=== PATIENT | female | born 1970 | race Two or more races ===

== ENCOUNTER → 2021-02-01 15:25 | Outpatient (BNV) | payer MEDICARE, MEDICAID, SELFPAY | PROVIDERS: Visit Provider Internal Medicine Medical Oncology | DX: D57.3 Sickle-cell trait (principal); Z86.718 Personal history of other venous thrombosis and embolism | CPT/HCPCS: 99213; 99214 ==

== ENCOUNTER 2022-07-11 12:41 | Outpatient (REF) | payer MEDICARE, MEDICAID, SELFPAY ==
[2022-07-11 13:00] LABS: MANUAL DIFF FLAG NO
[2022-07-11 13:04] LABS: Basophils Percent Auto 0.6 % (0-2); Eosinophils Absolute Auto 0.1 X10*3/uL (0.0-0.4); Eosinophils Percent Auto 2.8 % (0-4); Hematocrit 37.9 % (37.0-47.0); Hemoglobin 12.3 g/dl (12.0-16.0); Imm Gran Abs Auto 0.01 X10*3/uL (0.00-0.03); Imm Gran Pct Auto 0.2 % (0.0-0.4); Lymphocytes Percent Auto 38.9 % (20-40); Mean Corpuscular HGB Conc 32.5 g/dl (31.0-35.0); Mean Corpuscular Hemoglobin 27.4 pg (27.0-33.0); Mean Corpuscular Volume 84.4 fL (80.0-98.0); Mean Platelet Volume 10.4 fL (9.4-12.3); Monocytes Absolute Auto 0.4 X10*3/uL (0.1-1.2); Monocytes Percent Auto 7.9 % (2-11); Neutrophils Absolute Auto 2.5 x10*3/uL (2.0-8.3); Neutrophils Percent Auto 49.6 % (45-73); Platelet Count 155 X10*3/uL (160-400); Red Blood Count 4.49 X10*6/uL (4.20-5.50); Red Cell Distribution Width 15.5 % (11.0-16.0); White Blood Count 5.1 X10*3/uL (4.8-10.8)
[2022-07-11 13:26] LABS: Alanine Aminotransferase 26 U/L (0-31); Albumin Level 4.1 g/dL (3.5-5.0); Alkaline Phosphatase 81 U/L (39-117); Anion Gap 14 (12-20); Aspartate Amino Transferase 28 U/L (5-31); Bilirubin Total 0.2 mg/dL (0.0-1.0); Blood Urea Nitrogen 14 mg/dL (9-16); Calcium 9.2 mg/dL (8.4-10.2); Carbon Dioxide 25 mmol/L (22-29); Chloride 106 mmol/L (96-108); Estimated Glomerular Filt Rate > 60; Glucose Random 114 mg/dL (60-115); Potassium 4.3 mmol/L (3.3-5.1); Sodium 141 mmol/L (135-145); Total Protein 6.7 g/dL (6.5-8.0)
[2022-07-11 13:46] LABS: Ferritin 72 ng/mL (10-250)
== END 2022-07-11 12:42 | disposition home or self-care (01) ==
LOC: HO.LAB 12:41
PROVIDERS: Referring Provider Nurse Practitioner Women's Health; Visit Provider Internal Medicine Medical Oncology
DX: Z86.2 Personal history of diseases of the blood and blood-forming organs and certain disorders involving the immune mechanism (principal)
CPT/HCPCS: 36415; 80053; 82728; 85025

== ENCOUNTER → 2022-10-07 08:08 | Outpatient (BNVA) | payer MEDICARE, MEDICAID, SELFPAY | PROVIDERS: Visit Provider Nurse Practitioner | DX: Z01.818 Encounter for other preprocedural examination (principal); K22.10 Ulcer of esophagus without bleeding; K21.9 Gastro-esophageal reflux disease without esophagitis; Z86.718 Personal history of other venous thrombosis and embolism; Z95.828 Presence of other vascular implants and grafts; Z79.01 Long term (current) use of anticoagulants | CPT/HCPCS: 99212 ==

== ENCOUNTER → 2022-12-02 09:03 | Outpatient (BNVA) | payer MEDICARE, MEDICAID, SELFPAY | PROVIDERS: PCP Nurse Practitioner Women's Health; Visit Provider Nurse Practitioner | DX: K22.10 Ulcer of esophagus without bleeding (principal); K21.9 Gastro-esophageal reflux disease without esophagitis; A04.8 Other specified bacterial intestinal infections; Z95.828 Presence of other vascular implants and grafts; Z86.718 Personal history of other venous thrombosis and embolism | CPT/HCPCS: 99212 ==

== ENCOUNTER 2023-05-15 11:30 | Outpatient (REF) | payer MEDICARE, MEDICAID, SELFPAY ==
--- NOTE | ~2023-05-15 | US_ITS ---
EXAMINATION: US VENOUS ULTRASOUND WITH DOPPLER LOWER EXTREMITY, RIGHT CLINICAL INFORMATION: Right leg pain COMPARISON: None available. TECHNIQUE: Ultrasound of the deep veins is performed from the hip to the calf with compression sonography and color and pulse Doppler assessment. Spectral analysis with color-flow imaging is performed. FINDINGS: There is normal venous compression and respiratory variation and augmented flow. The visualized common femoral vein, superficial femoral vein, profunda femoral vein, popliteal vein, and the posterior tibial veins shows no evidence of deep venous thrombosis. Peroneal veins are not seen. Significant calf edema. There is no significant popliteal fossa cyst. US/US venous duplex LE RT IMPRESSION: No DVT demonstrated in the right lower extremity. Peroneal veins not seen.
== END 2023-05-15 11:31 | disposition home or self-care (01) ==
LOC: HO.US 11:30
PROVIDERS: Visit Provider Nurse Practitioner Women's Health
DX: M79.604 Pain in right leg (principal)
CPT/HCPCS: 93971

== ENCOUNTER 2023-06-12 12:28 | Outpatient (AMB) | payer MEDICARE, MEDICAID, SELFPAY ==
[2023-06-12 12:29] VITALS: BP 128/74; PULSE 99; O2SAT 96; BMI 31.6
--- NOTE | 2023-06-12 12:29 | MHC.PC.OV ---
Vital Signs 06/12/23 12:29 Height 5 ft 4 in Weight 184 lb 2 oz BMI 31.6 BP 128/74 Blood Pressure Location Lt brachial Position Sitting Pulse 99 Pulse Source Pulse Oximeter Pulse Oximetry (%) 96 Oxygen Delivery Method Room Air Intake Visit Reasons: check up Allergies aspirin [ASPIRIN] Allergy (Unknown, Verified 06/12/23 12:34) HIVES Morphine Allergy (Unknown, Uncoded 06/12/23 12:34) itching pollen Allergy (Unknown, Uncoded 06/12/23 12:34) Itching Medication List - Last Reconciled 06/12/23 by DAYSI Her cholecalciferol (vitamin D3) (Vitamin D3) 2 tabs PO DAILY levorphanol tartrate 2 mg PO DAILY lisinopril 1 tab PO DAILY lorazepam 1 tab PO TID Nexium (esomeprazole magnesium) 40 mg PO BID NS oxycodone 1 tab PO QID PRN penicillin V potassium 500 mg PO QID rivaroxaban (Xarelto) 20 mg PO DAILY Tobacco use date assessed: 06/12/23 Dental Screening Dental Screen Date: 06/12/23 Did you have a dental visit in the last 12 months?: Yes Did you have a dental problem in the last 6 months where you did not have access to dental care?: No Was dental information given to patient?: Patient has dentist HPI HPI Comments History of Present Illness Details 52-year-old female past medical history significant for sickle cell trait, bipolar anxiety,CKD, GERD and DVT. Patient currently following with Hematology for DVT on Xarelto 20 mg daily. Patient reports following with Dr. De Luna for neprology and follows with gastroenterology for her GERD. When initially brought into the room to obtain vital signs by MERE, MERE reported that patient appeared to be falling asleep during her intake. Upon medication review, patient is on multiple medications for unknown chronic pain. During this exam patient is alert and oriented x 3, ambulating around room with cane. VSS. Patient currently on pregabalin on 100 mg b.i.d., oxycodone 20 mg q.i.d. as needed, levorphanol tartrate 2mg TID in addition to hydroxyzine 25mg prn and lorazepam 1mg TID. Patient reports currently following with [facility] [employer] [facility] which she has a pain contract with and undergoes routine drug screenings. Patient will not be prescribed any controlled substances by this pcp. Patient also reports she follows with psychiatrist who prescribes her lorazepam, and she does not want to disclose the name of her psychiatrist. Previous PCP: Paula Ortega in [place]. [facility] Medical History History of depression Hx of deep venous thrombosis Hx of iron deficiency anemia Hx of sickle cell trait Shearing of artificial skin graft Surgical History H/O colonoscopy H/O esophagogastroduodenoscopy H/O gastric sleeve History of section History of cholecystectomy S/P panniculectomy Family History Brother Brother Other No family history of cancer Social History (Updated 06/12/23 @ 13:00 by DAYSI Her) Household Members: None Housing: House Are you a primary companion caregiver to a significant other at home: No Do you presently have visiting nurse or other home services: No Alcohol intake: current Patient Tobacco Use Status: Current everyday Tobacco user Tobacco use type: Cigarette Cigarette Packs Per Day: 1 Cigarettes Per Day: 6 service: No Current occupational status: disabled Questionnaire PHQ-9 Over the last 2 weeks, how often have you been bothered by any of the following problems? 1. Little interest or pleasure in doing things: several days 2. Feeling down, depressed, or hopeless: more than half the days 3. Trouble falling or staying asleep, or sleeping too much: nearly every day 4. Feeling tired or having little energy: nearly every day 5. Poor appetite or overeating: nearly every day 6. Feeling bad about yourself - or that you are a failure or have let yourself or your family down: not at all 7. Trouble concentrating on things, such as reading the newspaper or watching television: not at all 8. Moving or speaking so slowly that other people could have noticed. Or the opposite - being so fidgety or restless that you have been moving around a lot more than usual: several days 9. Thoughts that you would be better off or of hurting yourself in some way: several days Total score: 14 Depression Screening Interpretation: Positive [id number] - PHQ-9 Billing: Yes Source: Developed by Drs. Bret Kovacs, Krystina Osorio, Arian Gallardo and colleagues, with an educational yeny from [employer]. Thrive Questionnaire Date Thrive assessed: 06/12/23 I am a: Patient What is your living situation today?: I have a steady place to live Within the past 12 months, did the food you bought not last and you didn't have the money to get more?: Sometimes True Within the past 12 months, did you worry whether your food would run out before you got money to buy more?: Sometimes True Do you have trouble paying for medicines?: Yes Do you have trouble getting transportation to medical appointments?: No Do you have trouble paying your heating and electricity bill?: Yes Do you have trouble taking care of your child, family member or friend?: No Do you have trouble with day-to-day activities such as bathing, preparing meals, shopping, managing finances, etc.?: Yes Are you currently unemployed and looking for a job?: No Are you interested in more education?: No Currently or been in a relationship where the following occur: no concerns reported AUDIT C Alcohol Use Questionnaire (AUDIT-C) 1. How often do you have a drink containing alcohol?: Never 3. How often do you have six or more drinks on one occasion?: Never Total Score: 0 TOM-7 AMB Questionnaire TOM-7 Date TOM - 7 assessed: 06/12/23 Feeling nervous, anxious, or on edge: 3 = Nearly every day Not being able to stop or control worryin = Several days Worrying too much about different things: 1 = Several days Trouble relaxin = Several days Being so restless that it is hard to sit still: 3 = Nearly every day Becoming easily annoyed or irritable: 3 = Nearly every day Feeling afraid as if something awful might happen: 3 = Nearly every day Total TOM-7 score (0-4 normal; 5-9 mild; 10-14 moderate; 15-21 severe): 15 Source: Developed by Krystina Douglsas Kurt Kroenke and colleagues, with an educational yeny from [employer]. Review of Systems Const Denies chills, Denies fatigue, Denies fever(s) and Denies poor appetite Eyes Denies no additional complaints ENT Reports Normal hearing present Card Denies chest pain, Denies syncope, Denies rapid heart rate and Denies dyspnea Resp Denies cough and Denies dyspnea GI Denies change in stool character, Denies constipation, Denies diarrhea, Denies nausea and Denies vomiting Denies urinary frequency, Denies dysuria and Denies urinary urgency Neuro Reports Normal hearing present, Denies confusion and Denies syncope Psych Denies confusion Endo Denies fatigue Physical exam (Primary Care) Vital Signs: Last Vital Signs Pulse 99 06/12/23 12:29 BP 128/74 06/12/23 12:29 Pulse Ox 96 06/12/23 12:29 Oxygen Delivery Method Room Air 06/12/23 12:29 BMI result Body Mass Index 31.6 Tobacco/Smoking Status: Tobacco use Status Tobacco use date assessed 06/12/23 06/12/23 12:41 Patient Tobacco Use Status Current everyday Tobacco 06/12/23 13:00 Tobacco use type Cigarette 06/12/23 13:00 PHQ-9: PHQ-9 Score PHQ-9: Total score 14 06/12/23 13:08 Depression Screening Interpretation: Positive Thrive Assessment: Date of Thrive Assessment Date Thrive assessed 06/12/23 06/12/23 12:41 Currently or been in a relationship where the following occur: no concerns reported Const General: No confusion Orientation/consciousness: No confusion HENMT Head: Yes normocephalic and Yes atraumatic Eyes Conjunctivae: conjunctivae normal Chest Chest palpation & inspection: normal inspection of the chest Resp Effort & Inspection: normal respiratory effort Auscultation: clear to auscultation bilaterally, no crackles, no rhonchi and no wheezes Cardio Rate: regular rate Rhythm: regular rhythm Heart sounds: S1 normal heart sound present and S2 normal heart sound present GI Inspection: Yes normal to inspection General: Yes no CVA tenderness Back/Spine/Pelvis Back: no CVA tenderness Neuro General: No confusion Cranial nerves: Yes Normal hearing present Extrem General: No edema Assessment and Plan Assessment & Plan (1) GERD (gastroesophageal reflux disease): Code(s): K21.9 - Gastro-esophageal reflux disease without esophagitis Plan: Continue on Nexium 40 mg b.i.d.. Continue to follow with gastroenterology ?Avoid the foods that cause that, usually spicy foods, tomato products, juices, coffee, soda and foods that you're sensitive to.? After eating do not lie down, allow 3-4 hours before lying down. And keep the head of the bed above 30 degrees to avoid the acid from going up. (2) Chronic anticoagulation: Code(s): Z79.01 - intermediate card tender (current) use of anticoagulants (3) Anxiety: Code(s): F41.9 - Anxiety disorder, unspecified Plan: Continue on lorazepam. Continue to follow with psychiatry who prescribes above medications. (4) History of DVT (deep vein thrombosis): Code(s): Z86.718 - Personal history of other venous thrombosis and embolism Plan: Continue to follow with in continue on Xarelto 20 mg daily. Plan Follow-up in 3 months for complete physical exam. Orders: Orders Complete Blood Count Auto Diff 06/12/23 Z13.0 - Encounter for screening for diseases of the blood and blood-forming organs and certain disorders involving the immune mechanism Comprehensive [place]. Panel Fast 06/12/23 Z13.1 - Encounter for screening for diabetes mellitus Lipid Panel 06/12/23 Z13.220 - Encounter for screening for lipoid disorders TSH reflex Free T4 06/12/23 Z13.29 - Encounter for screening for other suspected endocrine disorder Medications: New acetaminophen ER (Pain Relief (acetaminophen)) 650 mg PO TID PRN hydroxyzine HCl 25 mg PO ONCE PRN pregabalin 100 mg PO BID Changed From levorphanol tartrate 2 mg PO DAILY To levorphanol tartrate 2 mg PO TID From oxycodone 1 tab PO QID PRN severe pain To oxycodone 20 mg PO QID PRN severe pain Coding Level of Care Code New Pt Level 4 (64157) Diagnoses GERD (gastroesophageal reflux disease) K21.9 Chronic anticoagulation Z79.01 Anxiety F41.9 History of DVT (deep vein thrombosis) Z86.718
== END 2023-06-12 13:13 | disposition home or self-care (01) ==
PROVIDERS: PCP Nurse Practitioner Family; Visit Provider Nurse Practitioner Family
DX: K21.9 Gastro-esophageal reflux disease without esophagitis (principal); Z79.01 Long term (current) use of anticoagulants; F41.9 Anxiety disorder, unspecified; Z86.718 Personal history of other venous thrombosis and embolism
CPT/HCPCS: 99204

== ENCOUNTER 2023-12-29 12:25 | Outpatient (AMB) | payer MEDICARE, MEDICAID, SELFPAY ==
[2023-12-29 12:33] VITALS: BP 128/80; PULSE 79; O2SAT 98; BMI 31.2
--- NOTE | 2023-12-29 12:33 | A.OFFPC_ITS ---
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: No Accompanied by: Self / Same As Patient Allergies aspirin [ASPIRIN] Allergy (Unknown, Verified 12/29/23 12:51) HIVES Morphine Allergy (Unknown, Uncoded 12/29/23 12:51) itching pollen Allergy (Unknown, Uncoded 12/29/23 12:51) Itching Medication List - Last Reconciled 12/29/23 by Paolo Armenta MD acetaminophen ER (Pain Relief (acetaminophen)) 650 mg PO TID PRN cephalexin 500 mg PO Q6H 7 days cholecalciferol (vitamin D3) (Vitamin D3) 2 tabs PO DAILY hydroxyzine HCl 25 mg PO .QD PRN lisinopril 2.5 mg PO DAILY lorazepam 1 mg PO TID Nexium (esomeprazole magnesium) 40 mg PO BID NS oxycodone 20 mg PO QID PRN oxycodone ER (OxyContin) 15 mg PO Q12H pregabalin 100 mg PO BID rivaroxaban (Xarelto) 20 mg PO DAILY Tobacco use date assessed: 12/29/23 Dental Screening Dental Screen Date: 12/29/23 Did you have a dental visit in the last 12 months?: No Did you have a dental problem in the last 6 months where you did not have access to dental care?: No Was dental information given to patient?: Patient has dentist HPI pe HPI Details Patient comes in today for her annual physical examination States that she feels okay but currently appears to have an infected tooth on one of her left lower molars (reports experiencing pain and swelling in her gum around the culprit tooth) States that she could not get in to see her dentist immediately and the earliest appt they could give her was on 01/08/2024 She denies any headaches or dizziness Denies any chest pains, no SOB No nausea/vomiting, no abdominal pain No change in bowel habits noted Denies any acute urinary symptoms She is following up with [facility] for chronic pain - is currently on Oxycontin 15 mg Q 12 hours, Oxycodone 20 mg QID PRN and Pregabalin 100 mg BID and her Rx are being prescribed and managed by [facility] She is also on Lorazepam (prescribed by psychiatry/mental health nurse in [place]) for anxiety - states that she does NOT have bipolar disorder She see Dr. Davis for regular follow up of her Protein S deficiency and hypercoagulable state - is on chronic anticoagulation Tx with Xarelto She has been seen by Dr. De Luna in the past for lower extremity edema and mild albuminuria although it does not look like she has seen him recently as her last visit with him was back in late 2020 She was seeing Adela Pires for her GI issues and at her last visit last year, she was going to be scheduled for her colonoscopy (last done in 2012) but it looks like she has not been scheduled yet; she also missed a couple of follow up appointments with GI since States that it has been years since she last had her pap smear and gynecology exam - per W, was last done in 2013 States that she goes to [facility] for her yearly mammogram and recalls getting her mammogram done last year [facility] Medical History (Updated 12/29/23 @ 14:13 by Paolo Armenta MD) Obesity (BMI 30-39.9) Smoker Chronic pain Essential hypertension Protein S deficiency Shearing of artificial skin graft History of depression Hx of sickle cell trait Hx of iron deficiency anemia Hx of deep venous thrombosis Surgical History H/O esophagogastroduodenoscopy H/O colonoscopy S/P panniculectomy H/O gastric sleeve History of section History of cholecystectomy Family History Brother Brother Other No family history of cancer Social History Household Members: None Housing: House Are you a primary critical care rn to a significant other at home: No Do you presently have visiting nurse or other home services: No Alcohol intake: current Patient Tobacco Use Status: Current everyday Tobacco user Tobacco use type: Cigarette Cigarette Packs Per Day: 1 Cigarettes Per Day: 6 e-Cigarette/Vaping Use: Never Used service: No Current occupational status: disabled Cognitive needs: No Hearing needs: No Vision needs: No Questionnaire PHQ-9 Over the last 2 weeks, how often have you been bothered by any of the following problems? 1. Little interest or pleasure in doing things: several days 2. Feeling down, depressed, or hopeless: more than half the days 3. Trouble falling or staying asleep, or sleeping too much: nearly every day 4. Feeling tired or having little energy: nearly every day 5. Poor appetite or overeating: nearly every day 6. Feeling bad about yourself - or that you are a failure or have let yourself or your family down: not at all 7. Trouble concentrating on things, such as reading the newspaper or watching television: not at all 8. Moving or speaking so slowly that other people could have noticed. Or the opposite - being so fidgety or restless that you have been moving around a lot more than usual: several days 9. 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 Bret Kovacs, Krystina Osorio, Arian Gallardo and colleagues, with an educational yeny from [employer]. Thrive Questionnaire Date Thrive assessed: 12/29/23 I am a: Patient What is your living situation today?: I have a steady place to live Within the past 12 months, did the food you bought not last and you didn't have the money to get more?: Sometimes True Within the past 12 months, did you worry whether your food would run out before you got money to buy more?: Sometimes True Do you have trouble paying for medicines?: Yes Do you have trouble getting transportation to medical appointments?: No Do you have trouble paying your heating and electricity bill?: Yes Do you have trouble taking care of your child, family member or friend?: No Do you have trouble with day-to-day activities such as bathing, preparing meals, shopping, managing finances, etc.?: Yes Are you currently unemployed and looking for a job?: No Are you interested in more education?: No Currently or been in a relationship where the following occur: no concerns reported THRIVE Score: 3 AUDIT C Alcohol Use Questionnaire (AUDIT-C) 1. How often do you have a drink containing alcohol?: Never 3. How often do you have six or more drinks on one occasion?: Never Total Score: 0 Score Reviewed/Action Taken: Yes TOM-7 AMB Questionnaire TOM-7 Date TOM - 7 assessed: 12/29/23 Feeling nervous, anxious, or on edge: 3 = Nearly every day Not being able to stop or control worryin = Several days Worrying too much about different things: 1 = Several days Trouble relaxin = Several days Being so restless that it is hard to sit still: 3 = Nearly every day Becoming easily annoyed or irritable: 3 = Nearly every day Feeling afraid as if something awful might happen: 3 = Nearly every day Total TOM-7 score (0-4 normal; 5-9 mild; 10-14 moderate; 15-21 severe): 15 Source: Developed by Drs. Bret Kovacs, Krystina Osorio, Arian Gallardo and colleagues, with an educational yeny from [employer]. Review of Systems Const Denies chills, Denies fatigue, Denies fever(s), Denies headache(s) and Denies malaise Eyes Denies blurry vision, Denies change in vision, Denies irritation and Denies itchy eyes ENT Details: (+) pain and swelling on the gum around her infected left lower molar Denies dysphagia, Denies dizziness, Denies otalgia, Denies headache(s), Denies nasal congestion, Denies neck pain, Denies odynophagia, Denies sinus pain and Denies sore throat Card Denies chest pain, Denies rapid heart rate, Denies irregular heart rhythm, Denies palpitations and Denies dyspnea Resp Denies chest congestion, Denies cough, Denies dyspnea and Denies wheezing GI Denies abdominal pain, Denies bloating, Denies constipation, Denies dysphagia, Denies heartburn, Denies diarrhea, Denies nausea, Denies odynophagia and Denies vomiting Denies hematuria, Denies urinary frequency, Denies dysuria, Denies urinary inc ontinence and Denies urinary urgency Musc Details: (+) chronic diffuse pain Reports back pain, Denies arthralgias, Denies joint swelling, Denies muscle weakness and Denies neck pain Skin/Breast Denies breast pain, Denies breast mass, Denies change in pigmentation, Denies lesions, Denies rash and Denies unusual bruising Neuro Denies dizziness, Denies headache(s) and Denies paresthesias Psych Denies anxiety and Denies depression Endo Denies fatigue and Denies palpitations Kleber/Lymph Denies easy bruising Aller/Immun Denies itchy eyes and Denies wheezing Physical exam (Primary Care) Vital Signs: Last Vital Signs Pulse 79 12/29/23 12:33 BP 128/80 12/29/23 12:33 Pulse Ox 98 12/29/23 12:33 Oxygen Delivery Method Room Air 12/29/23 12:33 BMI result Body Mass Index 31.2 Tobacco/Smoking Status: Tobacco use Status Tobacco use date assessed 12/29/23 12/29/23 12:40 Patient Tobacco Use Status Current everyday Tobacco 12/29/23 12:40 Tobacco use type Cigarette 12/29/23 12:40 e-Cigarette/Vaping Use Never Used 12/29/23 12:40 PHQ-9: PHQ-9 Score PHQ-9: Total score 14 12/29/23 12:54 Depression Screening Interpretation: Positive Depression Screening Follow-up: Existing condition, In treatment and Community Mental Health Worker F/U Thrive Assessment: Date of Thrive Assessment Date Thrive assessed 12/29/23 12/29/23 12:40 Currently or been in a relationship where the following occur: no concerns reported Const General: no acute distress, alert and awake Orientation/consciousness: patient oriented x3 HENMT Head: Yes normocephalic and Yes atraumatic Ears: external ears normal, TM's normal bilaterally and EAC's normal General nose exam: No nasal discharge present Face and sinus: Yes normal facial exam and Yes sinuses nontender Teeth and gingiva: caries (over one of the left lower molars) Throat: Yes posterior oropharynx normal and Yes tonsils normal (no TP conges tion) Eyes Eyelids: Yes eyelids normal Conjunctivae: conjunctivae normal Pupils: Equal, round and reactive pupils present EOM: EOMs intact bilaterally Neck Neck: Yes no lymphadenopathy and Yes supple Thyroid: Thyroid normal Resp Auscultation: clear to auscultation bilaterally, no rales and no wheezes Cardio Rate: regular rate Rhythm: regular rhythm Heart sounds: no murmurs GI Palpation (GI): Soft to palpation, nontender and No hepatosplenomegaly present Auscultation: normal bowel sounds General: Yes no CVA tenderness Back/Spine/Pelvis Back: no CVA tenderness Thoracic/Lumbar Spine: thoracic and lumbar spine normal to inspection Skin Lesions: no lesions Rashes: no rashes Neuro General: patient oriented x3, moves all extremities, no focal motor deficits and CN's II-XI intact bilaterally Cranial nerves: Yes Equal, round and reactive pupils present Cognition (Neuro): normal cognition Gait exam (Neuro): Normal gait present Extrem General: Yes no clubbing, cyanosis or edema Assessment and Plan Assessment & Plan (1) Annual physical exam: Code(s): Z00.00 - Encounter for general adult medical examination without abnormal findings Plan: Check labs She is up-to-date with her annual mammogram (done at [facility]) but is due for her yearly gynecology exam and pap smear as well as her repeat colonoscopy (2) Essential hypertension: Code(s): I10 - Essential (primary) hypertension Plan: Reinforced low sodium diet - goal is systolic BP of 120 mm or less Continue Lisinopril 2.5 mg QD (3) Protein S deficiency: Code(s): D68.59 - Other primary thrombophilia Plan: Is currently on chronic anticoagulation with Xarelto 20 mg QD Follow up with hematology as scheduled (4) Erosive esophagitis: Code(s): K22.10 - Ulcer of esophagus without bleeding Plan: Reinforced dietary restrictions Continue Pantoprazole 40 mg QD Follow up with GI as scheduled Patient is advised to reach out to GI to schedule a follow up appointment and have them help her get her repeat colonoscopy scheduled as well (5) History of DVT (deep vein thrombosis): Code(s): Z86.718 - Personal history of other venous thrombosis and embolism Plan: Continue Xarelto 20 mg QD Also S/P Tyler filter placement Follow up with hematology as scheduled (6) Sickle cell trait: Code(s): D57.3 - Sickle-cell trait Plan: Will recheck her CBC for follow up She is reminded to stay hydrated and avoid strenous activities as much as possible to avoid triggering acute chest syndromes (7) Chronic pain: Code(s): G89.29 - Other chronic pain Qualifiers: Chronic pain type: chronic pain syndrome Qualified Code(s): G89.4 - Chronic pain syndrome Plan: Continue Oxycodone ER 15 mg Q 12 hours, Oxycodone 20 mg QID PRN for breakthrough pain and Pregabalin 100 mg BID Follow up with [facility] as scheduled for continuing pain management (8) Infected dental caries: Code(s): K02.9 - Dental caries, unspecified; K04.7 - Periapical abscess without sinus Plan: Over one of her left lower molar She is not able to get in to see her dentist until 01/08/2024 Will start her on Cephalexin 500 mg Q 6 hours x 7 days She is advised/reminded to see her dentist as scheduled to have this addressed more completely (9) Anxiety: Code(s): F41.9 - Anxiety disorder, unspecified Plan: Continue Lorazepam 1 mg TID PRN and Hydroxyzine 25 mg QD PRN Follow up with psychiatry as scheduled (10) Smoker: Code(s): F17.200 - Nicotine dependence, unspecified, uncomplicated Plan: Counseled on smoking cessation (11) Obesity (BMI 30-39.9): Code(s): E66.9 - Obesity, unspecified Plan: Reinforced diet/exercise as tolerated/lose weight Plan Follow up in 4 months Orders: Orders Lipid Panel Today E78.00 - Pure hypercholesterolemia, unspecified, Z00.00 - Encounter for general adult medical examination without abnormal findings TSH reflex Free T4 Today E78.00 - Pure hypercholesterolemia, unspecified, Z00.00 - Encounter for general adult medical examination without abnormal findings Vitamin D 25-OH Total Today E55.9 - Vitamin D deficiency, unspecified, Z00.00 - Encounter for general adult medical examination without abnormal findings Complete Blood Count Auto Diff Today D57.3 - Sickle-cell trait, Z00.00 - Encounter for general adult medical examination without abnormal findings Comprehensive [place]. Panel Fast Today E78.00 - Pure hypercholesterolemia, unspecified, Z00.00 - Encounter for general adult medical examination without abnormal findings UA CC w/rflx Micro + Cult Today R30.0 - Dysuria, Z00.00 - Encounter for general adult medical examination without abnormal findings Hemoglobin A1c Today R73.01 - Impaired fasting glucose, Z00.00 - Encounter for general adult medical examination without abnormal findings Referrals [facility] Referral Z12.4 - Encounter for screening for malignant neoplasm of cervix Medications: New cephalexin 500 mg PO Q6H 7 days 28 caps 0RF Coding Level of Care Code Est Pt Prev Care 40-64y(29389) Diagnoses Annual physical exam Z00.00 Essential hypertension I10 Protein S deficiency D68.59 Erosive esophagitis K22.10 History of DVT (deep vein thrombosis) Z86.718 Sickle cell trait D57.3 Chronic pain syndrome G89.4 Chronic pain type: chronic pain syndrome Infected dental caries K02.9; K04.7 Anxiety F41.9 Smoker F17.200 Obesity (BMI 30-39.9) E66.9
== END 2023-12-29 13:15 | disposition home or self-care (01) ==
PROVIDERS: PCP Nurse Practitioner Family; Visit Provider Internal Medicine
DX: Z00.00 Encounter for general adult medical examination without abnormal findings (principal); D68.59 Other primary thrombophilia; D57.3 Sickle-cell trait; I10 Essential (primary) hypertension; K22.10 Ulcer of esophagus without bleeding; Z86.718 Personal history of other venous thrombosis and embolism; G89.4 Chronic pain syndrome; K02.9 Dental caries, unspecified; K04.7 Periapical abscess without sinus; F41.9 Anxiety disorder, unspecified; F17.200 Nicotine dependence, unspecified, uncomplicated; E66.9 Obesity, unspecified
CPT/HCPCS: 99396

== ENCOUNTER 2024-01-25 13:41 | Outpatient (REF) | payer MEDICARE, MEDICAID, SELFPAY ==
[2024-01-25 14:02] LABS: MANUAL DIFF FLAG NO
[2024-01-25 15:07] LABS: Basophils Absolute Auto 0.1 X10*3/uL (0.0-0.2); Basophils Percent Auto 1.4 % (0-2); Eosinophils Absolute Auto 0.2 X10*3/uL (0.0-0.4); Eosinophils Percent Auto 3.3 % (0-4); Hemoglobin 11.7 g/dl (12.0-16.0); Lymphocytes Percent Auto 41.9 % (20-40); Mean Corpuscular HGB Conc 31.6 g/dl (31.0-35.0); Mean Corpuscular Hemoglobin 27.1 pg (27.0-33.0); Mean Corpuscular Volume 85.6 fL (80.0-98.0); Mean Platelet Volume 10.9 fL (9.4-12.3); Monocytes Absolute Auto 0.6 X10*3/uL (0.1-1.2); Monocytes Percent Auto 11.3 % (2-11); Neutrophils Percent Auto 42.1 % (45-73); Platelet Count 143 X10*3/uL (160-400); Red Blood Count 4.32 X10*6/uL (4.20-5.50); Red Cell Distribution Width 15.4 % (11.0-16.0); White Blood Count 4.9 X10*3/uL (4.8-10.8)
[2024-01-25 15:32] LABS: Estimated Average Glucose 108 mg/dL; Hemoglobin A1c % 5.4 % (<6.0)
[2024-01-25 15:37] LABS: Alanine Aminotransferase 10 U/L (0-31); Albumin Level 3.8 g/dL (3.5-5.0); Alkaline Phosphatase 77 U/L (39-117); Anion Gap 12 (12-20); Aspartate Amino Transferase 15 U/L (5-31); Bilirubin Total 0.4 mg/dL (0.0-1.0); Blood Urea Nitrogen 13 mg/dL (9-16); Calcium 9.2 mg/dL (8.4-10.2); Carbon Dioxide 24 mmol/L (22-29); Chloride 107 mmol/L (96-108); Cholesterol 184 mg/dL (<200); Estimated Glomerular Filt Rate > 60; Glucose Fasting 84 mg/dL (60-99); HDL Cholesterol 57 mg/dL (>40); LDL Cholesterol Calculated 109 mg/dL (<100); Sodium 139 mmol/L (135-145); Triglycerides 91 mg/dL (<150)
[2024-01-25 15:52] LABS: TSH reflex Free T4 1.21 uIU/mL (0.32-4.0); Vitamin D 25-OH Total 24.8 ng/mL (>30)
== END 2024-01-25 13:42 | disposition home or self-care (01) ==
LOC: HO.LAB 13:41
PROVIDERS: PCP Internal Medicine; Visit Provider Internal Medicine
DX: Z00.00 Encounter for general adult medical examination without abnormal findings (principal); E78.00 Pure hypercholesterolemia, unspecified; D57.3 Sickle-cell trait; E55.9 Vitamin D deficiency, unspecified; R73.01 Impaired fasting glucose; R30.0 Dysuria
CPT/HCPCS: 36415; 80053; 80061; 82306; 83036; 84443; 85025

== ENCOUNTER 2024-03-28 08:58 | Outpatient (AMB) | payer MEDICARE, MEDICAID, SELFPAY ==
[2024-03-28 09:03] VITALS: BMI 31.2
--- NOTE | 2024-03-28 09:03 | A.OFFVIS_ITS ---
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 No complaints. Last Pap/HPV was negative in 09/[address] [facility] Last Mammogram was BI-RADS 1 in 06/17 The patient is scheduled for a consult with GI for screening Colonoscopy in few weeks [facility] Medical History Obesity (BMI 30-39.9) Smoker Chronic pain Essential hypertension Protein S deficiency Shearing of artificial skin graft History of depression Hx of sickle cell trait Hx of iron deficiency anemia Hx of deep venous thrombosis Surgical History H/O esophagogastroduodenoscopy H/O colonoscopy S/P panniculectomy H/O gastric sleeve History of section History of cholecystectomy Family History Brother Brother Other No family history of cancer Social History Household Members: None Housing: House Are you a primary account executive healthcare to a significant other at home: No Do you presently have visiting nurse or other home services: No Alcohol intake: current Patient Tobacco Use Status: Current everyday Tobacco user Tobacco use type: Cigarette Cigarette Packs Per Day: 1 Cigarettes Per Day: 6 e-Cigarette/Vaping Use: Never Used service: No Current occupational status: disabled Cognitive needs: No Hearing needs: No Vision needs: No Female Reproductive History Menstrual Total pregnancies: 4 Full term: 2 Number of Living Children: 2 Ab spontaneous: 2 Date of last pap smear: 09/19/19 Date of Mammogram: 06/02/23 Review of Systems Const All systems reviewed & are unremarkable except as noted in HPI and below Card Reports as per HPI Resp Reports as per HPI GI Reports as per HPI and Reports no additional complaints Reports as per HPI Physical Exam Vital Signs: BMI result Body Mass Index 31.2 Const General: cooperative, healthy appearing and comfortable Chest Chest palpation & inspection: normal inspection of the chest and normal palpation of entire chest wall Breast/axilla inspection: normal inspection of the breasts and normal inspection of the axillae Breast/axilla palpation: normal palpation of the breasts, normal palpation of the axillae and no axillary lymphadenopathy Resp Effort & Inspection: normal respiratory effort Auscultation: clear to auscultation bilaterally Percussion: percussion normal Cardio Palpation: normal PMI Rate: regular rate Rhythm: regular rhythm Heart sounds: no murmurs and no rubs Peripheral pulses: Peripheral pulses 2+ throughout GI Inspection: Yes normal to inspection Palpation (GI): Soft to palpation, nontender, no guarding, not rigid and No hepatosplenomegaly present Percussion: Yes normal to percussion Auscultation: normal bowel sounds Rectal Exam - Female: deferred General: Yes bladder normal to palpation External Female Exam: No lesion Speculum Exam - Vagina: normal appearance of the vagina, normal palpation, normal vaginal discharge and not erythematous Speculum Exam - Cervix: normal appearance of the cervix and normal palpation Bimanual exam- vagina & uterus: normal bimanual exam, normal palpation, uterine size normal, bladder normal to palpation, consistency normal and normal palpation Bimanual Exam- Adnexa, other: normal adnexae, no masses and no tenderness Assessment & Plan Assessment & Plan (1) Well woman exam: Code(s): Z01.419 - Encounter for gynecological examination (general) (routine) without abnormal findings Category: Medical Plan: Co testing done. Counseled the patient about the recommended dietary allowance of 1200 mg of Calcium & 600 IU of vitamin D. Instructions given to patient to schedule her next screening mammogram in 06/18 . The patient is scheduled for a consult with GI in few weeks for screening colonoscopy . The patient was instructed to perform monthly self-breast exams and schedule annual exam in a year. All questions answered and the patient verbalized understanding. Coding Level of Care Code New Pt Prev Care 40-64y(71915) Diagnoses Well woman exam Z01.419
== END 2024-03-28 09:35 | disposition home or self-care (01) ==
LOC: HO.HWS 08:58
PROVIDERS: PCP Internal Medicine; Visit Provider Obstetrics & Gynecology
DX: Z01.419 Encounter for gynecological examination (general) (routine) without abnormal findings (principal)
CPT/HCPCS: G0101; Q0091

== ENCOUNTER 2024-03-28 08:58 | Outpatient (REF) | payer MEDICARE, MEDICAID, SELFPAY ==
[2024-04-08 03:49] LABS: HPV mRNA E6/E7 rflx Not Detected (Not Detected)
== END 2024-03-28 08:59 | disposition home or self-care (01) ==
LOC: HO.LNP 08:58
PROVIDERS: PCP Internal Medicine; Visit Provider Obstetrics & Gynecology
DX: Z01.419 Encounter for gynecological examination (general) (routine) without abnormal findings (principal); Z68.31 Body mass index [BMI] 31.0-31.9, adult
CPT/HCPCS: 87624; 88142; G0101; Q0091

== ENCOUNTER 2024-04-08 09:59 | Outpatient (AMB) | payer MEDICARE, MEDICAID, SELFPAY ==
[2024-04-08 10:04] VITALS: BP 137/80; PULSE 87; BMI 29.5
--- NOTE | 2024-04-08 10:04 | A.OFFVIS_ITS ---
Vital Signs 04/08/24 10:04 Height 5 ft 4 in Weight 172 lb BMI 29.5 BP 137/80 Blood Pressure Location Lt brachial Position Sitting Pulse 87 Comment weight stated per PT Intake Visit Reasons: Gerd Intake Note: Patient presents to in office visit today in follow up of GERD. CC: Patient states that the acid reflux sometimes comes out of her nostrils. Manager Switch Required: No Allergies morphine Allergy (Severe, Verified 04/08/24 10:10) Itching aspirin [ASPIRIN] Allergy (Unknown, Verified 04/08/24 10:10) HIVES pollen Allergy (Unknown, Uncoded 03/28/24 11:57) Itching HPI HPI Gerd: Details: Assessment & Plan (1) Erosive esophagitis: ?Code(s): K22.10 - Ulcer of esophagus without bleeding ?Plan: She still has not received the nexium, as her insurance is denying to cover brand name only. She has a history of erosive esophagitis on all past EGD's, no SSBE yet, but if not controlled this assuredly would be the outcome in this patient who is also s/p gastric bypass making her more susceptible to reflux r/t small gastric pouch. I note that Dexilant seems to be on her formulary, so we will try to get her this until while we work on getting her brand name Nexium approved. She has not yet heard on having her repeat EGD/colonoscopy scheduled, and there is no order in the computer. Her last colonoscopy was in 2012 and was negative. Her last EGD was 2017 and showed active erosive esophagitis. ROV 6 mos per pt request. (2) H. pylori infection: ?Comment: H pylori breath test in 2018 was negative (?? Was patient off of her PPI) ?Code(s): A04.8 - Other specified bacterial intestinal infections (3) GERD (gastroesophageal reflux disease): ?Code(s): K21.9 - Gastro-esophageal reflux disease without esophagitis (4) History of DVT (deep vein thrombosis): ?Code(s): Z86.718 - Personal history of other venous thrombosis and embolism (5) [place] filter in place: ?Code(s): Z95.828 - Presence of other vascular implants and grafts COLONOSCOPY NOT SCHEDULED HER OBTAINED, BIOPSY. Laboratory Tests 03/28/24 12:02 WBC 5.4 Hgb 12.2 Hct 37.4 Plt Count 155 L Estimated GFR 55 Total Bilirubin 0.2 AST 13 ALT 7 Alkaline Phosphatase 70 TODAY'S VISIT Pt has been lost to follow up since 11/2022 She was never called for her scope. Will re input, She has been out of her Nexium bid since August r/t missed appts. She is agreeable to EGD/colonoscopy - last EGD 2016 RoV 6 mos. PFSH Medical History Morbid obesity Annual physical exam Infected dental caries Well woman exam Obesity (BMI 30-39.9) Smoker Chronic pain Essential hypertension Protein S deficiency Shearing of artificial skin graft History of depression Hx of sickle cell trait Hx of iron deficiency anemia Hx of deep venous thrombosis Surgical History H/O esophagogastroduodenoscopy H/O colonoscopy S/P panniculectomy H/O gastric sleeve History of section History of cholecystectomy Family History Brother Brother Other No family history of cancer Social History Household Members: None Housing: House Are you a primary hospice care sales consultant to a significant other at home: No Do you presently have visiting nurse or other home services: No Alcohol intake: current Patient Tobacco Use Status: Current everyday Tobacco user Tobacco use type: Cigarette Cigarette Packs Per Day: 1 Cigarettes Per Day: 6 e-Cigarette/Vaping Use: Never Used service: No Current occupational status: disabled Cognitive needs: No Hearing needs: No Vision needs: No Review of Systems Const Denies fatigue, Denies fever(s), Denies night sweats, Denies poor appetite and Denies weight loss Eyes Details: glasses Reports requires corrective lenses ENT Reports Normal hearing present, Denies dental pain, Reports dysphagia, Denies hearing loss, Denies mouth pain, Reports neck pain, Denies odynophagia, Denies throat swelling, Denies tongue swelling and Reports other (Dentition adequate) Card Reports no additional complaints Resp Reports no additional complaints GI Details: Denies abdominal pain, Denies melena, Denies bloating, Denies hematochezia, Denies constipation, Denies GI cramping, Reports dysphagia, Denies excessive flatus, Denies early satiety, Reports heartburn, Denies diarrhea, Denies nausea, Denies odynophagia, Denies vomiting and Denies hematemesis Musc Reports back pain, Reports myalgias, Reports arthralgias, Reports neck pain and Reports stiffness Skin/Breast Denies pruritus, Denies lesions, Denies rash and Denies jaundice Neuro Reports Normal hearing present and Denies Abnormal speech present Psych Reports anxiety Endo Denies fatigue Aller/Immun Denies throat swelling and Denies tongue swelling Physical Exam Vital Signs: Last Vital Signs Pulse 87 04/08/24 10:04 BP 137/80 04/08/24 10:04 BMI result Body Mass Index 29.5 Const General: cooperative, no acute distress, well developed and well groomed Nutritional Appearance: well nourished and overweight Orientation/consciousness: oriented to person, oriented to place and oriented to time Limitations: No language barrier HEENT Head: Yes normocephalic and Yes atraumatic Eyes General: appearance normal, both eyes and all related structures Pupils: Equal, round and reactive pupils present Neck Neck: Yes normal visual inspection and Yes no lymphadenopathy Thyroid: Thyroid normal Resp Effort & Inspection: normal respiratory effort and able to speak in complete sentences Auscultation: clear to auscultation bilaterally Cardio Rate: regular rate Rhythm: regular rhythm Heart sounds: Normal, physiologic split S2 sound present Peripheral pulses: radial pulses present and posterior tibial pulses present GI Inspection: No distended, No Abdominal panniculus present and Yes obesity Palpation (GI): Soft to palpation, nontender, no guarding, not rigid and No hepatosplenomegaly present Percussion: Yes normal to percussion Auscultation: normal bowel sounds Rectal Exam - Female: deferred Skin General skin exam: no rashes or lesions noted, turgor normal, skin not dry, no jaundice, No spider nevi and no striae Rashes: no rashes Nails: normal Neuro General: oriented to person, oriented to place and oriented to time Cranial nerves: Yes Equal, round and reactive pupils present and Yes Normal hearing present Speech: No Abnormal speech present Extrem General: Yes normal to inspection, No clubbing, No cyanosis and No edema Psych Appearance: grossly normal and well kempt Mental Status: mental status grossly normal Speech and movement: Normal speech and movement present Affect: Irritable affect present Attitude: cooperative Thought process: not confabulating and Impoverished thought process present Thought content: Normal thought content present Insight: Limited insight present (Psych) Judgement: Limited judgement present (Psych) Assessment & Plan Assessment & Plan (1) Erosive esophagitis: Code(s): K22.10 - Ulcer of esophagus without bleeding Category: Medical (2) GERD (gastroesophageal reflux disease): Code(s): K21.9 - Gastro-esophageal reflux disease without esophagitis Category: Medical (3) Pre-op examination: Code(s): Z01.818 - Encounter for other preprocedural examination Category: Medical (4) Chronic anticoagulation: Comment: On Catierelto Code(s): Z79.01 - longterm (current) use of anticoagulants Category: Medical Plan Pt has been lost to follow up since 11/2022 She was never called for her scope. Will re input, She has been out of her Nexium bid since August r/t missed appts. She is agreeable to EGD/colonoscopy - last EGD 2017 RoV 6 mos. Orders: Orders EGD/[place] Combo - GI Use Only 04/08/24 K22.10 - Ulcer of esophagus without bleeding Medications: New sodium,potassium,mag sulfates 17.5-3.13-1.6 gram (Suprep Bowel Prep Kit) 480 mL orally; FOR COLONOSCOPY PREP 354 mL 0RF Refilled Nexium 40 mg PO BID 60 caps 6RF NS K22.10 - Ulcer of esophagus without bleeding Nexium 40 mg PO BID 60 caps 6RF NS K22.10 - Ulcer of esophagus without bleeding Nexium (esomeprazole magnesium) 40 mg PO BID 60 caps 6RF NS K22.10 - Ulcer of esophagus without bleeding Coding Level of Care Code Est Pt Level 3 (67778) Diagnoses Erosive esophagitis K22.10 GERD (gastroesophageal reflux disease) K21.9 Pre-op examination Z01.818 Chronic anticoagulation Z79.01
== END 2024-04-08 10:36 | disposition home or self-care (01) ==
PROVIDERS: PCP Internal Medicine; Visit Provider Nurse Practitioner
DX: K22.10 Ulcer of esophagus without bleeding (principal); K21.9 Gastro-esophageal reflux disease without esophagitis; Z01.818 Encounter for other preprocedural examination; Z79.01 Long term (current) use of anticoagulants
CPT/HCPCS: 99213

== ENCOUNTER → 2024-04-08 09:59 | Outpatient (BNVA) | payer MEDICARE, MEDICAID, SELFPAY ==
--- NOTE | 2024-05-18 10:54 | P.CONNP_ITS ---
History of Present Illness Reason for Consult Consult date: 05/18/24 Chief Complaint Chief complaint: Gerd History of Present Illness Narrative: [facility] PT seen today re:leg swelling Renal func stable CKD 2/3 Leg edema d/t DVT /venosis stasis and lymph edema Needs yurine studies to r/o proteinuria; avoid NSAIDs, lymph edema management and repeat leg u/s F/U in office in 6 months [facility] Past Medical History Medical History (Updated 05/02/24 @ 12:22 by Paolo Armenta MD) Vitamin D deficiency Infected dental caries Obesity (BMI 30-39.9) Smoker Chronic pain Essential hypertension Protein S deficiency Shearing of artificial skin graft History of depression Hx of sickle cell trait Hx of iron deficiency anemia Hx of deep venous thrombosis Family History Family History Brother Brother Other No family history of cancer Surgical History Surgical History History of knee surgery H/O esophagogastroduodenoscopy H/O colonoscopy S/P panniculectomy H/O gastric sleeve History of section History of cholecystectomy Social History Social History Household Members: None Housing: House Are you a primary care nurse rn to a significant other at home: No Do you presently have visiting nurse or other home services: No Alcohol intake: current Patient Tobacco Use Status: Current everyday Tobacco user Tobacco use type: Cigarette Cigarette Packs Per Day: 0.5 Cigarettes Per Day: 6 e-Cigarette/Vaping Use: Never Used Second Hand Smoke Exposure: Yes service: No Current occupational status: disabled Cognitive needs: No Hearing needs: No Vision needs: No Meds Allergies Allergy/AdvReac Type Severity Reaction Status Date / Time morphine Allergy Severe Itching Verified 05/02/24 10:57 aspirin [ASPIRIN] Allergy Unknown HIVES Verified 05/02/24 10:57 pollen Allergy Unknown Itching Uncoded 05/02/24 10:57 Home Medications ?Medication ?Instructions ?Recorded ?Confirmed ?Last Taken ?Type cholecalciferol (vitamin D3) 25 2 tab PO DAILY 01/24/21 05/02/24 Unknown History mcg (1,000 unit) chewable tablet (Vitamin D3) acetaminophen 650 mg 650 mg PO TID PRN Pain 06/12/23 05/02/24 Unknown History tablet,extended release (Pain Relief (acetaminophen)) pregabalin 100 mg capsule 100 mg PO BID 06/12/23 05/02/24 Unknown History hydroxyzine HCl 25 mg tablet 25 mg PO .QD PRN Anxiety 12/29/23 05/02/24 Unknown History lisinopril 2.5 mg tablet 2.5 mg PO DAILY 12/29/23 05/02/24 Unknown History lorazepam 1 mg tablet 1 mg PO TID 12/29/23 05/02/24 Unknown History oxycodone 20 mg tablet 20 mg PO QID PRN Pain 03/28/24 05/02/24 Unknown History oxycodone 10 mg tablet,crush 10 mg PO BID 04/08/24 05/02/24 Unknown History resistant,extended release 12 hr (OxyContin) Procedures Date of Service Date of Service: 05/18/24
== END ==
PROVIDERS: PCP Internal Medicine; Visit Provider Nurse Practitioner
DX: Z01.818 Encounter for other preprocedural examination (principal); K21.9 Gastro-esophageal reflux disease without esophagitis; K22.10 Ulcer of esophagus without bleeding; Z86.718 Personal history of other venous thrombosis and embolism; Z79.01 Long term (current) use of anticoagulants
CPT/HCPCS: 99212

== ENCOUNTER 2024-05-02 09:53 | Outpatient (AMB) | payer MEDICARE, MEDICAID, SELFPAY ==
--- NOTE | 2024-05-02 10:13 | MHC.PC.OV ---
Vital Signs 05/02/24 10:14 Height 5 ft 4 in Weight 183 lb 2 oz BMI 31.4 BP 122/76 Blood Pressure Location Lt brachial Position Sitting Pulse 70 Pulse Source Pulse Oximeter Pulse Oximetry (%) 100 Oxygen Delivery Method Room Air Intake Visit Reasons: HTN, gastritis Intake Note: Patient is here to follow up on HTN, Gastritis. Disease Education Specialist Required: No Lacer And Tier: Not Required per policy Accompanied by: Self / Same As Patient Allergies morphine Allergy (Severe, Verified 05/02/24 10:57) Itching aspirin [ASPIRIN] Allergy (Unknown, Verified 05/02/24 10:57) HIVES pollen Allergy (Unknown, Uncoded 05/02/24 10:57) Itching Medication List - Last Reconciled 05/02/24 by Paolo Armenta MD acetaminophen ER (Pain Relief (acetaminophen)) 650 mg PO TID PRN cholecalciferol (vitamin D3) (Vitamin D3) 2 tabs PO DAILY hydroxyzine HCl 25 mg PO .QD PRN lisinopril 2.5 mg PO DAILY lorazepam 1 mg PO TID Nexium (esomeprazole magnesium) 40 mg PO BID NS oxycodone 20 mg PO QID PRN oxycodone ER (OxyContin) 10 mg PO BID pregabalin 100 mg PO BID rivaroxaban (Xarelto) 20 mg PO DAILY sodium,potassium,mag sulfates 17.5-3.13-1.6 gram (Suprep Bowel Prep Kit) 480 mL orally; FOR COLONOSCOPY PREP Tobacco use date assessed: 05/02/24 Dental Screening Dental Screen Date: 12/29/23 HPI HTN, gastritis HPI Details Patient comes in today for her follow up visit States that she currently feels okay except for her anxiety, which she feels is undertreated and she feels that her current menopausal symptoms are aggravating her anxiety Has been seeing a therapist (with [facility]) for the past few months and has not yet been seen by a psychiatrist Relates (+) frequent mood swings and irritability over the past several months, which she again believes are tied in to her menopausal symptoms Relates that she has mentioned this to her previous psychiatrist and to her therapists but thinks that they do not seem to be taking this seriously and that they do not believe that her menopausal symptoms have much to do with her anxiety Recalls that she was doing so much better when she was seeing Dr. Sumner here a few years ago and would like to see if she can get back in to see Dr. Sumner States that she does not wish to continue seeing her current therapist, who she believes has more problems than she does She denies any headaches or dizziness Denies any chest pains, no increased SOB No nausea/vomiting, no abdominal pain No change in bowel habits noted Would like to know how she did on her labs done a few months ago She continues to follow up with [facility] for her chronic pain - is currently on Oxycontin 15 mg Q 12 hours, Oxycodone 20 mg QID PRN and Pregabalin 100 mg BID and her Rx are being prescribed and managed by [facility] Medical History (Updated 05/02/24 @ 12:22 by Paolo Armenta MD) Vitamin D deficiency Infected dental caries Obesity (BMI 30-39.9) Smoker Chronic pain Essential hypertension Protein S deficiency Shearing of artificial skin graft History of depression Hx of sickle cell trait Hx of iron deficiency anemia Hx of deep venous thrombosis Surgical History History of knee surgery H/O esophagogastroduodenoscopy H/O colonoscopy S/P panniculectomy H/O gastric sleeve History of section History of cholecystectomy Family History Brother Brother Other No family history of cancer Social History Household Members: None Housing: House Are you a primary progressive care nurse to a significant other at home: No Do you presently have visiting nurse or other home services: No Alcohol intake: current Patient Tobacco Use Status: Current everyday Tobacco user Tobacco use type: Cigarette Cigarette Packs Per Day: 0.5 Cigarettes Per Day: 6 e-Cigarette/Vaping Use: Never Used Second Hand Smoke Exposure: Yes service: No Current occupational status: disabled Cognitive needs: No Hearing needs: No Vision needs: No Questionnaire Thrive Questionnaire Date Thrive assessed: 12/29/23 TOM-7 AMB Questionnaire TOM-7 Date TOM - 7 assessed: 12/29/23 Source: Developed by Drs. Bret Kovacs, Krystina Osorio, Arian Gallardo and colleagues, with an educational yeny from [employer]. Review of Systems Const Denies chills, Denies fatigue, Denies fever(s) and Denies headache(s) ENT Denies dysphagia, Denies dizziness, Denies otalgia, Denies headache(s), Denies neck pain, Denies odynophagia and Denies sore throat Card Denies chest pain, Denies irregular heart rhythm, Denies palpitations and Denies dyspnea Resp Denies chest congestion, Denies cough, Denies dyspnea and Denies wheezing GI Denies abdominal pain, Denies constipation, Denies dysphagia, Denies heartburn, Denies diarrhea, Denies nausea, Denies odynophagia and Denies vomiting Denies urinary frequency, Denies dysuria and Denies urinary incontinence Musc Details: (+) chronic diffuse pain Reports back pain, Denies arthralgias and Denies neck pain Skin/Breast Denies rash Neuro Denies dizziness, Denies headache(s) and Denies paresthesias Psych Reports as per HPI, Reports anxiety, Denies depression, Reports irritability and Reports mood swings Endo Denies fatigue and Denies palpitations Kleber/Lymph Denies easy bruising Aller/Immun Denies wheezing Physical exam (Primary Care) Vital Signs: Last Vital Signs Pulse 70 05/02/24 10:14 BP 122/76 05/02/24 10:14 Pulse Ox 100 05/02/24 10:14 Oxygen Delivery Method Room Air 05/02/24 10:14 BMI result Body Mass Index 31.4 Tobacco/Smoking Status: Tobacco use Status Tobacco use date assessed 05/02/24 05/02/24 10:20 Patient Tobacco Use Status Current everyday Tobacco 05/02/24 10:20 Tobacco use type Cigarette 05/02/24 10:20 e-Cigarette/Vaping Use Never Used 05/02/24 10:20 Thrive Assessment: Date of Thrive Assessment Date Thrive assessed 12/29/23 05/02/24 10:20 Const General: no acute distress and alert HENMT Ears: TM's normal bilaterally and EAC's normal Throat: Yes posterior oropharynx normal and Yes tonsils normal (no TP congestion) Neck Neck: Yes no lymphadenopathy and Yes supple Thyroid: Thyroid normal Resp Auscultation: clear to auscultation bilaterally, no rales and no wheezes Cardio Rate: regular rate Rhythm: regular rhythm Heart sounds: no murmurs GI Palpation (GI): Soft to palpation and nontender Auscultation: normal bowel sounds General: Yes no CVA tenderness Back/Spine/Pelvis Back: no CVA tenderness Thoracic/Lumbar Spine: lumbar spinal tenderness Skin Rashes: no rashes Extrem General: Yes no clubbing, cyanosis or edema Results Reviewed Results Reviewed: Laboratory Tests 01/25/24 03/28/24 14:00 12:02 WBC 5.4 Hgb 12.2 Hct 37.4 Plt Count 155 L Sodium 138 Potassium 4.4 Creatinine 1.04 Estimated GFR 55 Random Glucose 90 Fasting Glucose 84 Hemoglobin A1c % 5.4 Calcium 9.0 AST 13 ALT 7 Triglycerides 91 Cholesterol 184 LDL Cholesterol, Calc 109 H HDL Cholesterol 57 25-OH Vitamin D Total 24.8 L TSH 1.21 Assessment and Plan Assessment & Plan (1) Essential hypertension: Code(s): I10 - Essential (primary) hypertension Plan: Reinforced low sodium diet - goal is systolic BP of 120 mm or less Continue Lisinopril 2.5 mg QD (2) Protein S deficiency: Code(s): D68.59 - Other primary thrombophilia Plan: She is currently on chronic anticoagulation with Xarelto 20 mg QD Follow up with hematology (Dr. Davis) as scheduled (3) History of DVT (deep vein thrombosis): Code(s): Z86.718 - Personal history of other venous thrombosis and embolism Plan: Continue Xarelto 20 mg QD Also S/P [place] filter placement Follow up with hematology as scheduled (4) Erosive esophagitis: Code(s): K22.10 - Ulcer of esophagus without bleeding Plan: Reinforced dietary restrictions Continue Nexium 40 mg QD She is now scheduled for EGD and colonoscopy in July 2024 Follow up with GI as scheduled (5) Sickle cell trait: Code(s): D57.3 - Sickle-cell trait Plan: She is reminded to stay hydrated and avoid strenous activities as much as possible to avoid triggering acute chest syndromes Results of her labs done a few months ago reviewed and discussed with patient - she is advised that her labs are all mostly within acceptable or expected range (6) Chronic pain: Code(s): G89.29 - Other chronic pain Qualifiers: Chronic pain type: chronic pain syndrome Qualified Code(s): G89.4 - Chronic pain syndrome Plan: Continue Oxycodone ER 15 mg Q 12 hours, Oxycodone 20 mg QID PRN for breakthrough pain and Pregabalin 100 mg BID Follow up with [facility] as scheduled for continuing pain management (7) Vitamin D deficiency: Code(s): E55.9 - Vitamin D deficiency, unspecified Plan: She is reminded that her Vitamin D level was low on her recent labs and she should continue taking her Vitamin D3 2000 units QD (8) Anxiety: Code(s): F41.9 - Anxiety disorder, unspecified Plan: Continue Lorazepam 1 mg TID PRN and Hydroxyzine 25 mg QD PRN She is currently seeing a mental health therapist but she does not want to continue seeing them (see HPI); she also has a psychiatry Rx prescriber but feels that they do not listen to any of her complaints and just keeps telling her to continue taking her meds as prescribed Per request, will try to refer her back to Dr. Sumner as she recalls that she was doing so much better while she was seeing Dr. Sumner years ago - referral done but advised patient that we will have to wait and see what their response is to this referral (9) Smoker: Code(s): F17.200 - Nicotine dependence, unspecified, uncomplicated Plan: Counseled again on smoking cessation (10) Obesity (BMI 30-39.9): Code(s): E66.9 - Obesity, unspecified Plan: Reinforced diet/exercise as tolerated/lose weight Plan To return as scheduled in December 2024 for her next annual physical examination Orders: Referrals Psychiatry Outpatient Consultation Service F31.9 - Bipolar disorder, unspecified, F41.9 - Anxiety disorder, unspecified Coding Level of Care Code Est Pt Level 4 (02417) Diagnoses Essential hypertension I10 Protein S deficiency D68.59 History of DVT (deep vein thrombosis) Z86.718 Erosive esophagitis K22.10 Sickle cell trait D57.3 Chronic pain syndrome G89.4 Chronic pain type: chronic pain syndrome Vitamin D deficiency E55.9 Anxiety F41.9 Smoker F17.200 Obesity (BMI 30-39.9) E66.9
[2024-05-02 10:14] VITALS: BP 122/76; PULSE 70; O2SAT 100; BMI 31.4
== END 2024-05-02 11:03 | disposition home or self-care (01) ==
PROVIDERS: PCP Nurse Practitioner Family; Visit Provider Internal Medicine
DX: I10 Essential (primary) hypertension (principal); D68.59 Other primary thrombophilia; Z86.718 Personal history of other venous thrombosis and embolism; D57.3 Sickle-cell trait; G89.4 Chronic pain syndrome; E55.9 Vitamin D deficiency, unspecified; F41.9 Anxiety disorder, unspecified; F17.200 Nicotine dependence, unspecified, uncomplicated
CPT/HCPCS: 99214

== ENCOUNTER 2024-05-21 15:36 | Emergency (ER) | payer MEDICARE, MEDICAID, SELFPAY ==
--- NOTE | ~2024-05-21 | CT_ITS ---
EXAMINATION: CT head/brain wo IV con CLINICAL INFORMATION: Reason for Exam on AC, hit head +LOC COMPARISON: None. TECHNIQUE: Contiguous axial imaging was performed from the skull base to vertex without intravenous contrast. Sagittal and coronal reformatted images were obtained. This CT examination was performed using dose optimization techniques as appropriate, variously including the following: * Automated exposure control * Adjustment of mA and/or kV according to patient size (this includes techniques or standardized protocols for targeted exams where dose is matched to indication/reason for exam; i.e. extremities or head) Use of iterative reconstruction technique DLP: 645.91 mGy-cm FINDINGS: No acute osseous or soft tissue abnormality. The mastoid air cells and visualized portions of the paranasal sinuses are well aerated. There is no evidence of acute intracranial hemorrhage or territorial infarction. No abnormal mass effect or midline shift is seen. Quinones to white matter differentiation is well preserved. No extra-axial fluid collections are identified. No hydrocephalus. CT/CT head/brain wo IV con IMPRESSION: 1. No acute intracranial abnormality.
--- NOTE | 2024-05-21 16:09 | ED.FALL ---
HPI - Fall General Chief Complaint: Fall Stated Complaint: fall rt pain Time Seen by Provider: 05/21/24 16:24 Source: patient Mode of arrival: ambulatory Limitations: no limitations History of Present Illness ED Provider: Karin Cancino APRN HPI Narrative: 53-year-old female with a history DVT on Xarelto, chronic pain, depression, hypertension presents the ER after a fall which occurred 2 days ago. Patient reports she had trip and fall with a head strike. She also caught herself with her right upper extremity and had an inversion injury of her right ankle. She went to [facility] yesterday and had x-rays of the shoulder and ankle but before she could have a CT scan she left from the department. She went to urgent care today and was recommended to go back to the emergency rooms that she may have a CT scan of her head. Patient reports pain in her right foot and ankle, pain in her right shoulder. She denies any headache. She reports she initially had a headache but this is gone. She has no nausea, vomiting, neck pain, vision changes. Related Data Home Medications ?Medication ?Instructions ?Recorded ?Confirmed cholecalciferol (vitamin D3) 25 2 tab PO DAILY 01/24/21 05/02/24 mcg (1,000 unit) chewable tablet (Vitamin D3) acetaminophen 650 mg 650 mg PO TID PRN Pain 06/12/23 05/02/24 tablet,extended release (Pain Relief (acetaminophen)) pregabalin 100 mg capsule 100 mg PO BID 06/12/23 05/02/24 hydroxyzine HCl 25 mg tablet 25 mg PO .QD PRN Anxiety 12/29/23 05/02/24 lisinopril 2.5 mg tablet 2.5 mg PO DAILY 12/29/23 05/02/24 lorazepam 1 mg tablet 1 mg PO TID 12/29/23 05/02/24 oxycodone 20 mg tablet 20 mg PO QID PRN Pain 03/28/24 05/02/24 oxycodone 10 mg tablet,crush 10 mg PO BID 04/08/24 05/02/24 resistant,extended release 12 hr (OxyContin) Previous Rx's ?Medication ?Instructions ?Recorded rivaroxaban 20 mg tablet (Xarelto) 20 mg PO DAILY #90 tabs 06/24/23 Nexium 40 mg capsule,delayed 40 mg PO BID #60 caps 04/08/24 release (esomeprazole magnesium) sodium,potassium,mag sulfates 17.5 480 ml PO .COMPLEX #354 mL 04/08/24 gram-3.13 gram-1.6 gram oral soln (Suprep Bowel Prep Kit) Allergies Allergy/AdvReac Type Severity Reaction Status Date / Time morphine Allergy Severe Itching Verified 05/21/24 16:13 aspirin [ASPIRIN] Allergy Unknown HIVES Verified 05/21/24 16:13 pollen Allergy Unknown Itching Uncoded 05/02/24 10:57 Review of Systems Review of Systems: Yes all other systems are reviewed and are negative Constitutional: Constitutional: Reports no additional constitutional complaints, Denies body ache(s), Denies chills, Denies fever(s), Denies headache(s) and Denies weakness Eyes: Eyes: Reports no additional eye complaints and Denies change in vision ENT: Reports system reviewed and no additional complaints, except as documented, Denies dizziness, Denies headache(s), Denies nasal congestion, Denies nasal discharge and Denies neck pain Cardiovascular: Cardiovascular: Reports no additional cardiovascular complaints, Denies chest pain, Denies leg edema and Denies dyspnea Respiratory: Respiratory: Reports no additional respiratory complaints, Denies cough and Denies dyspnea Gastrointestinal: Gastrointestinal: Reports no additional gastrointestinal complaints, Denies abdominal pain, Denies diarrhea, Denies nausea and Denies vomiting Genitourinary: Genitourinary: Reports no additional female genitourinary complaints and Denies urinary incontinence Musculoskeletal: Musculoskeletal: Reports no additional musculoskeletal complaints, Denies back pain, Reports arthralgias, Denies joint swelling, Denies limited range of motion, Denies neck pain, Denies numbness and Denies tingling Integumentary/Breasts: Skin/Breast: Reports system reviewed and no additional complaints, except as docu and Denies rash Neurologic: Reports system reviewed and no additional complaints, except as documented, Denies Abnormal speech present, Denies dizziness, Denies headache(s), Denies numbness, Denies tingling and Denies weakness PMFSH Past Medical History Attestation statement: The following information was validated with the patient. Source: old records reviewed and nursing notes reviewed Medical History Vitamin D deficiency Infected dental caries Obesity (BMI 30-39.9) Smoker Chronic pain Essential hypertension Protein S deficiency Shearing of artificial skin graft History of depression Hx of sickle cell trait Hx of iron deficiency anemia Hx of deep venous thrombosis Surgical History History of knee surgery H/O esophagogastroduodenoscopy H/O colonoscopy S/P panniculectomy H/O gastric sleeve History of section History of cholecystectomy Family History Family History Brother Brother Other No family history of cancer Social History Social History Household Members: None Housing: House Are you a primary property caretaker to a significant other at home: No Do you presently have visiting nurse or other home services: No Alcohol intake: current Patient Tobacco Use Status: Current everyday Tobacco user Tobacco use type: Cigarette Cigarette Packs Per Day: 0.5 Cigarettes Per Day: 6 e-Cigarette/Vaping Use: Never Used Second Hand Smoke Exposure: Yes Advance Directives: No Advance Directives Information Provided: No Do you have a plan to hurt others: No Plan service: No Current occupational status: disabled Cognitive needs: No Hearing needs: No Vision needs: No Physical Exam Vital Signs: Vital Signs: Last Vital Signs Temp 98.3 F 05/21/24 16:10 Pulse 85 05/21/24 16:10 Resp 18 05/21/24 16:10 BP 115/78 05/21/24 16:10 Pulse Ox 98 05/21/24 16:10 O2 Del Method Room Air 05/21/24 16:10 BMI result Body Mass Index 31.6 Const: General: cooperative, healthy appearing, comfortable and no acute distress Orientation/consciousness: patient oriented x3 Limitations: no limitations HEENT: Other: No hemotympanum Head: Yes normal to inspection, No Worley's sign and No raccoon eyes Ears: hearing grossly normal bilaterally and TM's normal bilaterally General nose exam: Normal external nose present Face and sinus: Yes normal facial exam Mouth: Normal oral and palatal mucosa present Throat: Yes posterior oropharynx normal Eyes: General: appearance normal, both eyes and all related structures Pupils: Equal, round and reactive pupils present Neck: Other: No cervical midline tenderness, step-offs or deformity Neck: Yes normal visual inspection and Yes full ROM Chest: Chest palpation & inspection: normal inspection of the chest Resp: Effort & Inspection: normal respiratory effort Auscultation: clear to auscultation bilaterally Cardio: Rate: regular rate Rhythm: regular rhythm Peripheral pulses: Peripheral pulses 2+ throughout GI: Inspection: Yes normal to inspection Palpation (GI): Soft to palpation and nontender Auscultation: normal bowel sounds Back/Spine/Pelvis: Thoracic/Lumbar Spine: thoracic and lumbar spine normal to inspection Skin: General skin exam: no rashes or lesions noted Neuro: General: patient oriented x3, moves all extremities, no focal motor deficits and normal sensation to monofilament Cranial nerves: Yes CN's II-XII intact bilaterally, Yes Equal, round and reactive pupils present, Yes Bilaterally intact EOM present, Yes Nystagmus not present, Yes Normal facial strength present and Yes Midline tongue present Cognition (Neuro): normal cognition Speech: No Abnormal speech present Gait exam (Neuro): Normal gait present Motor exam (neuro): 5/5 motor strength present throughout Sensory Exam: Normal double simultaneous stimulation for sensation Extrem: Other: Pain to the right AC joint with pain with abduction of the right upper extremity. Normal distal pulses. Normal sensation. Pain on palpation to the entire right ankle. No pain on palpation to the foot. 2+ DP and PT pulses.. Passive and active range of motion of the ankle and foot are intact. Normal sensation. No posterior ankle pain, ligamental laxity. Negative Rivera sign General: Yes normal to inspection Course Course Course Narrative: This is a Rapid Medical Exam performed in triage by Isabella Burch PA-C. Full HPI, ROS and PE to be performed by primary ED provider. 53 year-old w/ PMHx GERD, anxiety, bipolar, HTN, narcotic use, DVT on AC presenting to the ED c/o head injury w/+LOC and R shoulder, foot/ankle pain s/p trip & fall on clothes while folding 2 days ago. Went to and [facility] prior to arrival and had XRs but left prior to obtaining CT. does not know results of XR's PE: ambulating w/ slow steady gait Plan: Head CT Reevaluation(s) Reevaluation #1: CT head is negative Obtain records from [facility] which show no fractures of the right shoulder or right ankle Patient informed of results Will discharge home. Reviewed worrisome signs and symptoms of when to return to the emergency room. Comfortable plan for discharge Medical Decision Making Medical Decision Making [facility] Narrative: 53-year-old female with a history DVT on Xarelto, chronic pain, depression, hypertension presents the ER after a fall which occurred 2 days ago. Patient reports she had trip and fall with a head strike. She also caught herself with her right upper extremity and had an inversion injury of her right ankle. She went to [facility] yesterday and had x-rays of the shoulder and ankle but before she could have a CT scan she left from the department. She went to urgent care today and was recommended to go back to the emergency rooms that she may have a CT scan of her head. Patient reports pain in her right foot and ankle, pain in her right shoulder. She denies any headache. She reports she initially had a headache but this is gone. She has no nausea, vomiting, neck pain, vision changes. Patient unaware of the results of her x-rays from [facility]. We will attempt to get records. We will obtain a CT head here Differential Diagnosis Differential Diagnoses: The differential diagnosis associated with the presentation includes Fracture, contusion, sprain ICH, skull fracture, concussion Admission/Observation Consideration of admission/observation: Escalation of care including admission/observation considered CT imaging is negative, no need for advanced imaging, transfer to tertiary care center Lab Data [facility] Lab Attestation statement: I reviewed the patient's lab results. Independent Interpretation I performed an independent interpretation of an: CT Scan Interpretation: I independently viewed the CT scan agree with the radiologist's Radiology Impression Discussion of test interpretation with radiology: I have reviewed the radiologist's reading. Radiologist Impression: [address] [address] [address] Scan Report Signed Patient: Judith Jacobson MR#: [id number] : 1970 Acct:[id number] Age/Sex: 53 / F ADM Date: 05/21/24 Loc: HO.ED Attending Dr: Ordering Physician: Isabella Burch Date of Service: 05/21/24 Procedure(s): CT head/brain wo IV con Accession Number(s): [id number] cc: Paolo Armenta MD; Isabella Burch~ EXAMINATION: CT head/brain wo IV con CLINICAL INFORMATION: Reason for Exam on AC, hit head +LOC COMPARISON: None. TECHNIQUE: Contiguous axial imaging was performed from the skull base to vertex without intravenous contrast. Sagittal and coronal reformatted images were obtained. This CT examination was performed using dose optimization techniques as appropriate, variously including the following: * Automated exposure control * Adjustment of mA and/or kV according to patient size (this includes techniques or standardized protocols for targeted exams where dose is matched to indication/reason for exam; i.e. extremities or head) Use of iterative reconstruction technique DLP: 645.91 mGy-cm FINDINGS: No acute osseous or soft tissue abnormality. The mastoid air cells and visualized portions of the paranasal sinuses are well aerated. There is no evidence of acute intracranial hemorrhage or territorial infarction. No abnormal mass effect or midline shift is seen. Quinones to white matter differentiation is well preserved. No extra-axial fluid collections are identified. No hydrocephalus. CT/CT head/brain wo IV con IMPRESSION: 1. No acute intracranial abnormality. External Record Review External record reviewed: Outside ED record Discharge Plan Discharge Clinical Impression: Concussion without loss of consciousness, Contusion of right shoulder, Right ankle sprain Patient Disposition: Home, Self-Care Instructions: Ankle Sprain (ED), Concussion (ED), Contusion in Adults (ED) Additional Instructions: Use the shoe for discomfort We were able to get the records of your x-rays from [facility] which showed no bony injuries Apply ice to the affected areas See your primary care doctor for any continued symptoms Prescriptions: No Action Xarelto 20 mg tablet 20 mg PO DAILY Qty: 90 4RF cholecalciferol (vitamin D3) [Vitamin D3] 25 mcg (1,000 unit) tablet,chewable 2 tab PO DAILY lisinopril 2.5 mg tablet 2.5 mg PO DAILY lorazepam 1 mg tablet 1 mg PO TID acetaminophen [Pain Relief (acetaminophen)] 650 mg tablet extended release 650 mg PO TID PRN (Reason: Pain) pregabalin 100 mg capsule 100 mg PO BID hydroxyzine HCl 25 mg tablet 25 mg PO .QD PRN (Reason: Anxiety) oxycodone 20 mg tablet 20 mg PO QID PRN (Reason: Pain) oxycodone [OxyContin] 10 mg tablet,oral only,ext.rel.12 hr 10 mg PO BID sodium,potassium,mag sulfates [Suprep Bowel Prep Kit] 17.5-3.13-1.6 gram recon soln 480 ml PO .COMPLEX Qty: 354 0RF Rx Instructions: 480 mL orally; FOR COLONOSCOPY PREP esomeprazole magnesium [Nexium] 40 mg capsule,delayed release(DR/EC) 40 mg PO BID Qty: 60 6RF Referrals: Paolo Armenta MD [Primary Care Provider] - 1 week Print Language: Nigerian
[2024-05-21 16:10] VITALS: BP 115/78; PULSE 85; RESP 18; TEMP 36.8; O2SAT 98; BMI 31.6
[2024-05-21 17:36] VITALS: BP 115/78; PULSE 85; RESP 18; TEMP 36.8; O2SAT 98
== END 2024-05-21 17:36 | disposition home or self-care (01) ==
PROVIDERS: Emergency Provider Emergency Medicine; PCP Internal Medicine
DX: S06.0X0A Concussion without loss of consciousness, initial encounter (principal); S40.011A Contusion of right shoulder, initial encounter; S93.401A Sprain of unspecified ligament of right ankle, initial encounter; W01.0XXA Fall on same level from slipping, tripping and stumbling without subsequent striking against object, initial encounter; Y93.9 Activity, unspecified; Y92.9 Unspecified place or not applicable; Y99.9 Unspecified external cause status
CPT/HCPCS: 70450; 99283; 99284

== ENCOUNTER 2024-05-25 18:07 | Emergency (ER) | payer MEDICARE, MEDICAID, SELFPAY ==
--- NOTE | ~2024-05-25 | CT_ITS ---
EXAMINATION: CT CERVICAL SPINE WITHOUT CONTRAST CLINICAL INFORMATION: Fall. Head strike. On blood thinner. COMPARISON: None available. TECHNIQUE: Noncontrast computed tomography of the cervical spine was performed. This CT examination was performed using dose optimization techniques as appropriate, variously including the following: *Automated exposure control *Adjustment of mA and/or kV according to patient size (this includes techniques or standardized protocols for targeted exams where dose is matched to indication/reason for exam; i.e. extremities or head) *Use of iterative reconstruction technique DLP: 1077 mGy-cm FINDINGS: There is straightening of the cervical lordosis. Alignment is otherwise anatomic in the sagittal projection. Vertebral bodies demonstrate preserved stature. There is mild intervertebral disc space narrowing throughout the mid cervical spine. There are anterior osteophytes throughout the mid cervical spine. The C1-C2 relationship is anatomic. The dens is intact. Prevertebral soft tissue is normal in appearance. No acute cervical spine fracture. Lung apices are clear. The thyroid gland is normal in appearance. CT/CT cervical spine wo IV con IMPRESSION: No acute osseous cervical spine abnormality. There is mild degenerative disease of the mid cervical spine. Fleischner guidelines were followed.
--- NOTE | ~2024-05-25 | XR_ITS ---
EXAMINATION: XR RIBS, LEFT CLINICAL INFORMATION: Fall with left-sided rib pain COMPARISON: Chest radiograph 03/10/2013 TECHNIQUE: Single view chest and 3 views of the left ribs were obtained. FINDINGS: Lungs are clear. No consolidation, pneumothorax, or pleural effusion. The cardiomediastinal silhouette and pulmonary vasculature are normal. Osseous structures are unremarkable. Ribs are intact. No fractures are identified. A retrievable IVC filter is present. Surgical clips are seen near the GE junction as well as in the right upper quadrant. XR/XR ribs LT min 3V w CXR1V IMPRESSION: 1. No acute pulmonary disease. 2. No rib fractures. 3. Retrievable IVC filter. Consider removal if this is no longer necessary.
--- NOTE | ~2024-05-25 | CT_ITS ---
EXAMINATION: CT HEAD WITHOUT CONTRAST CLINICAL INFORMATION: Fall. Head strike. On blood thinner. COMPARISON: CT head dated 05/21/2024. TECHNIQUE: Contiguous axial imaging was performed from the skull base to vertex without intravenous administration of contrast. This CT examination was performed using dose optimization techniques as appropriate, variously including the following: *Automated exposure control *Adjustment of mA and/or kV according to patient size (this includes techniques or standardized protocols for targeted exams where dose is matched to indication/reason for exam; i.e. extremities or head) *Use of iterative reconstruction technique DLP: 1077 mGy-cm FINDINGS: There is no acute intracranial hemorrhage. There is no evidence of acute/subacute cerebral or cerebellar infarction. There is no midline shift or mass effect. No extra-axial fluid collection. The ventricles are normal in size. The orbits are symmetric and within normal limits. The calvarium is intact. The paranasal sinuses and mastoid air cells are clear. CT/CT head/brain wo IV con IMPRESSION: No acute intracranial pathology.
[2024-05-25 18:23] VITALS: BP 134/75; PULSE 81; RESP 16; TEMP 36.6; O2SAT 98; BMI 31.6
--- NOTE | 2024-05-25 18:31 | ED_ITS ---
HPI - Fall General Chief Complaint: Fall Stated Complaint: ?concussion s/p fall today Time Seen by Provider: 05/25/24 20:10 Source: patient Mode of arrival: ambulatory Limitations: no limitations History of Present Illness HPI Narrative: Patient is a 53-year-old female who presents to the emergency department for evaluation. She states she was seen in the emergency department a few days ago after a fall with head injury and was diagnosed with a concussion. She reports that she had a 2nd trip and fall today with resultant head strike in reports loss of consciousness for a few seconds. She is anticoagulated on Xarelto. She endorses pain to the left side of her head with intermittent dizziness, as well as pain to the left ribs. She states she is in a lot of pain right now 08/04, she takes chronic pain medications including oxycodone and OxyContin and Klonopin for her anxiety. She states she has not taken any medications since early this morning, she is requesting anxiety and pain medication at this time. Related Data Home Medications ?Medication ?Instructions ?Recorded ?Confirmed cholecalciferol (vitamin D3) 25 2 tab PO DAILY 01/24/21 05/02/24 mcg (1,000 unit) chewable tablet (Vitamin D3) acetaminophen 650 mg 650 mg PO TID PRN Pain 06/12/23 05/02/24 tablet,extended release (Pain Relief (acetaminophen)) pregabalin 100 mg capsule 100 mg PO BID 06/12/23 05/02/24 hydroxyzine HCl 25 mg tablet 25 mg PO .QD PRN Anxiety 12/29/23 05/02/24 lisinopril 2.5 mg tablet 2.5 mg PO DAILY 12/29/23 05/02/24 lorazepam 1 mg tablet 1 mg PO TID 12/29/23 05/02/24 oxycodone 20 mg tablet 20 mg PO QID PRN Pain 03/28/24 05/02/24 oxycodone 10 mg tablet,crush 10 mg PO BID 04/08/24 05/02/24 resistant,extended release 12 hr (OxyContin) Previous Rx's ?Medication ?Instructions ?Recorded rivaroxaban 20 mg tablet (Xarelto) 20 mg PO DAILY #90 tabs 06/24/23 Nexium 40 mg capsule,delayed 40 mg PO BID #60 caps 04/08/24 release (esomeprazole magnesium) sodium,potassium,mag sulfates 17.5 480 ml PO .COMPLEX #354 mL 04/08/24 gram-3.13 gram-1.6 gram oral soln (Suprep Bowel Prep Kit) Allergies Allergy/AdvReac Type Severity Reaction Status Date / Time morphine Allergy Severe Itching Verified 05/25/24 18:30 aspirin [ASPIRIN] Allergy Unknown HIVES Verified 05/25/24 18:30 pollen Allergy Unknown Itching Uncoded 05/02/24 10:57 Review of Systems Review of Systems: Yes all other systems are reviewed and are negative PMFSH Past Medical History Attestation statement: The following information was validated with the patient. Source: old records reviewed Medical History Vitamin D deficiency Infected dental caries Obesity (BMI 30-39.9) Smoker Chronic pain Essential hypertension Protein S deficiency Shearing of artificial skin graft History of depression Hx of sickle cell trait Hx of iron deficiency anemia Hx of deep venous thrombosis Surgical History History of knee surgery H/O esophagogastroduodenoscopy H/O colonoscopy S/P panniculectomy H/O gastric sleeve History of section History of cholecystectomy Family History Family History Brother Brother Other No family history of cancer Social History Social History Household Members: None Housing: House Are you a primary care mgr to a significant other at home: No Do you presently have visiting nurse or other home services: No Alcohol intake: current Patient Tobacco Use Status: Current everyday Tobacco user Tobacco use type: Cigarette Cigarette Packs Per Day: 0.5 Cigarettes Per Day: 6 Smoked in Last 30 Days: No e-Cigarette/Vaping Use: Never Used Second Hand Smoke Exposure: Yes Use of substances other than those prescribed or required for medical reasons: No Advance Directives: No Advance Directives Information Provided: No Patient : No service: No Current occupational status: disabled Cognitive needs: No Hearing needs: No Vision needs: No Physical Exam Vital Signs: Vital Signs: Last Vital Signs Temp 98.2 F 05/25/24 21:54 Pulse 87 05/25/24 21:54 Resp 18 05/25/24 21:54 BP 147/91 H 05/25/24 21:54 Pulse Ox 99 05/25/24 21:54 O2 Del Method Room Air 05/25/24 21:54 BMI result Body Mass Index 31.6 Appearance: Alert.?Oriented to person, place and time. No acute distress.?Normal affect. Head: Normocephalic Eyes: Pupils equal, round and reactive to light. EOMI. Conjunctiva and sclera normal? No Worley sign noted. No raccoon eyes noted ENT: No septal hematoma, nares patent bilaterally. External auditory canal normal tympanic membrane pearly langston and intact bilaterally. Dentition normal, no fractured teeth. No lesions or lacerations of oropharynx. Uvula midline. Moist mucous membranes. Neck: Normal inspection.? Neck supple.??No palpable tenderness, step-off, deformities. CVS: Heart sounds normal. Normal heart rate and rhythm.? Pulses normal.?? Respiratory: No respiratory distress.? Lung sounds clear to auscultation bilaterally?? Abdomen: Soft and non-tender. Normoactive bowel sounds. ?? Skin: Skin warm and dry.? Normal skin color.? Extremities: No lower extremity edema.? Neuro: Moves all extremities spontaneously. Sensation intact bilaterally. CN II- XII intact. No focal neuro deficits. Course Course Course Narrative: This is a Rapid Medical Examination (RME) performed by Susan Mantilla PA-C in triage. Full HPI, ROS, assessment and treatment plan per primary provider in the Main ED. 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 seen in ED on 05/21/24, diagnosed w/ concussion. reports mechanical fall again today when entering her home. + exam nonfocal. no palpable skull fracture. Tender to palpation over left ribs. No palpable deformity. No evidence of flail chest. Plan: imaging Reevaluation(s) Reevaluation #1: CT of the head and cervical spine without ICH, SDH, fracture, subluxation, cervical spine reveals DJD. XR of the chest without evidence of fracture to the ribs. She is stable for discharge home outpatient follow-up with her primary care providers and continued medication management as prescribed, no new medications ordered. Stable for discharge Time: 21:23 Medications Administered Discontinued Medications Generic Name Dose Route Start Last Admin Trade Name Johanna PRN Reason Stop Dose Admin Clonazepam 1 mg 05/25/24 20:39 05/25/24 21:00 Clonazepam 1 Mg Tablet PO 05/25/24 20:40 1 mg ONCE ONE Administration Oxycodone HCl 20 mg 05/25/24 20:39 05/25/24 21:00 Oxycodone Hcl Immed Release 5 Mg Tablet PO 05/25/24 20:40 20 mg ONCE ONE Administration Medical Decision Making Medical Decision Making [facility] Narrative: Patient is a 53 old female with past medical history of obesity, chronic pain, hypertension, protein S deficiency, DVT on Xarelto, I DA, depression, sickle cell trait who presents emergency department for evaluation of persistent headache and left rib pain with new fall after her previous one on 05/19/2024. Reports her fall was mechanical in nature. She has no focal neurological deficits at the time of my evaluation. She presents during my initial examination agitated, reporting she is very anxious and lot of pain. She states she has not taken her chronic controlled medications since early this morning. On review of STORE RECEIVER she is prescribed oxycodone 20 mg 4 times daily, OxyContin 10 mg 2 times daily, Lyrica 100 mg 2 times daily, and Klonopin 1 mg. Patient to be given her oxycodone and Klonopin at this time. I reviewed her CT of the head, I do not see any obvious ICH/SDH, pending radiologist impression. I do not appreciate rib fractures on XR. No respiratory distress. No crepitus. Differential Diagnosis Differential Diagnoses: The differential diagnosis associated with the presentation includes (See narrative above) Admission/Observation Consideration of admission/observation: Escalation of care including admission/observation considered Independent Interpretation I performed an independent interpretation of an: Plain X-Ray (See narrative above) and CT Scan (See narrative above) Radiology Impression Discussion of test interpretation with radiology: I have reviewed the radiologist's reading. Radiologist Impression: XR/XR ribs LT min 3V w CXR1V IMPRESSION: 1. No acute pulmonary disease. 2. No rib fractures. 3. Retrievable IVC filter. Consider removal if this is no longer necessary. CT/CT head/brain wo IV con IMPRESSION: No acute intracranial pathology. CT/CT cervical spine wo IV con IMPRESSION: No acute osseous cervical spine abnormality. There is mild degenerative disease of the mid cervical spine. External Record Review External record reviewed: Other (STORE RECEIVER, see narrative above) Prescription Management I considered prescription management with: Pain Medication (Chronic management, see narrative above) Discharge Plan Discharge Clinical Impression: Concussion, Contusion of rib Patient Disposition: Home, Self-Care Instructions: Concussion (ED), Rib Contusion (ED) Additional Instructions: As discussed, your CT scan of your head does not show any evidence of bleeding or fracture. This is very reassuring. The CT scan of your neck does not show any evidence of fracture or dislocation, you do however have arthritis. It is likely that the fall has worsened this pain. The x-ray of your chest does not show any evidence of fracture to the ribs. However, bruising to the ribs can be very painful as well. Please be sure that you are using a pillow or your arm to brace the chest with movement coughing or sneezing. Continue taking all of your chronically prescribed medications, and follow-up with your doctors. Return back to emergency department with any new or worsening symptoms or concerns. Prescriptions: No Action Xarelto 20 mg tablet 20 mg PO DAILY Qty: 90 4RF cholecalciferol (vitamin D3) [Vitamin D3] 25 mcg (1,000 unit) tablet,chewable 2 tab PO DAILY lisinopril 2.5 mg tablet 2.5 mg PO DAILY lorazepam 1 mg tablet 1 mg PO TID acetaminophen [Pain Relief (acetaminophen)] 650 mg tablet extended release 650 mg PO TID PRN (Reason: Pain) pregabalin 100 mg capsule 100 mg PO BID hydroxyzine HCl 25 mg tablet 25 mg PO .QD PRN (Reason: Anxiety) oxycodone 20 mg tablet 20 mg PO QID PRN (Reason: Pain) oxycodone [OxyContin] 10 mg tablet,oral only,ext.rel.12 hr 10 mg PO BID sodium,potassium,mag sulfates [Suprep Bowel Prep Kit] 17.5-3.13-1.6 gram recon soln 480 ml PO .COMPLEX Qty: 354 0RF Rx Instructions: 480 mL orally; FOR COLONOSCOPY PREP esomeprazole magnesium [Nexium] 40 mg capsule,delayed release(DR/EC) 40 mg PO BID Qty: 60 6RF Referrals: Physician,Unknown J [Primary Care Provider] - Print Language: Vietnamese
--- NOTE | 2024-05-25 19:14 | PC.NURSE ---
while out in the waiting room pt approached the patient advocate to rpt how dissatisfied she has been with services here, pt began to wheel herself away from the advocate and towards the exit when it was witnessed she threw herself onto the floor. this RN, security, and advocate attempted to help her up and she adamently refused. stating no one here cares about me. I have gotten nothing but attitude since I walked into this place. pt then picked herself up off the floor with no assistance and walked out of the ER despite multiple staff members attempting to talk and offer help. pt continued to talk and walk away at the same time. charge rn notified. approximately 2min later pt ambulated back into the ER, then walked back out to sit on the bench in front of the ER entrance.
[2024-05-25 20:00] VITALS: BP 138/75; PULSE 81; RESP 18; TEMP 36.4; O2SAT 98
--- NOTE | 2024-05-25 20:26 | MHC.EDTECH ---
pt is verbally agressive. accusing security of lying about her fall in the waiting room. patient is stating she is so enraged she could slap 12 people and bring them back and slap them again. patient is threatening to take own medication. sates if she acts how she wants to, she will get thrown out.
[2024-05-25] MEDS: oxyCODONE HCl Immed Release 5 MG TABLET 20 MG PO (21:00)
[2024-05-25] MEDS: clonazePAM 1 MG TABLET PO (21:00)
--- NOTE | 2024-05-25 21:02 | PC.NURSE ---
pt a&ox4, respirations even and unlabored. pt reporting fall prior to arrival, pt reporting 10/10 pain in the neck, bilateral legs, head, shoulders. pt medicated per dec tt this time, tolerated well with water. pt reports she has chronic pain which she follows up with a pain specialist for. pt denies n/v/d.
[2024-05-25 21:54] VITALS: BP 147/91; PULSE 87; RESP 18; TEMP 36.8; O2SAT 99
[2024-05-26 02:43] VITALS: BP 136/88; PULSE 78; RESP 20; TEMP 36.3; O2SAT 99
== END 2024-05-25 22:00 | disposition home or self-care (01) ==
PROVIDERS: Emergency Provider Emergency Medicine
DX: S06.0X9A Concussion with loss of consciousness of unspecified duration, initial encounter (principal); S20.212A Contusion of left front wall of thorax, initial encounter; R07.89 Other chest pain; R51.9 Headache, unspecified; M54.2 Cervicalgia; F41.9 Anxiety disorder, unspecified; W01.0XXA Fall on same level from slipping, tripping and stumbling without subsequent striking against object, initial encounter; Y93.89 Activity, other specified; Y92.89 Other specified places as the place of occurrence of the external cause; Y99.8 Other external cause status; Z79.899 Other long term (current) drug therapy; Z79.01 Long term (current) use of anticoagulants; F17.210 Nicotine dependence, cigarettes, uncomplicated; Z98.84 Bariatric surgery status; Z86.718 Personal history of other venous thrombosis and embolism
CPT/HCPCS: 70450; 71101; 72125; 99284

== ENCOUNTER 2024-08-11 09:59 | Outpatient (AMB) | payer MEDICARE, MEDICAID, SELFPAY ==
[2024-08-11 10:00] VITALS: BP 136/76; PULSE 98; O2SAT 95
--- NOTE | 2024-08-11 10:00 | A.OFFPC_ITS ---
Vital Signs 08/11/24 10:00 Height 5 ft 4 in BMI Reason not done Patient refused/unable BP 136/76 Blood Pressure Location Lt brachial Position Sitting Pulse 98 Pulse Source Pulse Oximeter Pulse Oximetry (%) 95 Oxygen Delivery Method Room Air Intake Visit Reasons: [facility] 07/18 broken back/ concussion Workers Compensation Manager Required: No Accompanied by: Self / Same As Patient Allergies morphine Allergy (Severe, Verified 08/11/24 10:01) Itching aspirin [ASPIRIN] Allergy (Unknown, Verified 08/11/24 10:01) HIVES pollen Allergy (Unknown, Uncoded 08/11/24 10:01) Itching Tobacco use date assessed: 05/02/24 Dental Screening Dental Screen Date: 12/29/23 HPI HPI Comments History of Present Illness Details 53 y/o female patient who presents to [facility] for HDF. Pt was admitted at [facility] on 05/21/24 for concussion and was discharged home the same day. Pt was very rude to me today. She stated I do not want to see Nurse Practitioner, I want to see my Doctor, Chase . I did not wait for 5 months to see a Nurse, I did not drive all the way from [place] to see a Nurse . Pt was not interested in continuing with the appointment. I informed Pt that she does have a choice to reschedule this appointment with an Medical Doctor. Pt was directed to go to the front office and scheduled another appointment with her PCP (or Medical Doctor). [facility] Medical History Vitamin D deficiency Infected dental caries Obesity (BMI 30-39.9) Smoker Chronic pain Essential hypertension Protein S deficiency Shearing of artificial skin graft History of depression Hx of sickle cell trait Hx of iron deficiency anemia Hx of deep venous thrombosis Surgical History History of knee surgery H/O esophagogastroduodenoscopy H/O colonoscopy S/P panniculectomy H/O gastric sleeve History of section History of cholecystectomy Family History Brother Brother Other No family history of cancer Social History Household Members: None Housing: House Are you a primary reproductive healthcare assistant to a significant other at home: No Do you presently have visiting nurse or other home services: No Alcohol intake: current Patient Tobacco Use Status: Current everyday Tobacco user Tobacco use type: Cigarette Cigarette Packs Per Day: 0.5 Cigarettes Per Day: 6 e-Cigarette/Vaping Use: Never Used Second Hand Smoke Exposure: Yes service: No Current occupational status: disabled Cognitive needs: No Hearing needs: No Vision needs: No Questionnaire PHQ-9 Over the last 2 weeks, how often have you been bothered by any of the following problems? 1. Little interest or pleasure in doing things: several days 2. Feeling down, depressed, or hopeless: more than half the days 3. Trouble falling or staying asleep, or sleeping too much: nearly every day 4. Feeling tired or having little energy: nearly every day 5. Poor appetite or overeating: nearly every day 6. Feeling bad about yourself - or that you are a failure or have let yourself or your family down: not at all 7. Trouble concentrating on things, such as reading the newspaper or watching television: not at all 8. Moving or speaking so slowly that other people could have noticed. Or the opposite - being so fidgety or restless that you have been moving around a lot more than usual: several days 9. Thoughts that you would be better off or of hurting yourself in some way: several days Total score: 14 Depression Screening Interpretation: Positive Depression Screening Follow-up: Existing condition, In treatment and Community Mental Health Worker F/U Depression Screening Done: Yes 56686 - PHQ-9 Billing: Yes Source: Developed by Drs. Bret Kovacs, Arian Ann and colleagues, with an educational yeny from [employer]. Thrive Questionnaire Date Thrive assessed: 12/29/23 AUDIT C Alcohol Use Questionnaire (AUDIT-C) 1. How often do you have a drink containing alcohol?: Never 3. How often do you have six or more drinks on one occasion?: Never Total Score: 0 Score Reviewed/Action Taken: Yes TOM-7 AMB Questionnaire TOM-7 Date TOM - 7 assessed: 12/29/23 Source: Developed by Drs. Bret Kovacs, Arian Ann and colleagues, with an educational yeny from [employer]. Review of Systems Const All systems reviewed & are unremarkable except as noted in HPI and below Physical exam (Primary Care) Vital Signs: Last Vital Signs Pulse 98 08/11/24 10:00 BP 136/76 08/11/24 10:00 Pulse Ox 95 08/11/24 10:00 Oxygen Delivery Method Room Air 08/11/24 10:00 Tobacco/Smoking Status: Tobacco use Status Tobacco use date assessed 05/02/24 08/11/24 10:04 Patient Tobacco Use Status Current everyday Tobacco 08/11/24 10:04 Tobacco use type Cigarette 08/11/24 10:04 e-Cigarette/Vaping Use Never Used 08/11/24 10:04 PHQ-9: PHQ-9 Score PHQ-9: Total score 14 08/11/24 10:35 Depression Screening Interpretation: Positive Depression Screening Follow-up: Existing condition, In treatment and Community Mental Health Worker F/U Thrive Assessment: Date of Thrive Assessment Date Thrive assessed 12/29/23 08/11/24 10:04 Const General: no acute distress HENMT Head: Yes normocephalic Psych Speech and movement: Psychomotor agitation in speech present Affect: Irritable affect present Attitude: Belligerent attititude/behavior present and Refuses to answer (attititude/behavior) Coding Level of Care Code Est Pt Level 4 (10156) Diagnoses Hospital discharge follow-up Z09 Irritability and anger R45.4 Time Spent (min) 20 Comment Spent reviewing hospital notes. Assessment & Plan Assessment & Plan (1) Hospital discharge follow-up: Code(s): Z09 - Encounter for follow-up examination after completed treatment for conditions other than malignant neoplasm Plan: Vitals stable. (2) Irritability and anger: Code(s): R45.4 - Irritability and anger Plan: Pt was informed to make an appointment with Medical Doctor per request.
== END 2024-08-11 10:39 | disposition home or self-care (01) ==
PROVIDERS: Visit Provider Nurse Practitioner Family
DX: Z09 Encounter for follow-up examination after completed treatment for conditions other than malignant neoplasm (principal); R45.4 Irritability and anger

== ENCOUNTER → 2024-08-11 09:59 | Outpatient (BNVA) | payer MEDICARE, MEDICAID, SELFPAY | PROVIDERS: Visit Provider Nurse Practitioner Family | DX: Z09 Encounter for follow-up examination after completed treatment for conditions other than malignant neoplasm (principal); R45.4 Irritability and anger | CPT/HCPCS: 96127; 99212 ==

== ENCOUNTER 2024-10-21 07:51 | Outpatient (AMB) | payer MEDICARE, MEDICAID, SELFPAY ==
[2024-10-21 09:12] VITALS: BP 120/86; PULSE 95; O2SAT 99
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
== END 2024-10-21 09:51 | disposition home or self-care (01) ==
PROVIDERS: Visit Provider Internal Medicine
DX: I10 Essential (primary) hypertension (principal); D68.59 Other primary thrombophilia; D57.3 Sickle-cell trait; Z86.718 Personal history of other venous thrombosis and embolism; K22.10 Ulcer of esophagus without bleeding; G89.4 Chronic pain syndrome; S32.000S Wedge compression fracture of unspecified lumbar vertebra, sequela; E55.9 Vitamin D deficiency, unspecified; F41.9 Anxiety disorder, unspecified; F17.200 Nicotine dependence, unspecified, uncomplicated; E66.9 Obesity, unspecified

== ENCOUNTER → 2024-10-21 07:51 | Outpatient (BNVA) | payer MEDICARE, MEDICAID, SELFPAY | PROVIDERS: Visit Provider Internal Medicine | DX: I10 Essential (primary) hypertension (principal); D68.59 Other primary thrombophilia; K22.10 Ulcer of esophagus without bleeding; Z86.718 Personal history of other venous thrombosis and embolism; D57.3 Sickle-cell trait; G89.4 Chronic pain syndrome; E55.9 Vitamin D deficiency, unspecified; F41.9 Anxiety disorder, unspecified; E66.9 Obesity, unspecified; F17.200 Nicotine dependence, unspecified, uncomplicated; Z71.6 Tobacco abuse counseling; Z71.3 Dietary counseling and surveillance | CPT/HCPCS: 96127; 99212 ==

== ENCOUNTER 2024-11-22 06:45 | Outpatient (REF) | payer MEDICARE, MEDICAID, SELFPAY ==
--- NOTE | ~2024-11-22 | US_ITS ---
EXAMINATION: US VENOUS DOPPLER LOWER EXTREMITY, BILATERALLY CLINICAL INFORMATION: Follow-up DVT. COMPARISON: Ultrasound venous Doppler dated November 19, 2012 demonstrated old thrombus left popliteal vein.. TECHNIQUE: Color-flow Doppler venous imaging with spectral analysis and compression Doppler were performed both lower extremities. FINDINGS: Respiratory variation, normal compression and augmented flow are noted throughout the lower extremities. The visualized common femoral vein, superficial femoral vein, profunda femoral vein, popliteal vein and midcalf peroneal and posterior tibial venous segments show no evidence of deep venous thrombosis in the right lower extremity. There is respiratory variation, normal compression and augmentation flow throughout the left common femoral vein, left superficial femoral vein, left profunda femoral vein and left posterior tibialis vein. There is partial compressibility in the left popliteal vein with an intraluminal isoechoic abnormality.. There is no Adame's cyst. US/US venous duplex LE IMPRESSION: Old/chronic nonocclusive thrombus left popliteal vein. No acute deep venous thrombosis, right lower extremity. Electronically signed by: Noah Rogel MD 11/22/2024 10:06 AM LARA
--- OUTSIDE RECORDS SUMMARY | 2024-11-22 06:47 | XMS_ITS | Continuity of Care Document ---
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 Name Role Phone Shannon BHAT, Codi Kumar Primary Care Physician [phone] [id number] Date(s): 11/20/24 - 11/20/[address] [address]- Encounter Diagnosis Falls(Final) - 11/20/24 Arthritis(Final) - 11/20/24 Musculoskeletal pain(Final) - 11/20/24 Discharge Disposition: A-D/C Home Attending Physician: Shon Geller DO Admitting Physician: Shon Geller DO Referring Physician: Not on Staff, Referring MD Encounter Type: Disch ES Allergies, Adverse Reactions, Alerts Substance Criticality Severity Reaction Reaction Severity Status aspirin welts,throat closed Active Cats Active Pollen Active Immunizations Given and Recorded Vaccine Date Status Refusal Reason pneumococcal 23-valent vaccine 05/14/10 Given Medications Levorphanol = 6 mg, By Mouth, 3 times a day, 0 Refills, Maintenance, 07/22/17 9:54:40 AM EDT Start Date: 07/22/17 Status: Ordered Repeat number: 1 Lorazepam = [...] Repeat number: 1 oxyCODONE 10 mg oral tablet, extended release 10 mg, 1, tablet, By Mouth, Every 12 hours, PRN, # 10 tablet, Refills 0, Tot. Refills 0, Maintenance, Pain , Severe, 10/19/24 5:31:00 PM EST, Print Requisition, Partial fill upon patient request if the prescription is for a schedule II opioid drug. Start Date: 10/19/24 Stop Date: 10/24/24 Status: Ordered Quantity: 10.0 Unit: tablet Repeat number: 1 oxyCODONE 20 mg oral tablet 1 tablet = 20 mg, By Mouth, Every 6 hours, 0 Refills, Maintenance, 09/19/19 3:43:03 PM EST, Partialfill upon patient request Start Date: 09/19/19 Status: Ordered Repeat number: 1 oxyCODONE 5 mg oral tablet 10 mg, Tablet, By Mouth, Once, STAT, 11/20/24 6:28:00 PM EST, Stop date 11/20/24 6:49:26 PM EST Start Date: 11/20/24 Stop Date: 11/20/24 Status: Completed Repeat number: 1 OxyCONTIN 10 mg oral tablet, extended release 10 mg, 1, tablet, By Mouth, Every 12 hours, # 60 tablet, Refills 0, Tot. Refills 0, Maintenance, 10/19/24 5:37:00 PM EST, Print Requisition, Partial fill upon patient request if the prescription is for a schedule II opioid drug. Start Date: 10/19/24 Status: Ordered Quantity: 60.0 Unit: tablet Repeat number: 1 pregabalin 75 mg oral [...] Date: 09/19/19 Status: Ordered Repeat number: 1 Walker See Instructions, # 1 each, Maintenance, Recurrent falls, fall risk, chronic and subacute pain resulting in LE weakenss, 11/20/24 8:41:00 PM EST, Supply Start Date: 11/20/24 Status: Ordered Quantity: 1.0 Unit: each Repeat number: 1 Walker See Instructions, # 1 Unknown, Maintenance, Dx Fall risk 5'6 walker with wheels, 11/20/24 8:47:00 PM EST, Compound Start Date: 11/20/24 Status: Ordered Quantity: 1.0 Unit: Unknown Repeat number: 1 Xarelto 20 mg oral [...] Exam Date Time Procedure Performing Provider Status 11/20/24 7:55 PM Ankle Min 3 Views Right Lily Wilkins; Auth (Verified) Notes: (Ankle Min 3 Views Right) Reason For Exam: Pain RESULT: Ankle Min 3 Views Right Ankle Min 3 Views Right Hx of Present Illness: multiple falls over the last day, sts she also fell while in the hospital, has some right shoulder, right hip and right arm pain, appears in NAD on arrival to ED; Reason: Pain;Clinical Question(s): Fracture COMPARISON: 05/20/2024. FINDINGS: There is no evidence of acute fracture or dislocation. Again demonstrated is calcaneal spurring at the attachment of the plantar fascia. Mild osteoarthritic changes of the intertarsal joints with spurring. Again demonstrated is soft tissue swelling. IMPRESSION: There is no evidence of acute fracture or dislocation. WSN: [id number] Ordering Physician: Shon Geller Dictated By: Denise Magaña MD Dictated Date/Time: 11/20/24 8:21 pm Reviewed By: Denise Magaña MD Signed By: Denise Magaña MD Signed Date/Time: 11/20/24 8:21 pm Transcribed By: RIANNA Transcribed Date/Time: 11/20/24 8:19 pm * Exam Date Time Procedure Performing Provider Status 11/20/24 7:55 PM Knee 1 or 2 Views Right Lily Wilkins; Auth (Verified) Notes: (Knee 1 or 2 Views Right) Reason For Exam: Pain RESULT: Knee 1 or 2 Views Right Knee 1 or 2 Views Right, 2 views Hx of Present Illness: multiple falls over the last day, sts she also fell while in the hospital, has some right shoulder, right hip and right arm pain, appears in NAD on arrival to ED; Reason: Pain;Clinical Question(s): Fracture COMPARISON: None. FINDINGS: There is no evidence of acute fracture or dislocation. Mild tricompartment osteoarthritis with spurring. No evidence of joint effusion. IMPRESSION: Mild osteoarthritic changes without evidence of acute fracture or dislocation. WSN: [id number] Ordering Physician: Shon Geller Dictated By: Denise Magaña MD Dictated Date/Time: 11/20/24 8:17 pm Reviewed By: Denise Magaña MD Signed By: Denise Magaña MD Signed Date/Time: 11/20/24 8:17 pm Transcribed By: RIANNA Transcribed Date/Time: 11/20/24 8:16 pm * Exam Date Time Procedure Performing Provider Status 11/20/24 7:55 PM XR Hip w/Pelvis 2-3 View Right Lily Wilkins; Auth (Verified) Notes: (XR Hip w/Pelvis 2-3 View Right) Reason For Exam: Pain RESULT: XR Hip w/Pelvis 2-3 View Right XR Hip w/Pelvis 2-3 View Right Hx of Present Illness: multiple falls over the last day, sts she also fell while in the hospital, has some right shoulder, right hip and right arm pain, appears in NAD on arrival to ED; Reason: Pain;Clinical Question(s): Fracture COMPARISON: 10/19/2024 and 09/21/2024. FINDINGS: There is no evidence of acute fracture or dislocation. Normal hips and sacroiliac joints. Incidental note is made of an IVC filter, surgical clips and tubal ligation devices. There are an elongated hyperdense structures projecting at the lower pelvis which is likely artifactual. IMPRESSION: There is no evidence of acute fracture or dislocation. WSN: [id number] Ordering Physician: Shon Geller Dictated By: Denise Magaña MD Dictated Date/Time: 11/20/24 8:15 pm Reviewed By: Denise Magaña MD Signed By: Denise Magaña MD Signed Date/Time: 11/20/24 8:15 pm Transcribed By: RAINNA Transcribed Date/Time: 11/20/24 8:12 pm * Exam Date Time Procedure Performing Provider Status 11/20/24 7:55 PM Shoulder Min 2 Views Right Lily Borja; Auth (Verified) Notes: (Shoulder Min 2 Views Right) Reason For Exam: Pain RESULT: Shoulder Min 2 Views Right Shoulder Min 2 Views Right, 3 views Hx of Present Illness: multiple falls over the last day, sts she also fell while in the hospital, has some right shoulder, right hip and right arm pain, appears in NAD on arrival to ED; Reason: Pain;Clinical Question(s): Fracture COMPARISON: 05/20/2024. FINDINGS: There is no evidence of acute fracture or dislocation. There is no evidence of significant osteoarthritic change. The soft tissues are unremarkable. IMPRESSION: There is no evidence of acute fracture or dislocation. WSN: [id number] Ordering Physician: Shon Geller Dictated By: Denise Magaña MD Dictated Date/Time: 11/20/24 8:11 pm Reviewed By: Denise Magaña MD Signed By: Denise Magaña MD Signed Date/Time: 11/20/24 8:11 pm Transcribed By: RIANNA Transcribed Date/Time: 11/20/24 8:07 pm Vital Signs Most recent to oldest [Reference Range]: 1 2 3 Oxygen Saturation [94-100 %] 100 % (11/20/24 6:49 PM) 100 % (11/20/24 2:24 PM) 100 % (11/20/24 2:19 PM) Pulse Rate [55-90 bpm] 88 bpm (11/20/24 6:49 PM) 90 bpm (11/20/24 2:24 PM) 63 bpm (11/20/24 2:19 PM) Blood Pressure [90-138/55-84 mm Hg] 128/94mm Hg (11/20/24 6:49 PM) 142/89mm Hg *H* (11/20/24 2:24 PM) Respiratory Rate [16-30 br/min] 18 br/min (11/20/24 6:49 PM) 18 br/min (11/20/24 6:47 PM) 16 br/min (11/20/24 2:24 PM) Temperature [96.8-100.4 DegF] 98.2 DegF (11/20/24 2:24 PM) Mode of Delivery (Oxygen) Room air (11/20/24 6:49 PM) Room air (11/20/24 2:24 PM) Room air (11/20/24 2:19 PM) Blood pressure sites Arm, right (11/20/24 6:49 PM) Arm, right (11/20/24 2:24 PM) Temperature Route Oral (11/20/24 2:24 PM) Social History Social History Type Response Smoking Status Current every day sm oker; Other: vapor; entered on: 12/23/17 Sex Sex Representation Female (finding) Patient Care team information Care Team Personnel Name: Codi Ortega NP, I Position: Reference Physician Member Role: PCP Address: [address] [place] [id number]- [place] [employer]: Name: Demetrius BHAT , Bess Hughes Position: Reference Physician Member Role: Primary Care Nurse Address: [address] [place] [address] [id number] [employer] [place] [address]- [place] [employer]: Name: Jenna RN, Gil Position: S RN Member Role: Primary Care Nurse Care Team Related Persons Name: WON BREWER Name: YOHAN HELMS Name: CONY RAHMAN Insurance Providers Guarantor name: JEREMIAS [place] Health Plan Information #: 1 Payer: MEDICARE PART B OUTPT Member Number: [id number] Policy Number: NA Group Number: NA Health Plan Information #: 2 Payer: [facility] Member Number: [id number] Policy Number: NA Group Number: NA
--- OUTSIDE RECORDS SUMMARY | 2024-11-22 06:47 | XMS_ITS | Clinical Summary ---
Author Organization [facility] Address [address] [facility] [address] [place] [address] Phone Care Team Providers Care Tank Carpenter Name Role Phone Unavailable Primary Care Provider Unavailabl e Allergies Active Allergy Reactions Criticality Noted Date Comments Aspirin Hives 03/18/2018 Morphine Other (see comments) 08/12/2021 Medications rivaroxaban (Xarelto) 10 MG tablet Take 1 tablet by mouth 1 (one) time each day Active pyridoxine (VITAMIN B-6) 25 MG tablet Take 1 tablet by mouth 1 (one) time each day Active oxyCODONE (ROXICODONE) 20 MG immediate release tablet Take 1 tablet by mouth 4 (four) times a day Active levorphanol (LEVODROMORAN) 2 MG tablet Take 3 tablets by mouth 3 (three) times a day Active busPIRone (BUSPAR) 10 MG tablet Take 1 tablet by mouth 1 (one) time each day Active calcium carbonate (OS-TRISHA) 1250 (500 Ca) MG tablet Take 1 tablet by mouth 1 (one) time each day Active pregabalin (LYRICA) 75 MG capsule Take 75 mg by mouth 2 (two) times a day 07/30/2021 Active [address] capsule Take by mouth 1 (one) time each day 06/25/2021 Active hydrOXYzine (ATARAX) 25 MG tablet Take 25 mg by mouth 1 (one) time each day EVERY DAY FOR ANXIETY 07/24/2021 Active lisinopril 2.5 MG tablet Take 1 tablet (2.5 mg total) by mouth 1 (one) time each day 90 tablet 05/29/2022 Active clonazePAM (KlonoPIN) 1 MG tablet Take 1 mg by mouth in the morning and 1 mg at noon and 1 mg in the evening. 05/16/2024 Active Active Problems Problem Noted Date Diagnosed Date Stage 3a chronic kidney disease 05/18/2024 Stage 3a chronic kidney disease 08/13/2021 Edema 08/12/2021 Hypertensive renal disease 08/12/2021 Vesicular eczema 10/04/2020 Overview (08/12/2021): feet Last Assessment & Plan: Skin care reviewed. Will treat with Lotrisone cream. Pt advised to follow up if sx worsen or fail to improve. Continuous opioid dependence 08/09/2020 Overview (08/12/2021): Pain management, [facility] Posttraumatic stress disorder 11/30/2019 Overview (08/12/2021): Childhood trauma Last Assessment & Plan: Very pleased w her new puppy, experiencing therapeutic benefit Abnormal uterine bleeding 09/01/2019 Overview (08/12/2021): Last Assessment & Plan: Reports negative w/u w [facility] Furnishings Conservator for PMB Flushing 08/11/2019 Overview (08/12/2021): Last Assessment & Plan: Pt not interested in nonhormone therapy options. 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 She is on a blood thinner. I recognize that there are risks & benefits of the HT. I will have her meet w gynecology. Referred to [facility] Screen Machine Operator Finding related to status of agreement with prio r finding 11/11/2017 Overview (08/12/2021): UDS 10/2017 negative for benzos &oxycodone. Pill count 11/11/17 incorrect. See tell encounter Anxiety 10/26/2017 Overview (08/12/2021): Last Assessment & Plan: She is very resistant to psychopharm tx & therapy. We discussed medical marijuana for pain & anxiety. She doesn't think [facility] will allow this w her pain contract there. iw ill reach out top her provider there. Bipolar disorder 10/26/2017 Overview (08/12/2021): Last Assessment & Plan: Following w therapist. Dysphagia 10/26/2017 Edema of lower extremity 10/26/2017 Overview (08/12/2021): Last Assessment & Plan: Gave new rx for compression stockings. Her legs look much better than they did a year ago, thanks to her weight loss. Fibromyalgia 10/26/2017 Overview (08/12/2021): Last Assessment & Plan: [facility] pain management. Will benefit from weight loss Gastroesophageal reflux disease 10/26/2017 Overview (08/12/2021): Last Assessment & Plan: Recently treated for H. pylori infection. Lap band malpositioning is contributing to GERD. The lap and will be removed and she will undergo a sleep gastrectomy Protein S deficiency 10/26/2017 Overview (08/12/2021): Follows w Dr Davis. Hx multiple DVTs. Anticoagulated w Day Last Assessment & Plan: Anticoagulation managed by Sriram. Will need clearance from for her surgery. Osteoarthritis of knee 10/26/2017 Overview (08/12/2021): Last Assessment & Plan: This is stable. She follows with orthopedics. I do think it would benefit from weight loss Iron deficiency anemia 10/26/2017 Overview (08/12/2021): Last Assessment & Plan: She follows leila dozier at [facility]. Hopefully this will resolve since her menses have stopped. Herpetic vulvovaginitis 10/26/2017 Deep venous thrombosis 10/26/2017 Overview (08/12/2021): Last Assessment & Plan: Follows leila Davis on Xarelto Proteinuria 10/26/2017 Overview (08/12/2021): Last Assessment & Plan: Follows w renal. On ACEI Status post bariatric surgery 10/26/2017 Overview (08/12/2021): S/p sleeve gastrectomy Spring 2019, Dr Doll Last Assessment & Plan: Plans to have lap band removed and undergo sleeve gastrectomy Tobacco user 10/26/2017 Overview (08/12/2021): Last Assessment & Plan: Smoking cessation urged. She will try the patch & wean off of that, needs to be nicotine free for her surgery Immunizations Name Administration Dates Next Due Influenza (IM) Preservative Free 12/24/2016 Influenza TIV (IM) 07/09/2010 Influenza, MDCK, PF, Quadrivalent 07/20/2017 Influenza, Quadrivalent, Preservative Free 09/10 Pneumococcal Polysaccharide 12/24/2016 Tdap 03/19/2016 Family History Medical History Relation Comments Diabetes Mother Hypertension Mother Diabetes Sibling 1 brothers Kidney disease Sibling [address] ones Hypertension Sibling 3 3 brothers Relation Status Comments Mother Sibling 1 Sibling 2 Sibling 3 Social History Tobacco Use Types Packs/Day Years Used Date Smoking Tobacco: Every Day Cigarettes Alcohol Use Standard Drinks/Week Comments No 0 (1 standard drink = 0.6 oz pur e alcohol) Comments Unknown Sex and Gender Information Value Date Recorded Sex Assigned at Not on file Legal Sex Female 5:12 PM EST Gender Identity Not on file Sexual Orientation Not on file Last Filed Vital Signs Vital Sign Reading Time Taken Comments Blood Pressure 116/66 07/20/2019 12:00 PM EDT Pulse 84 07/20/2019 12:00 PM EDT Temperature - - Respiratory Rate - - Oxygen Saturation 96% 07/20/2019 12:00 PM EDT Inhaled Oxygen Concentration - - Weight 114 kg (252 lb 3.2 oz) 07/20/2019 12:00 P M EDT Height 165.1 cm (5' 5 ) 07/20/2019 12:00 PM EDT Body Mass Index 41.97 07/20/2019 12:00 PM EDT Plan of Treatment Health Maintenance Due Date Last Done Comments Breast Cancer Screening 1970 Hepatitis B Vaccine (1 of 3 - 19+ 3-dose series) 1988 Pneumococcal Vaccine: Pediat rics (0 to 5 Years) and At-Risk Patients (6 to 64 Years) (2 of 2 - PCV) 12/24/2017 12/24/2016 Colorectal Cancer Screening: Annual FOBT 2018 Colorectal Cancer Screening: Colonoscopy 2018 Colorectal Cancer Screening: Sigmoidoscopy 2018 Influenza Vaccine (#1) 2024 7, 12/24/2016, 09/10/2016, Additional history exists Insurance [place]
--- OUTSIDE RECORDS SUMMARY | 2024-11-22 06:47 | XMS_ITS | Data Portability ---
Author Organization LUIS A Miller [address]ene [address] Address [address] [place] [address] Assessment Encounter Date Assessment Date Assessment LastModified by Organization Details LastModified Time 12/03/2023 12/03/2023 Patient was evaluated by the Physician Student Ministries Director using AV technology. This type of exam does not replace a need for an in-person evaluation if symptoms worsen or do not improve after 24-48 hours. Not available 12/03/2023 15:41:04 Plan of Treatment Reminders Order Date Submit Date Provider Last Modified By Organization Details Last Modified Time Details Appointments None recorded. Lab None recorded. Referral emergency medicine referral 2023 024 [email or web address] 48 [facility] Emergency Room, [address] [place], [address], 4 15:15:39 Procedures None recorded. Surgeries None recorded. Imaging None recorded. Medication Orders amoxicillin 875 mg-potassiu m clavulanate 125 mg tablet 2023 024 [id number], [address], [place], [id number], 4 14:14:45 meclizine 25 mg tablet 2023 024 [id number], [address] [facility], [place], [place], [phone], 4 13:28:16 Patient TargetsNo targets recorded. Patient Instructions Encounter Date Encounter Id Patient Instructions Last Modified By Organization Details Last Modified Time 12/03/2023 [id number] head or face pain: care instructions Not available 12/03/2023 15:40:49 05/20/2024 [id number] learning about rice (rest, ice, compression, and elevation) [email or web address] Not available 05/20/2024 15:13:38 05/30/2024 [id number] benign paroxysma l positional vertigo (bppv): care instructions [email or web address] Not available 05/30/2024 12:43:30 Reason for Referral Emergency Medicine Referral for Concussion with loss of consciousness Referring Physician: Kathy España, Urgent Care, Encounter Date: 05/20/2024 Problems Name Problem SNOMED Code Status Onset Date Resolution Date Notes Provider Name and Address Organization Details Recorded Time Injury of right ankle 3008274197993 9100 Active 2023 Kathy España NP [address] , [place], [address], [place] - [facility] 4 15:06:51 Injury of right shoulder 2572328964507 9107 Active 2023 Kathy España NP [address] , [place], [address], [place] - [facility] 4 15:07:06 Injury of head 14970467 Active 2023 Kathy España NP [address] , [place], [address], [place] - [facility] 4 15:13:09 Concussion with loss of consciousne ss 93785119 Active 2023 Kathy España NP [address] , [place], [address], [place] - [facility] 4 15:13:14 Benign paroxysmal positional vertigo 784043017 Active 2023 Jitendra Nolan NP [address] , [place], [address], [place] - [facility] 4 12:42:03 Sprain of right ankle 8015643079552 9105 Active 2023 Jitendra Nolan, PERLITA [address] [place], [address] [place] - [facility] 4 12:43:08 [...] t Available Vitals Date Recorded Body height Provider Name an d Address Organization Details Last Updated DateTime 12/03/2023 162.56 cm Kim Enamorado PA - [facility] 15:28:51 Date Recorded Body mass index (BMI) Body weight Provider Name and Address Organization Details Last Updated DateTime 12/03/2023 30 kg/m2 38854.66 g Kim Enamorado PA - [facility] 12/03/2023 15:28:55 Date Recorded Body height Provider Name an d Address Organization Details Last Updated DateTime 05/20/2024 162.56 cm Radha Zaragoza PA - [facility] 05/20/2024 14:14:16 Date Recorded Body mass index (BMI) Body weight Provider Name and Address Organization Details Last Updated DateTime 05/20/2024 29.2 kg/m2 13522.7 g Radha Mila PA - [facility] 05/20/2024 14:14:38 Date Recorded Pain severity - 0-10 verbal numeric rating [Score] - Reported Provider Name and Address Organization Details Last Updated DateTime 05/20/2024 10 Radha Mila PA - [facility] 05/20/2024 14:15:22 Date Recorded Oxygen saturation Oxygen saturation in Arterial blood by Pulse oximetry Provider Name and Address Organization Details Last Updated DateTime 05/20/2024 95.99 % 95.99 % Radha Mila PA - [facility] 05/20/2024 14:15:38 Date Recorded Heart rate Provider Name an d Address Organization Details Last Updated DateTime 05/20/2024 96 /min Radha Mila PA - [facility] 05/20/2024 14:15:36 Date Recorded Respiratory rate Provider Name a nd Address Organization Details Last Updated DateTime 05/20/2024 18 /min Radha Mila PA - [facility] 05/20/2024 14:15:39 Date Recorded Body temperature Provider Name a nd Address Organization Details Last Updated DateTime 05/20/2024 98.9 [degF] Radha Mila PA - [facility] 05/20/2024 14:15:46 Date Recorded Body height Provider Name an d Address Organization Details Last Updated DateTime 05/30/2024 162.56 cm Vondadelano Rae PA - [facility] 0 05/30/2024 12:25:31 Date Recorded Body mass index (BMI) Body weight Provider Name and Address Organization Details Last Updated DateTime 05/30/2024 29.2 kg/m2 41365.7 g Vonda Kyra PA - [facility] 05/30/2024 12:25:35 Date Recorded Respiratory rate Provider Name a nd Address Organization Details Last Updated DateTime 05/30/2024 18 /min Vonda Kyra PA - [facility] 0 05/30/2024 12:27:33 Date Recorded Oxygen saturation Oxygen saturation in Arterial blood by Pulse oximetry Provider Name and Address Organization Details Last Updated DateTime 05/30/2024 99 % 99 % Vonda Kyra PA - [facility] 05/30/2024 12:27:52 Date Recorded Heart rate Provider Name an d Address Organization Details Last Updated DateTime 05/30/2024 79 /min Vonda Rae PA - [facility] 0 05/30/2024 12:27:54 Date Recorded Systolic blood pressure Diastolic blood pressure Provider Name and Address Organization Details Last Updated DateTime 05/20/2024 89 mm[Hg] 64 mm[Hg] Radha Zaragoza PA - [facility] 05/20/2024 14:14:50 Date Recorded Systolic blood pressure Diastolic blood pressure Provider Name and Address Organization Details Last Updated DateTime 05/30/2024 134 mm[Hg] 89 mm[Hg] Vonda Rae PA - [facility] 05/30/2024 12:27:41 Social History Question Answer Notes LastModified [...] Diagnosis/Indication Diagnosis SNOMED-CT Code Diagnosis ICD10 Code Diagnosis Note [id number] [address] [facility] [address] 09/23/2021 08:25:23 09/23/2021 09:55:03 [id number] [place] [address] 07/11/2020 09:02:05 07/11/2020 09:48:06 [id number] [address] [facility] [address] [facility] [place] [address] 06/06/2022 08:07:19 06/06/2022 08:54:57 [id number] LUIS A [place] [address] [facility] [address] [facility] [place] [address] 12/03/2023 15:24:57 12/03/2023 15:54:39 Infection of tooth 969860621 K04.7 Based on your presentati on and exam, you are being treated for a Dental Infection. I am going to prescribe you and antibiotic to cover this infection. Please be sure to complete the full course of this antibiotic to prevent antibiotic resistance . Antibiotic s will typically take 4-5 days to start to work with symptom improvemen t. The following are my other recommenda tions to help with symptoms and is important for this diagnosis: 1. Take Ibuprofen or Tylenol if you do not have any allergies to these medication s. If you take a blood thinner you should not take NSAIDS like Ibuprofen. These medication will help with the inflammati on in your respirator y tract which should help the cough.2. Half Peroxide/H mcc Water Rinses3. Make an appointmen t with a dentist - tooth infection will be helped with antibiotic s but they usually just continue to reoccur. The only treatment is really a root canal or tooth extraction .4. Oralgel can help alleviate some of the symptoms - this can be purchased OTC5. Ice is ok to help with symptoms, but do not apply heat. I would be seen again if you develop any of the following symptoms.1 . Fever > 101.02. Stiff neck - where you can't turn your neck3. Trouble swallowing your saliva - drooling4. Swelling of a lymph node in your throat that is painful to touch5. Difficulty breathing6 . Severe Headache7. Significan t facial swelling especially if it move up close to your eye. Thank you for using [facility] today, please feel free to contact our office if you have any questions or concerns. [id number] Kathy España NP [address] [facility] [address] [place] [address] 05/20/2024 14:01:41 05/20/2024 15:15:39 Injury of right ankle 9949687575 3521705 S99.911A Injury of right shoulder 6740852780 0511927 S49.91XA to be F/U with ER Concussion with loss of consciousness 86771137 S06.0X9A Based on your exam and presentati on - I am diagnosing you with a traumatic closed head injury We are limited in our diagnostic capabiliti es in our center and feel that it would be best to go to the Emergency Room. Based on your presentati on it would be best to have access to lab work and advanced imaging, if the physician would feel that would be indicated based on your History and Presentati on. These things are typically necessary to give you an accurate diagnosis head injury has the risk of having significan t complicati ons if not diagnosed and treated appropriat bruce. This may include . [id number] Jitendra Nolan NP [address] [facility] [address] [place] [address] 05/30/2024 11:53:30 05/30/2024 12:43:56 Benign paroxysmal positional vertigo 119177694 H81.10 Please drink plenty of fluids. See your doctor or go to the neared emergency department right away if you have vertigo and:-Have a new or severe headache-H ave a fever higher than 100.4? ? ?F (38? ? ?C)-Start to see double or have trouble seeing clearly-[place] ve trouble speaking or hearing-[place] ve weakness in an arm or leg or your face droops to one side-Canno t walk on your own-Pass out-Have numbness or tingling-H ave chest pain-Canno t stop vomiting Meclizine can cause drowsiness , if you take this medication please stay home and refrain from driving or operating heavy Emairary. Please follow with your PCP in 2-3 days for recheck Please go to the emergency department if any symptoms worsen. The Dav maneuverma y help alleviate some of your symptoms- please attempt this at home. Refer to the handout on the dav maneuver. Sprain of right ankle 11 09103611 0021803 S93.401A Health Concerns Section Related Observation LastModified by Organization Detai ls LastModified Time None Recorded Concern Status LastModified by Organization Details LastModified Time None Recorded Advance Directives Directive None Recorded Payers Encounter Date Sequence Insurance Name Policy Number Policy De León Covered Member ID De León Member ID Guarantor Name 09/23/2021 1 MEDICARE B-ND: [facility] Judith E Mingo [id number] Judith Mingo 09/23/2021 2 MEDICAID-[place]: [facility] Judith E Mingo [id number] Judith Mingo 06/06/2022 1 MEDICARE B-ND: [facility] Judith E Kavon [id number] Judith Mingo 06/06/2022 2 MEDICAID-[place]: [facility] Judith E Kavon [id number] Judith Mingo 12/03/2023 1 MEDICARE B-ND: [facility] Judith E Mingo [id number] Judith Mingo 12/03/2023 2 [place] [facility] Judith E Mingo [id number] Judith Mingo 05/20/2024 1 MEDICARE B-ND: [facility] Judith E Kavon [id number] Judith Kavon 05/20/2024 2 MEDICAID-[place]: [facility] Judith E Mingo [id number] Judith Mingo 05/30/2024 1 MEDICARE B-ND: [facility] Judith E Kavon [id number] Judith Mingo 05/30/2024 2 [place] [facility] Judith E Kavon [id number] [facility] Notes Date Note Type Note Provider Name and Address Organization Details Recorded Time text/html Verified the Patient's Name and at [...] issues on that side. LUIS A [place] [address] [place], [address], [facility] 12/03/2023 15:41:44 4 text/html Foot/Ankle UCReported [...] previous clot . Kathy España NP [address] [place], [address], [facility] 06/16/2024 08:57:10 4 text/html DizzinessReported bypatient.travelInformation [...] She denies any chronic ear problems or M?ni?re's disease. Quality:feeling his head is spinning sometimes [...] noise in the ears;ears feel full;head pressure Jitendrarodolfo Nolan NP [address] [place], [address], [place] - [facility] 06/09/2024 17:37:55 OBGyn Episode No OBEpisode recorded.
--- OUTSIDE RECORDS SUMMARY | 2024-11-22 06:47 | XMS_ITS | Continuity of Care Document ---
Author Organization [facility] ter Address [address] [place] [address] Care Team Providers Care Bail Bond Agent Name Role Phone Shannon BHAT, Codi Kumar Primary Care Physician [facility] [id number] Date(s): 11/19/24 - 11/20/[address] [address]- Discharge Disposition: A-D/C Walkout Attending Physician: Not on Staff, Attending MD Admitting Physician: Not on Staff, Admitting MD Referring Physician: Not on Staff, Referring [...] Refills, Maintenance, 06/18/24 10:57:00 PM EDT, Capsule, [facility]/pharmacy #[id number], Partial fill upon patient request if [...] Condition Confirmation Course Effective Dates Status H ealt Status Informant Anxiety disorder Confirmed Active Binge [...] Active VITAMIN D DEFICIENCY Confirmed 11/2006 Active Vital Signs Most recent to oldest [Reference Range]: 1 Height 163 cm (11/19/24 7:23 PM) Weight 77.5 kg (11/19/24 7:23 PM) Oxygen Saturation [94-100 %] 95 % (11/19/24 7:23 PM) Pulse Rate [55-90 bpm] 74 bpm (11/19/24 7:23 PM) Body Mass Index [18.5-24.99 kg/m2] 29.17 kg/m2 *H* (11/19/24 7:23 PM) Blood Pressure [90-138/55-84 mm Hg] 99/7 7mm Hg (11/19/24 7:23 PM) Respiratory Rate [16-30 br/min] 22 br/mi n (11/19/24 7:23 PM) Temperature [96.8-100.4 DegF] 97.9 DegF (11/19/24 7:23 PM) Mode of Delivery (Oxygen) Room air (11/19/24 7:23 PM) Blood pressure sites Arm, right (11/19/24 7:23 PM) Temperature Route Oral (11/19/24 7:23 PM) Dry Weight 77.5 kg (11/19/24 7:23 PM) Weight Obtained Via Standing scale (11/19/24 7:23 PM) Dry Weight Obtained Via Standing scale (11/19/24 7:23 PM) Social History Social History Type Response Smoking Status Current every day sm oker; Other: vapor; entered on: 12/23/17 Sex Sex Representation Female (finding) EKG study * Event Display: EKG Authored Date: * Event Display: ECG 12-Lead Authored Date: Please click on pdf link to open report * Event Display: ECG 12-Lead Authored Date: Ventricular Rate: 70 BPM Atrial Rate: 70 BPM P-R Interval: 194 ms QRS Duration: 106 ms Q-T Interval: 416 ms QTC Calculation(Bazett): 449 ms P [place]: 40 degrees R [place]: -15 degrees T [place]: 33 degrees Normal sinus rhythm Moderate voltage criteria for LVH, may be normal variant ( R in aVL , Daniel product ) Cannot rule out Anterior infarct (cited on or before 18-Jun-2024) Abnormal ECG When compared with ECG of 22-Sep-2024 09:19, No significant change was found Confirmed by AZUCENA HENRIQUEZ MD ([id number]) on 11/20/2024 8:06:04 AM [place]: AZUCENA HENRIQUEZ MD Patient Care team information Care Team Personnel Name: Codi Ortega NP, I Position: Reference Physician Member Role: PCP Address: [address] [facility] [place] [address]- [place] [employer]: Name: Bess Romo NP Position: Reference Physician Member Role: Primary Care Nurse Address: [address] [place] [address] [address] [facility] [place] [address] [place] [employer]: Name: Gil West RN Position: S RN Member Role: Primary Care Nurse Care Team Related Persons Name: WON BREWER Name: YOHAN HELMS Name: CONY RAHMAN Insurance Providers Guarantor name: [employer] Plan Information #: 1 Payer: [employer] Member Number: [id number] Policy Number: NA Group Number: NA Health Plan Information #: 2 Payer: MEDICARE PART B OUTPT Member Number: NA Policy Number: NA Group Number: NA Health Plan Information #: 3 Payer: [place] Member Number: NA Policy Number: NA Group Number: NA
== END 2024-11-22 06:46 | disposition home or self-care (01) ==
LOC: HO.US 06:45
PROVIDERS: Visit Provider Internal Medicine Medical Oncology
DX: Z13.89 Encounter for screening for other disorder (principal)
CPT/HCPCS: 93971

== ENCOUNTER → 2024-11-22 06:47 | Outpatient (BNV) | payer MEDICARE, MEDICAID, SELFPAY | PROVIDERS: Visit Provider Radiology Diagnostic Radiology | DX: I82.402 Acute embolism and thrombosis of unspecified deep veins of left lower extremity (principal) | CPT/HCPCS: 93971 ==

== ENCOUNTER 2024-11-22 08:09 | Day surgery (SDC) | payer MEDICARE, MEDICAID, SELFPAY ==
--- OUTSIDE RECORDS SUMMARY | 2024-10-05 13:31 | XMS_ITS | Continuity of Care Document ---
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 Name Role Phone Shannon BHAT, Codi Kumar Primary Care Physician [phone] [facility] [id number] Date(s): 09/27/24 - 09/28/[address] [address]- Discharge Disposition: A-D/C Home Attending Physician: Lurdes Dang MD Admitting Physician: Lurdes Dang MD Referring Physician: Not on Staff, Referring MD Encounter Type: Disch ES Allergies, Adverse Reactions, Alerts Substance Criticality Severity Reaction Reaction Severity Status aspirin welts,throat closed Active Cats Active Pollen Active Immunizations Given and Recorded Vaccine Date Status Refusal Reason pneumococcal 23-valent vaccine 05/14/10 Given Medications HydrOXYzine = 25 mg, By Mouth, Daily in AM, 0 Refills, Maintenance, 08/02/20 11:19:00 AM EDT Start Date: 08/02/20 Status: Ordered Repeat number: 1 Levorphanol = 6 mg, By Mouth, 3 times a day, 0 Refills, Maintenance, 07/22/17 9:54:40 AM EDT Start Date: 07/22/17 Status: Ordered Repeat number: 1 Lisinopril = 2.5 mg, By Mouth, Daily, 0 Refills, Maintenance, 01/22/18 10:55:57 AM EDT Start Date: 01/22/18 Status: Ordered Repeat number: 1 Lorazepam = 1 mg, 3 times a day, 0 Refills, Maintenance, 01/22/18 10:52:45 AM EDT Start Date: 01/22/18 Status: Ordered Repeat number: 1 Lovenox 100 mg/mL injectable solution = 100 mg, Subcutaneous Injection, Daily, *Note: Treatment = 1.5mg/kg/day, renal dosing = 1mg/kg/day*, # 7 each, 0 Refills, Maintenance, 09/27/24 9:52:00 PM EST, Partial fill upon patient request if the prescription is for a schedule II opioid drug. Start Date: 09/27/24 Status: Ordered Quantity: 7.0 Unit: each Repeat number: 1 Lyrica 75 mg oral capsule 1 capsule = 75 mg, By Mouth, 2 times a day, 0 Refills, Maintenance, 08/02/20 11:18:00 AM EDT Start Date: 08/02/20 Status: Ordered Repeat number: 1 MorPHINE Inj 8 mg, Injection, Intramuscular, Once, Hold for: SBP <90, *or* SpO2 <90, *or* Resp rate <10, PRN for Other, Pain >3/10, STAT, 09/27/24 11:29:00 PM EST Start Date: 09/27/24 Stop Date: 09/27/24 Status: Completed Repeat number: 1 Nexium Capsule 40 mg, By Mouth, Daily, Maintenance, 08/08/14 10:28:56 AM EDT Start Date: 08/08/14 Status: Ordered Repeat number: 1 oxyCODONE 20 mg oral tablet 1 tablet = 20 mg, By Mouth, Every 6 hours, 0 Refills, Maintenance, 09/19/19 3:43:03 PM EST, Partialfill upon patient request Start Date: 09/19/19 Status: Ordered Repeat number: 1 OxyCONTIN 10 mg oral tablet, extended release 10 mg, 1, tablet, By Mouth, Every 12 hours, Refills 0, Tot. Refills 0, Maintenance, 09/27/24 9:51:00PM EST, Partial fill upon patient request if the prescription is for a schedule II opioid drug. Start Date: 09/27/24 Status: Ordered Repeat number: 1 pregabalin 75 mg oral capsule 1 capsule = 75 mg, By Mouth, 2 times a day, # 12 capsule, 0 Refills, Maintenance, 06/18/24 10:57:00 PM EDT, Capsule, [id number], Partial fill upon patient request if the prescription is for a schedule II opioid drug., 163, cm, 06/02/24 8:10:00 EDT, Height, 85.6, kg, 06/02/24 8:10:00 EDT, DryWeight Start Date: 06/18/24 Stop Date: 06/24/24 Status: Ordered Quantity: 12.0 Unit: capsule Repeat number: 1 Vitamin B12 0 Refills, Maintenance, 09/19/19 3:43:39 PM EST Start Date: 09/19/19 Status: Ordered Repeat number: 1 Vitamin D3 By Mouth, 0 Refills, Maintenance, 09/19/19 3:43:29 PM EST Start Date: 09/19/19 Status: Ordered Repeat number: 1 Xarelto 20 mg oral tablet 1 tablet = 20 mg, By Mouth, Daily, # 30 tablet, 0 Refills, Maintenance, 03/01/17 10:47:31 PM EDT, Tablet Start Date: 03/01/17 Status: Ordered Quantity: 30.0 Unit: tablet Repeat number: 1 Problem List Condition Confirmation Course Effective Dates Status H ealth Status Informant Anxiety disorder Confirmed Active Binge eating disorder, mild, in partial remission Confirmed Active Morbid obesity with BMI of 40.0-44.9, adult Confirmed Active Fluid retention in legs Confirmed Active GERD (gastroesophageal reflux disease) Confirmed Active History of DVT (deep vein thrombosis) Confirmed Active Chronic leg pain Confirmed Active Phlebitis and thrombophlebitis of femoral vein Confirmed Active Postmenopausal bleeding Confirmed Active Protein S deficiency Confirmed Active Proteinuria Confirmed Active VITAMIN D DEFICIENCY Confirmed 11/2006 Active Results Radiology Reports * Exam Date Time Procedure Performing Provider Status 09/27/24 11:[address] Lumbar Spine W/O Contrast Aminah Jameson; Auth (Verified) Notes: (CT Lumbar Spine W/O Contrast) Reason For Exam: pre-existing L2-L5 compression fx; new fall, worse pain in upper lumbar region;Other: RESULT: CT Lumbar Spine W/O Contrast CT Lumbar Spine W/O Contrast Refer to EMR; Hx of Present Illness: Diagnosed w broken lower back between L1-L5 in May @ [facility] [place]. She was coming to the ED for evaluation of her chronic pain when she slipped and fell getting into the car. Bilateral leg pain (-) HS LOC. Ran out of pain meds on Mon. On lovenox for clots.; Reason: Other:; pre-existing L2-L5 compression fx; new fall, worse pain in upper lumbar region; [facility] CLINICAL QUESTION: Fracture/Dislocation TECHNIQUE: Thin section axial images were acquired through the lumbar spine. Bone and soft tissue algorithms were reconstructed along with coronal and sagittal reformats. Weight-based protocol using automatic tube modulation was used to optimize exposure parameters. CTDIvol Body: 19.99 mGy, DLP Body: 482 mGy*cm. COMPARISON: 07/21/2024 FINDINGS: Snowmobile Mechanic View Findings, Lines and Tubes: None. Spine: Redemonstration of superior endplate fractures at L2 and L5 involving the anterior superior corner of the vertebral bodies. No progression in terms of height loss at either fracture. There are sclerotic changes bridging the fracture fragments indicative of healing. No new fracture or acute fracture. There is mild loss of disc space height at L2-3 and L4-5 is unchanged. Lordosis is maintained. Soft tissues: No acute abnormality in the paravertebral soft tissues. Visualized aorta and kidneys appear unremarkable. IMPRESSION: Healing L2 and L5 mild superior endplate compression fractures not significantly changed in configuration compared to 07/21/2024. No new or acute fracture is identified. Mild chronic degenerative changes at L2-3 and L4-5. No discrepancy with tone artist apprentice teleradiology report . This results in WSN: [id number] Ordering Physician: Lurdes Dang Dictated By: Robert Muir MD Dictated Date/Time: 09/28/24 8:40 am Reviewed By: Robert Muir MD Signed By: Robert Muir MD Signed Date/Time: 09/28/24 8:40 am Transcribed By: RIANNA Transcribed Date/Time: 09/28/24 8:35 am Vital Signs Most recent to oldest [Reference Range]: 1 2 3 Height 163 cm (09/27/24 9:42 PM) Weight 77.0 kg (09/27/24 9:42 PM) Oxygen Saturation [94-100 %] 98 % (09/27/24 9:42 PM) Pulse Rate [55-90 bpm] 110 bpm *H* (09/27/24 9:42 PM) Blood Pressure [90-138/55-84 mm Hg] 158/138mm Hg *H* (09/27/24 9:42 PM) Respiratory Rate [16-30 br/min] 18 br/min (09/28/24 12:08 AM) 18 br/min (09/27/24 11:38 PM) 20 br/min (09/27/24 9:42 PM) Temperature [96.8-100.4 DegF] 98.0 DegF (09/27/24 9:42 PM) Mode of Delivery (Oxygen) Room air (09/27/24 9:42 PM) Blood pressure sites Arm, right (09/27/24 9:42 PM) Temperature Route Oral (09/27/24 9:42 PM) Dry Weight 77.0 kg (09/27/24 9:42 PM) Social History Social History Type Response Smoking Status Current every day sm oker; Other: vapor; entered on: 12/23/17 Sex Sex Representation Female (finding) Note * Alton MIRELES, Lurdes Saldana: PERFORM Event Display: Patient Education Leaflets Authored Date: Chronic Pain ?? [id number] Chronic Pain Pain??serves an important role. It lets you know something is wrong that needs your attention. Whenthe body heals, pain normally goes away. When pain lasts longer than 3 months, it's called chronic pain. This is pain that's present even after the body has healed.??Chronic pain can cause mood problems and get in the way of your relationships and your daily life. A number of conditions can cause chronic pain. Some of the more common causes include: ??? Previous surgery ??? An old injury ??? Infection ??? Diseases such as diabetes ??? Nerve damage??? Back injury ??? Arthritis ??? Migraine or other headaches ??? Fibromyalgia ??? Cancer Depression and stress can make chronic pain symptoms worse.??In some cases, a cause for the pain can't be found.?? Treatment Treatment??can??greatly reduce??pain.??In many cases,??pain can become less severe, occur less often, and interfere less with your daily life.??Chronic pain is often treated with a combination of medicines,??therapies, and lifestyle changes. You will work closely with your healthcare provider to find a treatment plan that works best for you. ??? Ask your healthcare provider for a referral to a pain management specialty center. These can provide the most recent and proven pain management strategies, along with emotional support and comprehensive services. ??? Several different types of medicines may be prescribed for chronic pain. Work with your healthcare provider to develop a medicine planthat helps manage your pain. ??? Physical therapy can help reduce certain types of chronic pain. ??? Occupational therapy teaches you how to do routine tasks of daily living in ways that lessen your discomfort. ??? Counseling can help you??cope better with stress and pain. ??? Other therapies such as meditation, yoga, biofeedback, massage, and acupuncture can also help manage chronic pain. ??? Cristina nging certain habits can help reduce chronic pain: o Eat healthy o Develop an exercise routine o Get enough sleep?? o Stop smoking and limit alcohol use o Lose excess weight ?? Follow-up care Follow up with your??healthcare provider as advised. Let your??healthcare provider??know if your current treatment plan is working or if changes are needed. ?? To learn more For more information, contact: ??? [place] Head[employer] and Migraine Association at americanheadachesociety.org or 857-720-8876 ??? [place] Chronic Pain Association at theacpa.org or 945-481-0157 ?? Last Reviewed Date: 2022 ?? [employer]. All rights reserved. This information is not intended as a substitute for professional medical care. Always follow your healthcare professional's instructions. ?? * Alton MIRELES, Lurdes Saldana: PERFORM Event Display: Patient Education Leaflets Authored Date: [id number] Back Pain (Acute or Chronic) ?? [id number] Back Pain (Acute or Chronic) Back pain is one of the most common problems. The good news is that most people feel better in 1 to2 weeks, and most of the rest in 1 to 2 months. Most people can remain active. People who have pain??describe it differently???not??everyone is the same. ??? The pain can be sharp, stabbing, shooting, aching, cramping or burning. ??? Movement, standing,bending, lifting, sitting, or walking may worsen pain. ??? It can be limited to one spot or area, or it can be more generalized. ??? It can spread upwards, to the front, or go down your arms or legs (sciatica). ??? It can cause muscle spasm. Most of the time, mechanical problems with the muscles??or spine cause the pain. Mechanical problems??are usually caused by an injury to the muscles or ligaments. Illness can cause back pain, but it's usually not caused by a serious illness. Mechanical problems include:? Physical activity such as sports, exercise, work, or normal activity ??? Overexertion, lifting,pushing, pulling incorrectly or too aggressively ??? Sudden twisting, bending, or stretching from an accident, or accidental movement ??? Poor posture ??? Stretching or moving wrong, without noticingpain at the time ??? Poor coordination, lack of regular exercise (check with your doctor about this) ??? Spinal disc disease or arthritis ??? Stress Pain can also be related to , or illness such as appendicitis, bladder or kidney infections, kidney stones, and pelvic infections. Acute back pain usually gets better in??1 to 2 weeks. Back pain related to disk disease, arthritis in the spinal joints, or narrowing of the spinal canal (spinal stenosis) can become chronic and lastfor months or years. Unless you had a physical injury such as a car accident or fall, X-rays are usually not needed for the first assessment of back pain. If pain continues and does not respond to medical treatment, you may need X-rays and other tests. Home care Try this home care advice: ??? When in bed, try??to find a position of comfort. A firm mattress is best. Try lying flat on your back with pillows under your knees. You can also try lying on your side with your knees bent up toward your chest and a pillow between your knees. ??? At first, don't try to stretch out the sore spots. If there is a strain, it's not like the good soreness you get after exercising without an injury. In this case, stretching may make it worse. ??? Don't sit for long periods, as in a long car ride or during other??travel. This puts more stress on the lower back than standing or walking. ??? During the first 24 to 72 hours after an acute injury or flare up of chronic back pain, apply an ice pack to the painful area for 20 minutes and then remove it for 20 minutes. Do this over a period of 60 to 90 minutes or several times a day. This will reduce swelling and pain. Wrap the ice pack in a thintowel or plastic to protect your skin. ??? You can start with ice, then switch to heat. Heat (hot shower, hot bath, or heating pad) reduces pain and works well for muscle spasms. Heat can be applied to the painful area for 20 minutes then remove it for 20 minutes. Do this over a period of 60 to 90 minutes or several times a day. Don't sleep on a heating pad. It can lead to skin newman or tissue damage. ??? You can alternate ice and heat therapy. Talk with your doctor about??the best treatment for your back pain. ??? Therapeutic massage can help relax the back muscles without stretching them. ??? Be aware of safe lifting methods. Don't lift anything without stretching first. Medicines Talk to your doctor before using medicine, especially if you have other medical problems or are taking other medicines. ??? You may use [id number] medicine as directed on the bottle to control pain, unless another pain medicine was prescribed. Talk with your healthcare provider before using these medicines if you have chronic conditions such as diabetes, liver or kidney disease, stomach ulcers, or digestive bleeding. Also talk with your provider if you take blood thinners. ??? Be careful if you are given a prescription medicines, narcotics, or medicine for muscle spasms. They can cause drowsiness, affect your coordination, reflexes, and judgment. Don't drive or operate heavy machinery. ?? Follow-up care Follow up with your healthcare provider, or as advised.?? If X-rays were taken, you will be told of any new findings that may affect your care. ?? Call 911 Call 911 if any of the following occur: ??? Trouble breathing ??? Confusion ??? Very drowsy or trouble awakening ??? Fainting or loss of consciousness ??? Rapid or very slow heart rate ??? Loss of bowel or bladder control ?? When to seek medical advice Call your healthcare provider right away if any of these occur:? Pain gets worse or spreads toyour legs ??? Your bowel or bladder control changes ??? Fever ??? Blood in your urine ??? Weakness or numbness in one or both legs ??? Numbness in the groin or genital area ?? Last Reviewed Date: 2021 ?? [id number] [employer]. All rights reserved. This information is not intended as a substitute for professional medical care. Always follow your healthcare professional's instructions. ?? Patient Care team information Care Team Personnel Name: Codi Ortega NP, I Position: Reference Physician Member Role: PCP Address: [address] [place] [id number]- Telecom: Name: Bess Romo NP Position: Reference Physician Member Role: Primary Care Nurse Address: [address] [place] [address] [address] [employer] [place] [address]- Telecom: Name: Gil West RN Position: S RN Member Role: Primary Care Nurse Care Team Related Persons Name: WON BREWER Name: YOHAN HELMS Name: CONY RAHMAN Insurance Providers Guarantor name: JEREMIAS [place] [employer] Plan Information #: 2 Payer: [email or web address] Member Number: [id number] Policy Number: NA Group Number: NA Health Plan Information #: 1 Payer: MEDICARE PART B OUTPT Member Number: [id number] Policy Number: NA Group Number: NA
--- OUTSIDE RECORDS SUMMARY | 2024-10-05 13:31 | XMS_ITS | Data Portability ---
Author Organization LUIS A Miller [facility] [address] Address [address] [place] [address] Assessment Encounter Date Assessment Date Assessment LastModified by Organization Details LastModified Time 12/03/2023 12/03/2023 Patient was evaluated by the Physician Beauty Artist using AV technology. This type of exam does not replace a need for an in-person evaluation if symptoms worsen or do not improve after 24-48 hours. Not available 12/03/2023 15:41:04 Plan of Treatment Reminders Order Date Submit Date Provider Last Modified By Organization Details Last Modified Time Details Appointments None recorded. Lab None recorded. Referral emergency medicine referral 2023 024 [email or web address] 48 [facility], [address] [place], [address], 4 15:15:39 Procedures None recorded. Surgeries None recorded. Imaging None recorded. Medication Orders amoxicillin 875 mg-potassiu m clavulanate 125 mg tablet 2023 024 [id number], [address] [place], [place], [id number], 4 14:14:45 meclizine 25 mg tablet 2023 024 [facility] #[id number], [address] [facility], [place], [place], [id number], 4 13:28:16 Patient TargetsNo targets recorded. Patient Instructions Encounter Date Encounter Id Patient Instructions Last Modified By Organization Details Last Modified Time 12/03/2023 [id number] head or face pain: care instructions Not available 12/03/2023 15:40:49 05/20/2024 [id number] learning about rice (rest, ice, compression, and elevation) [email or web address] Not available 05/20/2024 15:13:38 05/30/2024 [id number] benign paroxysma l positional vertigo (bppv): care instructions [email or web address] Not available 05/30/2024 12:43:30 Reason for Referral Emergency Medicine Referral for Concussion with loss of consciousness Referring Physician: Kathy España, Urgent Care, Encounter Date: 05/20/2024 Problems Name Problem SNOMED Code Status Onset Date Resolution Date Notes Provider Name and Address Organization Details Recorded Time Injury of right ankle 9765687862570 9100 Active 2023 Kathy España NP [address] , [place], [address], [place] - [facility] 4 15:06:51 Injury of right shoulder 0029113025912 9107 Active 2023 Kathy España NP [address] , [place], [address], [place] - [facility] 4 15:07:06 Injury of head 36082872 Active 2023 Kathy España NP [address] , [place], [address], [place] - [facility] 4 15:13:09 Concussion with loss of consciousne ss 65488744 Active 2023 Kathy España NP [address] , [place], [address], [place] - [facility] 4 15:13:14 Benign paroxysmal positional vertigo 034631197 Active 2023 Jitendra Nolan NP [address] , [place], [address], [place] - [facility] 4 12:42:03 Sprain of right ankle 7171692748967 9105 Active 2023 Jitendra Nolan, PERLITA [address] [place], [address] , [place] - [facility] 4 12:43:08 Problem Notes None recorded. Medical Equipment None Reported. Allergies No known drug allergies Medications Name Sig Start Date Stop Date Status Note LastModified by Organization Details LastModified Time levorphanol tartrate 2 mg tablet TAKE 1 TABLET BY MOUTH THREE TIMES DAILY FOR SEVERE PAIN 05/20 completed Not Available Not Available Not Available clonazepam 1 mg tablet TAKE 1 TABLET BY MOUTH THREE TIMES DAILY active Not Available Not Available No t Available penicillin V potassium 500 mg tablet TAKE 1 TABLET BY MOUTH EVERY 6 HOURS UNTIL ALL TAKEN DIRECTED active Not Available Not Available No t Available Nexium 40 mg capsule,del ayed release TAKE 1 CAPSULE BY MOUTH TWICE DAILY active Not Available Not Available No t Available acetaminoph en ER 650 mg tablet,exte nded release TAKE 1 TABLET BY MOUTH THREE TIMES DAILY NEEDED FOR MODERATE TO SEVER PAIN active Not Available Not Available No t Available calcitonin (salmon) 200 unit/actuat ion nasal spray active Not Available Not Available Not Available meclizine 25 mg tablet TAKE 1 TABLET BY MOUTH THREE TIMES DAILY FOR 7 DAYS NEEDED FOR VERTIGO active Not Available Not Available No t Available cephalexin 500 mg capsule TAKE 1 CAPSULE BY MOUTH EVERY 6 HOURS FOR 7 DAYS active Not Available Not Available No t Available hydroxyzine HCl 25 mg tablet TAKE 1 TABLET BY MOUTH DAILY FOR ANXIETY active Not Available Not Available No t Available morphine ER 15 mg tablet,exte nded release active Not Available Not Available Not Available lorazepam 1 mg tablet TAKE 1 TABLET BY MOUTH THREE TIMES DAILY active Not Available Not Available No t Available methylpredn isolone 4 mg tablets in a dose pack FOLLOW PACKAGE DIRECTION S active Not Available Not Available No t Available morphine 15 mg immediate release tablet active Not Available Not Available Not Available amoxicillin 875 mg-potassiu m clavulanate 125 mg tablet TAKE 1 TABLET BY MOUTH EVERY 12 HOURS FOR 10 DAYS 05/20 completed Not Available Not Available Not Available buspirone 15 mg tablet TAKE 1 TABLET BY MOUTH THREE TIMES DAILY active Not Available Not Available No t Available cholecalcif kierra (vitamin D3) 25 mcg (1,000 unit) capsule TAKE 1 CAPSULE BY MOUTH EVERY DAY active Not Available Not Available No t Available pregabalin 75 mg capsule TAKE 1 CAPSULE BY MOUTH TWICE DAILY active Not Available Not Available No t Available pregabalin 100 mg capsule TAKE 1 CAPSULE BY MOUTH TWICE DAILY active Not Available Not Available No t Available oxycodone active Not Available Not Glo ilable Not Available lorazepam 05/20 completed Not Available Not Available Not Available oxycodone 20 mg tablet TAKE 1 TABLET BY MOUTH NO MORE THAN 4 TIMES PER DAY FOR SEVERE PAIN active Not Available Not Available No t Available dexlansopra zole 60 mg capsule,bip hase delayed release TAKE 1 CAPSULE BY MOUTH DAILY active Not Available Not Available No t Available sodium,pota ssium,mag sulfates 17.5 gram-3.13 gram-1.6 gram oral soln TAKE 1 BOTTLE BY MOUTH DIRECTED FOR PREP active Not Available Not Available No t Available Xarelto 20 mg tablet TAKE 1 TABLET BY MOUTH DAILY active Not Available Not Available No t Available OxyContin 15 mg tablet,olga lidia h resistant,e xtended release TAKE 1 TABLET BY MOUTH TWICE DAILY active Not Available Not Available No t Available OxyContin 10 mg tablet,olga lidia h resistant,e xtended release TAKE 1 TABLET BY MOUTH TWICE DAILY active Not Available Not Available No t Available naloxone 4 mg/actuatio n nasal spray CALL 911. SPR CONTENTS OF ONE SPRAYER (0.1ML) INTO ONE NOSTRIL. REPEAT IN 2-3 MIN IF SYMPTOMS OF OPIOID EMERGENCY PERSIST, ALTERNATE NOSTRILS active Not Available Not Available No t Available Vitals Date Recorded Body height Body mass index (BMI) Body weight Provider Name and Address Organization Details Last Updated DateTime 12/03/2023 162.56 cm 30 kg/m2 76825.66 g Kim Enamorado PA - [facility] 12/03/2023 15:28:55 Date Recorded Body height Body mass index (BMI) Body weight Oxygen saturation Oxygen saturation in Arterial blood by Pulse oximetry Heart rate Respiratory rate Body temperature Systolic blood pressure Diastolic blood pressure Provider Name and Address Organization Details Last Updated DateTime 4 162.56 cm 29.2 kg/m2 38421.7 g 95.99 % 95.99 % 96 /min 18 /min 98.9 [degF] 89 mm[Hg] 64 mm[Hg] Radha Zaragoza PA - [facility] 4 14:14:50 Date Recorded Body height Body mass index (BMI) Body weight Respiratory rate Oxygen saturation Oxygen saturation in Arterial blood by Pulse oximetry Heart rate Systolic blood pressure Diastolic blood pressure Provider Name and Address Organization Details Last Updated DateTime 4 162.56 cm 29.2 kg/m2 58048.7 g 18 /min 99 % 99 % 79 /min 134 mm[Hg] 89 mm[Hg] Vonda Rae PA - [facility] 4 12:27:41 Social History Question Answer Notes LastModified by Organizat ion Details LastModified Time Tobacco Smoking Status Never Smoker Kim cunningham PA - [facility] 12/03/2023 15:30:16 What Is Your Level Of Alcohol Consumption? None Information not available 12/03/2023 Are You Currently Employed? Yes Information not available 12/03/2023 Have You Had A Flu Shot This Season? No Information not available 12/03/2023 What Is Your Relationship Status? Single Information not available 12/03/2023 Do You Use Any Illicit Or Recreational Drugs? No Information not available 12/03/2023 Are You Currently In School? No Information not available 12/03/2023 Do You Or Have You Ever Used Any Other Forms Of Tobacco Or Nicotine? No Information not available 12/03/2023 Sex: Unknown Functional Status None recorded. Mental Status None recorded. Family History Relationship Description Onset Age of this Age Resolved Age Notes LastModified by Organization Details LastModified Time Father No current problems or disability Not available 12/03 15:30:09 Mother No current problems or disability Not available 12/03 15:30:09 Medical History No medical history recorded. Gynecological HistoryNo gynecological history recorded. Obstetrics History GPAL:G 0 P 0 0 0 0 Past Encounters Encounter ID Performer Location Encounter Start Date Encounter Closed Date Diagnosis/Indication Diagnosis SNOMED-CT Code Diagnosis ICD10 Code [id number] [place] [address] 09/23/2021 08:25:23 09/23/2021 09:55:03 [id number] [address] [place] [address] 07/11/2020 09:02:05 07/11/2020 09:48:06 [id number] [address] [place] [address] 06/06/2022 08:07:19 06/06/2022 08:54:57 [id number] [facility]IS A [place] [address] [facility] [address] [place] [address] 12/03/2023 15:24:57 12/03/2023 15:54:39 Infection of tooth 205403677 K04.7 [id number] Kathy España [facility] [address] [place] [address] 05/20/2024 14:01:41 05/20/2024 15:15:39 Injury of right ankle 5653897233 9926491 S99.911A Injury of right shoulder 6274220398 1972889 S49.91XA Concussion with loss of consciousness 27951631 S06.0X9A [id number] Jitendra Nolan [facility] [address] [place] [address] 05/30/2024 11:53:30 05/30/2024 12:43:56 Benign paroxysmal positional vertigo 974093386 H81.10 Sprain of right ankle 11 56792958 7674635 S93.401A Health Concerns Section Related Observation LastModified by Organization Detai ls LastModified Time None Recorded Concern Status LastModified by Organization Details LastModified Time None Recorded Advance Directives Directive None Recorded Payers Encounter Date Sequence Insurance Name Policy Number Policy De León Covered Member ID De León Member ID Guarantor Name 09/23/2021 1 [place]: [facility] Judith Martel Kavon [id number] Judith Kavon 09/23/2021 2 [place] [facility] Judith Martel Blanchard [id number] Judith Blanchard 06/06/2022 1 [place]: [employer] Judith Martel Blanchard [id number] Judith Blanchard 06/06/2022 2 [place] [facility] Judith Martel Kavon [id number] Judith Kavon 12/03/2023 1 [place] [facility] Judith Martel Blanchard [id number] Judith Blanchard 12/03/2023 2 [place] [facility] Judith Martel Blanchard [id number] Judith Kavon 05/20/2024 1 [place] [facility] Judith Martel Blanchard [id number] Judith Blanchard 05/20/2024 2 [place] [facility] Judith Martel Blanchard [id number] Judith Blanchard 05/30/2024 1 [place] [facility] Judith Martel Kavon [id number] Judith Kavon 05/30/2024 2 [place] [facility] Judith Martel Kavon [id number] Judith Kavon Notes Date Note Type Note Provider Name and Address Organization Details Recorded Time 4 text/html Verified the Patient's Name and at the start of visit.Audio/Visual Technology was used and functioning properly.Patient (and Guardian) - verbally understands limitations of a medical exam using A/V Technology - understands alternative treatment would be to visit an on-site medical facility.The patient did confirm they are physically located in the state that I hold a valid medical license. 53 y/o female with swelling to the L side of her face, starting this morning. Trying to get an appt with specialist. She does have dental issues on that side. LUIS A [place] [address] [place] [address] [place], [address], [place] - [facility] 12/03/2023 15:41:44 4 text/html Foot/Ankle UCReported bypatient.source of patient informationInformation obtained from patient Location:right Probleminjury; swelling Severity:severe Context:fall Associated Symptoms:weakness;swelling Aggravating factors:standing; walking Alleviating factors:narcotics Previous InjuryNo prior injury to affected body part Prior Imaging:none 53 YOF was at home folding her laundry on 05/20 when she suddenly felt dizzy and lost consciousness. the fall was not witnessed but upon waking up she recalls that she was folding clothes and fell in living room. doesn't remember what she tripped over but tried to brace herself and heard a crack sound. right ankle. can't bear weight on it. pain level 10/10. claims she blacked out for a couple of minutes. Concerned for head injury. speech is slurred and delayed. seems a little hazy.Asked todays date. knew the year, month, but the date she claimed was the or .She presents to the clinic to have the ankle examined not fully understanding the gravity of her fall with LOC. patient is on blood thinner for a previous clot . Kathy España NP [address], [address], [place] - [facility] 06/16/2024 08:57:10 4 text/html DizzinessReported bypatient.travelInformation obtained from patient; Patient arrived at Urgent Care ambulatory; learning styles: auditory; 53-year-old female presented stating that for the past week or so she has been falling and last night she fall 5 times she have sprained both ankles she went to the emergency room she was diagnosed with sprain ankle and given out orthopedic boot she is stating that she is here for further evaluation as nobody is giving her her oxycodone pain medication. She denies any nausea, vomiting or diarrhea. She denies any shortness of breath, chest pain or palpitation. She denies any respiratory distress. She denies any numbness or tingling. She denies any chronic ear problems or M? ? ?ni? ? ?re's disease. Quality:feeling his head is spinning sometimes especially moving his head or coming up from lying position. denies any light headedness . Duration:intermittent episodes lasting: Onset/Timing:actual date of onset:; 4-5 days. Context:non-smoker;allergie s;occurs in a cyclical pattern;history of high Blood Pressure Modifying Factors:going from sit to stand; change in position; rapid movements Associated Symptoms:no blurred vision; no foggy vision; no blindness; no double vision; no spots in field of vision; no eye pain; no hearing loss; no difficulty understanding speech; no ear discharge; no unsteadiness; no anxiety or unsteady feelings; no syncope; no loss of consciousness; no headache; no nausea; no vomiting; no weak limbs; no facial numbness; no difficulty with speech; no dysphagia; no tingling around the mouth; normal stools;ringing in the ears (tinnitus);ears feel pressured;popping noise in the ears;ears feel full;head pressure Jitendra Nolan NP [address] [place], [address], [place] - [facility] 06/09/2024 17:37:55 OBGyn Episode No OBEpisode recorded.
--- OUTSIDE RECORDS SUMMARY | 2024-10-05 13:31 | XMS_ITS | Continuity of Care Document ---
Author Organization [facility] ter Address [address] [place] [id number]- Care Team Providers Care Rubber Compounder Formulator Name Role Phone Shannon BHAT, Codi Kumar Primary [id number] Date[facility]s): 09/22/24 - 09/22/[address] [address]- Encounter Diagnosis Back pain(Final) - 09/22/24 Hip pain, left(Final) - 09/22/24 Discharge Disposition: A-D/C Home Attending Physician: Igor Joel MD Admitting Physician: Igor Joel MD Referring Physician: Not on Staff, Referring [...] Date: 01/22/18 Status: Ordered Repeat number: 1 Lyrica 75 mg oral capsule 1 capsule = 75 mg, By Mouth, 2 times a day, 0 Refills, Maintenance, 08/02/20 11:18:00 AM EDT Start Date: 08/02/20 Status: Ordered Repeat number: 1 Nexium Capsule 40 mg, By Mouth, Daily, Maintenance, 08/08/14 10:28:56 AM EDT Start Date: 08/08/14 Status: Ordered Repeat number: 1 oxyCODONE 10 mg oral tablet 2 tablet = 20 mg, By Mouth, Every 6 hours, PRN Pain , Severe, for 3 days, # 14 tablet, 0 Refills, Acute 09/25/24 11:18:00 AM EST, 09/22/24 11:18:00 AM EST, Tablet, [id number], Partialfill upon patient request if the prescription is for a schedule II opioid drug., 163, cm, 09/22/24 9:12:00 EST, Height, 76.5, kg, 09/22/24 9:12:00 EST, Dry Weight Start Date: 09/22/24 Stop Date: 09/25/24 Status: Ordered Quantity: 14.0 Unit: tablet Repeat number: 1 oxyCODONE 20 mg oral tablet 1 tablet = 20 mg, By Mouth, Every 6 hours, 0 Refills, Maintenance, 09/19/19 3:43:03 PM EST, Partialfill upon patient request Start Date: 09/19/19 Status: Ordered Repeat number: 1 oxyCODONE 5 mg oral tablet 20 mg, Tablet, By Mouth, Once, PRN for Pain , Severe, STAT, 09/22/24 9:16:00 AM EST Start Date: 09/22/24 Stop Date: 09/22/24 Status: Completed Repeat number: 1 pregabalin 75 mg oral [...] Exam Date Time Procedure Performing Provider Status 09/22/24 9:[address] Pelvis W/O Contrast Francis Colby n; Modified Notes: (CT Pelvis W/O Contrast) Reason For Exam: Pelvic trauma;Other: RESULT: CT Pelvis W/O Contrast CT Lumbar Spine W/O Contrast, CT Pelvis W/O Contrast Hx of Present Illness: Left-sided groin pain. No recent trauma. CLINICAL QUESTION: Fracture/Dislocation TECHNIQUE: Spiral CT without IV contrast through the pelvis only formatted in 3 planes. Enteric contrast was not administered. Automatic tube modulation and/or iterative dose reconstruction were usedto optimize exposure parameters. CTDIvol Body: 14.70 mGy, DLP Body: 877 mGy*cm. Thin section axial images were acquired through the lumbar spine. Bone and soft tissue algorithms were reconstructed along with coronal and sagittal reformats. Weight-based protocol using automatic tube modulation was used to optimize exposure parameters. CTDIvol Body: 14.70 mGy, DLP Body: 877 mGy*cm. COMPARISON: CT abdomen and pelvis 07/21/[address] dated 06/04/2024. 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 Appendix: No evidence of acute appendicitis. Bladder: Unremarkable. Reproductive organs: Bilateral Essure devices. No suspicious adnexal mass Peritoneum and retroperitoneum: No ascites or pneumoperitoneum. No omental or mesenteric lesions. Lymph nodes: Unchanged right lower quadrant mesenteric lymph node measuring 1.6 x 1.0 cm. Blood vessels: Normal. IVC filter in the infrarenal abdominal IVC. The tips of the IVC wires extendbeyond the contour of the IVC. Pelvic soft tissues: Few locules of air in the subcutaneous fat of the left lower abdomen, likely related to recent medication injection sites. Surgical clips in the anterior pelvic wall. Bones: Decreased bone mineralization of the coccyx, nonspecific could be sequelae of prior trauma. Partial healing of the L5 superior endplate corner fracture. Unchanged compression deformity of the superior abdomen plate of L2. Normal alignment. Degenerative changes are noted including disc height loss, and endplate spurring IMPRESSION: No acute abnormality in the lumbar spine or pelvis. Chronic unchanged compression deformities of L2 and L5. I have personally reviewed the images and I agree with this report. WSN: [id number] Ordering Physician: Naya Andrade Dictated By: Lori Zarate MD Dictated Date/Time: 09/22/24 10:55 a Reviewed By: Soraya Aldana MD Signed By: Soraya Aldana MD Signed Date/Time: 09/22/24 11:00 am Transcribed By: RIANNA Transcribed Date/Time: 09/22/24 10:40 am * Exam Date Time Procedure Performing Provider Status 09/22/24 9:[address] Lumbar Spine W/O Contrast Earnestine , Liliana; Auth (Verified) Notes: (CT Lumbar Spine W/O Contrast) Reason For Exam: Spine fracture, lumbar, traumatic;Other: RESULT: CT Lumbar Spine W/O Contrast CT Lumbar Spine W/O Contrast, CT Pelvis W/O Contrast Hx of Present Illness: Left-sided groin pain. No recent trauma. CLINICAL QUESTION: Fracture/Dislocation TECHNIQUE: Spiral CT without IV contrast through the pelvis only formatted in 3 planes. Enteric contrast was not administered. Automatic tube modulation and/or iterative dose reconstruction were usedto optimize exposure parameters. CTDIvol Body: 14.70 mGy, DLP Body: 877 mGy*cm. Thin section axial images were acquired through the lumbar spine. Bone and soft tissue algorithms were reconstructed along with coronal and sagittal reformats. Weight-based protocol using automatic tube modulation was used to optimize exposure parameters. CTDIvol Body: 14.70 mGy, DLP Body: 877 mGy*cm. COMPARISON: CT abdomen and pelvis 07/21/[address] dated 06/04/2024. 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 Appendix: No evidence of acute appendicitis. Bladder: Unremarkable. Reproductive organs: Bilateral Essure devices. No suspicious adnexal mass Peritoneum and retroperitoneum: No ascites or pneumoperitoneum. No omental or mesenteric lesions. Lymph nodes: Unchanged right lower quadrant mesenteric lymph node measuring 1.6 x 1.0 cm. Blood vessels: Normal. IVC filter in the infrarenal abdominal IVC. The tips of the IVC wires extendbeyond the contour of the IVC. Pelvic soft tissues: Few locules of air in the subcutaneous fat of the left lower abdomen, likely related to recent medication injection sites. Surgical clips in the anterior pelvic wall. Bones: Decreased bone mineralization of the coccyx, nonspecific could be sequelae of prior trauma. Partial healing of the L5 superior endplate corner fracture. Unchanged compression deformity of the superior abdomen plate of L2. Normal alignment. Degenerative changes are noted including disc height loss, and endplate spurring IMPRESSION: No acute abnormality in the lumbar spine or pelvis. Chronic unchanged compression deformities of L2 and L5. I have personally reviewed the images and I agree with this report. WSN: [id number] Ordering Physician: Naya Andrade Dictated By: Lori Zarate MD Dictated Date/Time: 09/22/24 10:55 a Reviewed By: Soraya Aldana MD Signed By: Soraya Aldana MD Signed Date/Time: 09/22/24 11:00 am Transcribed By: RIANNA Transcribed Date/Time: 09/22/24 10:40 am Vital Signs Most recent to oldest [Reference Range]: 1 2 3 Height 163 cm (09/22/24 11:26 AM) 163 cm (09/22/24 9:12 AM) 163 cm (09/22/24 8:58 AM) Weight 76.5 kg (09/22/24 11:26 AM) 76.5 kg (09/22/24 9:12 AM) 76.5 kg (09/22/24 8:58 AM) Oxygen Saturation [94-100 %] 100 % (09/22/24 8:58 AM) 100 % (09/22/24 8:56 AM) Pulse Rate [55-90 bpm] 119 bpm *H* (09/22/24 8:58 AM) 138 bpm *H* (09/22/24 8:56 AM) Body Mass Index [18.5-24.99 kg/m2] 28.79 kg/m2 *H* (09/22/24 8:58 AM) Blood Pressure [90-138/55-84 mm Hg] 159/94mm Hg *H* (09/22/24 8:58 AM) Respiratory Rate [16-30 br/min] 18 br/min (09/22/24 9:52 AM) 18 br/min (09/22/24 8:58 AM) Temperature [96.8-100.4 DegF] 97.7 DegF (09/22/24 8:58 AM) Mode of Delivery (Oxygen) Room air (09/22/24 8:58 AM) Room air (09/22/24 8:56 AM) Blood pressure sites Arm, left (09/22/24 8:58 AM) Temperature Route Oral (09/22/24 8:58 AM) Dry Weight 76.5 kg (09/22/24 11:26 AM) 76.5 kg (09/22/24 9:12 AM) 76.5 kg (09/22/24 8:58 AM) Weight Obtained Via Patient/family state d (09/22/24 8:58 AM) Dry Weight Obtained Via Patient/family s tated (09/22/24 8:58 AM) Social History Social History Type Response Smoking Status Current every day terry rosen; Other: vapor; entered on: 12/23/17 Sex Sex Representation Female (finding) EKG study * Event Display: ECG 12-Lead Authored Date: Please click on pdf link to open report * Event Display: ECG 12-Lead Authored Date: Ventricular Rate: 96 BPM Atrial Rate: 96 BPM P-R Interval: 164 ms QRS Duration: 94 ms Q-T Interval: 370 ms QTC Calculation(Bazett): 467 ms P [place]: 40 degrees R [place]: -8 degrees T [place]: 71 degrees Normal sinus rhythm Moderate voltage criteria for LVH, may be normal variant ( R in aVL , Daniel product ) Possible Anterior infarct (cited on or before 18-Jun-2024) Abnormal ECG When compared with ECG of 21-Sep-2024 11:31, No significant change was found Confirmed by Rc Mejia ([id number]) on 09/22/2024 11:35:59 AM [place]: Rc Mejia Patient Care team information Care Team Personnel Name: Codi Ortega NP, I Position: Reference Physician Member Role: PCP Address: [address] [place] [address]- Telecom: Name: Bess Romo NP Position: Reference Physician Member Role: Primary Care Nurse Address: [address] [place] [address] [address] [employer] [place] [address]- Telecom: Name: Gil West RN Position: S RN Member Role: Primary Care Nurse Care Team Related Persons Name: WON BREWER Name: YOHAN HELMS Name: CONY RAHMAN Insurance Providers Guarantor name: JEREMIAS PARIS Rock Control Plan Information #: 2 Payer: [employer] Member Number: [id number] Policy Number: NA Group Number: NA Health Plan Information #: 1 Payer: MEDICARE PART B OUTPT Member Number: [id number] Policy Number: NA Group Number: NA
--- OUTSIDE RECORDS SUMMARY | 2024-10-05 13:31 | XMS_ITS | Continuity of Care Document ---
Author Organization [facility] ter Address [address] [place] [id number]- Care Team Providers Care Loan Collector Name Role Phone Shannon BHAT, Codi Kumar Primary Care Physician [phone] [id number] Date[facility]s): 09/21/24 - 09/21/[address] [address]- Encounter Diagnosis Contusion of hip and thigh(Final) - 09/21/24 Accidental fall(Final) - 09/21/24 Discharge Disposition: A-D/C Home Attending Physician: Raciel Coughlin MD Admitting Physician: Raciel Coughlin MD Referring Physician: Not on Staff, Referring [...] Date: 09/19/19 Status: Ordered Repeat number: 1 pregabalin 75 mg oral capsule 1 capsule = 75 mg, By Mouth, 2 times a day, # 12 capsule, 0 Refills, Maintenance, 06/18/24 10:57:00 PM EDT, Capsule, [facility]/pharm[facility] #[id number], Partial fill upon patient request if [...] Exam Date Time Procedure Performing Provider Status 09/21/24 1:12 PM XR Hip w/Pelvis 2-3 View Left Shakeel Delcid (Verified) Notes: (XR Hip w/Pelvis 2-3 View Left) Reason For Exam: Pain RESULT: XR Hip w/Pelvis 2-3 View Left XR Hip w/Pelvis 2-3 View Left Reason: Pain; Clinical Question(s): Fracture COMPARISON: None. FINDINGS: There is no fracture or dislocation. Normal hips and sacroiliac joints. Normal soft tissues. IMPRESSION: No fracture nor dislocation. WSN: [id number] Ordering Physician: Raciel Coughlin Dictated By: Fredis Lewis MD Dictated Date/Time: 09/21/24 1:40 pm Reviewed By: Fredis Lewis MD Signed By: Fredis Lewis MD Signed Date/Time: 09/21/24 1:40 pm Transcribed By: RIANNA Transcribed Date/Time: 09/21/24 1:29 pm Vital Signs Most recent to oldest [Reference Range]: 1 2 3 Oxygen Saturation [94-100 %] 97 % (09/21/24 2:07 PM) 99 % (09/21/24 12:08 PM) 100 % (09/21/24 11:15 AM) Pulse Rate [55-90 bpm] 69 bpm (09/21/24 2:07 PM) 106 bpm *H* (09/21/24 12:08 PM) 108 bpm *H* (09/21/24 11:15 AM) Blood Pressure [90-138/55-84 mm Hg] 131/86mm Hg (09/21/24 2:07 PM) 148/80mm Hg *H* (09/21/24 12:08 PM) 147/112mm Hg *H* (09/21/24 11:15 AM) Respiratory Rate [16-30 br/min] 18 br/min (09/21/24 2:07 PM) 20 br/min (09/21/24 12:08 PM) 18 br/min (09/21/24 11:15 AM) Temperature [96.8-100.4 DegF] 98.2 DegF (09/21/24 12:08 PM) 98.5 DegF (09/21/24 11:15 AM) Mode of Delivery (Oxygen) Room air (09/21/24 2:07 PM) Room air (09/21/24 12:08 PM) Room air (09/21/24 11:15 AM) Blood pressure sites Arm, right (09/21/24 2:07 PM) Arm, left (09/21/24 12:08 PM) Arm, right (09/21/24 11:15 AM) Temperature Route Oral (09/21/24 12:08 PM) Oral (09/21/24 11:15 AM) Social History Social History Type Response Smoking Status Current every day sm oker; Other: vapor; entered on: 12/23/17 Sex Sex Representation Female (finding) EKG study * Event Display: ECG 12-Lead Authored Date: Please click on pdf link to open report * Event Display: ECG 12-Lead Authored Date: Ventricular Rate: 108 BPM Atrial Rate: 108 BPM P-R Interval: 180 ms QRS Duration: 96 ms Q-T Interval: 350 ms QTC Calculation(Bazett): 469 ms P [place]: 61 degrees R [place]: 10 degrees T [place]: 77 degrees Sinus tachycardia Minimal voltage criteria for LVH, may be normal variant ( Daniel product ) Anterior infarct (cited on or before 18-Jun-2024) Abnormal ECG When compared with ECG of 03-Jul-2024 14:27, No significant change was found Confirmed by AZUCENA HENRIQUEZ MD ([id number]) on 09/21/2024 2:31:56 PM Artie: AZUCENA HENRIQUEZ MD Note * Raciel Coughlin MD: PERFORM Event Display: Patient Education Leaflets Authored Date: Hip Bruise ?? [id number] Hip Bruise A bruise (contusion) happens when small blood vessels break open and leak blood into the nearby area. A hip bruise can result from a bump, hit, or fall.??Symptoms of a bruise often include??changes in skin color, swelling, and pain. It may take several hours for a deep bruise to show up.??If the injury is severe, you may need an X-ray to check for broken bones. Swelling should??decrease??in a fewdays. Bruising and pain may take several weeks to go away. Home care ??? Unless another medicine was prescribed, you may take acetaminophen, ibuprofen, or naproxen??to help relieve pain and swelling.??If needed, stronger pain medicines may be prescribed. Take all medicines as directed by your provider. ??? Ice the bruised area to help reduce pain and swelling. To make an ice pack, place ice cubes in a plastic bag that seals at the top. Wrap the bag in a thin towel. On the first day, apply the cold pack to the bruised area for 20 minutes every 1 to 2 hours. Then, use an ice pack 3 to 4 times a day until the pain and swelling goes away. ??? If walking causes pain, use crutches or a walker until you can walk without pain. These items can be rented at most drugstores and medical or orthopedic supply stores. ??? If your injury is keeping you from moving around or caring for yourself correctly, you may qualify for services, such as home healthcare. Check with your healthcare provider and insurance company to see if this type of care is covered by your plan. ?? Follow-up Follow up with your provider as advised. ?? When to get medical care?? Call your provider right away if any of these take place: ??? Increased pain, bruising, or swellingnear the injured area ??? Decreased ability to bear weight on the injured side ??? Pain or swellingdevelops below the knee ??? Chest pain or shortness of breath ?? Last Reviewed Date: 2022 ?? [id number] [employer]. All rights reserved. This information is not intended as a substitute for professional medical care. Always follow your healthcare professional's instructions. ?? Patient Care team information Care Team Personnel Name: Codi Ortega NP, I Position: Reference Physician Member Role: PCP Address: [address] [place] [id number]- [place] Telecom: Name: Bess Romo NP Position: Reference Physician Member Role: Primary Care Nurse Address: [address] [place] [address] [address] PAIN MANAGEMENT NURSE [employer] [facility] [place] [address]- [place] Telecom: Name: Jenna RNGil Position: S RN Member Role: Primary Care Nurse Care Team Related Persons Name: WON BREWER Name: YOHAN HELMS Name: CONY RAHMAN Insurance Providers Guarantor name: JEREMIAS PARIS Health Plan Information #: 2 Payer: [facility] Member Number: [id number] Policy Number: NA Group Number: NA Health Plan Information #: 1 Payer: MEDICARE PART B OUTPT Member Number: [id number] Policy Number: NA Group Number: NA
--- NOTE | 2024-11-21 13:42 | P.CONAN_ITS ---
Documented by User: Linda Graves NP 11/21/24 13:46 HPI - Anesthesia Eval Consult details Narrative: 54yo F for Upper Endoscopy and Colonoscopy Lovenox: Protein S with hx of DVT. s/p quique filter Chronic opioids: ? fentanyl patch PMFSH Active Problems Active Problems: All Active Problems Compression fracture of lumbar vertebra (Acute) Compression fracture of L2 lumbar vertebra (Acute) Vitamin D deficiency (Acute) Chronic narcotic use (Acute) Obesity (BMI 30-39.9) (Acute) Smoker (Acute) Chronic pain (Acute) Essential hypertension (Acute) Protein S deficiency (Acute) Pre-op examination (Acute) H. pylori infection (Acute) Erosive esophagitis (Acute) Buckley filter in place (Acute) GERD (gastroesophageal reflux disease) (Acute) Anxiety (Acute) Bipolar disorder (Acute) Chronic anticoagulation (Acute) Sickle cell trait (Acute) History of DVT (deep vein thrombosis) (Acute) Past Medical History Medical History (Updated 10/21/24 @ 10:49 by Paolo Armenta MD) Compression fracture of lumbar vertebra Compression fracture of L2 lumbar vertebra Vitamin D deficiency Infected dental caries Obesity (BMI 30-39.9) Smoker Chronic pain Essential hypertension Protein S deficiency Shearing of artificial skin graft History of depression Hx of sickle cell trait Hx of iron deficiency anemia Hx of deep venous thrombosis Family History Family History Brother Brother Other No family history of cancer Surgical History Surgical History (Updated 10/21/24 @ 10:05 by Paolo Armenta MD) History of kyphoplasty History of knee surgery H/O esophagogastroduodenoscopy H/O colonoscopy S/P panniculectomy H/O gastric sleeve History of section History of cholecystectomy Social History Social History Household Members: None Housing: House Are you a primary child care director to a significant other at home: No Do you presently have visiting nurse or other home services: No Alcohol intake: current Patient Tobacco Use Status: Current everyday Tobacco user Tobacco use type: Cigarette Cigarette Packs Per Day: 0.5 Cigarettes Per Day: 6 e-Cigarette/Vaping Use: Never Used Second Hand Smoke Exposure: Yes Use of substances other than those prescribed or required for medical reasons: No Have you been hit, kicked, punched, or otherwise hurt by someone within the past year? If so, by whom?: No Are you DNR?: No Advance Directives: No Advance Directives Information Provided: Yes Recently lost weight without trying: No service: No Current occupational status: disabled Cognitive needs: No Hearing needs: No Vision needs: No Meds Allergies Allergy/AdvReac Type Severity Reaction Status Date / Time morphine Allergy Severe Itching Verified 10/21/24 09:33 aspirin [ASPIRIN] Allergy Unknown HIVES Verified 10/21/24 09:33 pollen Allergy Unknown Itching Uncoded 10/21/24 09:33 Home Medications ?Medication ?Instructions ?Recorded ?Confirmed ?Last Taken ?Type acetaminophen 650 mg 650 mg PO TID PRN Pain 06/12/23 10/21/24 Unknown History tablet,extended release (Pain Relief (acetaminophen)) pregabalin 100 mg capsule 100 mg PO BID 06/12/23 10/21/24 Unknown History hydroxyzine HCl 25 mg tablet 25 mg PO .QD PRN Anxiety 12/29/23 10/21/24 Unknown History lisinopril 2.5 mg tablet 2.5 mg PO DAILY 12/29/23 10/21/24 Unknown History lorazepam 1 mg tablet 1 mg PO TID 12/29/23 10/21/24 Unknown History oxycodone 10 mg tablet,crush 10 mg PO BID 04/08/24 10/21/24 Unknown History resistant,extended release 12 hr (OxyContin) cholecalciferol (vitamin D3) 25 50 mcg PO DAILY 10/21/24 10/21/24 Unknown History mcg (1,000 unit) chewable tablet (Vitamin D3) Exam Pertinent Lab Results Pertinent Lab Results: Laboratory Tests 08/02/24 09:25 WBC 4.8 Hgb 11.9 L Hct 35.9 L Plt Count 165 Sodium 142 Potassium 4.5 Chloride 110 H Carbon Dioxide 23 BUN 13 Creatinine 0.75 Assessment and Plan Assessment Anesthesia Assessment: Chart Reviewed Documented by User: Paulino Petersen MD 11/22/24 09:53 [facility] Past Medical History Medical History (Updated 10/21/24 @ 10:49 by Paolo Armenta MD) Compression fracture of lumbar vertebra Compression fracture of L2 lumbar vertebra Vitamin D deficiency Infected dental caries Obesity (BMI 30-39.9) Smoker Chronic pain Essential hypertension Protein S deficiency Shearing of artificial skin graft History of depression Hx of sickle cell trait Hx of iron deficiency anemia Hx of deep venous thrombosis Family History Family History Brother Brother Other No family history of cancer Family history of problems with anesthesia: No Surgical History Surgical History (Updated 10/21/24 @ 10:05 by Paolo Armenta MD) History of kyphoplasty History of knee surgery H/O esophagogastroduodenoscopy H/O colonoscopy S/P panniculectomy H/O gastric sleeve History of section History of cholecystectomy History of Problems with Anesthesia: No Social History Social History Household Members: None Housing: House Are you a primary child care director to a significant other at home: No Do you presently have visiting nurse or other home services: No Alcohol intake: current Patient Tobacco Use Status: Current everyday Tobacco user Tobacco use type: Cigarette Cigarette Packs Per Day: 0.5 Cigarettes Per Day: 6 e-Cigarette/Vaping Use: Never Used Second Hand Smoke Exposure: Yes Use of substances other than those prescribed or required for medical reasons: No Have you been hit, kicked, punched, or otherwise hurt by someone within the past year? If so, by whom?: No Are you DNR?: No Advance Directives: No Advance Directives Information Provided: Yes Recently lost weight without trying: No service: No Current occupational status: disabled Cognitive needs: No Hearing needs: No Vision needs: No Meds Allergies Allergy/AdvReac Type Severity Reaction Status Date / Time morphine Allergy Severe Itching Verified 10/21/24 09:33 aspirin [ASPIRIN] Allergy Unknown HIVES Verified 10/21/24 09:33 pollen Allergy Unknown Itching Uncoded 10/21/24 09:33 Home Medications ?Medication ?Instructions ?Recorded ?Confirmed ?Last Taken ?Type acetaminophen 650 mg 650 mg PO TID PRN Pain 06/12/23 10/21/24 Unknown History tablet,extended release (Pain Relief (acetaminophen)) pregabalin 100 mg capsule 100 mg PO BID 06/12/23 10/21/24 Unknown History hydroxyzine HCl 25 mg tablet 25 mg PO .QD PRN Anxiety 12/29/23 10/21/24 Unknown History lisinopril 2.5 mg tablet 2.5 mg PO DAILY 12/29/23 10/21/24 Unknown History lorazepam 1 mg tablet 1 mg PO TID 12/29/23 10/21/24 Unknown History oxycodone 10 mg tablet,crush 10 mg PO BID 04/08/24 10/21/24 Unknown History resistant,extended release 12 hr (OxyContin) cholecalciferol (vitamin D3) 25 50 mcg PO DAILY 10/21/24 10/21/24 Unknown History mcg (1,000 unit) chewable tablet (Vitamin D3) Exam Airway Mallampati Class: III TM Dist: >3cm Neck ROM: Full Loose/Missing/Broken Teeth: Yes Other: tongue piercing Assessment and Plan Assessment Anesthesia Assessment: Anesthesia Plan Discussed Final Anesthetic Review Family History of Problems with Anesthesia: No History of Problems with Anesthesia: No NPO: Yes ASA Class: III Final Preanesthetic Review: No Changes in Pt Med Stat, Meds/Allgs Chart Reviewed, Consent Obtained/Reviewed and Anes Risks/Benef Reviewed Patient Risk: Intermediate Procedure Risk: Low Anesthetic Plan Anesthetic Plan: MAC:
--- OUTSIDE RECORDS SUMMARY | 2024-11-22 08:24 | XMS_ITS | Clinical Summary ---
Author Organization [facility] Address [address] [place] [address] Phone Care Team Providers Care Dice Table Operator Name Role Phone Shannon Codi PERLITA Primary Care Provider [phone] Allergies Active Allergy Reactions Criticality Noted Date Comments Aspirin Other 09/01/2024 Patient states does not recall what her reaction is so just avoids taking ASA Encounters Date Type Department Care Team Description 09/01/2024 1:08 AM EST - 09/01/2024 1:09 AM EST Emergency [facility] Emergency [address] [place] [address] Discharge Disposition: Home or Self Care from Last 3 Months Surgical History Surgery Date Site/Laterality Comments LAPAROSCOPIC GASTRIC BANDING 2005 PROCEDURE: LAP ADJUSTABLE GASTRIC BAND; COMMENT: 12/08/2017 removed CHOLECYSTECTOMY PROCEDURE: AR CHOLECYSTECTOMY SECTION PROCEDURE: AR DELIVERY ONLY OTHER SURGICAL HISTORY 2008 PROCEDURE: HISTORICAL PANNICULECTOMY OTHER SURGICAL HISTORY 10/08/2017 PROCEDURE: RADIOLOGIC EXAM ESOPHAGUS SINGLE CONTRAST STUDY; COMMENT: lap band in high position; erosive esophagitis, grade 3 Medical History Medical History Date Comments Anxiety DX:Anxiety GERD (gastroesophageal reflux disease) DX:GERD (gastroesophageal reflux disease) Chronic leg pain DX:Chronic leg pain Protein S deficiency (CMS/HCC) D X:Protein S deficiency (HCC) Vitamin D deficiency DX:Vitamin D deficiency Proteinuria DX:Proteinuria History of DVT (deep vein thrombosis) DX:History of DVT (deep vein thrombosis) Class 3 severe obesity due t o excess calories with serious comorbidity and body mass index (BMI) of 40.0 to 44.9 in adult (CMS/HCC) 03/01/2019 DX:Class 3 severe obesity du e to excess calories with serious comorbidity and body mass index (BMI) of 40.0 to 44.9 in adult ([facility]) Family History Medical History Relation Name Comments Other: BLOOD CLOTTING DISORDER Brother HIV, HTN, CT, Liver disease Hypertension Mother Seizures, Arthr itis, high cholesterol Anemia Sister Blood clotting disorder, Migraine Other: Blood clotting disorder Son Relation Name Status Comments Brother Mother Sister Son Social History Tobacco Use Types Packs/Day Years Used Date Smoking Tobacco: Every Day Smokeless Tobacco: Never Alcohol Use Standard Drinks/Week Comments No 0 (1 standard drink = 0.6 oz pur e alcohol) Sex and Gender Information Value Date Recorded Sex Assigned at Not on file Gender Identity Not on file Sexual Orientation Not on file Obstetrics History Last Filed Vital Signs Vital Sign Reading Time Taken Comments Blood Pressure 123/90 09/01/2024 12:08 AM EST Pulse 75 09/01/2024 12:08 AM EST Temperature 36.7 ??C (98.1 ??F) 09/01/2024 12:[address] Respiratory Rate 17 09/01/2024 12:08 AM EST Oxygen Saturation 99% 09/01/2024 12:08 AM EST Inhaled Oxygen Concentration - - Weight 76.2 kg (168 lb) 09/01/2024 12:08 AM EST Height 162.6 cm (5' 4 ) 09/01/2024 12:08 AM EST Body Mass Index 28.84 09/01/2024 12:08 AM EST Plan of Treatment Health Maintenance Due Date Last Done Comments Breast Cancer Screening 1969 Hepatitis B Vaccines (1 of 3 - 19+ 3-dose series) 1988 Cervical Cancer Screening: Pap Smear 1990 Pneumococcal Vaccine: Pediatrics (0 to 5 Years) and At-Risk Patients (6 to 64 Years) (2 of 2 - PCV) 12/24/2017 12/24/2016, 05/14/2010 Zoster Vaccines (1 of 2) 2019 Colorectal Cancer Screening: Colonoscopy 09/23/2022 Depression Screening 09/23/2022 HIV Screening 09/23/2022 Hepatitis C Screening 09/23/2022 Social Influencers of Health Screening 09/23/2022 COVID-19 Vaccine ( - season) 2024 Influenza Vaccine (#1) 2024 7, 12/24/2016, 09/10/2016, Additional history exists Cholesterol Screening (Lipid Panel) 08/11/2024 08/11/2019 DTaP,Tdap,and Td Vaccines (2 - Td or Tdap) 03/19/2026 03/19/2016 HIB Vaccines Aged Out No longer eligi ble based on patient's age to complete this topic HPV Vaccines Aged Out No longer eligi ble based on patient's age to complete this topic Hepatitis A Vaccines Aged Out No long er eligible based on patient's age to complete this topic IPV Vaccines Aged Out No longer eligi ble based on patient's age to complete this topic MMR Vaccines Aged Out No longer eligi ble based on patient's age to complete this topic Meningococcal ACWY Vaccine Aged Out N o longer eligible based on patient's age to complete this topic RSV Immunization Patients Under 20 months Aged Out No longer eligible based on patient's age to complete this topic Varicella Vaccines Aged Out No longer eligible based on patient's age to complete this topic Care Teams Dice Table Operator Relationship Specialty Start Date End Date Codi Ortega NP [address] [place] [address] PCP - General Internal Medicine 12/20/19
--- OUTSIDE RECORDS SUMMARY | 2024-11-22 08:24 | XMS_ITS | Clinical Summary ---
Author Organization [facility] Address [address] [facility] [address] [place] [address] Phone Care Team Providers Care Financial Planner Name Role Phone Unavailable Primary Care Provider [...] opioid dependence 08/09/2020 Overview (08/12/2021): Pain management, [facility] Posttraumatic stress disorder 11/30/2019 Overview (08/12/2021): Childhood trauma Last Assessment & Plan: Very pleased w her new puppy, experiencing therapeutic benefit Abnormal uterine bleeding 09/01/2019 Overview (08/12/2021): Last Assessment & Plan: Reports negative w/u w [facility] Assistant Distribution Manager for PMB [place] 08/11/2019 Overview (08/12/2021): Last Assessment & Plan: Pt not interested in nonhormone therapy options. 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 She is on a blood thinner. I recognize that there are risks & benefits of the HT. I will have her meet w gynecology. Referred to [facility] Research Support Specialist Finding related to status of agreement with [...] & Plan: She follows leila dozier at [facility]. Hopefully this will resolve since her [...]
--- NOTE | 2024-11-22 08:51 | MHC.SHP ---
Pre-Procedural Eval Section A - 24 Hr Update-Section A only Date of Service: 11/22/24 Section B - Complete if H&P > 30 days Chief Complaint: Encounter for screening for malignant neoplasm of Details of Present Illness: esophagitis Relevant Family History (Specify if Yes): No Relevant Social History: Tobacco Use Present Medications: see Short Stay Collaborative assessment Medical History: Significant History (Compression fracture of lumbar vertebra Compression fracture of L2 lumbar vertebra Vitamin D deficiency Infected dental caries Obesity (BMI 30-39.9) Smoker Chronic pain Essential hypertension Protein S deficiency Shearing of artificial skin graft History of depression Hx of sickle cell trait Hx of i) History of Previous Operations: Relevant previous surgery/procedure and date(s) (History of kyphoplasty History of knee surgery H/O esophagogastroduodenoscopy H/O colonoscopy S/P panniculectomy H/O gastric sleeve History of section History of cholecystectomy) Allergies: Allergies Allergy/AdvReac Type Severity Reaction Status Date / Time morphine Allergy Severe Itching Verified 10/21/24 09:33 aspirin [ASPIRIN] Allergy Unknown HIVES Verified 10/21/24 09:33 pollen Allergy Unknown Itching Uncoded 10/21/24 09:33 Review of Systems Sugical H&P ROS: Negative: Constitution, Cardiovascular, Respiratory, Neurological, Psychiatric, Hem-Onc, Allergic/Immunologic, Gastrointestinal, Genitourinary, Musculoskeletal, Integumentary, Endocrine and Eyes/Ears/Nose/Throat Exam Surgical H&P Exam: Normal: HEENT, Normal: Heart, Normal: Lungs, Normal: Extremities, Normal: Abdomen, Normal: Skin and Normal: Neurological Plan Diagnosis/Plan: Unchanged I have reviewed the history and physical and performed a pertinent physical examination on my patient. No changes have occurred unless specified. Time Spent With Patient Time: Total time managing care of this patient today ____ minutes.
[2024-11-22 08:59] VITALS: BP 138/94; PULSE 77; RESP 16; TEMP 36.7; O2SAT 98; BMI 29.5
[2024-11-22] MEDS: Lactated Ringers 1,000 ML 100 ML IVCONT (09:35)
--- NOTE | 2024-11-22 09:39 | PC.NURSE ---
pt has been very difficulty and verbally rude since arrival. pt has removed multiple earrings,bracelets, and necklaces and will not let this rn touch to count. pt stating we are going to lose it. pt provided with multiple cups and stickers to seal them shut. pt refusing to remove bilateral nose piercings and lip piercing.pt did sign waiver. pt has food and drink at bedside and is denying eating/drinking. states she doesnt know when her ride will be here but son who is ride states he can be here for 11am over the phone. pt also has a fentanyl patch on her right chest she is refusing to take off. states she is going to take her break through pain meds pt educated we can talk with anesthesia to see what we can give her to make her more comfortable.
--- NOTE | 2024-11-22 10:32 | P.OPN-COLO_ITS ---
Colonoscopy Operative Note Operative Note Date of Service: 11/22/24 Narrative: Operative Information Procedure Description: EGD, Colonoscopy Indication: GERD, screening Anesthesia: [] FLEXIBLE TRANSORAL UPPER GASTROINTESTINAL ENDOSCOPY AND COLONOSCOPY PROCEDURE NOTE UPPER ENDOSCOPY Consent: Indications for the procedure and potential complications of bleeding, perforation, reaction to medications and missed diagnosis were discussed with the patient and informed consent was obtained. Instrument: Olympus GIF H 190 J mid size upper endoscope Monitoring: Vital signs and clinical assessment, continuous EKG monitoring, Pulse oximetry, Carbon Dioxide monitoring and blood pressure monitoring were done throughout the procedure. Procedure: The patient was placed in the left lateral decubitis position and pre-procedure medications were administered and a bite block was placed. The endoscope was inserted into the mouth and advanced under direct vision to the third part of duodenum. A careful inspection was made as the upper endoscope was withdrawn including a retroflexed examination of the proximal stomach; Findings and interventions are described below. Findings: Larynx:normal Esophagus: GE junction at 35 cm, diaphragm hiatus at 35 cm, irregular z line, with small island of salmon pink tissue, bx taken to r/o barretts Stomach: Mild erythema. Biopsies were obtained. Grade 2 flap valve on retroflexed examination of the cardia. Duodenum: Normal bulb and descending duodenum, bx taken Intervention: Biopsies as noted above, COLONOSCOPY Instrument: Olympus variable stiffness pediatric scope 190L Colonoscopy Monitoring: Vital signs and clinical assessment, continuous EKG monitoring, Pulse oximetry, Carbon Dioxide monitoring and blood pressure monitoring were done throughout the procedure. Colon withdrawal time was 8 minutes. Procedure: The patient was placed in the left lateral decubitis position and pre-procedure medications were administered. After a digital rectal examination of the ano-rectum, the video colonoscope was inserted into the rectum and advanced through the colon to the cecum/TI. The colonoscope was slowly withdrawn in a retrograde panoramic fashion and the colon mucosa was carefully examined including a retroflexed view of the rectum. Findings and interventions are described below. Procedure Difficulty:moderate Findings: Terminal Ileum-normal Cecum:normal Ascending Colon: normal Transverse Colon -normal Descending Colon:normal Sigmoid Colon: normal Rectum: Retroflexion with small internal hemorrhoids, grade I, mild erythema in distal rectum, bx taken Anorectum - normal Colon preparation: Pitcher Bowel Preparation Scale Right colon; 2 Transverse colon: 2 Left colon; 2 (0 = Unprepared colon segment with mucosa not seen due to solid stool that cannot be cleared. 1 = Portion of mucosa of the colon segment seen, but other areas of the colon segment not well seen due to staining, residual stool and/or opaque liquid. 2 = Minor amount of residual staining, small fragments of stool and/or opaque liquid, but mucosa of colon segment seen well. 3 = Entire mucosa of colon segment seen well with no residual staining, small fragments of stool or opaque liquid) Impression and Post Procedure Diagnosis: Endoscopy Findings: mild gastritis possible short segment barretts Colonoscopy Findings: mild proctitis internal hemorrhoids Plan: Await Pathology results Repeat Colonoscopy in 10 years or earlier if clinically indicated High fiber diet leaflet avoid straining at stool, epsom salts and sitz bath, anusol supps or cream Above findings were reviewed with the patient and relevant handouts were provided if indicated.
[2024-11-22 10:41] VITALS: BP 117/77; PULSE 85; RESP 14; TEMP 36.1; O2SAT 96
[2024-11-22 10:58] VITALS: BP 108/72; PULSE 84; RESP 16; TEMP 36.5; O2SAT 97
== END 2024-11-22 12:04 | disposition home or self-care (01) ==
PROVIDERS: Visit Provider Internal Medicine Gastroenterology
PROC: (CPT 45380; principal; 2024-11-22 10:50)
DX: Z12.11 Encounter for screening for malignant neoplasm of colon (principal); K64.0 First degree hemorrhoids; K62.89 Other specified diseases of anus and rectum; K21.9 Gastro-esophageal reflux disease without esophagitis; K22.10 Ulcer of esophagus without bleeding; K29.60 Other gastritis without bleeding; K44.9 Diaphragmatic hernia without obstruction or gangrene; K22.89 Other specified disease of esophagus; I10 Essential (primary) hypertension; D68.59 Other primary thrombophilia; G89.29 Other chronic pain; E55.9 Vitamin D deficiency, unspecified; Z86.59 Personal history of other mental and behavioral disorders; Z86.718 Personal history of other venous thrombosis and embolism; Z79.01 Long term (current) use of anticoagulants; Z79.899 Other long term (current) drug therapy; Z88.5 Allergy status to narcotic agent; Z88.6 Allergy status to analgesic agent; Z98.84 Bariatric surgery status; Z90.49 Acquired absence of other specified parts of digestive tract; Z98.890 Other specified postprocedural states; F17.210 Nicotine dependence, cigarettes, uncomplicated
CPT/HCPCS: 45380; 43239; 88305; 88313; 88342; 93971; J2003; J2704

== ENCOUNTER → 2024-11-22 08:09 | Outpatient (BNV) | payer MEDICARE, MEDICAID, SELFPAY | PROVIDERS: Visit Provider Internal Medicine Gastroenterology | DX: Z12.11 Encounter for screening for malignant neoplasm of colon (principal); K51.20 Ulcerative (chronic) proctitis without complications; K64.8 Other hemorrhoids; K21.9 Gastro-esophageal reflux disease without esophagitis | CPT/HCPCS: 43239; 45380 ==

== ENCOUNTER 2025-01-15 10:19 | Emergency (ER) | payer MEDICARE, MEDICAID, SELFPAY ==
--- NOTE | ~2025-01-15 | US_ITS ---
CLINICAL HISTORY: calf pain r o DVT, hx VTE Venous duplex ultrasound left lower extremity Comparison: US/SR - US VENOUS DUPLEX LE LT - 11/22/24 07:19 EST Findings: Chronic left popliteal vein deep vein thrombosis is again identified. The remainder of the venous system is patent and compressible without evidence for deep venous thrombosis. IMPRESSION: Chronic left popliteal vein deep vein thrombosis. This document has been electronically signed by: Tyler Cordova MD on 01/15/2025 13:56:07
[2025-01-15 10:23] VITALS: BP 134/85; PULSE 100; RESP 16; TEMP 36.1; O2SAT 100; BMI 28.3
[2025-01-15 10:55] LABS: MANUAL DIFF FLAG NO
[2025-01-15 11:00] LABS: Basophils Percent Auto 0.5 % (0-2); Eosinophils Absolute Auto 0.2 X10*3/uL (0.0-0.4); Eosinophils Percent Auto 2.6 % (0-4); Hematocrit 35.7 % (37.0-47.0); Hemoglobin 11.7 g/dl (12.0-16.0); Imm Gran Abs Auto 0.02 X10*3/uL (0.00-0.03); Imm Gran Pct Auto 0.4 % (0.0-0.4); Lymphocytes Absolute Auto 1.5 X10*3/uL (1.2-4.9); Lymphocytes Percent Auto 25.9 % (20-40); Mean Corpuscular HGB Conc 32.8 g/dl (31.0-35.0); Mean Corpuscular Hemoglobin 27.3 pg (27.0-33.0); Mean Corpuscular Volume 83.4 fL (80.0-98.0); Mean Platelet Volume 10.1 fL (9.4-12.3); Monocytes Absolute Auto 0.4 X10*3/uL (0.1-1.2); Monocytes Percent Auto 7.8 % (2-11); Neutrophils Absolute Auto 3.6 x10*3/uL (2.0-8.3); Neutrophils Percent Auto 62.8 % (45-73); Platelet Count 155 X10*3/uL (160-400); Red Blood Count 4.28 X10*6/uL (4.20-5.50); Red Cell Distribution Width 15.9 % (11.0-16.0); White Blood Count 5.7 X10*3/uL (4.8-10.8)
[2025-01-15 11:04] LABS: Prothrombin Time 11.6 SEC (10.9-12.4)
[2025-01-15 11:14] LABS: Alanine Aminotransferase 16 U/L (0-31); Albumin Level 4.1 g/dL (3.5-5.0); Alkaline Phosphatase 60 U/L (39-117); Anion Gap 10 (12-20); Aspartate Amino Transferase 16 U/L (5-31); Bilirubin Total 0.3 mg/dL (0.0-1.0); Blood Urea Nitrogen 17 mg/dL (9-16); Calcium 8.9 mg/dL (8.4-10.2); Carbon Dioxide 26 mmol/L (22-29); Chloride 110 mmol/L (96-108); Creatinine Clr Calc Pharmacy 82.8; Estimated Glomerular Filt Rate > 60; Glucose Random 103 mg/dL (60-115); Potassium 4.1 mmol/L (3.3-5.1); Sodium 142 mmol/L (135-145); Total Protein 7.5 g/dL (6.5-8.0)
--- NOTE | 2025-01-15 12:36 | ED_ITS ---
HPI - Recheck/Abnormal Lab/Rx General Chief Complaint: Recheck/Abnormal Lab/Rx Stated Complaint: blood clot Time Seen by Provider: 01/15/25 11:45 Source: patient Mode of arrival: ambulatory Limitations: no limitations History of Present Illness ED Provider: Dr. Jared Cameron HPI narrative: 54-year-old female with a history of chronic pain, hypertension, erosive esophagitis, GERD, anxiety, bipolar disorder, sickle cell trait, protein S deficiency, multiple DVTs , treated with Lovenox 100 units subQ q.12 hours who presents emergency department for evaluation of increased pain and swelling of her right lower extremity x1 week and she was concerned for DVT. The patient was seen yesterday at [facility] and had a left lower extremity ultrasound. she was admitted for further evaluation and was continued on her subcutaneous Lovenox. I did get the discharge information and radiology reports. Doppler ultrasound done on 01/14/2025 result was as follows: Impression: Redemonstration of nonocclusive thrombus within the left popliteal vein. Evidence of extension into the left peroneal vein, unclear if this represents true progression or clot versus incomplete visualization of prior examination . The patient states she was frustrated by the care that she was receiving at [facility] and left this morning against medical advice. She states she came to [facility] since this is where her stockfeed miller, Dr. Davis works. The patient denied fever. She states she always has chills. She denied chest pain, shortness of breath, dyspnea on exertion. She was complaining of severe pain in her left leg which is chronic. She was also having lower back pain. Patient does take OxyContin and oxycodone daily for these pains. She was noted increased swelling over left lower extremity over the last week compared to the right lower extremity. Related Data Home Medications ?Medication ?Instructions ?Recorded ?Confirmed acetaminophen 650 mg 650 mg PO TID PRN Pain 06/12/23 10/21/24 tablet,extended release (Pain Relief (acetaminophen)) pregabalin 100 mg capsule 100 mg PO BID 06/12/23 10/21/24 hydroxyzine HCl 25 mg tablet 25 mg PO .QD PRN Anxiety 12/29/23 10/21/24 lisinopril 2.5 mg tablet 2.5 mg PO DAILY 12/29/23 10/21/24 lorazepam 1 mg tablet 1 mg PO TID 12/29/23 10/21/24 oxycodone 10 mg tablet,crush 10 mg PO BID 04/08/24 10/21/24 resistant,extended release 12 hr (OxyContin) cholecalciferol (vitamin D3) 25 50 mcg PO DAILY 10/21/24 10/21/24 mcg (1,000 unit) chewable tablet (Vitamin D3) Previous Rx's ?Medication ?Instructions ?Recorded sodium,potassium,mag sulfates 17.5 480 ml PO .COMPLEX #354 mL 04/08/24 gram-3.13 gram-1.6 gram oral soln (Suprep Bowel Prep Kit) enoxaparin 100 mg/mL subcutaneous 100 mg subcut Q12H #60 mL 08/02/24 syringe oxycodone 20 mg tablet 20 mg PO QID Pain 7 days #28 tabs 10/21/24 sodium,potassium,mag sulfates 17.5 See Rx Instructions PO .COMPLEX 11/17/24 gram-3.13 gram-1.6 gram oral soln colonoscopy prep #354 mL (Suprep Bowel Prep Kit) sodium,potassium,mag sulfates 17.5 See Rx Instructions PO .COMPLEX 11/21/24 gram-3.13 gram-1.6 gram oral soln colonoscopy prep #354 mL (Suprep Bowel Prep Kit) Nexium 40 mg capsule,delayed 40 mg PO BID #60 caps 11/25/24 release (esomeprazole magnesium) Allergies Allergy/AdvReac Type Severity Reaction Status Date / Time morphine Allergy Severe Itching Verified 01/15/25 10:27 aspirin [ASPIRIN] Allergy Unknown HIVES Verified 01/15/25 10:27 pollen Allergy Unknown Itching Uncoded 10/21/24 09:33 Review of Systems 2 Review of Systems: Yes all other systems are reviewed and are negative [facility] Past Medical History Medical History (Updated 01/15/25 @ 15:05 by Jared Cameron MD) Compression fracture of lumbar vertebra Compression fracture of L2 lumbar vertebra Vitamin D deficiency Infected dental caries Obesity (BMI 30-39.9) Smoker Chronic pain Essential hypertension Protein S deficiency Shearing of artificial skin graft History of depression Hx of sickle cell trait Hx of iron deficiency anemia Hx of deep venous thrombosis Surgical History (Updated 10/21/24 @ 10:05 by Paolo Armenta MD) History of kyphoplasty History of knee surgery H/O esophagogastroduodenoscopy H/O colonoscopy S/P panniculectomy H/O gastric sleeve History of section History of cholecystectomy Family History Family History Brother Brother Other No family history of cancer Social History Social History Household Members: None Housing: House Are you a primary foster care social worker to a significant other at home: No Do you presently have visiting nurse or other home services: No Alcohol intake: current Patient Tobacco Use Status: Current everyday Tobacco user Tobacco use type: Cigarette Cigarette Packs Per Day: 0.5 Cigarettes Per Day: 6 e-Cigarette/Vaping Use: Never Used Second Hand Smoke Exposure: Yes service: No Current occupational status: disabled Cognitive needs: No Hearing needs: No Vision needs: No Physical Exam 2 Vital Signs: Vital Signs: Last Vital Signs Temp 97.0 F 01/15/25 10:23 Pulse 100 01/15/25 10:23 Resp 16 01/15/25 10:23 BP 134/85 01/15/25 10:23 Pulse Ox 100 01/15/25 10:23 O2 Del Method Room Air 01/15/25 10:23 BMI result Body Mass Index 28.3 Vital signs were normal Exam: General: Awake, alert in no distress Head: Normocephalic, atraumatic EENT: PERRL, Lids normal, sclera normal, conjunctiva normal, nose normal , ears normal, throat without erythema or exudates Neck: Supple, no adenopathy Lung: breath sounds symmetric, no wheezing, rales or rhonchi Chest: symmetric movement, nontender Heart: regular rate and rhythm, normal S1, S2 no murmurs or rubs Abdomen: soft, non-tender, nondistended, normal bowel sounds Back: no vertebral tenderness, no CVAT Extremities: Patient was 1 to 2+ pitting edema in both lower extremities, the left lower extremity is 1.5-2 x as large as the right lower extremity. Neuro: Awake, alert, oriented, normal speech, cranial nerves intact, moves all extremities symmetrically Psych: Pleasant, cooperative Medications Administered Discontinued Medications Generic Name Dose Route Start Last Admin Trade Name Freq PRN Reason Stop Dose Admin Enoxaparin Sodium 100 mg 01/15/25 12:35 01/15/25 12:47 Enoxaparin Sodium 100 Mg/Ml Syringe SUBCUT 01/15/25 12:36 100 mg ONCE ONE Administration Lorazepam 2 mg 01/15/25 12:31 01/15/25 12:47 Lorazepam 1 Mg Tablet PO 01/15/25 12:32 2 mg ONCE STA Administration Oxycodone HCl 10 mg 01/15/25 12:31 01/15/25 12:47 Oxycodone Hcl Immed Release 5 Mg Tablet PO 01/15/25 12:32 10 mg ONCE ONE Administration Pregabalin 100 mg 01/15/25 12:31 01/15/25 12:48 Pregabalin 100 Mg Capsule PO 01/15/25 12:32 100 mg ONCE ONE Administration Medical Decision Making Medical Decision Making [facility] Narrative: 54-year-old female with a history of chronic pain, hypertension, erosive esophagitis, GERD, anxiety, bipolar disorder, sickle cell trait, protein S deficiency, multiple DVTs , treated with Lovenox 100 units subQ q.12 hours who presents emergency department for evaluation of increased pain and swelling of her right lower extremity X1 week and she was concerned about a recurrent DVT in his extremities. The patient was seen yesterday at [facility] and had a left lower extremity ultrasound. She was admitted for further evaluation and was continued on her subcutaneous Lovenox. I did review the duplex ultrasound report on 01/14/2025 and the reading was equivocal my guarding propagation of the old blood clot. Patient denied chest pain, shortness of breath, fever, chills, cough. Vital signs were normal. Examination did reveal 1+ pitting edema in both lower extremities with increased size of the left lower extremity compared to the right. Differential diagnosis: Includes but is not limited to Recurrent DVT, chronic pain, peripheral edema, pulmonary embolism Course: 15:17 My interpretation patient's laboratory evaluation is as follows: Platelet count was low 155,000-chronic. Normocytic anemia with an H&H of 11.7 and 35.7- chronic. CMP was normal. Duplex ultrasound revealed chronic left popliteal clot with no propagation which is reassuring. I did discuss this with the patient. I suspect that the patient has significant peripheral edema however she was not want to start a diuretic at this time. She was advised to restrict her fluid intake to 1 L day and to keep her legs elevated. She was advised to continue her medications including her subcutaneous Lovenox and to follow up with her PCP and her stockfeed miller for re-evaluation and further management. Admission/Observation Consideration of admission/observation: Escalation of care including admission/observation considered ( Yes) Lab Data MDM Lab Attestation statement: I reviewed the patient's lab results. 01/15/25 10:48 01/15/25 10:48 Labs: Lab Results 01/15/25 Range/Units 10:48 WBC 5.7 (4.8-10.8) X10*3/uL RBC 4.28 (4.20-5.50) X10*6/uL Hgb 11.7 L (12.0-16.0) g/dl Hct 35.7 L (37.0-47.0) % MCV 83.4 (80.0-98.0) fL MCH 27.3 (27.0-33.0) pg MCHC 32.8 (31.0-35.0) g/dl RDW 15.9 (11.0-16.0) % Plt Count 155 L (160-400) X10*3/uL MPV 10.1 (9.4-12.3) fL Immature Gran % (Auto) 0.4 (0.0-0.4) % Neut % (Auto) 62.8 (45-73) % Lymph % (Auto) 25.9 (20-40) % [place] % (Auto) 7.8 (2-11) % Eos % (Auto) 2.6 (0-4) % Baso % (Auto) 0.5 (0-2) % Lymph # (Auto) 1.5 (1.2-4.9) X10*3/uL [place] # (Auto) 0.4 (0.1-1.2) X10*3/uL Eos # (Auto) 0.2 (0.0-0.4) X10*3/uL Baso # (Auto) 0.0 (0.0-0.2) X10*3/uL Abs Immat Gran (auto) 0.02 (0.00-0.03) X10*3/uL Absolute Neuts (auto) 3.6 (2.0-8.3) x10*3/uL Absolute Nucleated RBC 0.000 (0.0-0.012) X10*3/uL Nucleated RBC % (auto) 0.0 (0.0-0.2) /100WBC PT 11.6 (10.9-12.4) SEC INR 1.0 (0.9-1.1) APTT 45.8 H (26.0-36.8) SEC Sodium 142 (135-145) mmol/L Potassium 4.1 (3.3-5.1) mmol/L Chloride 110 H (96-108) mmol/L Carbon Dioxide 26 (22-29) mmol/L Anion Gap 10 L (12-20) BUN 17 H (9-16) mg/dL Creatinine 0.76 (0.5-1.4) mg/dL Estim Creat Clear Calc 82.8 Estimated GFR > 60 Random Glucose 103 (60-115) mg/dL Calcium 8.9 (8.4-10.2) mg/dL Total Bilirubin 0.3 (0.0-1.0) mg/dL AST 16 (5-31) U/L ALT 16 (0-31) U/L Alkaline Phosphatase 60 (39-117) U/L Total Protein 7.5 (6.5-8.0) g/dL Albumin 4.1 (3.5-5.0) g/dL Radiology Impression Discussion of test interpretation with radiology: I have reviewed the radiologist's reading. Radiologist Impression: Venous duplex ultrasound left lower extremity Comparison: US/SR - US VENOUS DUPLEX LE - 11/22/24 07:19 EST Findings: Chronic left popliteal vein deep vein thrombosis is again identified. The remainder of the venous system is patent and compressible without evidence for deep venous thrombosis. IMPRESSION: Chronic left popliteal vein deep vein thrombosis. This document has been electronically signed by: Tyler Cordova MD on 01/15/2025 13:56:07 External Record Review External record reviewed: Inpatient record ( recent [facility] admission) Chronic Conditions Patient?s care impacted by: Hypertension Discharge Plan Discharge Clinical Impression: Left leg swelling, Chronic deep vein thrombosis (DVT) of popliteal vein of left lower extremity, Left leg pain Patient Disposition: Home, Self-Care Additional Instructions: Your blood work was unremarkable. The duplex ultrasound of your left lower extremity revealed no new blood clot. You have a an old blood clot in the popliteal vein which is unchanged from our previous ultrasound. This is very reassuring. The pain in your lower extremity is most likely caused by the old blood clot and may also be caused by too much fluid in your legs. I offered to start you on Lasix (furosemide) which is a water pill however you do not want to be on this medication , which is okay. I recommend that you keep your legs elevated, you need to reduce the amount of fluid that you drink per day to 1 L. try this for 2 weeks see if it improves swelling and pain in your legs. if this does not work then your doctor should consider prescribing a water pill for you. Continue taking your medications as prescribed by your providers, do not stop the Lovenox Injections. Follow-up with your doctor in 2 days. Please return to the emergency department if your symptoms get worse or if you develop any symptoms that are concerning to you. Prescriptions: No Action sodium,potassium,mag sulfates [Suprep Bowel Prep Kit] 17.5-3.13-1.6 gram recon soln See Rx Instructions PO .COMPLEX Qty: 354 0RF Rx Instructions: DILUTE each bottle with 16oz of water; drink first bottle at 5pm evening before procedure AND second bottle at 11pm; follow each bottle with at least 32 oz. of clear liquid within 1 hour after each bottle. sodium,potassium,mag sulfates [Suprep Bowel Prep Kit] 17.5-3.13-1.6 gram recon soln See Rx Instructions PO .COMPLEX Qty: 354 0RF Rx Instructions: DILUTE each bottle with 16oz of water; drink first bottle at 5pm evening before procedure AND second bottle at 11pm; follow each bottle with at least 32 oz. of clear liquid within 1 hour after each bottle. esomeprazole magnesium [Nexium] 40 mg capsule,delayed release(DR/EC) 40 mg PO BID Qty: 60 6RF lisinopril 2.5 mg tablet 2.5 mg PO DAILY lorazepam 1 mg tablet 1 mg PO TID enoxaparin 100 mg/mL Syringe 100 mg SUBCUT Q12H Qty: 60 6RF cholecalciferol (vitamin D3) [Vitamin D3] 25 mcg (1,000 unit) tablet,chewable 50 mcg PO DAILY acetaminophen [Pain Relief (acetaminophen)] 650 mg tablet extended release 650 mg PO TID PRN (Reason: Pain) pregabalin 100 mg capsule 100 mg PO BID hydroxyzine HCl 25 mg tablet 25 mg PO .QD PRN (Reason: Anxiety) oxycodone [OxyContin] 10 mg tablet,oral only,ext.rel.12 hr 10 mg PO BID sodium,potassium,mag sulfates [Suprep Bowel Prep Kit] 17.5-3.13-1.6 gram recon soln 480 ml PO .COMPLEX Qty: 354 0RF Rx Instructions: 480 mL orally; FOR COLONOSCOPY PREP oxycodone 20 mg tablet 20 mg PO QID 7 Days Qty: 28 0RF Print Language: [place]
[2025-01-15] MEDS: oxyCODONE HCl Immed Release 5 MG TABLET 10 MG PO (12:47)
[2025-01-15] MEDS: LORazepam 1 MG TABLET 2 MG PO (12:47)
[2025-01-15] MEDS: Enoxaparin Sodium 100 MG/ML SYRINGE SUBCUT (12:47)
[2025-01-15] MEDS: Pregabalin 100 MG CAPSULE PO (12:48)
[2025-01-15 12:50] LABS: Partial Thromboplastin Time 45.8 SEC (26.0-36.8)
[2025-01-15 15:12] VITALS: BP 129/77; PULSE 94; RESP 18; TEMP 36.7; O2SAT 100
== END 2025-01-15 15:16 | disposition home or self-care (01) ==
PROVIDERS: Emergency Provider Emergency Medicine Emergency Medical Services; PCP Internal Medicine
DX: I82.532 Chronic embolism and thrombosis of left popliteal vein (principal); M79.661 Pain in right lower leg; M79.89 Other specified soft tissue disorders; I10 Essential (primary) hypertension
CPT/HCPCS: 36415; 80053; 85025; 85610; 85730; 93971; 96372; 99283; 99284; J1650

== ENCOUNTER → 2025-01-15 11:14 | Outpatient (BNV) | payer MEDICARE, MEDICAID, SELFPAY | PROVIDERS: Emergency Provider Emergency Medicine Emergency Medical Services; PCP Internal Medicine; Visit Provider Radiology Diagnostic Radiology | DX: I82.532 Chronic embolism and thrombosis of left popliteal vein (principal) | CPT/HCPCS: 93971 ==

== ENCOUNTER 2025-01-24 09:29 | Emergency (ER) | payer MEDICARE, MEDICAID, SELFPAY ==
--- NOTE | ~2025-01-24 | CT_ITS ---
EXAMINATION: CT LUMBAR SPINE WITHOUT CONTRAST CLINICAL INFORMATION: Injury to the back. COMPARISON: None available. TECHNIQUE: Contiguous axial images through the lumbar spine using 2 mm collimation with bone and soft tissue algorithm. Sagittal and coronal reformatted images acquired. This CT examination was performed using dose optimization techniques as appropriate, variously including the following: *Automated exposure control *Adjustment of mA and/or kV according to patient size (this includes techniques or standardized protocols for targeted exams where dose is matched to indication/reason for exam; i.e. extremities or head) *Use of iterative reconstruction technique. DLP: 369 mGy centimeter. FINDINGS: There is a sclerotic superior endplate compression deformity representing 30-40% volume loss at L5 vertebra without retropulsion. Anterior marginal osteophyte formation, L5. Sclerosis and vacuum phenomenon at the sacroiliac joints. Facet joint hypertrophy at L4-5 and L5-S1 with vacuum phenomenon at the right L5-S1 facet joint. Radiopaque material within the L2 vertebra. Osteopenia versus osteoporosis. Status post IVC filter placement. No gross prevertebral compartment hematoma. Calcifications in the kirill hepatic and mesenteric region. Abundant stool. Calcifications at both sides of the uterus. CT/CT lumbar spine wo IV con IMPRESSION: Subacute to old compression deformity at L5. Status post kyphoplasty/vertebroplasty at L2. Spondylosis L4-5 and L5-S1. Probable sacroiliitis bilaterally. Electronically signed by: Noah Rogle MD 01/24/2025 01:07 PM EDT
--- NOTE | ~2025-01-24 | XR_ITS ---
EXAMINATION: XR LUMBOSACRAL SPINE CLINICAL INFORMATION: fall pain, recent back surgery COMPARISON: December 25, 2010 not available on PACS. TECHNIQUE: Three views of the lumbosacral spine. FINDINGS: Radiopaque material at L2. Multilevel thoracolumbar spondylosis. Sclerotic compression deformity at L5 resulting in 20% volume loss. Status post IVC filter placement to the right side of L2-3. Multiple vascular clips in the epigastric and right hemiabdomen. Metallic wires both sides of the pelvis suggesting Essure tubal ligation. XR/XR lumbar spine 2-3V IMPRESSION: Multilevel thoracolumbar spondylosis. Superior endplate compression deformity at L5 resulting in 20% volume loss likely old. Kyphoplasty/vertebroplasty, L2. Electronically signed by: Noah Rogel MD 01/24/2025 10:43 AM EDT
[2025-01-24 09:31] VITALS: BP 147/83; PULSE 100; RESP 16; TEMP 37; O2SAT 96; BMI 27.0
--- NOTE | 2025-01-24 10:04 | PC.NURSE ---
At first call in waiting room, patient did not respond. When she was located stated she fell while trying to put brace on this am. Is on lovenox for DVT. Walks with cane slowly at baseline. Pt refused to change into nick initially then did but put most of clothing back ontop of Nick. Full physical exam to be conducted once patient has undressed.
--- NOTE | 2025-01-24 10:54 | PC.NURSE ---
continues to await provider eval. LLE is very swollen, pitting edema. Pt states it has been like this for a long time . Is followed by hematology.
--- NOTE | 2025-01-24 11:07 | ED.BACK ---
HPI - Back Pain/Injury General Chief Complaint: Back Pain/Injury Stated Complaint: Back pain - fall today Time Seen by Provider: 01/24/25 10:58 Source: patient and old records reviewed Mode of arrival: ambulatory Limitations: other (patient is not very forthcoming and agitated with staff questioning) History of Present Illness ED Provider: SULAIMAN HPI Narrative: 54 yo female with PMH of osteoporosis, esophagitis, GERD, anxiety, bipolar, LLE DVT - lovenox injections/IVC filter in place - protein S deficiency. She comes in with c/o pulling her L leg brace up today and it caused her to wobble and strike her posterior lumbar spine on the edge of the wall. She did not fall or strike her head no other injuries. No reported numbness or new weakness. She took her oxycodone and fentanyl patch prior to arrival but it didn't work. No other injury reported. During the interview she has been very upset with any questions such as if she fell and hit her head given AC therapy and she has made statements like kid, you don't comprehend she was then on the phone and stated I am going to get an uber out of here as soon as this doctor is done asking me all these questions. MD elicited complaint: back pain and back injury Pertinent past history: prior back pain and back surgery Onset (ago): unknown (states I can't tell you that I didn't have a clock on me. ) Timing: constant Severity: severe Similar Symptoms Previously: Yes Quality: throbbing Location: lumbar spine Radiation: none Exacerbating factors: movement and walking Relieving factors: immobilization Context: trauma Associated symptoms: denies other symptoms Treatments prior to arrival: prescription analgesics Related Data Home Medications ?Medication ?Instructions ?Recorded ?Confirmed acetaminophen 650 mg 650 mg PO TID PRN Pain 06/12/23 10/21/24 tablet,extended release (Pain Relief (acetaminophen)) pregabalin 100 mg capsule 100 mg PO BID 06/12/23 10/21/24 hydroxyzine HCl 25 mg tablet 25 mg PO .QD PRN Anxiety 12/29/23 10/21/24 lisinopril 2.5 mg tablet 2.5 mg PO DAILY 12/29/23 10/21/24 lorazepam 1 mg tablet 1 mg PO TID 12/29/23 10/21/24 oxycodone 10 mg tablet,crush 10 mg PO BID 04/08/24 10/21/24 resistant,extended release 12 hr (OxyContin) cholecalciferol (vitamin D3) 25 50 mcg PO DAILY 10/21/24 10/21/24 mcg (1,000 unit) chewable tablet (Vitamin D3) Previous Rx's ?Medication ?Instructions ?Recorded sodium,potassium,mag sulfates 17.5 480 ml PO .COMPLEX #354 mL 04/08/24 gram-3.13 gram-1.6 gram oral soln (Suprep Bowel Prep Kit) enoxaparin 100 mg/mL subcutaneous 100 mg subcut Q12H #60 mL 08/02/24 syringe oxycodone 20 mg tablet 20 mg PO QID Pain 7 days #28 tabs 10/21/24 sodium,potassium,mag sulfates 17.5 See Rx Instructions PO .COMPLEX 11/17/24 gram-3.13 gram-1.6 gram oral soln colonoscopy prep #354 mL (Suprep Bowel Prep Kit) sodium,potassium,mag sulfates 17.5 See Rx Instructions PO .COMPLEX 11/21/24 gram-3.13 gram-1.6 gram oral soln colonoscopy prep #354 mL (Suprep Bowel Prep Kit) Nexium 40 mg capsule,delayed 40 mg PO BID #60 caps 11/25/24 release (esomeprazole magnesium) Allergies Allergy/AdvReac Type Severity Reaction Status Date / Time morphine Allergy Severe Itching Verified 01/24/25 09:35 aspirin [ASPIRIN] Allergy Unknown HIVES Verified 01/24/25 09:35 pollen Allergy Unknown Itching Uncoded 10/21/24 09:33 Review of Systems Review of Systems: Constitutional : No Weight loss, No Fever, No Chills, ENT/Mouth : No Hearing loss, No Ear Pain, No Nasal Congestion, No Sinus Pain, No Hoarseness, No sore throat, No Rhinorrhea, No Swallowing Difficulty Cardiovascular : No Chest Pain, No SOB Respiratory : No Cough, No Dyspnea Gastrointestinal : No Nausea, No Vomiting, No Diarrhea, No abdominal Pain, No Hematochezia, No Melena Genitourinary : No Dysuria, No Urinary Frequency, No Hematuria, No Urinary Incontinence, Musculoskeletal : positive back pain Skin : No Skin Lesions, No rash Neuro : No Weakness, No Numbness, No Paresthesias, no loss of bowel or bladder incontinence, no saddle anesthesia all other systems reviewed and are negative [facility] Past Medical History Attestation statement: The following information was validated with the patient. Source: old records reviewed Medical History Compression fracture of lumbar vertebra Compression fracture of L2 lumbar vertebra Vitamin D deficiency Infected dental caries Obesity (BMI 30-39.9) Smoker Chronic pain Essential hypertension Protein S deficiency Shearing of artificial skin graft History of depression Hx of sickle cell trait Hx of iron deficiency anemia Hx of deep venous thrombosis Surgical History History of kyphoplasty History of knee surgery H/O esophagogastroduodenoscopy H/O colonoscopy S/P panniculectomy H/O gastric sleeve History of section History of cholecystectomy Family History Family History Brother Brother Other No family history of cancer Social History Social History Household Members: None Housing: House Are you a primary customer care manager to a significant other at home: No Do you presently have visiting nurse or other home services: No Alcohol intake: never Patient Tobacco Use Status: Current everyday Tobacco user Tobacco use type: Cigarette Cigarette Packs Per Day: 0.5 Cigarettes Per Day: 6 e-Cigarette/Vaping Use: Never Used Second Hand Smoke Exposure: Yes service: No Current occupational status: disabled Cognitive needs: No Hearing needs: No Vision needs: No Physical Exam Vital Signs: Vital Signs: Last Vital Signs Temp 98.6 F 01/24/25 09:31 Pulse 91 01/24/25 12:29 Resp 18 01/24/25 12:29 BP 161/81 H 01/24/25 12:29 Pulse Ox 93 01/24/25 12:29 O2 Del Method Room Air 01/24/25 12:29 BMI result Body Mass Index 27.0 Appearance: Alert. Oriented X3. No acute distress. Eyes: Pupils equal, round and reactive to light. ENT: Pharynx normal. Neck: Normal inspection. Neck supple. CVS: Pulses normal. Respiratory: No respiratory distress. Abdomen: atrauamatic Back: ttp along low lumbar paraspinal and midline no step offs no contusion or deformity Skin: Skin warm and dry. Normal skin color. Normal skin turgor. Extremities: l leg brace around knee area - pitting edema noted Neuro: Oriented X 3. No motor deficit. No sensory deficit. CN2-12 intact Medications Administered Discontinued Medications Generic Name Dose Route Start Last Admin Trade Name Freq PRN Reason Stop Dose Admin Lorazepam 1 mg 01/24/25 11:33 01/24/25 11:42 Lorazepam 1 Mg Tablet PO 01/24/25 11:34 1 mg ONCE ONE Administration Oxycodone HCl 10 mg 01/24/25 11:33 01/24/25 11:42 Oxycodone Hcl Immed Release 5 Mg Tablet PO 01/24/25 11:34 10 mg ONCE ONE Administration Medical Decision Making Medical Decision Making [facility] Narrative: 54 yo female with PMH of osteoporosis, esophagitis, GERD, anxiety, bipolar, LLE DVT - lovenox injections/IVC filter in place - protein S deficiency here with c/o isolated low back pain from direct trauma xray from triage no acute findings her pain is out of proportion on the back. I am going to order her some analgesia and CT scan for trauma. She is a very hard history given her behaviors and her exam is limited as well given her agitation. No deficits noted, no cauda equina symptoms found. Differential Diagnosis Differential Diagnoses: The differential diagnosis associated with the presentation includes contusion, fracture, hematoma Admission/Observation Consideration of admission/observation: Escalation of care including admission/observation considered patient states she is leaving would not wait left prior to CT scan result. Independent Interpretation I performed an independent interpretation of an: Plain X-Ray (no acute fractures) and CT Scan Interpretation: FINDINGS: There is a sclerotic superior endplate compression deformity representing 30-40% volume loss at L5 vertebra without retropulsion. Anterior marginal osteophyte formation, L5. Sclerosis and vacuum phenomenon at the sacroiliac joints. Facet joint hypertrophy at L4-5 and L5-S1 with vacuum phenomenon at the right L5-S1 facet joint. Radiopaque material within the L2 vertebra. Osteopenia versus osteoporosis. Status post IVC filter placement. No gross prevertebral compartment hematoma. Calcifications in the kirill hepatic and mesenteric region. Abundant stool. Calcifications at both sides of the uterus. CT/CT lumbar spine wo IV con IMPRESSION: Subacute to old compression deformity at L5. Status post kyphoplasty/vertebroplasty at L2. Spondylosis L4-5 and L5-S1. Probable sacroiliitis bilaterally Radiology Impression Discussion of test interpretation with radiology: I have reviewed the radiologist's reading. External Record Review External record reviewed: Inpatient record and Outpatient record Discharge Plan Discharge Clinical Impression: Lumbar strain Patient Disposition: Left W/O Completing Treatment Prescriptions: No Action sodium,potassium,mag sulfates [Suprep Bowel Prep Kit] 17.5-3.13-1.6 gram recon soln See Rx Instructions PO .COMPLEX Qty: 354 0RF Rx Instructions: DILUTE each bottle with 16oz of water; drink first bottle at 5pm evening before procedure AND second bottle at 11pm; follow each bottle with at least 32 oz. of clear liquid within 1 hour after each bottle. sodium,potassium,mag sulfates [Suprep Bowel Prep Kit] 17.5-3.13-1.6 gram recon soln See Rx Instructions PO .COMPLEX Qty: 354 0RF Rx Instructions: DILUTE each bottle with 16oz of water; drink first bottle at 5pm evening before procedure AND second bottle at 11pm; follow each bottle with at least 32 oz. of clear liquid within 1 hour after each bottle. esomeprazole magnesium [Nexium] 40 mg capsule,delayed release(DR/EC) 40 mg PO BID Qty: 60 6RF lisinopril 2.5 mg tablet 2.5 mg PO DAILY lorazepam 1 mg tablet 1 mg PO TID enoxaparin 100 mg/mL Syringe 100 mg SUBCUT Q12H Qty: 60 6RF cholecalciferol (vitamin D3) [Vitamin D3] 25 mcg (1,000 unit) tablet,chewable 50 mcg PO DAILY acetaminophen [Pain Relief (acetaminophen)] 650 mg tablet extended release 650 mg PO TID PRN (Reason: Pain) pregabalin 100 mg capsule 100 mg PO BID hydroxyzine HCl 25 mg tablet 25 mg PO .QD PRN (Reason: Anxiety) oxycodone [OxyContin] 10 mg tablet,oral only,ext.rel.12 hr 10 mg PO BID sodium,potassium,mag sulfates [Suprep Bowel Prep Kit] 17.5-3.13-1.6 gram recon soln 480 ml PO .COMPLEX Qty: 354 0RF Rx Instructions: 480 mL orally; FOR COLONOSCOPY PREP oxycodone 20 mg tablet 20 mg PO QID 7 Days Qty: 28 0RF Discharge Date/Time: 01/24/25 13:08
[2025-01-24] MEDS: LORazepam 1 MG TABLET PO (11:42)
[2025-01-24] MEDS: oxyCODONE HCl Immed Release 5 MG TABLET 10 MG PO (11:42)
--- NOTE | 2025-01-24 11:47 | PC.NURSE ---
pt medicated per DEC for 08/04 LBP and anxiety- pt tearful attempting to contact her MD at [facility]. Pt staing I'll go where someone cares about me . Verbal reassurance provided, assisted pt back into hospital attire, head of bed lowered, warm blankets provided, call vazquez within reach pt verbalizes understanding that she is awaiting imaging.
--- OUTSIDE RECORDS SUMMARY | 2025-01-24 11:53 | XMS_ITS | Clinical Summary ---
Author Organization [facility] Address [address] [place] [phone] Phone Care Team Providers Care Chief Operator Name Role Phone Paolo Armenta MD Primary Care Provider [phone] Allergies Active Allergy Reactions Criticality Noted Date [...] opioid dependence 08/09/2020 Overview (08/12/2021): Pain management, [facility] Posttraumatic stress disorder 11/30/2019 Overview (08/12/2021): Childhood trauma Last Assessment & Plan: Very pleased w her new puppy, experiencing therapeutic benefit Abnormal uterine bleeding 09/01/2019 Overview (08/12/2021): Last Assessment & Plan: Reports negative w/u w [facility] [employer] for PMB Flushing 08/11/2019 Overview (08/12/2021): Last Assessment & Plan: Pt not interested in nonhormone therapy options. 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 She is on a blood thinner. I recognize that there are risks & benefits of the HT. I will have her meet w gynecology. Referred to [facility] Professor Of Religion Finding related to status of agreement with [...] Protein S deficiency 10/26/2017 Overview (08/12/2021): Follows leila Davis. Hx multiple DVTs. Anticoagulated w Day Last Assessment & Plan: Anticoagulation managed by Sriram. Will need clearance from for her surgery. Osteoarthritis of knee 10/26/2017 Overview (08/12/2021): Last Assessment & Plan: This is stable. She follows with orthopedics. I do think it would benefit from weight loss Iron deficiency anemia 10/26/2017 Overview (08/12/2021): Last Assessment & Plan: She follows leila dozier at [facility]. Hopefully this will resolve since her [...] to be nicotine free for her surgery Encounters Date Type Department Care Team Description 12/29/2024 9:30 AM EST Telemedicine [facility] [address] [address] Tae De Luna MD Edema, not otherwise specified (Primary Dx) 12/22/2024 Orders Only [facility] [address] [address] Bonk, Nadiya Edema, not otherwise specified 12/21/2024 Office Communication [facility] [address] [address] Bonk, Nadiya Edema, not otherwise specified (Primary Dx) from Last 3 Months Immunizations Name Administration Dates Next Due Influenza [...] 07/20/2019 12:00 PM EDT Plan of Treatment Upcoming Encounters Date Type Department Care Team (Late st Contact Info) Description 07/04/2025 1:45 PM EDT Office Visit [facility] [address] [address] Tae De Luna MD [address] [address] Health Maintenance Due Date Last Done Comments [...] 2024 7, 12/24/2016, 09/10/2016, Additional history exists Procedures Procedure Name Priority Date/Time Associated Diagnosis Comments PROTEIN / CREATININE RATIO, URINE Routine 12/22/2024 12:00 PM EST Edema, not otherwise specified URINE ALBUMIN / CREATININE RATIO Routine 12/22/2024 12:00 PM EST Edema, not otherwise specified URINALYSIS WITH MICROSCOPIC Routine 12/22/2024 12:00 PM EST Edema, not otherwise specified RENAL FUNCTION PANEL Routine 12/22/2024 12:00 PM EST Edema, not otherwise specified MICROSCOPIC EXAMINATION - DO NOT USE Routine 12/22/2024 12:00 PM EST from Last 3 Months Results * Microscopic Examination (12/22/2024 12:00 PM EST) WBC, Urine 0-5 0 - 5 /hpf [facility] RBC, Urine 0-2 0 - 2 /hpf [facility] Squamous Epithelial, Urine 0-10 0 - 10 /hpf [facility] Casts None seen None seen /lpf [facility] Bacteria, Urine Few None seen/Few [facility] 12/22/2024 12:0 0 PM EST 12/22/2024 Tae De Luna MD LAB MICROBIOLOGY - GENERAL OR DERABLES Final Result Performing Organization Address City/[facility]/ZIP Co de Phone Number [facility] [address] [place] [address] * Protein, Total, Random Urine w/Creatinine (Protein/Creat Ratio) (12/22/2024 12:00 PM EST) Creatinine, Ur 175.4 Not Estab. mg/dL [facility] Protein, Ur 25.5 Not Estab. mg/dL [facility] Urine Protein/Creatin ine Ratio 145 0 - 200 mg/g creat [facility] Urine (Urine, Clean Catch) 12/22/2024 12:00 PM EST 12/22/2024 Tae De Luna MD LAB URINE ORDERABLES Final Re sult Performing Organization Address City/[facility]/ZIP Co de Phone Number [facility] [address] [place] [address] * Urine Albumin / Creatinine Ratio (12/22/2024 12:00 PM EST) Pathologist [facility] [place] Albumin, Urine 38.0 Not Estab. ug/mL [facility] Albumin/Creatin ine Ratio 22 0 - 29 mg/g creat [facility] Comment: ? Normal: ?0 - ??29 ? Moderately increased: 30 - 300 ? Severely increased: ? >300 Urine (Urine, Clean Catch) 12/22/2024 12:00 PM EST 12/22/2024 us Tae De Luna MD LAB URINE ORDERABLES Final Re sult [facility] [address] [place] [address] * (ABNORMAL) Urinalysis with microscopic (12/22/2024 12:00 PM EST) Pathologist [facility] [place] Specific [place], Urine 1.027 1.005 - 1.030 [facility] [phone] pH Urine 5.5 5.0 - 7.5 [facility] Color, Urine Yellow Yellow [facility] Appearance Urine Clear Clear [facility] WBC Esterase Urine Negative Negative [facility] Protein, Ur Trace Negative/Tra ce [facility] Glucose, Ur Negative Negative [facility] Ketones, Urine Trace(A) Negative [facility] Blood Urine Negative Negative [facility] Bilirubin Urine Negative Negative [facility] Urobilinogen Urine 0.2 0.2 - 1.0 mg/dL [facility] Nitrite, Urine Negative Negative [facility] [phone] Microscopic Examination Comment [facility] Comment:Microscopic follows if indicated. Other Microsc. Observations See below: [facility] Comment:Microscopic was gasper cated and was performed. Urine (Urine, Clean Catch) 12/22/2024 12:00 PM EST 12/22/2024 us Tae De Luna MD LAB URINE ORDERABLES Final Re sult [facility] [address] [place] [address] * (ABNORMAL) Renal Function Panel (12/22/2024 12:00 PM EST) Glucose 89 70 - 99 mg/dL [facility] BUN 13 6 - 24 mg/dL [facility] Creatinine 0.69 0.57 - 1.00 mg/dL [facility] eGFR CKD-EPI CR 2020 102 >59 mL/min/1.7 3 [facility] BUN/Creatinine Ratio 19 9 - 23 [facility] Sodium 140 134 - 144 mmol/L [facility] Potassium 4.4 3.5 - 5.2 mmol/L [facility] Chloride 104 96 - 106 mmol/L [facility] Bicarbonate (CO2) 21 20 - 29 mmol/L [facility] Calcium 8.6(L) 8.7 - 10.2 mg/dL [facility] Albumin 4.1 3.8 - 4.9 g/dL [facility] Phosphorus 2.9(L) 3.0 - 4.3 mg/dL [facility] Blood (Blood, Venous) 12/22/2024 12:00 PM EST 12/22/2024 Tae De Luna MD LAB BLOOD ORDERABLES Final Re sult [facility] [address] [place] [address] from Last 3 Months Insurance [place] Care Teams Chief Operator Relationship Specialty Start Date End Date Paolo Armenta MD [address] [place] [address] PCP - General Internal Medicine 12/21/24
--- OUTSIDE RECORDS SUMMARY | 2025-01-24 11:53 | XMS_ITS | Clinical Summary ---
Author Organization [facility] Address [address] [place] [address] Care Team Providers Care Cms Expert Name Role Phone Jose Dumont Primary Care Provider [phone] Allergies No known active allergies Medications No known medications Encounters Date Type Department Care Team Description 01/02/2025 10:15 AM EDT Office Visit [facility] [address] [place] [id number] Bee, LUIS A Vanegas Primary osteoarthritis of both knees (Primary Dx) 01/02/2025 10:10 AM EDT - 01/02/2025 11:59 PM EDT Hospital Encounter [facility] [address] [place] [address] Pain in both knees, unspecified chronicity Discharge Disposition: Home or Self Care () 01/02/2025 10:10 AM EDT - 01/02/2025 11:59 PM EDT Hospital Encounter [facility] [address] [place] [address] Pain in both knees, unspecified chronicity Discharge Disposition: Home or Self Care () 01/02/2025 10:10 AM EDT - 01/02/2025 11:59 PM EDT Hospital Encounter [facility] [address] [place] [address] Pain in both knees, unspecified chronicity Discharge Disposition: Home or Self Care () from Last 3 Months Social History Tobacco Use Types Packs/Day Years Used Date Smoking Tobacco: Never Smokeless Tobacco: Never Tobacco Cessation:Counseling Given: Not Answered Alcohol Use Standard Drinks/Week Comments Never 0 (1 standard drink = 0.6 oz pur e alcohol) Comments Unknown Sex and Gender Information Value Date Recorded Sex Assigned at Female 12/28/2024 1:04 PM EST Legal Sex Female 1:10 AM EDT Gender Identity Female 12/28/2024 1:04 PM EST Sexual Orientation Straight 12/28/2024 1: 04 PM EST Last Filed Vital Signs Vital Sign Reading Time Taken Comments Blood Pressure - - Pulse - - Temperature - - Respiratory Rate - - Oxygen Saturation - - Inhaled Oxygen Concentration - - Weight 76.2 kg (168 lb) 01/02/2025 10:1 4 AM EDT pt refused to get on scale. stated her weight is 168lb Height - - Body Mass Index - - Plan of Treatment Health Maintenance Due Date Last Done Comments Cervical Cancer Screening 1969 Cologuard 1969 Colon Cancer Screening 1969 Colonoscopy 1969 FOBT / Fit Test 1969 HIV Screening 1969 HPV and Pap Smear 1969 Pap Smear 1969 Sigmoidoscopy 1969 Medicare AWV 1970 Hepatitis B Vaccines (1 of 3 - 19+ 3-dose series) 1988 Mammogram 2009 Pneumococcal Vaccine: 50+ Ye ars (2 of 2 - PCV) 2019 12/24/2016, 05/14/2010 Zoster Vaccines (1 of 2) 2019 COVID-19 Vaccine ( - 2023-2 5 season) 2024 Influenza Vaccine (#1) 2024 7, 12/24/2016, 09/10/2016, Additional history exists Alcohol/Substance Use Screening 10/26/2024 Depression Screening and Follow-Up 10/26/2024 Social Drivers of Health Nancy ual Screening 10/26/2024 DTaP,Tdap,and Td Vaccines (2 - Td or Tdap) 03/19/2026 03/19/2016 RSV Vaccine (60+ years old a nd patients) (1 - 1-dose 75+ series) 2044 Hepatitis C Screening Completed 11/02/2024 Procedures * Due to [facility] law, this organization might not be sharing negative HIV tests. Procedure Name Priority Date/Time Associated Diagnosis Comments XR KNEE 4+ VW LEFT Routine 01/02/2025 10 :50 AM EDT Pain in both knees, unspecified chronicity XR KNEE 4+ VW RIGHT Routine 01/02/2025 1 0:50 AM EDT Pain in both knees, unspecified chronicity XR KNEE AP/PA BILATERAL STANDING Routine 01/02/2025 10:50 AM EDT Pain in both knees, unspecified chronicity from Last 3 Months Results * Due to [place] [employer] law, this organization might not be sharing negative HIV tests. * XR Knee Left 4+ Views (01/02/2025 10:50 AM EDT) Anatomical Region Laterality Modality Lower Extremities, Knee Left Computed Radiography 01/02/2025 10:5 2 AM EDT Impressions 01/02/2025 10:55 AM EDT ?? Bilateral knee joints AP and PA upright bilateral lateral upright and axial. Moderate generalized osteopenia. Bilaterally no joint effusions or acute fractures dislocations are detected. Left knee, very mild degenerative changes of the lateral compartment. Other compartments are maintained with minimal degenerative spurs. Right knee all the compartments maintained with the degenerative spurs. No other changes If this radiology report contains a blank impression section, it is an incomplete radiology report. ??Please contact the interpreting radiologist or applicable radiology division as soon as possible to obtain the completed interpretation. ? Workstation ID: [id number] Narrative 01/02/2025 10:55 AM EDT COMPARISON: ??There are no prior studies available for comparison at this time. ?? FINDINGS AND Resulting Agency Comment [id number] Procedure Note Mallory Sky MD - 01/02/2025 COMPARISON: There are no prior studies available for comparison at thistime. FINDINGS AND IMPRESSION: Bilateral knee joints AP and PA upright bilateral lateral upright andaxial. Moderate generalized osteopenia. Bilaterally no joint effusions or acutefractures dislocations are detected. Left knee, very mild degenerative changes of the lateral compartment.Other compartments are maintained with minimal degenerative spurs. Right knee all the compartments maintained with the degenerative spurs. Noother changes If this radiology report contains a blank impression section, it is anincomplete radiology report. Please contact the interpreting radiologistor applicable radiology division as soon as possible to obtain thecompleted interpretation. Workstation ID: [id number] Guilherme GUNN IMG XR PROCEDURES Final Result * XR Knee Right 4+ Views (01/02/2025 10:50 AM EDT) Anatomical Region Laterality Modality Lower Extremities, Knee Right Computed Radiography 01/02/2025 10:5 2 AM EDT Impressions 01/02/2025 10:55 AM EDT ?? Bilateral knee joints AP and PA upright bilateral lateral upright and axial. Moderate generalized osteopenia. Bilaterally no joint effusions or acute fractures dislocations are detected. Left knee, very mild degenerative changes of the lateral compartment. Other compartments are maintained with minimal degenerative spurs. Right knee all the compartments maintained with the degenerative spurs. No other changes If this radiology report contains a blank impression section, it is an incomplete radiology report. ??Please contact the interpreting radiologist or applicable radiology division as soon as possible to obtain the completed interpretation. ? Workstation ID: [id number] Narrative 01/02/2025 10:55 AM EDT COMPARISON: ??There are no prior studies available for comparison at this time. ?? FINDINGS AND Resulting Agency Comment [id number] Procedure Note Mallory Sky MD - 01/02/2025 COMPARISON: There are no prior studies available for comparison at thistime. FINDINGS AND IMPRESSION: Bilateral knee joints AP and PA upright bilateral lateral upright andaxial. Moderate generalized osteopenia. Bilaterally no joint effusions or acutefractures dislocations are detected. Left knee, very mild degenerative changes of the lateral compartment.Other compartments are maintained with minimal degenerative spurs. Right knee all the compartments maintained with the degenerative spurs. Noother changes If this radiology report contains a blank impression section, it is anincomplete radiology report. Please contact the interpreting radiologistor applicable radiology division as soon as possible to obtain thecompleted interpretation. Workstation ID: [id number] us Guilherme GUNN IMG XR PROCEDURES Final Result * X-Ray Knee Bilateral AP Standing (01/02/2025 10:50 AM EDT) Anatomical Region Laterality Modality Lower Extremities, Knee Bilateral Computed Radiography 01/02/2025 10:5 2 AM EDT Impressions 01/02/2025 10:55 AM EDT ?? Bilateral knee joints AP and PA upright bilateral lateral upright and axial. Moderate generalized osteopenia. Bilaterally no joint effusions or acute fractures dislocations are detected. Left knee, very mild degenerative changes of the lateral compartment. Other compartments are maintained with minimal degenerative spurs. Right knee all the compartments maintained with the degenerative spurs. No other changes If this radiology report contains a blank impression section, it is an incomplete radiology report. ??Please contact the interpreting radiologist or applicable radiology division as soon as possible to obtain the completed interpretation. ? Workstation ID: [id number] Narrative 01/02/2025 10:55 AM EDT COMPARISON: ??There are no prior studies available for comparison at this time. ?? FINDINGS AND Resulting Agency Comment [id number] Procedure Note Mallory Sky MD - 01/02/2025 COMPARISON: There are no prior studies available for comparison at thistime. FINDINGS AND IMPRESSION: Bilateral knee joints AP and PA upright bilateral lateral upright andaxial. Moderate generalized osteopenia. Bilaterally no joint effusions or acutefractures dislocations are detected. Left knee, very mild degenerative changes of the lateral compartment.Other compartments are maintained with minimal degenerative spurs. Right knee all the compartments maintained with the degenerative spurs. Noother changes If this radiology report contains a blank impression section, it is anincomplete radiology report. Please contact the interpreting radiologistor applicable radiology division as soon as possible to obtain thecompleted interpretation. Workstation ID: [id number] us Guilherme GUNN IMG XR PROCEDURES Final Result from Last 3 Mon[address] Insurance [address]ICARE [facility] Care Teams Cms Expert Relationship Specialty Start Date End Date Tim Jose Devan [address] [place] [phone] PCP - General Orthopedic Surgery 12/27/24
--- OUTSIDE RECORDS SUMMARY | 2025-01-24 11:53 | XMS_ITS | Data Portability ---
Author Organization [facility] [address] Address [address] [place] [address] Assessment Encounter Date Assessment Date Assessment LastModified by Organization Details LastModified Time 12/03/2023 12/03/2023 Patient was evaluated by the Physician Homicide Squad Lieutenant using AV technology. This type of exam does not replace a need for an in-person evaluation if symptoms worsen or do not improve after 24-48 hours. Not available 12/03/2023 15:41:04 Plan of Treatment Reminders Order Date Submit Date Provider Last Modified By Organization Details Last Modified Time Details Appointments None recorded. Lab None recorded. Referral emergency medicine referral 2023 024 [email or web address] [address] [facility], [address] [place], [phone], 15:15:39 Procedures None recorded. Surgeries None recorded. Imaging None recorded. Medication Orders meclizine 25 mg tablet 2023 024 [id number], [address] [facility], [place], [place], [phone], 13:28:16 amoxicillin 875 mg-potassiu m clavulanate 125 mg tablet 2023 024 [id number], [address] [place], [place], [phone], 14:14:45 Patient TargetsNo targets recorded. Patient Instructions Encounter Date Encounter Id Patient Instructions Last Modified By Organization Details Last Modified Time 12/03/2023 [id number] head or face pain: care instructions Not available 12/03/2023 15:40:49 05/20/2024 [id number] learning about rice (rest, ice, compression, and elevation) [email or web address] Not available 05/20/2024 15:13:38 05/30/2024 [id number] benign paroxysma l positional vertigo (bppv): care instructions [email or web address] Not available 05/30/2024 12:43:30 Reason for Referral Emergency Medicine Referral for Concussion with loss of consciousness Referring Physician: Kathy España, Urgent Care, Encounter Date: 05/20/2024 Problems Name Problem SNOMED Code Status Onset Date Resolution Date Notes Provider Name and Address Organization Details Recorded Time Injury of right ankle 0065680334538 9100 Active 2023 Kathy España NP [address] , [place], [address], [place] - [facility] 4 15:06:51 Injury of right shoulder 2901971428955 9107 Active 2023 Kathy España NP [address] , [place], [address], [place] - [facility] 4 15:07:06 Injury of head 52041631 Active 2023 Kathy España NP [address] , [place], [address], [place] - [facility] 4 15:13:09 Concussion with loss of consciousne ss 40050474 Active 2023 Kathy España NP [address] , [place], [address], [place] - [facility] 4 15:13:14 Benign paroxysmal positional vertigo 842304387 Active 2023 Jitendra Nolan NP [address] , [place], [address], [place] - [facility] 4 12:42:03 Sprain of right ankle 7331843266022 9105 Active 2023 Jitendra Nolan, PERLITA [address] [place], [address] , [place] - [facility] 4 12:43:08 [...] Updated DateTime 12/03/2023 162.56 cm 30 kg/m2 04246.66 g Kim Hale [facility] 12/03/2023 15:28:55 Date Recorded Body height Body mass index (BMI) Body weight Pain severity - 0-10 verbal numeric rating [Score] - Reported Oxygen saturation Oxygen saturation in Arterial blood by Pulse oximetry Heart rate Respiratory rate Body temperature Systolic blood pressure Diastolic blood pressure Provider Name and Address Organization Details Last Updated DateTime 162.56 cm 29.2 kg/m2 57999.7 g 10 95.99 % 95.99 % 96 /min 18 /min 98.9 [degF] 89 mm[Hg] 64 mm[Hg] Radha Mila PA - [facility] 4 14:14:50 Date Recorded Body height Body mass index (BMI) Body weight Respiratory rate Oxygen saturation Oxygen saturation in Arterial blood by Pulse oximetry Heart rate Systolic blood pressure Diastolic blood pressure Provider Name and Address Organization Details Last Updated DateTime 4 162.56 cm 29.2 kg/m2 38963.7 g 18 /min 99 % 99 % 79 /min 134 mm[Hg] 89 mm[Hg] Vonda Rodriguests PA - [facility] 4 12:27:41 Social [...] SNOMED-CT Code Diagnosis ICD10 Code Diagnosis Note [id number] [address] [place] [address] 09/23/2021 08:25:23 09/23/2021 09:55:03 [id number] [address] [facility] [address] [facility] [place] [address] 07/11/2020 09:02:05 07/11/2020 09:48:06 [id number] [address] [facility] [address] [facility] [place] [address] 06/06/2022 08:07:19 06/06/2022 08:54:57 [id number] LUIS A Colordao [address] [facility] [place] [address] 12/03/2023 15:24:57 12/03/2023 15:54:39 Infection of tooth 250593120 K04.7 Based on your presentati on and [...] which should help the cough.2. Half Peroxide/H raymundo Water Rinses3. Make an appointmen t with [...] to your eye. Thank you for using [facility] today, please feel free to contact our office if you have any questions or concerns. [id number] Kathy España NP [address] [facility] [address] [place] [address] 05/20/2024 14:01:41 05/20/2024 15:15:39 Injury of right ankle 2296523100 3473703 S99.911A Injury of right shoulder 1015985515 7454376 S49.91XA to be F/U with ER Concussion with loss of consciousness 10728742 S06.0X9A Based on your exam and presentati [...] treated appropriat bruce. This may include . [id number] Jitendra Nolan [facility] [address] [facility] [address] [place] [address] 05/30/2024 11:53:30 05/30/2024 12:43:56 Benign paroxysmal positional vertigo 275366958 H81.10 Please drink plenty of fluids. See [...] and refrain from driving or operating heavy machinary. Please follow with your PCP in 2-3 days for recheck Please go to the emergency department if any symptoms worsen. The Dav maneuverma y help alleviate some of your symptoms- please attempt this at home. Refer to the handout on the dav maneuver. Sprain of right ankle 11 98300231 9942134 S93.401A Health Concerns Section Related Observation LastModified by Organization Detai ls LastModified Time None Recorded Concern Status LastModified by Organization Details LastModified Time None Recorded Advance Directives Directive None Recorded Payers Encounter Date Sequence Insurance Name Policy Number Policy De León Covered Member ID De León Member ID Guarantor Name 09/23/2021 1 [place] [facility] Judith E Kavon [id number] Judith Kavon 09/23/2021 2 [place] [facility] Judith E Lamar [id number] Judith Lamar 06/06/2022 1 [place] [facility] Judith E Kavon [id number] Judith Kavon 06/06/2022 2 [place] [facility] Judith E Kavon [id number] Jduith Lamar 12/03/2023 1 [place]ICARE [place] [facility] Judith E Lamar [id number] Judith Lamar 12/03/2023 2 [place] [facility] Judith E Lamar [id number] Judith Lamar 05/20/2024 1 [place] [facility] Judith E Lamar [id number] Judith Lamar 05/20/2024 2 [place] [facility] Judith E Kavon [id number] Judith Lamar 05/30/2024 1 [place] B[place] [facility] Judith E Lamar [id number] Judith Kavon 05/30/2024 2 [place] [facility] Judith E Lamar [id number] [facility] Notes Date Note Type Note Provider Name [...] on that side. LUIS A [place] [address] [facility] [place], [address], [place] [facility] 12/03/2023 15:41:44 4 text/html Foot/Ankle UCReported [...] the date she claimed was the or 16.She presents to the clinic to have the ankle examined not fully understanding the gravity of her fall with LOC. patient is on blood thinner for a previous clot . Kathy España NP [address] [facility] [place], [address], [place] - [facility] 06/16/2024 08:57:10 4 [...] Nolan NP [address] [place], [address], [place] - [facility] 06/09/2024 17:37:55 OBGyn Episode No OBEpisode recorded.
--- OUTSIDE RECORDS SUMMARY | 2025-01-24 11:53 | XMS_ITS | Encounter Summary ---
Author Organization [facility] Address [address] [place] [address] Care Team Providers Care Hearing Aid Repairer Name Role Phone Codi Ortega NP Primary Care Provider [phone] Reason for Visit * Reason Onset Date Comments Letter for School/Work 01/18/2025 Letter of support Encounter Details Date Type Department Care Team (Late st Contact Info) Description 01/18/2025 Telephone Bariatric Surgery - [place] [address] [place] [phone] Jeannine Doll MD [address] [facility] [address] [place] [phone] Letter for School/Work (Letter of support) Social History Tobacco Use Types Packs/Day Years Used Date Smoking Tobacco: Every Day Smokeless Tobacco: Never Alcohol Use Standard Drinks/Week Comments No 0 (1 standard drink = 0.6 oz pur e alcohol) Comments Unknown Sex and Gender Information Value Date Recorded Sex Assigned at Not on file Legal Sex Female 1:25 PM EST Gender Identity Not on file Sexual Orientation Not on file documented as of this encounter Progress Notes * Althea Lindo MA - 01/19/2025 2:50 PM EDT Letter created and faxed to Dr. Jocelyn Mix's office on patient behalf. * Katia Osorio - 01/18/2025 10:47 AM EDT Patient needs letter of support sent to Jocelyn Mix, Office called to request. documented in this encounter Plan of Treatment Upcoming Encounters Date Type Department Care Team (Late st Contact Info) Description 01/16/2026 8:45 AM EDT Office Visit Bariatric Surgery - [place] [address] [facility] [address] [place] [address] Jeannine Doll MD 175 [facility] [address] [place] [address] documented as of this encounter Visit Diagnoses Not on filedocumented in this encounter Care Teams Hearing Aid Repairer Relationship Specialty Start Date End Date Codi Ortega NP [address] [place] [address] PCP - General Internal Medicine 12/20/19 documented as of this encounter
--- OUTSIDE RECORDS SUMMARY | 2025-01-24 11:53 | XMS_ITS | Referral Summary ---
Author Organization [facility] Address [address] [place] [address] Care Team Providers Care Die Repairer Trimmer Dies Name Role Phone Jose Dumont Primary Care Provider [phone] Encounters Date Type Department Care Team Description 01/02/2025 10:10 AM EDT - 01/02/2025 11:59 PM EDT Hospital Encounter [facility] [address] [place] [address] Pain in both knees, unspecified chronicity Discharge Disposition: Home or Self Care () 01/02/2025 10:10 AM EDT - 01/02/2025 11:59 PM EDT Hospital Encounter [facility] [address] [place] [address] Pain in both knees, unspecified chronicity Discharge Disposition: Home or Self Care () 01/02/2025 10:10 AM EDT - 01/02/2025 11:59 PM EDT Hospital Encounter [facility] [address] [place] [address] Pain in both knees, unspecified chronicity Discharge Disposition: Home or Self Care () 01/02/2025 10:15 AM EDT Office Visit [facility] [address] [place] [address] Bee, LUIS A Vanegas Primary osteoarthritis of both knees (Primary Dx) from Last 3 Months Allergies No known active allergies Medications No known medications Social History Tobacco Use Types Packs/Day Years [...] Mass Index - - Plan of Treatment Not on file Procedures * Due to [place] [employer] law, this organization might not be sharing [...] Last 3 Months Results * Due to [place] [employer] law, this organization might not be sharing [...] obtain the completed interpretation. ? Workstation ID: [id number] Narrative 01/02/2025 10:55 AM EDT COMPARISON: ??There are no prior studies available for comparison at this time. ?? FINDINGS AND Resulting Agency Comment [id number] Procedure Note Mallory Sky MD - 01/02/2025 [...] possible to obtain thecompleted interpretation. Workstation ID: [id number] Guilherme GUNN IMPeter XR PROCEDURES Final Result * XR Knee [...] obtain the completed interpretation. ? Workstation ID: [id number] Narrative 01/02/2025 10:55 AM EDT COMPARISON: ??There are no prior studies available for comparison at this time. ?? FINDINGS AND Resulting Agency Comment [id number] Procedure Note Mallory Sky MD - 01/02/2025 [...] possible to obtain thecompleted interpretation. Workstation ID: [id number] Guilherme GUNN IMG XR PROCEDURES Final Result [...] obtain the completed interpretation. ? Workstation ID: [id number] Narrative 01/02/2025 10:55 AM EDT COMPARISON: ??There are no prior studies available for comparison at this time. ?? FINDINGS AND Resulting Agency Comment [id number] Procedure Note Mallory Sky MD - 01/02/2025 [...] possible to obtain thecompleted interpretation. Workstation ID: [id number] Guilherme GUNN IMG XR PROCEDURES Final Result from Last 3 Months Insurance MEDICARE [facility] Care Teams Die Repairer Trimmer Dies Relationship Specialty Start Date End Date Jose Dumont [address] [place] [address] PCP - General Orthopedic Surgery 12/27/24
--- OUTSIDE RECORDS SUMMARY | 2025-01-24 11:53 | XMS_ITS | Clinical Summary ---
Author Organization [facility] Address [address] [place] [address] Phone Care Team Providers Care Shade Cloth Finisher Name Role Phone Codi Ortega NP Primary Care Provider [phone] Allergies Active Allergy Reactions Criticality Noted Date Comments Aspirin Other 09/01/2024 Patient states does not recall what her reaction is so just avoids taking ASA Medications buspirone HCl (BUSPIRONE ORAL) Take?by mouth. Active LORAZEPAM ORAL Take?by mouth. Active lisinopriL (PRINIVIL,ZESTRIL) 2.5 mg tablet Take 2.5 mg by mouth daily. Active oxyCODONE (OxyCONTIN) 20 mg 12 hr abuse-deterrent tablet Take by mouth. Take by mouth. - Oral Active LEVORPHANOL TARTRATE ORAL Take by mouth. Active lactobacillus acidoph-l.bulgar 100 million cell granules in packet Take by mouth. Take by mouth. oral Active CYANOCOBALAMIN, VITAMIN B-12, ORAL Take by mouth. - Oral Active rivaroxaban 1 mg/mL suspension for reconstitution Take by mouth. - Oral Active fentaNYL 37.5 mcg/hour patch [address] 1 patch on the skin every 72 hours. Max Daily Amount: 1 patch Active estradioL (CLIMARA) 0.025 mg/[address] 1 patch on the skin every 7 (seven) days. 5 Active progesterone (PROMETRIUM) 100 mg capsule Take 1 capsule (100 mg total) by mouth daily. 5 Active oxyCODONE-acetamin ophen (PERCOCET) 10-325 mg per tablet Take 1 tablet by mouth 3 times daily. Max Daily Amount: 3 tablets Active Lovenox 100 mg/mL syringe Inject 1 mL (100 mg total) under the skin daily. 4 Active esomeprazole (NexIUM) [address] capsule Take 1 capsule (40 mg total) by mouth daily. 1 Active nystatin (MYCOSTATIN) 100,000 unit/gram powderIndications: Abdominal panniculus, symptomatic Apply topically 2 (two) times a day. 15 g 2 5 01/18/20 26 Active ergocalciferol (VITAMIN D-2) 1,250 mcg (50,000 unit) capsuleIndications :Vitamin D deficiency Take 1 capsule (50,000 Units total) by mouth 1 (one) time per week for 8 doses. 8 each 5 03/10/20 25 Active Active Problems Problem Noted Date Diagnosed Date Chronic leg pain 12/27/2024 Proteinuria 12/27/2024 Class 3 severe obesity due t o excess calories with serious comorbidity and body mass index (BMI) of 40.0 to 44.9 in adult 12/27/2024 Vitamin D deficiency 12/27/2024 GERD (gastroesophageal reflux disease) Protein S deficiency 12/27/2024 Anxiety 10/26/2017 Overview (12/27/2024): Last Assessment & Plan: She is very resistant to psychopharm tx & therapy. We discussed medical marijuana for pain & anxiety. She doesn't think [facility] will allow this w her pain contract there. iw ill reach out top her provider there. Resolved Problems Problem Noted Date Diagnosed Date Resolved Date Binge eating disorder 12/27/20242024 Class 1 obesity 12/27/2024 12/27/2024 Benign paroxysmal positional vertigo 05/30/2024 12/27/2024 Chronic, continuous use of opioids 08/09/2020 12/27/2024 Overview (12/27/2024): Pain management, [facility] Abnormal uterine bleeding 09/01/2019 Overview (12/27/2024): Last Assessment & Plan: Reports negative w/u w [facility] for PMB Bipolar disorder 10/26/2017 12/27/2024 Overview (12/27/2024): Last Assessment & Plan: Following w therapist. Encounters Date Type Department Care Team Description 01/18/2025 Telephone Bariatric Surgery - [place] [address] [place] [phone] Jeannine Doll MD Letter for School/Work (Letter of support) 01/17/2025 9:15 AM EDT Consult Bariatric Surgery - [place] [address] [place] [address] Jeannine Doll MD Intestinal malabsorption following gastrectomy (Primary Dx); Class 1 obesity due to excess calories with body mass index (BMI) of 31.0 to 31.9 in adult, unspecified whether serious comorbidity present; Abdominal panniculus, symptomatic from Last 3 Months Surgical History Surgery Date Site/Laterality Comments LAPAROSCOPIC GASTRIC BANDING 2005 PROCEDURE: LAP ADJUSTABLE GASTRIC BAND; COMMENT: 12/08/2017 removed CHOLECYSTECTOMY PROCEDURE: CO CHOLECYSTECTOMY SECTION PROCEDURE: CO DELIVERY ONLY OTHER SURGICAL HISTORY 2008 PROCEDURE: [...] (BMI) of 40.0 to 44.9 in adult 03/01/2019 DX:Class 3 severe obesity du e to excess calories with serious comorbidity and body mass index (BMI) of 40.0 to 44.9 in adult (HCC) Family History Medical History Relation Name Comments Other: BLOOD CLOTTING DISORDER Brother HIV, HTN, DE, Liver disease Hypertension Mother Seizures, Arthr itis, [...] Sign Reading Time Taken Comments Blood Pressure 116/73 01/17/2025 9:23 AM EDT Pulse 83 01/17/2025 9:23 AM EDT Temperature 36.6 ??C (97.8 ??F) 01/17/2025 9:23 AM ED T Respiratory Rate 17 09/01/2024 12:08 AM EST Oxygen Saturation 99% 09/01/2024 12:08 AM EST Inhaled Oxygen Concentration - - Weight 83 kg (183 lb) 01/17/2025 9:23 AM EDT Height 162.6 cm (5' 4 ) 01/17/2025 9:23 AM EDT Body Mass Index 31.41 01/17/2025 9:23 AM EDT Plan of Treatment Upcoming Encounters Date Type Department Care Team (Late st Contact Info) Description 01/16/2026 8:45 AM EDT Office Visit Bariatric Surgery - [place] [address] [place] [address] Jeannine Doll MD [address] [place] [address] Health Maintenance Due Date Last Done Comments Breast Cancer Screening 1970 Hepatitis B Vaccines (1 of 3 - 19+ 3-dose series) 1988 Cervical Cancer Screening: Pap Smear 1990 Pneumococcal Vaccine: 50+ Years (2 of 2 - PCV) 12/24/2017 12/24/2016, 05/14/2010 Pneumococcal Vaccine: Pediatrics (0 to 5 Years) and At-Risk Patients (6 to 64 Years) (2 of 2 - PCV) 12/24/2017 12/24/2016, 05/14/2010 Zoster Vaccines (1 of 2) 2019 Colorectal Cancer Screening: Colonoscopy 09/23/2022 Depression Screening 09/23/2022 HIV Screening 09/23/2022 Medicare Annual Wellness Visit 09/23/2022 Social Influencers of Health Screening 09/23/2022 COVID-19 Vaccine ( - season) 2024 Influenza Vaccine (#1) 2024 7, 12/24/2016, 09/10/2016, Additional history exists DTaP,Tdap,and Td Vaccines (2 - Td or Tdap) 03/19/2026 03/19/2016 Cholesterol Screening (Lipid Panel) 11/02/2029 11/02/2024, 11/23/2019, 08/11/2019 Osteoporosis Screening (Bone Density Screening) 07/08/2034 07/08/2024 Hepatitis C Screening Completed 11/02/2024 HIB Vaccines Aged Out No longer eligi [...] patient's age to complete this topic Meningococcal B Vacine Aged Out No lo nger eligible based on patient's age to complete this topic RSV Immunization Patients Under 20 months Aged Out No longer eligible based on patient's age to complete this topic Varicella Vaccines Aged Out No longer eligible based on patient's age to complete this topic Procedures Procedure Name Priority Date/Time Associated Diagnosis Comments FERRITIN Routine 01/18/2025 12:30 PM EDT Intestinal malabsorption following gastrectomy ZINC Routine 01/18/2025 12:30 PM EDT Intestinal malabsorption following gastrectomy VITAMIN D 25 HYDROXY Routine 01/18/2025 12:30 PM EDT Intestinal malabsorption following gastrectomy VITAMIN B12 Routine 01/18/2025 12:30 PM EDT Intestinal malabsorption following gastrectomy IRON AND TIBC Routine 01/18/2025 12:30 PM EDT Intestinal malabsorption following gastrectomy FOLATE Routine 01/18/2025 12:30 PM EDT Intestinal malabsorption following gastrectomy JOHN DEXA AXIAL SKELETON Routine 07/08/2024 8:21 AM EDT Encounter for screening for osteoporosis LIPID PANEL Routine 11/23/2019 from Last 3 Months or Most Recently Relevant to Health Maintenance Results * Iron and TIBC (01/18/2025 12:30 PM EDT) Iron 89 40 - 150 mcg/dL LAB CHEMISTRY METHOD 01/18/2025 5:01 PM EDT [facility] TIBC 333 250 - 450 mcg/dL LAB CHEMISTRY METHOD 01/18/2025 5:01 PM EDT [facility] Iron Saturation 27 15 - 50 % LAB CHEMISTRY METHOD 01/18/2025 5:01 PM EDT [facility] Blood Venous blood specimen / Unknown Venipuncture / Unknown 01/18/2025 12:30 PM EDT 01/18/2025 2:03 PM EDT us Jeannine Doll MD LAB BLOOD ORDERABLES Final R esult [facility] [address] [place] [address], * Zinc (01/18/2025 12:30 PM EDT) Zinc 62 60 - 130 ug/dL 01/23/2025 2:05 PM EDT [facility] Comment: Elevated results may be due to sample collected in a non-certified trace element-free tube. This test was developed and the performance characteristics determined by [facility]. It has not been cleared or approved by the FDA. The laboratory is regulated under CLIA as qualified to perform high-complexity testing. This test is used for patient testing purposes. It should not be regarded as investigational or for research. Test performed at [facility], [address], [place], [place] ??[address] ? [phone] Samira Martell MD, PhD - Landscape Foreman Blood Venous blood specimen / Unknown Venipuncture / Unknown 01/18/2025 12:30 PM EDT 01/18/2025 2:05 PM EDT Jeannine Doll MD LAB BLOOD ORDERABLES Final R esult [facility] [address] [place] [address] * (ABNORMAL) Vitamin D 25 hydroxy (01/18/2025 12:30 PM EDT) Vit D, 25-Hydroxy 18.2(L) 30.0 - 80.0 ng/mL LAB CHEMISTRY METHOD 01/18/2025 5:06 PM EDT [facility] Blood Venous blood specimen / Unknown Venipuncture / Unknown 01/18/2025 12:30 PM EDT 01/18/2025 2:03 PM EDT Jeannine Doll MD LAB BLOOD ORDERABLES Final R esult [facility] [address] [place] [address], [place] [phone] * Folate (01/18/2025 12:30 PM EDT) Folate 6.6 2.8 - 17.0 ng/ml LAB CHEMISTRY METHOD 01/18/2025 5:01 PM EDT [facility] Blood Venous blood specimen / Unknown Venipuncture / Unknown 01/18/2025 12:30 PM EDT 01/18/2025 2:03 PM EDT us Jeannine Doll MD LAB BLOOD ORDERABLES Final R esult Performing Organization Address [facility]/ZIP Co de Phone Number [facility] [address] [place] [address], [place] [phone] * Ferritin (01/18/2025 12:30 PM EDT) Ferritin 34 8 - 252 ng/mL LAB CHEMISTRY METHOD 01/18/2025 5:01 PM EDT [facility] Blood Venous blood specimen / Unknown Venipuncture / Unknown 01/18/2025 12:30 PM EDT 01/18/2025 2:03 PM EDT Jeannine Doll MD LAB BLOOD ORDERABLES Final R esult Performing Organization Address [facility] Co de Phone Number [facility] [address] [place] [address], [place] [phone] * Vitamin B12 (01/18/2025 12:30 PM EDT) Vitamin B-12 290 250 - 900 pcg/mL LAB CHEMISTRY METHOD 01/18/2025 5:01 PM EDT [facility] Blood Venous blood specimen / Unknown Venipuncture / Unknown 01/18/2025 12:30 PM EDT 01/18/2025 2:03 PM EDT Jeannine Doll MD LAB BLOOD ORDERABLES Final R esult Performing Organization Address City/[facility]/ZIP Co de Phone Number [facility] [address] [place] [address], [place] [phone] * JOHN DEXA AXIAL SKELETON (07/08/2024 8:21 AM EDT) Anatomical Region Laterality Modality Mammography 07/07/2024 2:03 PM EDT Narrative 07/08/2024 8:21 AM EDT [facility] Diagnostic Imaging Department [address] [place] [address] Patient: ??JUDITH TOLEDO ?/Age/Sex: 1970 53 - F Unit#: ??[id number] ? Location/Status: ??SPDIMAM/REG CLI ? Mnemonic/Ordering Site: ??MAMDEXAAX/SPMAM Ordering Physician: ??LAYNE RAMAN SENIOR GENETIC COUNSELOR [facility] Dexa Axial Skeleton - 07/07/24 - [id number] Report Status:Signed HISTORY: ??The patient is a 53-year-old postmenopausal female with clinical concern for metabolic bone disease. FINDINGS: ??Dual energy x-ray absorptiometry of the lumbar spine and femurs is performed. The mean bone mineral density at L1-L4 is 0.971 gm/cm2 which is 82% of that of young normals and 78% of that of age matched controls. This yields a T-score of -1.7 and a Z-score of -2.2 which is diagnostic of osteopenia. The mean bone mineral density of the femurs bilaterally is 0.713 gm/cm2 which is 71% of that of young normals and 65% of that of age matched controls. ??This yields a T-score of -2.3 and a Z-score of -2.1 which is diagnostic of osteopenia. However, the T-score of the right femoral neck is -2.5 and that of the left femoral neck is -2.7 which is diagnostic of osteoporosis. IMPRESSION: 1. Osteoporosis. 2. FRAX analysis yields a 10-year probability of major osteoporotic fracture of 4.4% and a 10-year probability of hip fracture of 1.3%. Code 78392 Dictating Physician: ??RUFUS FRY MD Electronically Signed by: ??RUFUS FRY MD Dic Date/Time: ??07/08/24819 Sign date/Time: ??07/08/24820 Procedure Note Rufus Fry MD - 08/10/2024 [facility] Diagnostic Imaging Department [address] [place] [address] Patient: JUDITH TOLEDO./Age/Sex: 1970 - 53 - F Unit#: [id number] [facility]Ordering Site: [facility] Ordering Physician: LAYNE RAMAN NP [facility] Dexa Axial Skeleton - 07/07/24 - [id number] Report Status:Signed HISTORY: The patient is a 53-year-old postmenopausal female withclinical concern for metabolic bone disease. FINDINGS: Dual energy x-ray absorptiometry of the lumbar spine and femursis performed. The mean bone mineral density at L1-L4 is 0.971 gm/cm2 which is82% of that of young normals and 78% of that of age matched controls. Thisyields a T-score of -1.7 and a Z-score of -2.2 which is diagnostic of osteopenia. The mean bone mineral density of the femurs bilaterally is 0.713 gm/vg3dgvdh is 71% of that of young normals and 65% of that of age matched controls.This yields a T-score of -2.3 and a Z-score of -2.1 which is diagnostic of osteopenia. However, the T-score of the right femoral neck is -2.5 andthat of the left femoral neck is -2.7 which is diagnostic of osteoporosis. IMPRESSION: 1. Osteoporosis. 2. FRAX analysis yields a 10-year probability of major osteoporoticfracture of 4.4% and a 10-year probability of hip fracture of 1.3%. Code 68034 Dictating Physician: RUFUS FRY MD Electronically Signed by: RUFUS FRY MD Dic Date/Time: 07/08/24819 Sign date/Time: 07/08/24820 Layne Raman SENIOR GENETIC COUNSELOR IMG BI PROCEDURES Final Result * (ABNORMAL) Lipid panel (11/23/2019) LDL/HDL Ratio 4 0 - 4 Triglycerides 144 0 - 150 mg/dL Cholesterol 196 0 - 200 mg/dL HDL 50 >=40 mg/dL LDL Cholesterol 118(A) 0 - 100 mg/dL Blood Venous blood specimen / Unknown Historical Provider LAB BLOOD ORDERABLES Tawny l Result from Last 3 Months or Most Recently Relevant to Health Maintenance Insurance MEDICARE [place]ICAID - [place] Care Teams Shade Cloth Finisher Relationship Specialty Start Date End Date Codi Ortega NP [address] [place] [address] PCP - General Internal Medicine 12/20/19
[2025-01-24 12:29] VITALS: BP 161/81; PULSE 91; RESP 18; O2SAT 93
--- NOTE | 2025-01-24 12:29 | PC.NURSE ---
moving with greater fluidity and w/o cane use now. awaits CT read.
--- NOTE | 2025-01-24 13:04 | PC.NURSE ---
patient walked out. was asked to leave.
== END 2025-01-24 13:08 | disposition left against medical advice (07) ==
PROVIDERS: Emergency Provider Emergency Medicine; PCP Internal Medicine
DX: S39.012A Strain of muscle, fascia and tendon of lower back, initial encounter (principal); W22.09XA Striking against other stationary object, initial encounter; R60.0 Localized edema; F17.210 Nicotine dependence, cigarettes, uncomplicated; Y93.9 Activity, unspecified; Y92.019 Unspecified place in single-family (private) house as the place of occurrence of the external cause; Y99.9 Unspecified external cause status
CPT/HCPCS: 72100; 72131; 99284

== ENCOUNTER → 2025-01-24 10:27 | Outpatient (BNV) | payer MEDICARE, MEDICAID, SELFPAY | PROVIDERS: Emergency Provider Emergency Medicine; PCP Internal Medicine; Visit Provider Radiology Diagnostic Radiology | DX: S09.90XA Unspecified injury of head, initial encounter (principal); W19.XXXA Unspecified fall, initial encounter; M47.815 Spondylosis without myelopathy or radiculopathy, thoracolumbar region | CPT/HCPCS: 72100; 72131 ==

== ENCOUNTER 2025-01-26 20:44 | Emergency (ER) | payer MEDICARE, MEDICAID, SELFPAY ==
--- NOTE | ~2025-01-26 | CT_ITS ---
CLINICAL HISTORY: fall with head strike, on thinners CT head without contrast Comparison: Head CT from 05/25/2024 Findings: No acute intracranial hemorrhage. No midline shift or hydrocephalus. Multiple metal artifacts are noted. No arterial territorial infarction by CT. Cavum septum pellucidum et vergae. Partially empty sella. Mild multifocal mucosal thickening of the imaged paranasal sinuses. Imaged mastoid air cells are well aerated. No acute skull fracture, accounting for artifacts. IMPRESSION: No acute intracranial abnormality by CT. This document has been electronically signed by: Davey Gunn MD on 01/26/2025 22:32:09
--- NOTE | ~2025-01-26 | CT_ITS ---
CLINICAL HISTORY: fall with head strike, on thinners CT cervical spine without contrast Comparison: CT of the cervical spine from 05/25/2024 Findings: No acute fracture of the cervical spine. No significant change in vertebral heights or vertebral alignments. Mild reversal cervical lordosis. Disc osteophyte complexes are redemonstrated, including C4-C5 with mild spinal canal stenosis. Foraminal narrowing, includes moderate to severe left at C4-C5 and [id number] right at C6-C7. Redemonstration of multifocal osteophytes, ligament calcifications, and facet arthropathy. No paraspinal hematoma. Imaged lung apices are well aerated. IMPRESSION: No acute fracture of the cervical spine. This document has been electronically signed by: Davey Gunn MD on 01/26/2025 22:26:23
[2025-01-26 20:46] VITALS: BP 155/101; PULSE 105; RESP 16; TEMP 36.7; O2SAT 99; BMI 27.0
--- NOTE | 2025-01-26 20:47 | ED_ITS ---
HPI - General Adult General Chief complaint: Fall Stated complaint: back/knee pain fell 4/3 Time Seen by Provider: 01/26/25 22:41 Source: patient Mode of arrival: ambulatory Limitations: no limitations History of Present Illness ED Provider: Dr. Jared Cameron HPI narrative: 54 yo female with PMH of osteoporosis, esophagitis, GERD, anxiety, bipolar, LLE DVT - lovenox injections/IVC filter in place - protein S deficiency presents emergency department for evaluation of fall. The patient states that she lost her balance and fell landing on her knees and then striking her buttocks and back on the ground. She denied any head injury or loss of consciousness. She was currently complaining of lower back pain and bilateral knee pain. Patient was able to walk from triage ED stretcher without any difficulty. She denies headache, nausea, vomiting, neck pain. Related Data Home Medications ?Medication ?Instructions ?Recorded ?Confirmed acetaminophen 650 mg 650 mg PO TID PRN Pain 06/12/23 10/21/24 tablet,extended release (Pain Relief (acetaminophen)) pregabalin 100 mg capsule 100 mg PO BID 06/12/23 10/21/24 hydroxyzine HCl 25 mg tablet 25 mg PO .QD PRN Anxiety 12/29/23 10/21/24 lisinopril 2.5 mg tablet 2.5 mg PO DAILY 12/29/23 10/21/24 lorazepam 1 mg tablet 1 mg PO TID 12/29/23 10/21/24 oxycodone 10 mg tablet,crush 10 mg PO BID 04/08/24 10/21/24 resistant,extended release 12 hr (OxyContin) cholecalciferol (vitamin D3) 25 50 mcg PO DAILY 10/21/24 10/21/24 mcg (1,000 unit) chewable tablet (Vitamin D3) Previous Rx's ?Medication ?Instructions ?Recorded sodium,potassium,mag sulfates 17.5 480 ml PO .COMPLEX #354 mL 04/08/24 gram-3.13 gram-1.6 gram oral soln (Suprep Bowel Prep Kit) enoxaparin 100 mg/mL subcutaneous 100 mg subcut Q12H #60 mL 08/02/24 syringe oxycodone 20 mg tablet 20 mg PO QID Pain 7 days #28 tabs 10/21/24 sodium,potassium,mag sulfates 17.5 See Rx Instructions PO .COMPLEX 11/17/24 gram-3.13 gram-1.6 gram oral soln colonoscopy prep #354 mL (Suprep Bowel Prep Kit) sodium,potassium,mag sulfates 17.5 See Rx Instructions PO .COMPLEX 11/21/24 gram-3.13 gram-1.6 gram oral soln colonoscopy prep #354 mL (Suprep Bowel Prep Kit) Nexium 40 mg capsule,delayed 40 mg PO BID #60 caps 11/25/24 release (esomeprazole magnesium) Allergies Allergy/AdvReac Type Severity Reaction Status Date / Time morphine Allergy Severe Itching Verified 01/26/25 20:51 aspirin [ASPIRIN] Allergy Unknown HIVES Verified 01/26/25 20:51 pollen Allergy Unknown Itching Uncoded 10/21/24 09:33 Review of Systems Review of Systems: Yes all other systems are reviewed and are negative PMFSH Past Medical History Medical History Compression fracture of lumbar vertebra Compression fracture of L2 lumbar vertebra Vitamin D deficiency Infected dental caries Obesity (BMI 30-39.9) Smoker Chronic pain Essential hypertension Protein S deficiency Shearing of artificial skin graft History of depression Hx of sickle cell trait Hx of iron deficiency anemia Hx of deep venous thrombosis Surgical History History of kyphoplasty History of knee surgery H/O esophagogastroduodenoscopy H/O colonoscopy S/P panniculectomy H/O gastric sleeve History of section History of cholecystectomy Family History Family History Brother Brother Other No family history of cancer Social History Social History Household Members: None Housing: House Are you a primary spiritual care coordinator to a significant other at home: No Do you presently have visiting nurse or other home services: No Alcohol intake: never Patient Tobacco Use Status: Current everyday Tobacco user Tobacco use type: Cigarette Cigarette Packs Per Day: 0.5 Cigarettes Per Day: 6 e-Cigarette/Vaping Use: Never Used Second Hand Smoke Exposure: Yes Do you have a plan to hurt others: No Plan service: No Current occupational status: disabled Cognitive needs: No Hearing needs: No Vision needs: No Physical Exam ED Vital Signs: Vital Signs - 24 hr 01/26/25 20:46 Temperature 98.1 F Pulse Rate 105 H Respiratory Rate 16 Blood Pressure 155/101 H Pulse Oximetry 99 Oxygen Delivery Method Room Air BMI result Body Mass Index 27.0 Vital signs revealed an elevated blood pressure of 155/101 and an elevated heart rate of 105. Exam: General: Awake, alert in no distress Head: Normocephalic, atraumatic Neck: Tenderness palpation of her cervical spine Back: Tenderness with palpation of the patient's lumbar spine and paraspinal muscles Extremities: no deformities, moves all extremities symmetrically, patient was have tenderness palpation of her knees bilaterally, she was able to walk and stand without any difficulty Neuro: Awake, alert, oriented, normal speech, cranial nerves intact, moves all extremities symmetrically Psych: Pleasant, cooperative Course Course Course Narrative: This is a rapid medical exam performed by Serjio Russell [employer]: Additional HPI, ROS, PE not included below will be deferred to primary provider. 01/26/25 20:47 Patient is a 54-year-old female with history of vertebral compression fractures, chronic narcotic use, obesity, smoker, HTN, protein S deficiency, [place] filter, GERD, anxiety, Bipolar disorder, sickle cell trait, hx of DVT on Lovenox BID presenting with complaint of back and knee pain. Reports multiple recent falls. Patient hostile in triage, uncooperative with providing history. States I don't see nurse practitioners, I only see MDs. States she fell forward onto knees, then against the wall. Unsure of head strike, states I didn't black out but I wasn't completely conscious either. Plan: CT head and C-spine, will defer additional imaging to primary provider Medical Decision Making Medical Decision Making MDM Narrative: 54 yo female with PMH of osteoporosis, esophagitis, GERD, anxiety, bipolar, LLE DVT - lovenox injections/IVC filter in place - protein S deficiency presents emergency department for evaluation of fall. Patient was caring my complaining of back pain, coccygeal pain and pain in her knees bilaterally. Vital signs revealed an elevated blood pressure and elevated heart rate. Physical examination revealed tenderness palpation of her lumbar spine and lumbar paraspinal muscles. She also tenderness palpation of her knees bilaterally. Patient was able to walk in the emergency department without any difficulty. Differential diagnosis: ?Includes but is not limited to intracranial bleed, skull fracture, cervical fracture, contusion to knees, contusion/sprain to lumbar back Course: The patient's examination is consistent with contusions secondary to her fall and sprain/strain of her lumbar paraspinal muscles. At this time I do not think that the patient needs any x-rays of her knees or her back. Given the fact that she was on Lovenox we did obtain a CT scan of the head and cervical spine in these studies were negative. Patient was given Tylenol 650 mg orally and discharged home. Admission/Observation Consideration of admission/observation: Escalation of care including admission/observation considered (Yes) CT head without contrast Comparison: Head CT from 05/25/2024 Findings: No acute intracranial hemorrhage. No midline shift or hydrocephalus. Multiple metal artifacts are noted. No arterial territorial infarction by CT. Cavum septum pellucidum et vergae. Partially empty sella. Mild multifocal mucosal thickening of the imaged paranasal sinuses. Imaged mastoid air cells are well aerated. No acute skull fracture, accounting for artifacts. IMPRESSION: No acute intracranial abnormality by CT. This document has been electronically signed by: Davey Gunn MD on 01/26/2025 22:32:09 CT cervical spine without contrast Comparison: CT of the cervical spine from 05/25/2024 Findings: No acute fracture of the cervical spine. No significant change in vertebral heights or vertebral alignments. Mild reversal cervical lordosis. Disc osteophyte complexes are redemonstrated, including C4-C5 with mild spinal canal stenosis. Foraminal narrowing, includes moderate to severe left at C4-C5 and [id number] right at C6-C7. Redemonstration of multifocal osteophytes, ligament calcifications, and facet arthropathy. No paraspinal hematoma. Imaged lung apices are well aerated. IMPRESSION: No acute fracture of the cervical spine. This document has been electronically signed by: Davey Gunn MD on 01/26/2025 22:26:23 Chronic Conditions Patient?s care impacted by: Other (Protein S deficiency/hypercoagulable state) Discharge Plan Discharge Clinical Impression: Fall, Contusion of knee, left, Contusion of knee, right Patient Disposition: Home, Self-Care Additional Instructions: At this time, I do not think that you broke any bones but you most likely bruised your knees and your coccyx from the fall. The CAT scan of your head and neck revealed no broken bones which is reassuring. Take Tylenol 325 mg pills, 2 pills every 6 hours as needed for pain. Apply ice for 15 minutes 4 to 6 times a day on the areas that hurt. Continue taking medications as prescribed by your providers. Insert discharge follow-up return. Prescriptions: No Action sodium,potassium,mag sulfates [Suprep Bowel Prep Kit] 17.5-3.13-1.6 gram recon soln See Rx Instructions PO .COMPLEX Qty: 354 0RF Rx Instructions: DILUTE each bottle with 16oz of water; drink first bottle at 5pm evening before procedure AND second bottle at 11pm; follow each bottle with at least 32 oz. of clear liquid within 1 hour after each bottle. sodium,potassium,mag sulfates [Suprep Bowel Prep Kit] 17.5-3.13-1.6 gram recon soln See Rx Instructions PO .COMPLEX Qty: 354 0RF Rx Instructions: DILUTE each bottle with 16oz of water; drink first bottle at 5pm evening before procedure AND second bottle at 11pm; follow each bottle with at least 32 oz. of clear liquid within 1 hour after each bottle. esomeprazole magnesium [Nexium] 40 mg capsule,delayed release(DR/EC) 40 mg PO BID Qty: 60 6RF lisinopril 2.5 mg tablet 2.5 mg PO DAILY lorazepam 1 mg tablet 1 mg PO TID enoxaparin 100 mg/mL Syringe 100 mg SUBCUT Q12H Qty: 60 6RF cholecalciferol (vitamin D3) [Vitamin D3] 25 mcg (1,000 unit) tablet,chewable 50 mcg PO DAILY acetaminophen [Pain Relief (acetaminophen)] 650 mg tablet extended release 650 mg PO TID PRN (Reason: Pain) pregabalin 100 mg capsule 100 mg PO BID hydroxyzine HCl 25 mg tablet 25 mg PO .QD PRN (Reason: Anxiety) oxycodone [OxyContin] 10 mg tablet,oral only,ext.rel.12 hr 10 mg PO BID sodium,potassium,mag sulfates [Suprep Bowel Prep Kit] 17.5-3.13-1.6 gram recon soln 480 ml PO .COMPLEX Qty: 354 0RF Rx Instructions: 480 mL orally; FOR COLONOSCOPY PREP oxycodone 20 mg tablet 20 mg PO QID 7 Days Qty: 28 0RF Print Language: Albanian
[2025-01-26] MEDS: Acetaminophen 325 MG TABLET 650 MG PO (23:09)
--- NOTE | 2025-01-26 23:14 | MHC.EDTECH ---
Patient refused vitals ,RN Gabriela aware .
--- NOTE | 2025-01-26 23:35 | PC.NURSE ---
Dr. Cameron informed of patient refusing discharge vital signs. Patient provided with discharge notice, patient instructed and verbalized understanding of discharge instructions. Patient ambulated of the unit with assistance of cane and a steady gait.
[2025-01-26 23:39] VITALS: BP 000/00; PULSE 0; RESP 20; TEMP -17.7; TEMP 0
== END 2025-01-26 23:41 | disposition home or self-care (01) ==
PROVIDERS: Emergency Provider Emergency Medicine Emergency Medical Services; PCP Internal Medicine
DX: S80.02XA Contusion of left knee, initial encounter (principal); S80.01XA Contusion of right knee, initial encounter; W01.0XXA Fall on same level from slipping, tripping and stumbling without subsequent striking against object, initial encounter; M54.50 Low back pain, unspecified; M25.562 Pain in left knee; M25.561 Pain in right knee; F17.210 Nicotine dependence, cigarettes, uncomplicated; Y93.9 Activity, unspecified; Y92.9 Unspecified place or not applicable; Y99.9 Unspecified external cause status
CPT/HCPCS: 70450; 72125; 99284

== ENCOUNTER → 2025-01-26 20:54 | Outpatient (BNV) | payer MEDICARE, MEDICAID, SELFPAY | PROVIDERS: Emergency Provider Emergency Medicine Emergency Medical Services; PCP Internal Medicine; Visit Provider Radiology Neuroradiology | DX: S09.90XA Unspecified injury of head, initial encounter (principal); W19.XXXA Unspecified fall, initial encounter | CPT/HCPCS: 70450; 72125 ==

== ENCOUNTER 2025-05-12 11:50 | Outpatient (REF) | payer MEDICARE, MEDICAID, SELFPAY ==
--- OUTSIDE RECORDS SUMMARY | 2025-05-08 15:51 | XMS_ITS | Continuity of Care Document ---
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 Name Role Phone Shannon BHAT, Codi Kumar Primary Care Physician [phone] [facility] [id number] Date(s): 05/08/25 - 05/08/[address] [address]- Discharge Disposition: A-D/C Walkout Attending Physician: Not on Staff, Attending MD Admitting Physician: Not on Staff, Admitting MD Referring Physician: Not on Staff, Referring MD Encounter Type: Disch ES Allergies, Adverse Reactions, Alerts Substance Criticality Severity Reaction Reaction Severity Status aspirin welts,throat closed Active Cats Active Pollen Active Immunizations Given and Recorded Vaccine Date Status Refusal Reason pneumococcal 23-valent vaccine 05/14/10 Given Medications Ativan 1 mg oral tablet 1 tablet = 1 mg, By Mouth, 3 times a day, PRN as needed for anxiety, Maintenance, 01/14/25 7:10:00 PM EDT, Partial fill upon patient request if the prescription is for a schedule II opioid drug. Start Date: 01/14/25 Status: Ordered Repeat number: 1 estradiol 0.025 mg/24 hours weekly transdermal film, extended release 1 patch, Topically, Every Thursday, Maintenance, 01/14/25 7:10:00 PM EDT, Partial fill upon patientrequest if the prescription is for a schedule II opioid drug. Start Date: 01/14/25 Status: Ordered Repeat number: 1 fentaNYL 37.5 mcg/hr transdermal film, extended release 1 patch, Topically, Every 72 hours, 0 Refills, Maintenance, 01/14/25 7:11:00 PM EDT, Partial fill upon patient request if the prescription is for a schedule II opioid drug. Start Date: 01/14/25 Status: Ordered Repeat number: 1 Lovenox 100 mg/mL injectable solution 1 mL = 100 mg, Subcutaneous Injection, Daily, Maintenance, 01/14/25 7:12:00 PM EDT, Partial fill upon patient request if the prescription is for a schedule II opioid drug. Start Date: 01/14/25 Status: Ordered Repeat number: 1 Lyrica 100 mg oral capsule 1 capsule = 100 mg, By Mouth, 2 times a day, Maintenance, 01/14/25 7:09:00 PM EDT, Partial fill uponpatient request if the prescription is for a schedule II opioid drug. Start Date: 01/14/25 Status: Ordered Repeat number: 1 Nexium 40 mg oral enteric coated capsule 1 capsule = 40 mg, By Mouth, 2 times a day, Maintenance, 01/14/25 7:10:00 PM EDT, Partial fill upon patient request if the prescription is for a schedule II opioid drug. Start Date: 01/14/25 Status: Ordered Repeat number: 1 Percocet 10 mg-325 mg oral tablet 1 tablet, By Mouth, 3 times a day, 0 Refills, Maintenance, 01/14/25 7:11:00 PM EDT, Partial fill upon patient request if the prescription is for a schedule II opioid drug. Start Date: 01/14/25 Status: Ordered Repeat number: 1 progesterone 100 mg oral capsule 1 capsule = 100 mg, By Mouth, Daily at bedtime, Maintenance, 01/14/25 7:11:00 PM EDT, Partial fill upon patient request if the prescription is for a schedule II opioid drug. Start Date: 01/14/25 Status: Ordered Repeat number: 1 Walker See [...] Quantity: 1.0 Unit: Unknown Repeat number: 1 Problem List Condition Confirmation Course Effective Dates Status H ealth Status Informant Anxiety disorder Confirmed Active Binge eating disorder, mild, in partial remission Confirmed Active Morbid obesity with BMI of 40.0-44.9, adult Confirmed Active Chronic pain syndrome Confirmed Active Fluid retention in legs Confirmed Active GERD (gastroesophageal reflux disease) Confirmed Active History of DVT (deep vein thrombosis) Confirmed Active Chronic leg pain Confirmed Active Phlebitis and thrombophlebitis of femoral vein Confirmed Active Postmenopausal bleeding Confirmed Active Protein S deficiency Confirmed Active Proteinuria Confirmed Active VITAMIN D DEFICIENCY Confirmed 11/2006 Active Social History Social History Type Response Smoking Status Current every day sm oker; Other: vapor; entered on: 12/23/17 Sex Sex Representation Female (finding) Patient Care team information Care Team Personnel Name: Shannon BHAT, Codi Kumar Position: Reference Physician Member Role: PCP Address: [address] [place], [place] [id number]- Telecom: Name: Bess Romo NP Position: Reference Physician Member Role: Primary Care Nurse Address: [address] [place] [address] [address] [facility] [employer] [facility] [place] [address]- Telecom: Name: Lori Quijano RN Position: S RN Member Role: Primary Care Nurse Name: Marcello Chowdhury RN Position: S RN Member Role: Primary Care Nurse Name: Gil West RN Position: S RN Member Role: Primary Care Nurse Care Team Related Persons Name: WON BREWER Name: YOHAN HELMS Name: CONY RAHMAN Insurance Providers Guarantor name: JEREMIAS SILVERDALE Health Plan Information #: 1 Payer: [employer] Payer Identifier: PAVAN Member Number: [id number] Group Number: [id number] Subscriber Identifier: [id number] Relationship to Subscriber: self Coverage Type: Self-pay (Includes applicants for insurance and Medicaid applicants) Coverage Verification Date: PAVAN Telecom: NA Address:
--- OUTSIDE RECORDS SUMMARY | 2025-05-12 12:06 | XMS_ITS | Referral Summary ---
Author Organization [facility] Address [address] [place] [address] Care Team Providers Care Director Geophysical Laboratory Name Role Phone Jose Dumont Primary Care Provider [phone] Allergies No known active allergies Medications No [...] - Plan of Treatment Not on file Insurance [facility]IC[facility] Care Teams Director Geophysical Laboratory Relationship Specialty Start Date End Date Jose Dumont [address] [place] [id number] PCP - General Orthopedic Surgery 12/27/24
--- OUTSIDE RECORDS SUMMARY | 2025-05-12 12:06 | XMS_ITS | Clinical Summary ---
Author Organization [facility] Address [address] [place] [phone] Phone Care Team Providers Care Software Consultant Name Role Phone Paolo Armenta MD Primary Care Provider [phone] Allergies Active Allergy Reactions Criticality Noted Date [...] opioid dependence 08/09/2020 Overview (08/12/2021): Pain management, [place] [facility] Posttraumatic stress disorder 11/30/2019 Overview (08/12/2021): Childhood trauma Last Assessment & Plan: Very pleased w her new puppy, experiencing therapeutic benefit Abnormal uterine bleeding 09/01/2019 Overview (08/12/2021): Last Assessment & Plan: Reports negative w/u w [facility] Manager Integration for PMB [place] 08/11/2019 Overview (08/12/2021): Last Assessment & Plan: Pt not interested in nonhormone therapy options. 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 She is on a blood thinner. I recognize that there are risks & benefits of the HT. I will have her meet w gynecology. Referred to [facility] T[employer] Builder Finding related to status of agreement with [...] & Plan: She follows leila dozier at [facility]. Hopefully this will resolve since her menses [...] be nicotine free for her surgery Immunizations Immunization Administration Dates Next Due Influenza (IM) Preservative [...] Office Visit [facility] [address] [phone] Tae De Luna MD [address] [address] Health Maintenance Due Date Last Done Comments Breast Cancer Screening 1970 Hepatitis B Vaccine (1 of 3 - 19+ 3-dose series) 1988 Pneumococcal Vaccine: 50+ Ye ars (2 of 2 - PCV) 12/24/2017 12/24/2016 Colorectal Cancer Screening: Annual FOBT 2018 Colorectal Cancer Screening: Colonoscopy 2018 Colorectal Cancer Screening: Sigmoidoscopy 2018 Influenza Vaccine (#1) 2025 7, 12/24/2016, 09/10/2016, Additional history exists Pneumococcal Vaccine: Peds ( 0 to 5 Years) and At-Risk Patients (6 to 49 Years) Discontinued 12/24/2016 Insurance Medicare Medicaid [place] Medicare [place] Care Teams Software Consultant Relationship Specialty Start Date End Date Paolo Armenta MD [address] [place] [address] PCP - General Internal Medicine 12/21/24
--- OUTSIDE RECORDS SUMMARY | 2025-05-12 12:06 | XMS_ITS | Data Portability ---
Author Organization [facility] [address] Address [address] [place] [address] Assessment Encounter Date Assessment Date Assessment LastModified by Organization Details LastModified Time 12/03/2023 12/03/2023 Patient was evaluated by the Physician Retail Sales Assistant using AV technology. This type of exam does not replace a need for an in-person evaluation if symptoms worsen or do not improve after 24-48 hours. Not available 12/03/2023 15:41:04 Plan of Treatment Reminders Order Date Submit Date Provider Last Modified By Organization Details Last Modified Time Details Appointments None recorded. Lab None recorded. Referral emergency medicine referral 2023 024 [email or web address] 48 [facility], [address] [place], [address], 15:15:39 Procedures None recorded. Surgeries None recorded. Imaging None recorded. Medication Orders meclizine 25 mg tablet 2023 024 AZRA Not available 13:28:16 amoxicillin 875 mg-potassiu m clavulanate 125 mg tablet 2023 024 [id number], [address], [place], [id number], 14:14:45 Patient TargetsNo targets recorded. Patient Instructions Encounter Date Encounter Id Patient Instructions Last Modified By Organization Details Last Modified Time 12/03/2023 [id number] head or face pain: care instructions Not available 12/03/2023 15:40:49 05/20/2024 [id number] learning about rice (rest, ice, compression, and elevation) [email or web address] Not available 05/20/2024 15:13:38 05/30/2024 [id number] benign paroxysma l positional vertigo (bppv): care instructions [email or web address] Not available 05/30/2024 12:43:30 Reason for Referral Emergency Medicine Referral for Concussion with loss of consciousness Referring Physician: Kathy España, Urgent Care, Encounter Date: 05/20/2024 Problems Name Problem SNOMED Code Status Onset Date Resolution Date Notes Provider Name and Address Organization Details Recorded Time Injury of right ankle 4404739709368 9100 Active 2023 [place], [address], [place] - [facility] 4 15:06:51 Injury of right shoulder 9328464246926 9107 Active 2023 PERLITA Blount , [place], [address], [place] - [facility] 4 15:07:06 Injury of head 87982758 Active 2023 Kathy España NP [address] , [place], [address], [place] - [facility] 4 15:13:09 Concussion with loss of consciousne ss 16512104 Active 2023 PERLITA Blount , [place], [address], [place] - [facility] 4 15:13:14 Benign paroxysmal positional vertigo 390837585 Active 2023 [place], [address], [place] - [facility] 4 12:42:03 Sprain of right ankle 8798179674193 9105 Active 2023 [place], [address] , [place] - [facility] 4 12:43:08 [...] Updated DateTime 12/03/2023 162.56 cm 30 kg/m2 52611.66 g Kim Enamorado PA - [facility] 12/03/2023 15:28:55 Date Recorded Body height Body mass index (BMI) Body weight Oxygen saturation Oxygen saturation in Arterial blood by Pulse oximetry Heart rate Respiratory rate Body temperature Systolic And Diastolic Provider Name and Address Organization Details Last Updated DateTime 4 162.56 cm 29.2 kg/m2 55161.7 g 95.99 % 95.99 % 96 /min 18 /min 98.9 [degF] 89/64 mm[Hg] Radha Zaragoza PA - [facility] 14:14:50 Date Recorded Body height Body mass index (BMI) Body weight Respiratory rate Oxygen saturation Oxygen saturation in Arterial blood by Pulse oximetry Heart rate Systolic And Diastolic Provider Name and Address Organization Details Last Updated DateTime 4 162.56 cm 29.2 kg/m2 91600.7 g 18 /min 99 % 99 % 79 /min 134/89 mm[Hg] Vonda Rodriguests PA - [facility] 4 12:27:41 Social History Question Answer Notes LastModified by [employer] Details LastModified Time Tobacco Smoking Status Never Smoker LUIS A Sal [facility] 12/03/2023 15:30:16 Have You Had A Flu Shot This Season? No Information not available 12/03/2023 What Is Your Relationship Status? Single Information not available 12/03/2023 Are You Currently In School? No Information not available 12/03/2023 Sex: Unknown Functional Status Question Answer Note LastModified by [employer] Details LastModified Time Do you use any illicit or recreational drugs? No Information not available 12/03/2023 Do you or have you ever used any other forms of tobacco or nicotine? No Information not available 12/03/2023 What is your level of alcohol consumption? None Information not available 12/03/2023 Are you currently employed? Yes Information not available 12/03/2023 Mental Status None recorded. Family History Relationship [...] SNOMED-CT Code Diagnosis ICD10 Code Diagnosis Note [id number] [address] [place] [address] 09/23/2021 08:25:23 09/23/2021 09:55:03 [id number] [address] [facility] [place] [address] 07/11/2020 09:02:05 07/11/2020 09:48:06 [id number] [address] [facility] [address] [facility] [place] [address] 06/06/2022 08:07:19 06/06/2022 08:54:57 [id number] [place] A [place] [address] [place] [address] 12/03/2023 15:24:57 12/03/2023 15:54:39 Infection of tooth 915639426 K04.7 Based on your presentati on and [...] to your eye. Thank you for using [employer] today, please feel free to contact our office if you have any questions or concerns. [id number] Kathy España [place] [address] [facility] [address] [facility] [place] [address] 05/20/2024 14:01:41 05/20/2024 15:15:39 Injury of right ankle 3220489787 [id number] S99.911A Injury of right shoulder 2816957949 2850915 S49.91XA to be F/U with ER Concussion with loss of consciousness [id number] S06.0X9A Based on your exam and presentati [...] treated appropriat bruce. This may include . [id number] Jit[place] [address] [facility] [address] [facility] [place] [address] 05/30/2024 11:53:30 05/30/2024 12:43:56 Benign paroxysmal positional vertigo 922218902 H81.10 Please drink plenty of fluids. See your doctor or go to the neared emergency department right away if you have vertigo and:-Have a new or severe headache-H ave a fever higher than 100.4 F (38 C)-Start to see double or have trouble seeing [...] dav maneuver. Sprain of right ankle 11 89048405 1050858 S93.401A Health Concerns Section Related Observation LastModified by Organization Detai ls LastModified Time None Recorded Concern Status LastModified by Organization Details LastModified Time None Recorded Advance Directives Directive None Recorded Payers Insurance Date Sequence Insurance Name Policy Number Policy De León Covered Member ID De León Member ID Guarantor Name 05/30/2024 1 [place] [employer] [place] Judith Jacobson [id number] Judith Jacobson 09/09/2024 2 [place] [facility] Judith Jacobson [id number] Judith Jacobson 05/30/2024 [employer]IAN - SPECIALITY CLAIMS (MEDICARE DME REGION A) Judith Jacobson [id number] Judith Jacobson Notes Date Note Type Note Provider Name [...] issues on that side. LUIS A [place] [facility] [place], [address], [place] - [facility] 12/03/2023 15:41:44 4 [...] previous clot . Kathy España NP [address], [address], [place] - [facility] 06/16/2024 08:57:10 4 [...] She denies any chronic ear problems or M ni re's disease. Quality:feeling his head is spinning sometimes [...] Nolan NP [address] [place], [address], [place] - [facility] 06/09/2024 17:37:55 OBGyn Episode No OBEpisode recorded.
--- OUTSIDE RECORDS SUMMARY | 2025-05-12 12:06 | XMS_ITS | Clinical Summary ---
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 Active oxyCODONE (OxyCONTIN) 20 mg 12 hr [...] mg total) by mouth daily. 5 Active Lovenox 100 mg/mL syringe Inject 1 mL (100 mg total) under the skin daily. 4 Active esomeprazole (NexIUM) [address] capsule Take 1 capsule (40 mg total) by mouth daily. 1 Active nystatin (MYCOSTATIN) 100,000 unit/gram powderIndications: Abdominal panniculus, symptomatic Apply topically 2 (two) times a day. 15 g 2 01/18/20 26 Active Active Problems Problem Noted Date Diagnosed Date Chronic leg pain 12/27/2024 Proteinuria 12/27/2024 Class 3 severe obesity due t o excess calories with serious comorbidity and body mass index (BMI) of 40.0 to 44.9 in adult ([facility] V24, [facility] V28) 12/27/2024 Vitamin D deficiency 12/27/2024 GERD (gastroesophageal reflux disease) Protein S deficiency ([facility] V24) 12/27/2024 Anxiety 10/26/2017 Overview (12/27/2024): Last Assessment [...] opioids 08/09/2020 12/27/2024 Overview (12/27/2024): Pain management, [facility] Abnormal uterine bleeding 09/01/2019 Overview (12/27/2024): Last Assessment & Plan: Reports negative w/u w [facility] [employer] for PMB Bipolar disorder ([facility] V24, [facility] V28) 10/26/2017 12/27/2024 Overview (12/27/2024): Last Assessment & Plan: Following w therapist. Encounters Date Type Department Care Team Description 02/13/2025 7:55 AM EDT Anesthesia Event [facility] Pain Management [address] [place] [phone] Guilherme Cruz MD Fox, Jillian, [place] 02/13/2025 6:56 AM EDT - 02/13/2025 11:59 PM EDT Hospital Encounter [facility] Xray [address] [place] [phone] Pain Discharge Disposition: Home or Self Care 02/13/2025 6:37 AM EDT - 02/13/2025 11:59 PM EDT Hospital Encounter [facility] Pain Management [address] [place] [phone] Asad Zuleta DO Chang, Daniel J, MD Bilateral primary osteoarthritis of knee; Chondromalacia, left knee; Chondromalacia, right knee; Idiopathic progressive neuropathy; Pain in left knee; Pain in right knee; Primary osteoarthritis, left ankle and foot; Primary osteoarthritis, right ankle and foot; Other osteoporosis with current pathological fracture, vertebra(e), initial encounter for fracture ([facility] V24, [facility] V28); Radiculopathy, lumbar region Discharge Disposition: Home or Self Care from Last 3 Months Surgical History Surgery Date Site/Laterality Comments LAPAROSCOPIC GASTRIC BANDING 2005 PROCEDURE: LAP ADJUSTABLE GASTRIC BAND; COMMENT: 12/08/2017 removed CHOLECYSTECTOMY PROCEDURE: PA CHOLECYSTECTOMY SECTION PROCEDURE: PA DELIVERY ONLY OTHER SURGICAL HISTORY 2008 PROCEDURE: HISTORICAL PANNICULECTOMY OTHER SURGICAL HISTORY 10/08/2017 PROCEDURE: RADIOLOGIC EXAM ESOPHAGUS SINGLE CONTRAST STUDY; COMMENT: lap band in high position; erosive esophagitis, grade 3 Medical History Medical History Date Comments Anxiety DX:Anxiety GERD (gastroesophageal reflux disease) DX:GERD (gastroesophageal reflux disease) Chronic leg pain DX:Chronic leg pain Protein S deficiency ([facility] V24) DX:Protein S deficiency ([facility]) Vitamin D deficiency DX:Vitamin D deficiency Proteinuria DX:Proteinuria History of DVT (deep vein thrombosis) DX:History of DVT (deep vein thrombosis) Class 3 severe obesity due t o excess calories with serious comorbidity and body mass index (BMI) of 40.0 to 44.9 in adult ([facility] V24, [facility] V28) 03/01/2019 DX:Class 3 severe obesity due to excess calories with serious comorbidity and body mass index (BMI) of 40.0 to 44.9 in adult ([facility]) Osteoporosis DVT (deep venous thrombosis) ([facility] V24, [facility] V28) bilateral Family History Medical History Relation Name Comments Other: BLOOD CLOTTING DISORDER Brother HIV, HTN, [place], Liver disease Hypertension Mother Seizures, Arthr itis, high cholesterol Anemia Sister Blood clotting disorder, Migraine Other: Blood clotting disorder Son Relation Name Status Comments Brother Mother Sister Son Social History Tobacco Use Types Packs/Day Years Used Date Smoking Tobacco: Every Day Cigarettes Smokeless Tobacco: Never Tobacco Cessation:Ready to Q uit: Not Asked; Counseling Given: Not Answered Alcohol Use Standard Drinks/Week Comments No 0 (1 standard drink = 0.6 oz pur e alcohol) Interpersonal Safety Answer Date Record ed Physical Abuse 02/13/2025 Verbal Abuse 02/13/2025 Comments No Sex and Gender Information Value Date Recorded Sex Assigned at Female 01/27/2025 12:27 PM EDT Legal Sex Female 1:25 PM EST Gender Identity Female 01/27/2025 12:27 PM EDT Sexual Orientation Straight 01/27/2025 12 :27 PM EDT Obstetrics History Last Filed Vital Signs Vital Sign Reading Time Taken Comments Blood Pressure 117/68 02/13/2025 9:35 AM EDT Pulse 72 02/13/2025 9:35 AM EDT Temperature 36.8 C (98.2 F) 02/13/2025 9:22 AM EDT Respiratory Rate 16 02/13/2025 6:57 AM EDT Oxygen Saturation 100% 02/13/2025 9:22 AM EDT Inhaled Oxygen Concentration - - Weight 74.8 kg (165 lb) 02/13/2025 7:06 AM EDT Height 162.6 cm (5' 4 ) 01/17/2025 9:23 AM EDT Body Mass Index 28.32 01/17/2025 9:23 AM EDT Plan of Treatment Upcoming Encounters Date Type Department Care Team (Late st Contact Info) Description 01/16/2026 8:45 AM EDT Office Visit Bariatric Surgery - [place] [address] [facility] [address] [place] [phone] Jeannine Doll MD [address] [facility] [address] [place] [address] Health Maintenance Due Date Last Done Comments Breast Cancer Screening 1970 Hepatitis B Vaccines (1 of 3 - 19+ 3-dose series) 1988 Cervical Cancer Screening: Pap Smear 1990 Pneumococcal Vaccine: 50+ Years (2 of 2 - PCV) 12/24/2017 12/24/2016, 05/14/2010 Zoster Vaccines (1 of 2) 2019 Colorectal Cancer Screening: Colonoscopy 09/23/2022 HIV Screening 09/23/2022 Medicare Annual Wellness Visit 09/23/2022 Social Influencers of Health Screening 09/23/2022 COVID-19 Vaccine (1 - season) 2024 Depression Screening 10/26/2024 Influenza Vaccine (#1) 2025 7, 12/24/2016, 09/10/2016, Additional history exists DTaP,Tdap,and [...] age to complete this topic Meningococcal B Vaccine Aged Out No l onger eligible based on patient's age to complete this topic RSV Immunization Patients Under 20 months Aged Out No longer eligible based on patient's age to complete this topic Varicella Vaccines Aged Out No longer eligible based on patient's age to complete this topic Procedures Procedure Name Priority Date/Time Associated Diagnosis Comments [facility] DEXA AXIAL SKELETON Routine 07/08/2024 8:21 AM EDT Encounter for screening for osteoporosis LIPID PANEL Routine 11/23/2019 from Last 3 Months or Most Recently Relevant to Health Maintenance Results * [facility] DEXA AXIAL SKELETON (07/08/2024 8:21 AM EDT) Anatomical Region Laterality Modality Mammography 07/07/2024 2:03 PM EDT Narrative 07/08/2024 8:[address] [facility] Diagnostic Imaging Department [address] [place] [id number] Patient: PARISJUDITH /Age/Sex: 1970 53 - F Unit#: [id number] Location/Status: SPDIMA/REG CLI [facility]em[facility] Ordering Physician: LAYNE RAMAN NP [place] Dexa Axial Skeleton - 07/07/24 - [id number] Report Status:Signed HISTORY: The patient is a 53-year-old postmenopausal female with clinical concern for metabolic bone disease. FINDINGS: Dual [...] 65% of that of age matched controls. This yields a T-score of -2.3 and a [...] probability of hip fracture of 1.3%. Code 96817 Dictating Physician: RUFUS FRY MD Electronically Signed by: RUFUS FRY MD Dic Date/Time: 07/08/24819 Sign date/Time: 07/08/24820 Procedure Note Rufus Fry MD - 08/10/2024 [facility] Diagnostic Imaging Department [address] [place] [address] Patient: JUDITH TOLEDO /Age/Sex: 1970 - 53 - F Unit#: [id number] [facility]Ordering Site[facility] Ordering Physician: LAYNE RAMAN NP [facility] Dexa Axial Skeleton - 07/07/24 - [id number] Report Status:Signed HISTORY: The patient is a [...] density of the femurs bilaterally is 0.713 gm/[id number] is 71% of that of young normals [...] probability of hip fracture of 1.3%. Code 43380 Dictating Physician: RUFUS FRY MD Electronically Signed by: RUFUS FRY MD Dic Date/Time: 07/08/24819 Sign date/Time: 07/08/24820 Layne Raman NP IMG BI PROCEDURES Final Result * (ABNORMAL) [...] Health Maintenance Insurance MEDICARE [place] [employer] [place] Care Teams Importer Exporter Relationship Specialty Start Date End Date Codi Ortega NP [address] [place] [phone] PCP - General Internal Medicine 12/20/19
--- OUTSIDE RECORDS SUMMARY | 2025-05-12 12:06 | XMS_ITS | Clinical Summary ---
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 terms of risk for coronary heart disease: <100 mg/dL: Optimal 100-129 mg/dL: Near or above optimal 130-159 mg/dL: Borderline high 160-189 mg/dL: High >190 mg/dL: Very High CARDIAC RISK RATIO 2.9(L) 3.3 - 4.4 [facility] Blood 11/02/2024 9:01 AM EST 11/02/2024 9:21 AM EST Adriana Rankin [facility] BLOOD ORDERABLES Final R esult Performing Organization Address City/State/[facility] Co de Phone Number [address] [address] * PAP SMEAR FOR RESULT ENTRY ONLY (09/19/2019) Pap smear normal Historical Provider HEALTH MAINTENANCE Final Result * MAMMOGRAPHY FOR RESULT ENTRY ONLY (07/06/2019) Mammogram normal Historical Provider HEALTH MAINTENANCE Final Result * COLONOSCOPY FOR RESULT ENTRY ONLY (12/07/2012) Colonoscopy .. Historical Provider HEALTH MAINTENANCE Final Result from Last 3 Months or Most Recently Relevant to Health Maintenance Insurance MEDICARE PART [place] & [place] [id number] MEDICARE PART A & [facility] & B MEDICARE PART A & B MEDICARE PART A & B MEDICARE PART A & B MEDICARE PART A & B MEDICARE PART A & B [facility] Care Teams Drying Machine Back Tender Relationship Specialty Start Date End Date Adriana Rankin CNP [address] [place] [address], [address] [place] [id number] [email or web address] PCP - General Nurse Practitioner 05/27/24 Jeannine Doll MD [address] [address] General Surgery 11/30/19 Vinnie Davis MD [address] [place] [id number] Internal Medicine 11/30/19 Additional Source Comments The information contained in this document represents components of the legal health record. It is not the complete legal health record.[facility]
[2025-05-12 12:46] LABS: Iron 45 mcg/dL (30-160); Percent Iron Saturation 17 % (15-50); Total Iron Binding Capacity 268 mcg/dL (228-428); Unsaturated Iron Binding 223 ug/dL
[2025-05-12 13:01] LABS: Ferritin 29 ng/mL (10-250)
[2025-05-12 13:08] LABS: Sickle Cell Scr NEGATIVE (NEGATIVE)
== END 2025-05-12 11:51 | disposition home or self-care (01) ==
LOC: HO.LAB 11:50
PROVIDERS: Visit Provider Nurse Practitioner Women's Health
DX: R10.11 Right upper quadrant pain (principal); K22.10 Ulcer of esophagus without bleeding; K21.9 Gastro-esophageal reflux disease without esophagitis
CPT/HCPCS: 36415; 82728; 83540; 85660; 99212

== ENCOUNTER 2025-05-12 13:44 | Outpatient (AMB) | payer MEDICARE, MEDICAID, SELFPAY ==
--- NOTE | 2025-05-12 10:17 | A.OFFVIS_ITS ---
Intake Visit Reasons: s/p egd/colon Allergies morphine Allergy (Severe, Verified 01/26/25 20:51) Itching aspirin (ASPIRIN) Allergy (Unknown, Verified 01/26/25 20:51) HIVES pollen Allergy (Unknown, Uncoded 10/21/24 09:33) Itching HPI HPI s/p egd/colon: Details: Assessment & Plan (1) Erosive esophagitis: Code(s): K22.10 - Ulcer of esophagus without bleeding Category: Medical (2) GERD (gastroesophageal reflux disease): Code(s): K21.9 - Gastro-esophageal reflux disease without esophagitis Category: Medical (3) Pre-op examination: Code(s): Z01.818 - Encounter for other preprocedural examination Category: Medical (4) Chronic anticoagulation: Comment: On Xarelto Code(s): Z79.01 - halfway (current) use of anticoagulants Category: Medical Plan Pt has been lost to follow up since 11/2022 She was never called for her scope. Will re input, She has been out of her Nexium bid since August r/t missed appts. She is agreeable to EGD/colonoscopy - last EGD 2016 RoV 6 mos. Orders: Orders EGD/Busy Combo - GI Use Only 04/08/24 K22.10 - Ulcer of esophagus without bleeding Medications: New sodium,potassium,mag sulfates 17.5-3.13-1.6 gram (Suprep Bowel Prep Kit) 480 mL orally; FOR COLONOSCOPY PREP 354 mL 0RF Refilled Nexium 40 mg PO BID 60 caps 6RF NS K22.10 - Ulcer of esophagus without bleeding Nexium 40 mg PO BID 60 caps 6RF NS K22.10 - Ulcer of esophagus without bleeding Nexium (esomeprazole magnesium) 40 mg PO BID 60 caps 6RF NS K22.10 - Ulcer of esophagus without bleeding EGD/COLONOSCOPY 11/22/24 Findings: Terminal Ileum-normal Cecum:normal Ascending Colon: normal Transverse Colon -normal Descending Colon:normal Sigmoid Colon: normal Rectum: Retroflexion with small internal hemorrhoids, grade I, mild erythema in distal rectum, bx taken Anorectum - normal Impression and Post Procedure Diagnosis: Endoscopy Findings: mild gastritis possible short segment barretts Colonoscopy Findings: mild proctitis internal hemorrhoids Plan: Await Pathology results Repeat Colonoscopy in 10 years or earlier if clinically indicated High fiber diet leaflet avoid straining at stool, epsom salts and sitz bath, anusol supps or cream BIOPSY Received: 11/22/24 Diagnosis A. Duodenum, biopsy: Small intestinal mucosa within normal limits. B. Stomach, biopsy: Oxyntic mucosa within normal limits; no Helicobacter organisms seen. C. GE junction, biopsy: - Cardiac-type mucosa with moderate chronic inactive inflammation; no intestinal metaplasia seen. - Active esophagitis (maximum eosinophil count 2 per high powered field). D. Esophagus, distal, biopsy: Squamous epithelium within normal limits; no inflammation seen. E. Rectum, biopsy: Rectal mucosa within normal limits. TODAYS VISIT [facility] Medical History (Updated 05/12/25 @ 10:21 by DARI Kaufman) H. pylori infection Compression fracture of lumbar vertebra Compression fracture of L2 lumbar vertebra Vitamin D deficiency Infected dental caries Obesity (BMI 30-39.9) Smoker Chronic pain Essential hypertension Protein S deficiency Shearing of artificial skin graft History of depression Hx of sickle cell trait Hx of iron deficiency anemia Hx of deep venous thrombosis Surgical History (Updated 02/10/25 @ 11:15 by Vinnie Davis MD) History of kyphoplasty History of knee surgery H/O esophagogastroduodenoscopy H/O colonoscopy S/P panniculectomy H/O gastric sleeve History of section History of cholecystectomy Family History Brother Brother Other No family history of cancer Social History Household Members: None Housing: House Are you a primary primary care md to a significant other at home: No Do you presently have visiting nurse or other home services: No Alcohol intake: never Patient Tobacco Use Status: Current everyday Tobacco user Tobacco use type: Cigarette Cigarette Packs Per Day: 0.5 Cigarettes Per Day: 6 e-Cigarette/Vaping Use: Never Used Second Hand Smoke Exposure: Yes service: No Current occupational status: disabled Cognitive needs: No Hearing needs: No Vision needs: No Review of Systems Const Denies fatigue, Denies fever(s), Denies night sweats, Denies poor appetite and Denies weight loss Eyes Reports requires corrective lenses ENT Reports Normal hearing present, Denies dental pain, Denies dysphagia, Denies hearing loss, Denies mouth pain, Denies odynophagia, Denies throat swelling, Denies tongue swelling and Reports other (Dentition adequate) GI Details: Denies abdominal pain, Denies melena, Denies bloating, Denies hematochezia, Denies constipation, Denies GI cramping, Denies dysphagia, Denies excessive flatus, Denies early satiety, Denies heartburn, Denies diarrhea, Denies nausea, Denies odynophagia, Denies vomiting and Denies hematemesis Skin/Breast Denies pruritus, Denies lesions, Denies rash and Denies jaundice Neuro Reports Normal hearing present and Denies Abnormal speech present Endo Denies fatigue Aller/Immun Denies throat swelling and Denies tongue swelling Physical Exam Const General: cooperative, no acute distress, well developed and well groomed Nutritional Appearance: well nourished, obese and overweight Orientation/consciousness: oriented to person, oriented to place and oriented to time Limitations: No language barrier, ambulation with cane, ambulation with walker and wheelchair HEENT Head: Yes normocephalic and Yes atraumatic Eyes General: appearance normal, both eyes and all related structures Pupils: Equal, round and reactive pupils present Neck Neck: Yes normal visual inspection and Yes no lymphadenopathy Thyroid: Thyroid normal Resp Effort & Inspection: normal respiratory effort and able to speak in complete sentences Auscultation: clear to auscultation bilaterally Cardio Rate: regular rate Rhythm: regular rhythm Heart sounds: Normal, physiologic split S2 sound present Peripheral pulses: radial pulses present and posterior tibial pulses present GI Inspection: No distended and No Abdominal panniculus present Palpation (GI): Soft to palpation, nontender, no guarding, not rigid, No hepatosplenomegaly present and Hepatosplenomegaly present Percussion: Yes normal to percussion Auscultation: normal bowel sounds Rectal Exam - Female: deferred Skin General skin exam: no rashes or lesions noted, turgor normal, skin not dry, no jaundice, No spider nevi and no striae Rashes: no rashes Nails: normal Neuro General: oriented to person, oriented to place and oriented to time Cranial nerves: Yes Equal, round and reactive pupils present and Yes Normal hearing present Speech: No Abnormal speech present Extrem General: Yes normal to inspection, No clubbing, No cyanosis and No edema Psych Thought process: Normal thought process present and not confabulating Thought content: Normal thought content present Insight: Good insight present (Psych) Judgement: Good judgement present (Psych) Assessment & Plan Assessment & Plan (1) Erosive esophagitis: Code(s): K22.10 - Ulcer of esophagus without bleeding Category: Medical (2) GERD (gastroesophageal reflux disease): Code(s): K21.9 - Gastro-esophageal reflux disease without esophagitis Category: Medical Coding Diagnoses Erosive esophagitis K22.10 GERD (gastroesophageal reflux disease) K21.9
--- NOTE | 2025-05-12 13:47 | MHC.OFFVIS ---
Vital Signs 05/12/25 13:54 Height 5 ft 4 in Weight 168 lb BMI 28.8 BP 105/65 Blood Pressure Location Lt brachial Position Sitting Pulse 82 Intake Visit Reasons: s/p egd/colon Intake Note: Judith presents in the office as a follow up for her DOUBLE. CC: issues with bad GERD - food burning in her throat. Nexium is on hold at the moment and she needs to be restarted. Allergies morphine Allergy (Severe, Verified 05/12/25 13:54) Itching aspirin (ASPIRIN) Allergy (Unknown, Verified 05/12/25 13:54) HIVES pollen Allergy (Unknown, Uncoded 05/12/25 13:54) Itching HPI HPI s/p egd/colon: Details: (1) Erosive esophagitis: Code(s): K22.10 - Ulcer of esophagus without bleeding Category: Medical (2) GERD (gastroesophageal reflux disease): Code(s): K21.9 - Gastro-esophageal reflux disease without esophagitis Category: Medical (3) Pre-op examination: Code(s): Z01.818 - Encounter for other preprocedural examination Category: Medical (4) Chronic anticoagulation: Comment: On Xarelto Code(s): Z79.01 - meterman (current) use of anticoagulants Category: Medical Plan Pt has been lost to follow up since 11/2022 She was never called for her scope. Will re input, She has been out of her Nexium bid since August r/t missed appts. She is agreeable to EGD/colonoscopy - last EGD 2017 RoV 6 mos. Orders: Orders EGD/Tye Combo - GI Use Only 04/08/24 K22.10 - Ulcer of esophagus without bleeding Medications: New sodium,potassium,mag sulfates 17.5-3.13-1.6 gram (Suprep Bowel Prep Kit) 480 mL orally; FOR COLONOSCOPY PREP 354 mL 0RF Refilled Nexium 40 mg PO BID 60 caps 6RF NS K22.10 - Ulcer of esophagus without bleeding Nexium 40 mg PO BID 60 caps 6RF NS K22.10 - Ulcer of esophagus without bleeding Nexium (esomeprazole magnesium) 40 mg PO BID 60 caps 6RF NS K22.10 - Ulcer of esophagus without bleeding COLONOSCOPY 11/22/24 Findings: Terminal Ileum-normal Cecum:normal Ascending Colon: normal Transverse Colon -normal Descending Colon:normal Sigmoid Colon: normal Rectum: Retroflexion with small internal hemorrhoids, grade I, mild erythema in distal rectum, bx taken Anorectum - normal Impression and Post Procedure Diagnosis: Endoscopy Findings: mild gastritis possible short segment barretts Colonoscopy Findings: mild proctitis internal hemorrhoids Plan: Await Pathology results Repeat Colonoscopy in 10 years or earlier if clinically indicated High fiber diet leaflet avoid straining at stool, epsom salts and sitz bath, anusol supps or cream BIOPSY. Received: 11/22/24 Diagnosis A. Duodenum, biopsy: Small intestinal mucosa within normal limits. B. Stomach, biopsy: Oxyntic mucosa within normal limits; no Helicobacter organisms seen. C. GE junction, biopsy: - Cardiac-type mucosa with moderate chronic inactive inflammation; no intestinal metaplasia seen. - Active esophagitis (maximum eosinophil count 2 per high powered field). D. Esophagus, distal, biopsy: Squamous epithelium within normal limits; no inflammation seen. E. Rectum, biopsy: Rectal mucosa within normal limits TODAY'S VISIT She is agreeable to a 10 year follow up. The procedure was well tolerated. The results were explained and the patient is agreeable to the follow-up interval as stated. The bowel pattern has returned to normal. Education was provided to tell any 1st degree relatives about their findings to be sure that they are screened by age 45. Educated that they will be put on a recall list when it is time for their repeat scope but should they move out of state or away from the hospital they will need to remember along with their primary to repeat the procedure in a timely fashion to avoid any adverse complications. She is on Nexium bid. SHe has a doorknob c/o pain in her right back/buttock. Positive Fortins finger test and . Also signs of sacroileitus on lumbar CT. REferring to our pain mgmt as she sees [facility] and they are not addressing this issue, only doing lumbar injections. ROV 6 mos. PFSH Medical History H. pylori infection Compression fracture of lumbar vertebra Compression fracture of L2 lumbar vertebra Vitamin D deficiency Infected dental caries Obesity (BMI 30-39.9) Smoker Chronic pain Essential hypertension Protein S deficiency Shearing of artificial skin graft History of depression Hx of sickle cell trait Hx of iron deficiency anemia Hx of deep venous thrombosis Surgical History History of kyphoplasty History of knee surgery H/O esophagogastroduodenoscopy H/O colonoscopy S/P panniculectomy H/O gastric sleeve History of section History of cholecystectomy Family History Brother Brother Other No family history of cancer Social History Household Members: None Housing: House Are you a primary primary care sales representative to a significant other at home: No Do you presently have visiting nurse or other home services: No Alcohol intake: never Patient Tobacco Use Status: Current everyday Tobacco user Tobacco use type: Cigarette Cigarette Packs Per Day: 0.5 Cigarettes Per Day: 6 e-Cigarette/Vaping Use: Never Used Second Hand Smoke Exposure: Yes service: No Current occupational status: disabled Cognitive needs: No Hearing needs: No Vision needs: No Review of Systems Const Denies fatigue, Denies fever(s), Denies night sweats, Denies poor appetite and Denies weight loss ENT Reports Normal hearing present, Denies dental pain, Denies dysphagia, Denies hearing loss, Denies mouth pain, Denies odynophagia, Denies throat swelling, Denies tongue swelling and Reports other (Dentition adequate) Card Reports no additional complaints Resp Reports no additional complaints GI Details: Denies abdominal pain, Denies melena, Denies bloating, Denies hematochezia, Denies constipation, Denies GI cramping, Denies dysphagia, Denies excessive flatus, Denies early satiety, Reports heartburn, Denies diarrhea, Denies nausea, Denies odynophagia, Denies vomiting and Denies hematemesis Musc Reports back pain, Reports myalgias, Reports arthralgias and Reports radiating pain into limb Skin/Breast Denies pruritus, Denies lesions, Denies rash and Denies jaundice Neuro Reports Normal hearing present and Denies Abnormal speech present Endo Denies fatigue Aller/Immun Denies throat swelling and Denies tongue swelling Physical Exam Vital Signs: Last Vital Signs Pulse 82 05/12/25 13:54 BP 105/65 05/12/25 13:54 BMI result Body Mass Index 28.8 Const General: cooperative, no acute distress, well developed and well groomed Nutritional Appearance: well nourished and obese Orientation/consciousness: oriented to person, oriented to place and oriented to time Limitations: No language barrier and ambulation with cane HEENT Head: Yes normocephalic and Yes atraumatic Eyes General: appearance normal, both eyes and all related structures Pupils: Equal, round and reactive pupils present Neck Neck: Yes normal visual inspection and Yes no lymphadenopathy Thyroid: Thyroid normal Resp Effort & Inspection: normal respiratory effort and able to speak in complete sentences Auscultation: clear to auscultation bilaterally Cardio Rate: regular rate Rhythm: regular rhythm Heart sounds: Normal, physiologic split S2 sound present Peripheral pulses: radial pulses present and posterior tibial pulses present GI Inspection: No distended, Yes Abdominal panniculus present and Yes obesity Palpation (GI): Soft to palpation, nontender, no guarding, not rigid and No hepatosplenomegaly present Percussion: Yes normal to percussion Auscultation: normal bowel sounds Rectal Exam - Female: deferred Back/Spine/Pelvis Sacroiliac joints: on the right tender to palpation and by passive hyperextension of lower ext Skin General skin exam: no rashes or lesions noted, turgor normal, skin not dry, no jaundice, No spider nevi and no striae Rashes: no rashes Nails: normal Neuro General: oriented to person, oriented to place and oriented to time Cranial nerves: Yes Equal, round and reactive pupils present and Yes Normal hearing present Speech: No Abnormal speech present Extrem General: Yes normal to inspection, No clubbing, No cyanosis and No edema Psych Appearance: grossly normal and well kempt Mental Status: mental status grossly normal Speech and movement: Normal speech and movement present Affect: normal affect Attitude: cooperative Thought process: Normal thought process present and not confabulating Thought content: Normal thought content present Insight: Limited insight present (Psych) Judgement: Limited judgement present (Psych) Assessment & Plan Assessment & Plan (1) Erosive esophagitis: Code(s): K22.10 - Ulcer of esophagus without bleeding Category: Medical (2) GERD (gastroesophageal reflux disease): Code(s): K21.9 - Gastro-esophageal reflux disease without esophagitis Category: Medical (3) Pain of right sacroiliac joint: Code(s): M53.3 - Sacrococcygeal disorders, not elsewhere classified Category: Medical Plan She is agreeable to a 10 year follow up. The procedure was well tolerated. The results were explained and the patient is agreeable to the follow-up interval as stated. The bowel pattern has returned to normal. Education was provided to tell any 1st degree relatives about their findings to be sure that they are screened by age 45. Educated that they will be put on a recall list when it is time for their repeat scope but should they move out of state or away from the hospital they will need to remember along with their primary to repeat the procedure in a timely fashion to avoid any adverse complications. She is on Nexium bid. She has a doorknob c/o pain in her right back/buttock. Positive Fortins finger test and TIKA test. Also signs of sacroiliitus on lumbar CT. Referring to our pain mgmt as she sees [facility] and they are not addressing this issue, only doing lumbar injections. ROV 6 mos. Orders: Referrals Pain Management Referral M53.3 - Sacrococcygeal disorders, not elsewhere classified Medications: Refilled Nexium (esomeprazole magnesium) 40 mg PO BID 60 caps 6RF NS K22.10 - Ulcer of esophagus without bleeding Coding Level of Care Code Est Pt Level 4 (70330) Diagnoses Erosive esophagitis K22.10 GERD (gastroesophageal reflux disease) K21.9 Pain of right sacroiliac joint M53.3
[2025-05-12 13:54] VITALS: BP 105/65; PULSE 82; BMI 28.8
== END 2025-05-12 14:46 | disposition home or self-care (01) ==
LOC: HO.HGI 13:45
PROVIDERS: PCP Internal Medicine; Visit Provider Nurse Practitioner
DX: K22.10 Ulcer of esophagus without bleeding (principal); K21.9 Gastro-esophageal reflux disease without esophagitis; M53.3 Sacrococcygeal disorders, not elsewhere classified
CPT/HCPCS: 99214

== ENCOUNTER 2025-05-19 17:04 | Inpatient (IN) | payer MEDICARE, MEDICAID, SELFPAY ==
[2025-05-19 17:37] VITALS: BP 118/64; PULSE 88; RESP 17; TEMP 36.6; O2SAT 100; BMI 33.4
--- NOTE | 2025-05-19 17:37 | ED.GENADULT ---
HPI - General Adult General Chief complaint: Extremity Injury, Lower Stated complaint: blood clot in left leg (sent by Hemo) Time Seen by Provider: 05/19/25 18:50 Source: patient Mode of arrival: ambulatory Limitations: no limitations History of Present Illness ED Provider: HPI narrative: Old with history of osteoporosis GERD anxiety bipolar protein S deficiency with left lower extremity DVT on Lovenox injection failed outpatient Xarelto and Coumadin treatment IVC filter in place was seen at [facility] last night for increased swelling and pain in the left leg for last 2 days patient has a venous Doppler done which showed nonocclusive thrombus in the left popliteal vein measuring about 5.6 cm extending to the 1 of the peroneal vein patient's left against medical advice and came to our ER for further management Related Data Home Medications ?Medication ?Instructions ?Recorded ?Confirmed acetaminophen 650 mg 650 mg PO TID PRN Pain 06/12/23 05/19/25 tablet,extended release (Pain Relief (acetaminophen)) lorazepam 1 mg tablet 1 mg PO TID PRN Anxiety 12/29/23 05/19/25 estradiol 0.025 mg/24 hr weekly 1 patch topical WE 05/12/25 05/19/25 transdermal patch fentanyl 37.5 mcg/hour transdermal 1 patch topical Q3D 05/12/25 05/19/25 patch oxycodone-acetaminophen 10 mg-325 1 tab PO TID 05/12/25 05/19/25 mg tablet pregabalin 200 mg capsule 200 mg PO BID 05/12/25 05/19/25 progesterone micronized 100 mg 100 mg PO BEDTIME 05/12/25 05/19/25 capsule esomeprazole magnesium 40 mg 40 mg PO BID@0630,1630 05/19/25 05/19/25 capsule,delayed release (Nexium) Allergies Allergy/AdvReac Type Severity Reaction Status Date / Time morphine Allergy Severe Itching Verified 05/19/25 17:38 aspirin (ASPIRIN) Allergy Unknown HIVES Verified 05/19/25 17:38 pollen Allergy Unknown Itching Uncoded 05/19/25 17:38 Review of Systems Review of Systems: Yes all other systems are reviewed and are negative PMFSH Past Medical History Medical History H. pylori infection Compression fracture of lumbar vertebra Compression fracture of L2 lumbar vertebra Vitamin D deficiency Infected dental caries Obesity (BMI 30-39.9) Smoker Chronic pain Essential hypertension Protein S deficiency Shearing of artificial skin graft History of depression Hx of sickle cell trait Hx of iron deficiency anemia Hx of deep venous thrombosis Surgical History History of kyphoplasty History of knee surgery H/O esophagogastroduodenoscopy H/O colonoscopy S/P panniculectomy H/O gastric sleeve History of section History of cholecystectomy Family History Family History Brother Brother Other No family history of cancer Social History Social History Household Members: None Housing: House Are you a primary career development coordinator/teacher to a significant other at home: No Do you presently have visiting nurse or other home services: No Alcohol intake: never Patient Tobacco Use Status: Current everyday Tobacco user Tobacco use type: Cigarette Cigarette Packs Per Day: 0.5 Cigarettes Per Day: 6 e-Cigarette/Vaping Use: Never Used Second Hand Smoke Exposure: Yes Advance Directives: No Advance Directives Information Provided: No Do you have a plan to hurt others: No Plan service: No Current occupational status: disabled Cognitive needs: No Hearing needs: No Vision needs: No Physical Exam ED Vital Signs: Vital Signs - 24 hr 05/19/25 17:37 05/19/25 19:44 Temperature 97.9 F 97.7 F Pulse Rate 88 72 Respiratory Rate 17 12 Blood Pressure 118/64 96/61 Pulse Oximetry 100 100 Oxygen Delivery Method Room Air Room Air BMI result Body Mass Index 33.4 Appearance: Alert. Oriented X3. No acute distress. Eyes: PERRLA, No Nystagmus ENT: Pharynx normal. Oral Mucosa moist Neck: Normal inspection. Neck supple. CVS: Normal heart rate and rhythm. Pulses normal. Respiratory: No respiratory distress. Equal air entry bilateral, no wheezing/rales/rhonchi Abdomen: Soft and nontender. Bowel sounds are present, no mass palpable, no CVA tenderness Skin: Skin warm and dry. Normal skin color. Normal skin turgor. Extremities: Bilateral leg swelling right foot in ankle splint diffuse tenderness left calf area with swelling Neuro: Oriented X 3. No motor deficit. No sensory deficit.No cerebellar signs , cranial nerves II-XII intact Course Course Course Narrative: RME, this is a rapid medical exam performed by Gunnar Rodriguez please refer to primary provider for complete H&P- 54 year old female with history of osteoporosis, esophagitis GERD, anxiety under, left lower extremity DVT on Xarelto, IVC filter in the place and protein S deficiency presents for evaluation of bilateral leg pain. She was reportedly at [facility] this morning. We will attempt to get records. She is on Xarelto for the history of DVT and her chin as deficiency. She has been on Lovenox in the past Medications Administered Generic Name Dose Route Start Last Admin Trade Name Freq PRN Reason Stop Dose Admin Heparin Sodium/Sodium Chloride 25,000 unit in 250 mls @ 0 mls/hr 05/19/25 19:30 05/19/25 20:13 Heparin Sodium,Porcine/1/2ns IVCONT 14 units/kg/hr .Q0M NESSA 12.36 mls/hr Protocol Administration Per Protocol Albumin Human 100 mls @ 133.333 mls/hr 05/19/25 23:45 05/20/25 00:39 Kedbumin 25 % IV 05/20/25 01:29 133.33 mls/hr Q1H NESSA Administration Sodium Chloride 3 ml 05/20/25 00:00 05/20/25 00:36 0.9 % Sodium Chloride Flush 3 Ml Syringe IVFLUSH Not Given QSHIFT NESSA Discontinued Medications Generic Name Dose Route Start Last Admin Trade Name Freq PRN Reason Stop Dose Admin Lorazepam 1 mg 05/19/25 20:27 05/19/25 21:19 Lorazepam 1 Mg Tablet PO 05/19/25 20:28 1 mg ONCE ONE Administration Oxycodone HCl 10 mg 05/19/25 20:27 05/19/25 21:20 Oxycodone Hcl Immed Release 5 Mg Tablet PO 05/19/25 20:28 10 mg ONCE ONE Administration Pregabalin 200 mg 05/19/25 20:27 05/19/25 21:20 Pregabalin 200 Mg Capsule PO 05/19/25 20:28 200 mg ONCE ONE Administration Medical Decision Making Medical Decision Making [facility] Narrative: Patient with protein S deficiency with recurrent DVTs feel outpatient Lovenox and Xarelto treatment comes here for increased swelling of the left leg venous Doppler showed nonocclusive thrombus in left popliteal vein. Case discussed Dr. Davis security sales manager advised to admit the patient started on IV heparin Lab Data MDM Lab Attestation statement: I reviewed the patient's lab results. 05/19/25 18:30 05/19/25 18:30 Labs: Lab Results 05/19/25 05/19/25 Range/Units 18:30 19:48 WBC 5.9 (4.8-10.8) X10*3/uL RBC 3.81 L (4.20-5.50) X10*6/uL Hgb 10.3 L (12.0-16.0) g/dl Hct 31.9 L (37.0-47.0) % MCV 83.7 (80.0-98.0) fL MCH 27.0 (27.0-33.0) pg MCHC 32.3 (31.0-35.0) g/dl RDW 15.3 (11.0-16.0) % Plt Count 174 (160-400) X10*3/uL MPV 10.4 (9.4-12.3) fL Immature Gran % (Auto) 0.2 (0.0-0.4) % Neut % (Auto) 48.7 (45-73) % Lymph % (Auto) 33.2 (20-40) % [place] % (Auto) 12.9 H (2-11) % Eos % (Auto) 4.1 H (0-4) % Baso % (Auto) 0.9 (0-2) % Lymph # (Auto) 2.0 (1.2-4.9) X10*3/uL [place] # (Auto) 0.8 (0.1-1.2) X10*3/uL Eos # (Auto) 0.2 (0.0-0.4) X10*3/uL Baso # (Auto) 0.1 (0.0-0.2) X10*3/uL Abs Immat Gran (auto) 0.01 (0.00-0.03) X10*3/uL Absolute Neuts (auto) 2.9 (2.0-8.3) x10*3/uL Absolute Nucleated RBC 0.000 (0.0-0.012) X10*3/uL Nucleated RBC % (auto) 0.0 (0.0-0.2) /100WBC PT 11.6 (10.9-12.4) SEC INR 1.0 (0.9-1.1) APTT 37.3 H (26.0-36.8) SEC aPTT Heparin Protocol 37.6 L (53-77.9) SEC Sodium 142 (135-145) mmol/L Potassium 4.1 (3.3-5.1) mmol/L Chloride 111 H (96-108) mmol/L Carbon Dioxide 22 (22-29) mmol/L Anion Gap 13 (12-20) BUN 16 (9-16) mg/dL Creatinine 0.89 (0.5-1.4) mg/dL Estim Creat Clear Calc 76.8 Estimated GFR > 60 Random Glucose 103 (60-115) mg/dL Calcium 8.5 (8.4-10.2) mg/dL Total Bilirubin 0.3 (0.0-1.0) mg/dL AST 23 (5-31) U/L ALT 15 (0-31) U/L Alkaline Phosphatase 51 (39-117) U/L Total Protein 6.5 (6.5-8.0) g/dL Albumin 4.0 (3.5-5.0) g/dL External Record Review External record reviewed: Outpatient record ([facility]) Discharge Plan Discharge Clinical Impression: Deep vein thrombosis Patient Disposition: Admitted As Inpatient
[2025-05-19 18:38] LABS: MANUAL DIFF FLAG NO
[2025-05-19 18:39] LABS: Hematocrit 31.9 % (37.0-47.0); Hemoglobin 10.3 g/dl (12.0-16.0); Imm Gran Abs Auto 0.01 X10*3/uL (0.00-0.03); Imm Gran Pct Auto 0.2 % (0.0-0.4); Lymphocytes Absolute Auto 2.0 X10*3/uL (1.2-4.9); Mean Corpuscular HGB Conc 32.3 g/dl (31.0-35.0); Mean Corpuscular Hemoglobin 27.0 pg (27.0-33.0); Mean Corpuscular Volume 83.7 fL (80.0-98.0); NRBC Abs Auto 0.000 X10*3/uL (0.0-0.012); NRBC Pct Auto 0.0 /100WBC (0.0-0.2); Platelet Count 174 X10*3/uL (160-400); Red Blood Count 3.81 X10*6/uL (4.20-5.50); White Blood Count 5.9 X10*3/uL (4.8-10.8)
[2025-05-19 18:52] LABS: Alanine Aminotransferase 15 U/L (0-31); Albumin Level 4.0 g/dL (3.5-5.0); Alkaline Phosphatase 51 U/L (39-117); Anion Gap 13 (12-20); Aspartate Amino Transferase 23 U/L (5-31); Blood Urea Nitrogen 16 mg/dL (9-16); Calcium 8.5 mg/dL (8.4-10.2); Carbon Dioxide 22 mmol/L (22-29); Chloride 111 mmol/L (96-108); Creatinine Clr Calc Pharmacy 76.8; Estimated Glomerular Filt Rate > 60; Potassium 4.1 mmol/L (3.3-5.1); Sodium 142 mmol/L (135-145); Total Protein 6.5 g/dL (6.5-8.0)
[2025-05-19 19:44] VITALS: BP 96/61; PULSE 72; RESP 12; TEMP 36.5; O2SAT 100
[2025-05-19 19:58] LABS: INTERNATIONAL NORM RATIO 1.0 (0.9-1.1); Prothrombin Time 11.6 SEC (10.9-12.4)
--- NOTE | 2025-05-19 20:00 | PM.IMHP ---
History of Present Illness Date of Service: 05/19/25 Chief Complaint: leg swelling This is a 54-year-old with pertinent history of protein S deficiency, left lower extremity DVT (previously on Xarelto, currently on therapeutic Lovenox), IVC filter in place, mood disorder, hypertension, chronic pain syndrome, gastroesophageal reflux disease who presents to the emergency department for evaluation of leg swelling. Patient was seen at [facility] ER on the day of presentation for evaluation of increased swelling and pain to the left lower extremity. Venous duplex was done at [facility] which revealed nonocclusive thrombus in the left popliteal vein measuring 5.6 cm. Patient was offered admission at [facility] but left against medical advice and presented to [facility] for further evaluation and management. Patient states she has had failure of anticoagulants including Xarelto and therapeutic Lovenox in the past. Denies chest pain or dyspnea. No fever, chills, abdominal pain, changes in urinary or bowel habits. In the emergency department, hematology was consulted and patient was initiated on IV heparin. Review of Systems Constitutional: Constitutional: Reports no additional constitutional complaints Cardiovascular: Cardiovascular: Reports no additional cardiovascular complaints Respiratory: Respiratory: Reports no additional respiratory complaints Gastrointestinal: Gastrointestinal: Reports no additional gastrointestinal complaints Genitourinary: Genitourinary: Reports no additional female genitourinary complaints [facility] Medical History H. pylori infection Compression fracture of lumbar vertebra Compression fracture of L2 lumbar vertebra Vitamin D deficiency Infected dental caries Obesity (BMI 30-39.9) Smoker Chronic pain Essential hypertension Protein S deficiency Shearing of artificial skin graft History of depression Hx of sickle cell trait Hx of iron deficiency anemia Hx of deep venous thrombosis Family History Brother Brother Other No family history of cancer Surgical History History of kyphoplasty History of knee surgery H/O esophagogastroduodenoscopy H/O colonoscopy S/P panniculectomy H/O gastric sleeve History of section History of cholecystectomy Social History Household Members: None Housing: House Are you a primary care center manager to a significant other at home: No Do you presently have visiting nurse or other home services: No Alcohol intake: never Patient Tobacco Use Status: Current everyday Tobacco user Tobacco use type: Cigarette Cigarette Packs Per Day: 0.5 Cigarettes Per Day: 6 e-Cigarette/Vaping Use: Never Used Second Hand Smoke Exposure: Yes Advance Directives: No Advance Directives Information Provided: No Do you have a plan to hurt others: No Plan service: No Current occupational status: disabled Cognitive needs: No Hearing needs: No Vision needs: No Meds Allergies Allergy/AdvReac Type Severity Reaction Status Date / Time morphine Allergy Severe Itching Verified 05/19/25 17:38 aspirin (ASPIRIN) Allergy Unknown HIVES Verified 05/19/25 17:38 pollen Allergy Unknown Itching Uncoded 05/19/25 17:38 Active Medications: Current Medications Heparin Sodium (Porcine) (Heparin Sodium,Porcine 5,000 Unit/Ml Vial) 3,500 unit 40 unit/kg (3500 unit) IVPUSH PROTOCOL BOLUS PRN; Protocol PRN Reason: 40 unit/kg - Heparin Protocol Heparin Sodium (Porcine) (Heparin Sodium,Porcine 5,000 Unit/Ml Vial) 7,100 unit 80 unit/kg (7100 unit) IVPUSH PROTOCOL BOLUS PRN; Protocol PRN Reason: 80 unit/kg - Heparin Protocol Heparin Sodium/Sodium Chloride (Heparin Sodium,Porcine/1/2ns) 25,000 unit in 250 mls @ 0 mls/hr IVCONT .Q0M NESSA; Protocol Home Medications ?Medication ?Instructions ?Recorded ?Confirmed ?Last Taken ?Type acetaminophen 650 mg 650 mg PO TID PRN Pain 06/12/23 10/21/24 Unknown History tablet,extended release (Pain Relief (acetaminophen)) hydroxyzine HCl 25 mg tablet 25 mg PO .QD PRN Anxiety 12/29/23 10/21/24 Unknown History lisinopril 2.5 mg tablet 2.5 mg PO DAILY 12/29/23 10/21/24 Unknown History lorazepam 1 mg tablet 1 mg PO TID 12/29/23 05/19/25 Unknown History cholecalciferol (vitamin D3) 25 50 mcg PO DAILY 10/21/24 10/21/24 Unknown History mcg (1,000 unit) chewable tablet (Vitamin D3) estradiol 0.025 mg/24 hr weekly 1 patch topical QWEEK 05/12/25 Unknown History transdermal patch fentanyl 37.5 mcg/hour transdermal 1 patch topical Q3D 05/12/25 Unknown History patch oxycodone-acetaminophen 10 mg-325 1 tab PO TID 05/12/25 Unknown History mg tablet pregabalin 200 mg capsule 200 mg PO BID 05/12/25 05/19/25 Unknown History progesterone micronized 100 mg 100 mg PO BEDTIME 05/12/25 Unknown History capsule ergocalciferol (vitamin D2) 1,250 1,250 mcg PO QWEEK 05/19/25 Unknown History mcg (50,000 unit) capsule esomeprazole magnesium 40 mg 40 mg PO BID@0630,1630 05/19/25 Unknown History capsule,delayed release (Nexium) Physical Exam Vital Signs and Narrative: Vital Signs: Last Vital Signs Temp 97.7 F 05/19/25 19:44 Pulse 72 05/19/25 19:44 Resp 12 05/19/25 19:44 BP 96/61 05/19/25 19:44 Pulse Ox 100 05/19/25 19:44 O2 Del Method Room Air 05/19/25 19:44 BMI result Body Mass Index 33.4 Middle-aged female lying in bed in no distress Neck supple, no JVD Regular rate and rhythm, S1-S2 heard Regular breath sounds bilaterally, no wheezing or crackles appreciated Abdomen soft nontender, no guarding, no rigidity Patient is awake, alert and oriented to self, place, time and person ; no focal motor deficit Psych: Normal mood Bilateral leg swelling, right foot in splint ; left calf swelling with warmth Results Labs 05/19/25 18:30 05/19/25 18:30 Labs: Laboratory Results - last 24 hr 05/19/25 18:30 MCV 83.7 MCH 27.0 MCHC 32.3 RDW 15.3 Plt Count 174 MPV 10.4 Immature Gran % (Auto) 0.2 Neut % (Auto) 48.7 Lymph % (Auto) 33.2 [place] % (Auto) 12.9 H Eos % (Auto) 4.1 H Baso % (Auto) 0.9 Lymph # (Auto) 2.0 [place] # (Auto) 0.8 Eos # (Auto) 0.2 Baso # (Auto) 0.1 Abs Immat Gran (auto) 0.01 Absolute Neuts (auto) 2.9 Absolute Nucleated RBC 0.000 Nucleated RBC % (auto) 0.0 Anion Gap 13 Estim Creat Clear Calc 76.8 Estimated GFR > 60 Random Glucose 103 Calcium 8.5 Total Bilirubin 0.3 AST 23 ALT 15 Alkaline Phosphatase 51 Total Protein 6.5 Albumin 4.0 Assessment and Plan (1) Left leg DVT: Status: Acute Plan This is a 54-year-old with pertinent history of protein S deficiency, left lower extremity DVT (previously on Xarelto, currently on therapeutic Lovenox), IVC filter in place, mood disorder, hypertension, chronic pain syndrome, gastroesophageal reflux disease who presents to the emergency department for evaluation of leg swelling. #. Left lower extremity DVT: Venous duplex done at [facility] with nonocclusive thrombus in left popliteal vein measuring 5.6 cm. Will admit patient with IV heparin. ?anticoagulation failure previously with Xarelto and therapeutic lovenox versus noncompliance with medications. Consulting Oncology and vascular surgery, appreciate assistance. Has IVC filter in place #. Mood disorder: Continue home mood stabilizers #. Chronic pain syndrome: On opiates #. Hypertension: On lisinopril #. Gastroesophageal esophageal reflux disease: On Nexium Med rec pending DVT prophylaxis: IV heparin Full code Admit as inpatient and will require two night minimum hospital stay for IV heparin (as above), which is not possible in a lesser acute setting. Specialist consult pending Quality Stroke Does the patient have a stroke diagnosis?: No VTE Prior VTE?: No VTE Risk Level:: Medical - moderate - high VTE Device Contraindication: Treatment Not Indicated VTE Drug Contraindication: N/A - Med Ordered
[2025-05-19 20:01] LABS: PTT Heparin Drip 37.6 SEC (53-77.9); Partial Thromboplastin Time 37.3 SEC (26.0-36.8)
[2025-05-19] MEDS: Heparin Sodium,Porcine/1/2NS 25,000 UNIT/250 ML IV.SOLN 12.36 UNIT IVCONT (20:13)
--- NOTE | 2025-05-19 21:12 | PHA.MEDREC ---
Addendum entered by Venkat Gentile [facility] 05/19/25 21:35: MED REC CHECKED BY [facility] Original Note: Pharmacy Consult ? Medication Reconciliation Pharmacy has completed the medication reconciliation. Spoke with pt and she confirmed her medications. Pt confirmed her Estradiol patch once a week on Wednesdays; pt last changed it 2 Wednesdays ago and Fentany patch once every 3 days and confirmed she last changed it Thursday and was due to change it today but wasn't able to.
[2025-05-19] MEDS: oxyCODONE HCl Immed Release 5 MG TABLET 10 MG PO (21:20)
--- NOTE | 2025-05-19 21:23 | PC.NURSE ---
ASSUMED CARE OF PT, MEDICATED PT PER MAR.
--- NOTE | 2025-05-19 21:24 | PC.NURSE ---
WHEN REMOVING LYRICA FROM POD PIXYS WHEN IMPUTING 16 CURRENT COUNT OF MEDIATION THE SYSTEM STATES COUNT WRONG, CALLED BRADY AT PHARMACY AND HE STATED THE COUNT WAS CORRECT AND FOR US TO PULL THE MEDICATION ANYWAY. MEDICATION PULLED AND GIVEN TO PT. COUNT INITIALLY WAS 16, COUNT IS 15 AFTER PULLING 1 PILL OF 200 MG LYRICA. DISCREPANCY RESOLVED WITH PHARMACIST.
[2025-05-19 23:34] VITALS: BP 83/41
[2025-05-19 23:35] VITALS: BP 90/46
[2025-05-19 23:36] VITALS: BP 95/62
[2025-05-19] MEDS: Albumin Human 25 % 100 ML 133.33 ML IV (23:41)
--- NOTE | 2025-05-19 23:56 | PC.NURSE ---
security called to bedside as pt and visitor have multiple large suite cases, pt arousabe but quickly drifts back off and stops responding. Pt advised of safety check of all belongings. Safety check performed by Security [place]. several knives and medications taken. Will be returned upon d/c. per security and charge nurse visitor and belongings okay to stay at bedside.
[2025-05-20 00:38] VITALS: BP 97/61
[2025-05-20] MEDS: Albumin Human 25 % 100 ML 133.33 ML IV (00:39)
--- NOTE | 2025-05-20 00:43 | PC.NURSE ---
pt medicated per MAR
[2025-05-20 01:25] VITALS: BP 92/60; PULSE 76; RESP 12; O2SAT 99
[2025-05-20 02:40] LABS: MANUAL DIFF FLAG NO
[2025-05-20 02:43] LABS: Hematocrit 27.4 % (37.0-47.0); Hemoglobin 8.9 g/dl (12.0-16.0); Imm Gran Abs Auto 0.01 X10*3/uL (0.00-0.03); Imm Gran Pct Auto 0.3 % (0.0-0.4); Lymphocytes Absolute Auto 1.7 X10*3/uL (1.2-4.9); Mean Corpuscular HGB Conc 32.5 g/dl (31.0-35.0); Mean Corpuscular Hemoglobin 27.2 pg (27.0-33.0); Mean Corpuscular Volume 83.8 fL (80.0-98.0); NRBC Abs Auto 0.000 X10*3/uL (0.0-0.012); NRBC Pct Auto 0.0 /100WBC (0.0-0.2); Platelet Count 146 X10*3/uL (160-400); Red Blood Count 3.27 X10*6/uL (4.20-5.50); White Blood Count 3.9 X10*3/uL (4.8-10.8)
[2025-05-20 02:53] LABS: PTT Heparin Drip 102.1 SEC (53-77.9)
[2025-05-20 03:11] LABS: Anion Gap 13 (12-20); Blood Urea Nitrogen 16 mg/dL (9-16); Calcium 8.3 mg/dL (8.4-10.2); Carbon Dioxide 23 mmol/L (22-29); Chloride 111 mmol/L (96-108); Creatinine Clr Calc Pharmacy 79.5; Estimated Glomerular Filt Rate > 60; Potassium 4.5 mmol/L (3.3-5.1); Sodium 142 mmol/L (135-145)
[2025-05-20 03:42] VITALS: BP 100/64
[2025-05-20 04:42] VITALS: BP 118/76
--- NOTE | 2025-05-20 04:46 | PC.NURSE ---
Heprin paused at 03:34 per protocol as PTT was 102.1, resumed at 11 units/kg per protocol, PTT will be redrawn at 1040.
[2025-05-20 05:44] LABS: Appearance Urine Clear; Glucose Urine UA Negative (Negative); PH 5.5 (5.0-9.0); Specific Gravity - Urine >= 1.030 (1.005-1.025); UMIC TRIGGER UACC YES
[2025-05-20 05:57] LABS: Cannabinoid Screen Urine Not Detected (Not Detect)
--- NOTE | 2025-05-20 05:58 | PC.NURSE ---
pt woke up from sleep stating she was illegally searched by security and was not being told treatment plan. Dr Pinto, security and relief charge nurse at bedside, explained treatment plan to pt, explained safety search protocol. Advised pt she and her visitor were advised of safety search and all treatment was discussed at bedside prior to being done, visitor was awake throughout all interactions, pt was oriented to name and confirmed to this RN before all mediations administered and new IV line started through out the night. Dr Pinto explained the process of leaving AMA. Pt escorted to bathroom and states she will stay.
[2025-05-20 06:41] LABS: Hematocrit 29.6 % (37.0-47.0); Hemoglobin 9.6 g/dl (12.0-16.0); Mean Corpuscular HGB Conc 32.4 g/dl (31.0-35.0); Mean Corpuscular Hemoglobin 27.3 pg (27.0-33.0); Mean Corpuscular Volume 84.1 fL (80.0-98.0); NRBC Abs Auto 0.000 X10*3/uL (0.0-0.012); NRBC Pct Auto 0.0 /100WBC (0.0-0.2); Platelet Count 158 X10*3/uL (160-400); Red Blood Count 3.52 X10*6/uL (4.20-5.50); White Blood Count 4.4 X10*3/uL (4.8-10.8)
--- NOTE | 2025-05-20 06:50 | MHC.EDTECH ---
@0650 she refused all breakfast, the patient is upset she couldn't get a coffee due to diet order per admitting doctor diet order.
--- NOTE | 2025-05-20 06:58 | PC.NURSE ---
pt medications sealed and delivered to pharmacy by this rn. copies of medication forms placed in pt chart
[2025-05-20 07:01] LABS: INTERNATIONAL NORM RATIO 1.1 (0.9-1.1); Prothrombin Time 12.7 SEC (10.9-12.4)
--- NOTE | 2025-05-20 07:20 | PC.NURSE ---
Care of Pt assumed at change of shift. Pt is awake and agitated. She refuses breakfast. Pt demands a new Fentanyl patch and Estrogen patch--report received from overnight RN that attending already aware of this request. Will reach back out to attending atfer their change of shift if no new orders placed--Pt aware. Pt is awaiting room assignment.
--- NOTE | 2025-05-20 08:04 | PC.NURSE ---
This RN observes Pt leaving room to use the bathroom without IV pole. Upon entering room, IV catheter noted to have hanging from tubing on the ground. When Pt returns to bathroom she demands to have her medications returned to her and states she will be leaving. She refuses any further evaluation/care at this time. Pt checked for additional IV access which was not able to be located--Pt reports she removed it herself a while ago prior to removing her heparin drip IV access. Dr. Prescott made aware of Pts demands via tiger connect and comes to bedside to discuss with Pt. Verbal orders received from Dr. Prescott that Pt may leave AMA at this time. He states he is unable to completed AMA paperwork in this moment but that Pt does not have to wait, she may leave now. AMA paperwork entered in ED discharge. Pts medications retrieved from pharmacy. Pt signs documents for receiving belongings, medications, d/c packet and AMA form. Pt escorted to security office to retrieve several knives being held by security. Security to escort Pt off [place] property.
[2025-05-20 08:21] VITALS: BP 00/00; PULSE 0; RESP 0; TEMP -17.7; TEMP 0; O2SAT 0
--- NOTE | 2025-05-20 14:20 | P.DS_ITS ---
DS: Providers Provider Date of Service: 05/20/25 Date of admission: 05/19/25 19:58 Date of discharge: 05/20/25 Primary care physician: Unknown Physician Consults: 05/19/25 20:19 Consult to Hematology / Oncology Routine Consulting Provider: [facility] [place] Reason for consultation: Left leg DVT Consult to Vascular Surgery Routine Consulting Provider: [facility] Reason for consultation: Left leg DVT DS: Diagnosis Discharge Diagnosis (1) Left leg DVT: Status: Acute DS: Summary Hospital Course Hospital Course: LEFT AMA! Admission hpi Chief Complaint: leg swelling This is a 54-year-old with pertinent history of protein S deficiency, left lower extremity DVT (previously on Xarelto, currently on therapeutic Lovenox), IVC filter in place, mood disorder, hypertension, chronic pain syndrome, gastroesophageal reflux disease who presents to the emergency department for evaluation of leg swelling. Patient was seen at [facility] ER on the day of presentation for evaluation of increased swelling and pain to the left lower extremity. Venous duplex was done at [facility] which revealed nonocclusive thrombus in the left popliteal vein measuring 5.6 cm. Patient was offered admission at [facility] but left against medical advice and presented to [facility] for further evaluation and management. Patient states she has had failure of anticoagulants including Xarelto and therapeutic Lovenox in the past. Denies chest pain or dyspnea. No fever, chills, abdominal pain, changes in urinary or bowel habits. In the emergency department, hematology was consulted and patient was initiated on IV heparin. Hospital course: a 54-year-old with pertinent history of protein S deficiency, left lower extremity DVT (previously on Xarelto, currently on therapeutic Lovenox), IVC filter in place, mood disorder, hypertension, chronic pain syndrome, gastroesophageal reflux disease who presents to the emergency department for evaluation of leg swelling. Left lower extremity DVT: Venous duplex done at [facility] with nonocclusive thrombus in left popliteal vein measuring 5.6 cm. Will admit patient with IV heparin. ?anticoagulation failure previously with Xarelto and therapeutic lovenox versus noncompliance with medications. Consulted Hematology and vascular surgery--not yet seen patient. Has IVC filter in place Mood disorder: Continue home mood stabilizers Chronic pain syndrome: On opiates Hypertension: On lisinopril Gastroesophageal esophageal reflux disease: On Nexium As I was arriving to the hospital, I was informed the patient wanted to leave against medical. I proceeded to talk and guide her in staying for treatment but she had already made up her mind, citing she could not stay in the ED, despite efforts been made to find her a floor bed. She was awake, alert and oriented to self, place, time and situation and proceeded to sing AMA form. Medication compliance was emphasized, she was also instructed to take Lovenox which she already had at home as directed. It is my understanding Dr. Davis her computer artist spoke to her over the phone and gave her further instruction. She understood she assumed all responsibility for her health, including worsening DVT with propagation to PE and even the posibility of . Time Attestation Discharge Coordination Time (in mins): 30 Quality: Safe Use of Opioids Does Pt have an Active Cancer Diagnosis on the Problem List?: No Quality: Stroke Does the patient have a stroke diagnosis?: No Physical Exam Vital Signs: Vital Signs: Last Vital Signs Temp 0 F L 05/20/25 08:21 Pulse 0 L 05/20/25 08:21 Resp 0 L 05/20/25 08:21 BP 00/00 L 05/20/25 08:21 Pulse Ox 0 L 05/20/25 08:21 O2 Del Method Room Air 05/20/25 01:25 BMI result Body Mass Index 33.4 DS: Data Data Completed and Pending Labs on day of discharge: Laboratory Results - last 24 hr 05/19/25 05/19/25 05/20/25 18:30 19:48 02:34 WBC 5.9 3.9 L RBC 3.81 L 3.27 L Hgb 10.3 L 8.9 L Hct 31.9 L 27.4 L MCV 83.7 83.8 MCH 27.0 27.2 MCHC 32.3 32.5 RDW 15.3 15.2 Plt Count 174 146 L MPV 10.4 10.0 Immature Gran % (Auto) 0.2 0.3 Neut % (Auto) 48.7 40.2 L Lymph % (Auto) 33.2 42.7 H [place] % (Auto) 12.9 H 10.2 Eos % (Auto) 4.1 H 6.1 H Baso % (Auto) 0.9 0.5 Lymph # (Auto) 2.0 1.7 [place] # (Auto) 0.8 0.4 Eos # (Auto) 0.2 0.2 Baso # (Auto) 0.1 0.0 Abs Immat Gran (auto) 0.01 0.01 Absolute Neuts (auto) 2.9 1.6 L Absolute Nucleated RBC 0.000 0.000 Nucleated RBC % (auto) 0.0 0.0 PT 11.6 INR 1.0 APTT 37.3 H aPTT Heparin Protocol 37.6 L 102.1 H D Sodium 142 142 Potassium 4.1 4.5 Chloride 111 H 111 H Carbon Dioxide 22 23 Anion Gap 13 13 BUN 16 16 Creatinine 0.89 0.86 Estim Creat Clear Calc 76.8 79.5 Estimated GFR > 60 > 60 Random Glucose 103 78 Calcium 8.5 8.3 L Total Bilirubin 0.3 AST 23 ALT 15 Alkaline Phosphatase 51 Total Protein 6.5 Albumin 4.0 Urine Color Urine Appearance Urine pH Ur Specific [place] Urine Protein Urine Glucose (UA) Urine Ketones Urine Blood Urine Nitrite Ur Leukocyte Esterase Urine RBC Urine WBC Ur Squamous Epith Cells Urine Bacteria Hyaline Casts Urine Opiates Screen Ur Buprenorphine Scrn Ur Oxycodone Screen Urine Methadone Screen Urine Fentanyl Screen Ur Barbiturates Screen Ur Phencyclidine Scrn Ur Amphetamines Screen U Benzodiazepines Scrn Urine Cocaine Screen U Marijuana (THC) Screen 05/20/25 05/20/25 05:38 06:20 WBC 4.4 L RBC 3.52 L Hgb 9.6 L Hct 29.6 L MCV 84.1 MCH 27.3 MCHC 32.4 RDW 15.3 Plt Count 158 L MPV 10.1 Immature Gran % (Auto) Neut % (Auto) Lymph % (Auto) [place] % (Auto) Eos % (Auto) Baso % (Auto) Lymph # (Auto) [place] # (Auto) Eos # (Auto) Baso # (Auto) Abs Immat Gran (auto) Absolute Neuts (auto) Absolute Nucleated RBC 0.000 Nucleated RBC % (auto) 0.0 PT 12.7 H INR 1.1 APTT aPTT Heparin Protocol Sodium Potassium Chloride Carbon Dioxide Anion Gap BUN Creatinine Estim Creat Clear Calc Estimated GFR Random Glucose Calcium Total Bilirubin AST ALT Alkaline Phosphatase Total Protein Albumin Urine Color Yellow Urine Appearance Clear Urine pH 5.5 Ur Specific [place] >= 1.030 H Urine Protein Trace Urine Glucose (UA) Negative Urine Ketones Trace Urine Blood Negative Urine Nitrite Negative Ur Leukocyte Esterase Trace H Urine RBC 0-2 Urine WBC 0-5 Ur Squamous Epith Cells 6-10 Urine Bacteria 1+ Hyaline Casts 0-2 Urine Opiates Screen POSITIVE H Ur Buprenorphine Scrn Not Detected Ur Oxycodone Screen Positive H Urine Methadone Screen Not Detected Urine Fentanyl Screen POSITIVE H Ur Barbiturates Screen Not Detected Ur Phencyclidine Scrn Not Detected Ur Amphetamines Screen Not Detected U Benzodiazepines Scrn Not Detected Urine Cocaine Screen Not Detected U Marijuana (THC) Screen Not Detected Discharge Plan Discharge Anticipated Discharge Date/Time: 05/20/25 08:00 Patient Disposition: Left Against Medical Advice Discharge Diagnosis: Left leg DVT Discharge Medications: Continued enoxaparin 80 mg/0.8 mL Syringe 80 mg SUBCUT Q12H Qty: 60 6RF lorazepam 1 mg tablet 1 mg PO TID PRN (Reason: Anxiety) enoxaparin [Lovenox] 80 mg/0.8 mL Syringe 90 mg SUBCUT Q12H Qty: 60 5RF esomeprazole magnesium [Nexium] 40 mg capsule,delayed release(DR/EC) 40 mg PO BID@0630,1630 acetaminophen [Pain Relief (acetaminophen)] 650 mg tablet extended release 650 mg PO TID PRN (Reason: Pain) pregabalin 200 mg capsule 200 mg PO BID estradiol 0.025 mg/24 hr patch weekly 1 patch topical WE oxycodone-acetaminophen 10-325 mg tablet 1 tab PO TID progesterone micronized 100 mg capsule 100 mg PO BEDTIME fentanyl 37.5 mcg/hour patch 72 hour 1 patch topical Q3D Discharge Orders: Discharge Order (Routine); Ordered 05/20/25 Ordered By: Wallace Prescott Diet: Advance to usual diet Activity on Discharge: As tolerated Stand Alone Forms: Against Medical Advice Print Language: Guamanian Care Plan Goals: Left AMA Health Concerns: Left AMA Plan of Treatment: Left AMA Assessment: Left AMA Discharge Date/Time: 05/20/25 11:03
--- NOTE | 2025-05-20 14:32 | MHC.CM.PN ---
Patient left AMA prior to being seen by case management. DX Leg swelling .
== END 2025-05-20 11:03 | disposition left against medical advice (07) | DRG 300 ==
LOC: HO.ED 20:02 → HO.EDOVER 20:04 → HO.S3 05-20 07:43 → HO.EDOVER 05-20 07:53
PROVIDERS: Physician Assistant; Admitting Provider Student in an Organized Health Care Education/Training Program; Emergency Provider Internal Medicine; Visit Provider Internal Medicine
DX: I82.432 Acute embolism and thrombosis of left popliteal vein (principal); D68.59 Other primary thrombophilia; F17.210 Nicotine dependence, cigarettes, uncomplicated; I10 Essential (primary) hypertension; K21.9 Gastro-esophageal reflux disease without esophagitis; F39 Unspecified mood [affective] disorder; G89.4 Chronic pain syndrome; F31.9 Bipolar disorder, unspecified; Z79.01 Long term (current) use of anticoagulants; Z79.899 Other long term (current) drug therapy
CPT/HCPCS: 36415; 80048; 80053; 80307; 81001; 85025; 85027; 85610; 85730; 99285; J1644; P9047

== ENCOUNTER → 2025-05-19 19:58 | Outpatient (BNV) | payer MEDICARE, MEDICAID, SELFPAY | PROVIDERS: Admitting Provider Student in an Organized Health Care Education/Training Program; Emergency Provider Internal Medicine; Visit Provider Student in an Organized Health Care Education/Training Program | DX: I82.402 Acute embolism and thrombosis of unspecified deep veins of left lower extremity (principal) | CPT/HCPCS: 99222; 99238 ==

== ENCOUNTER 2025-05-31 07:30 | Outpatient (RCR) | payer MEDICARE, MEDICAID, SELFPAY ==
[2025-05-24 12:54] VITALS: BP 107/66; PULSE 86; RESP 16; TEMP 37.3; O2SAT 97
[2025-05-24] MEDS: 0.9 % Sodium Chloride Flush 10 ML SYRINGE 5 ML IVFLUSH (14:04)
[2025-05-31 07:42] VITALS: BP 140/85; PULSE 72; RESP 16; TEMP 36.6; O2SAT 100
== END 2025-05-31 09:07 | disposition home or self-care (01) ==
LOC: HO.INF 07:30
PROVIDERS: Visit Provider Nurse Practitioner Family
DX: D64.9 Anemia, unspecified (principal)
CPT/HCPCS: 96365; J1439

== ENCOUNTER 2025-06-19 09:05 | Outpatient (REF) | payer MEDICARE, MEDICAID, SELFPAY ==
--- NOTE | ~2025-06-19 | CT_ITS ---
EXAMINATION: CT CHEST WITH CONTRAST CLINICAL INFORMATION: Pulmonary nodule seen on CT exam from [facility] on 06/04/2024. Multiple pulmonary nodules. COMPARISON: No prior chest CT available. TECHNIQUE: Multidetector volumetric CT imaging of the chest was obtained after the administration of 50 mL of Omnipaque 350 intravenous contrast without immediate adverse reactions. Axial MIP volume rendering provided. Sagittal and coronal reformatted images were obtained. This CT examination was performed using dose optimization techniques as appropriate, variously including the following: *Automated exposure control *Adjustment of mA and/or kV according to patient size (this includes techniques or standardized protocols for targeted exams where dose is matched to indication/reason for exam; i.e. extremities or head) *Use of iterative reconstruction technique FINDINGS: NODULES: 3 mm groundglass nodule in the lateral right upper lobe (series 4, image 51). 4 mm groundglass nodule in the left upper lobe with pleural tag, likely intrapulmonary lymph node (series 4, image 63). 4 mm pleural-based lingular nodule (series 4, image 83). 3 mm pleural-based nodule in the lateral left lower lobe (series 4, image 100). There are approximately 3 tiny 2-3 mm nodules posterior left lower lobe. LUNGS: Lungs otherwise clear and well expanded. No interstitial abnormalities. Small airways appear normal. Central airways are patent and normal. MEDIASTINUM: Partially imaged thyroid is globally enlarged, and are slightly obscured by streak artifact from a necklace. Aorta is normal in caliber and course. Main pulmonary artery is normal in size. Heart size is normal. There is no pericardial effusion. No significant coronary artery calcification. There is a small to moderate-sized type I hiatus hernia at the GE junction. There is no lymphadenopathy or mass present. PLEURA: There is no pleural effusion. No pleural mass or thickening. AXILLA/CHEST WALL: No lymphadenopathy. No mass. UPPER ABDOMEN: The patient has undergone prior gastric sleeve surgery. There has been a cholecystectomy. Remainder the imaged upper abdominal contents appear normal. OSSEOUS STRUCTURES: No suspicious lytic or blastic bone lesion. CT/CT chest w IV con IMPRESSION: 1. There are a few scattered pulmonary nodules measuring up to 4 mm. No prior available for direct comparison. One-year follow-up recommended if the patient is high risk. 2. Lungs otherwise clear. No active pulmonary disease. 3. Global enlargement of the thyroid gland, which is only partially imaged. 4. Moderate-sized type I hiatus hernia. There has been prior gastric sleeve surgery. 5. Prior cholecystectomy. Electronically signed by: Zhang Augustin MD 06/19/2025 10:00 AM EDT
[2025-06-19] MEDS: iohexoL 350 MG/ML 100 ML INFUS..BTL 53 ML IV (09:40)
--- OUTSIDE RECORDS SUMMARY | 2025-06-19 09:47 | XMS_ITS | Clinical Summary ---
Author Organization [facility] Address [address] [place] [address] Care Team Providers Care Team Driver Name Role Phone Jose Dumont Primary Care Provider [phone] Allergies No known active allergies Medications No [...] Vaccines (1 of 2) 2019 COVID-19 Vaccine (1 - 2023-2 5 season) 2024 Alcohol/Substance Use Screening 10/26/2024 Depression Screening and Follow-Up 10/26/2024 Social Drivers of Health Nancy ual Screening 10/26/2024 Influenza Vaccine (#1) 2025 7, 12/24/2016, 09/10/2016, Additional history exists DTaP,Tdap,and Td Vaccines (2 - Td or Tdap) 03/19/2026 03/19/2016 RSV Vaccine (60+ years old a nd patients) (1 - 1-dose 75+ series) 2044 Hepatitis C Screening Completed 11/02/2024 Insurance MEDICARE [facility] Care Teams Team Driver Relationship Specialty Start Date End Date Jose Dumont [address] [place] [id number] PCP - General Orthopedic Surgery 12/27/24
--- OUTSIDE RECORDS SUMMARY | 2025-06-19 09:47 | XMS_ITS | Clinical Summary ---
Author Organization [facility] Address [address] [place] [address] Phone Care Team Providers Care Health Care Legal Assistant Name Role Phone Codi Ortega NP Primary [...] 15 g 2 5 01/18/20 26 Active Active Problems Problem Noted Date Diagnosed Date Chronic leg pain 12/27/2024 Proteinuria 12/27/2024 Class 3 severe obesity due t o excess calories with serious comorbidity and body mass index (BMI) of 40.0 to 44.9 in adult ([facility] V24, [facility] V28) 12/27/2024 Vitamin D deficiency 12/27/2024 GERD (gastroesophageal reflux disease) Protein S deficiency ([facility] V24) 12/27/2024 Anxiety 10/26/2017 Overview (12/27/2024): Last [...] opioids 08/09/2020 12/27/2024 Overview (12/27/2024): Pain management, [place] [facility] Abnormal uterine bleeding 09/01/2019 Overview (12/27/2024): Last Assessment & Plan: Reports negative w/u w [facility] Stocking And Box Shop Supervisor for PMB Bipolar disorder ([facility] V24, [facility] V28) 10/26/2017 12/27/2024 Overview (12/27/2024): Last Assessment & Plan: Following w therapist. Surgical History Surgery Date Site/Laterality Comments LAPAROSCOPIC GASTRIC BANDING 2005 PROCEDURE: LAP ADJUSTABLE GASTRIC BAND; COMMENT: 12/08/2017 removed CHOLECYSTECTOMY PROCEDURE: VT CHOLECYSTECTOMY SECTION PROCEDURE: VT DELIVERY ONLY OTHER SURGICAL HISTORY 2008 PROCEDURE: HISTORICAL PANNICULECTOMY OTHER SURGICAL HISTORY 10/08/2017 PROCEDURE: RADIOLOGIC EXAM ESOPHAGUS SINGLE CONTRAST STUDY; COMMENT: lap band in high position; erosive esophagitis, grade 3 Medical History Medical History Date Comments Anxiety DX:Anxiety GERD (gastroesophageal reflux disease) DX:GERD (gastroesophageal reflux disease) Chronic leg pain DX:Chronic leg pain Protein S deficiency ([facility] V24) DX:Protein S deficiency ([facility]) Vitamin D deficiency DX:Vitamin D deficiency Proteinuria DX:Proteinuria History of DVT (deep vein thrombosis) DX:History of DVT (deep vein thrombosis) Class 3 severe obesity due t o excess calories with serious comorbidity and body mass index (BMI) of 40.0 to 44.9 in adult ([facility] V24, [facility] V28) 03/01/2019 DX:Class 3 severe obesity due to excess calories with serious comorbidity and body mass index (BMI) of 40.0 to 44.9 in adult ([facility]) Osteoporosis DVT (deep venous thrombosis) ([facility] V24, [facility] V28) bilateral Family History Medical History Relation Name Comments Other: BLOOD CLOTTING DISORDER Brother HIV, HTN, [place], Liver disease Hypertension Mother Seizures, Arthr itis, [...] AM EDT Office Visit Bariatric Surgery - [place] [address] [place] [phone] Jeannine Doll MD [address] [place] [address] Health Maintenance Due Date Last Done Comments [...] 09/23/2022 COVID-19 Vaccine ( - season) 2024 Depression Screening 10/26/2024 Influenza [...] Procedure Name Priority Date/Time Associated Diagnosis Comments [facility] DEX[facility] AXIAL [facility]KELETON Routine 07/08/2024 8:21 AM EDT Encounter for screening for osteoporosis LIPID PANEL Routine 11/23/2019 from Last 3 Months or Most Recently Relevant to Health Maintenance Results * [facility] (07/08/2024 8:21 AM EDT) Anatomical Region Laterality Modality Mammography 07/07/2024 2:03 PM EDT Narrative 07/08/2024 8:21 AM EDT [facility] Diagnostic Imaging Department [address] [place] [address] Patient: JUDITH TOLEDOO.B./Age/Sex: 1970 - 53 - F Unit#: [id number] Location/Status: SPDIMAM/REG CLI Mnemonic[facility] Ordering Physician: LAYNE RAMAN NP [facility] Dexa Axial Skeleton - 07/07/24 - [id number] Report Status:Signed HISTORY: The patient is a [...] probability of hip fracture of 1.3%. Code 75414 Dictating Physician: RUFUS FRY MD Electronically Signed by: RUFUS FRY MD Dic Date/Time: 07/08/24819 Sign date/Time: 07/08/24820 Procedure Note Rufus Fry MD - 08/10/2024 [facility] Diagnostic Imaging Department [address] [place], [place] [id number] Patient: JUDITH TOLEDO Ashtyn/Age/Sex: 1970 - 53 - F Unit#: [id number] [facility] Ordering Physician: LAYNE RAMAN NP [facility] Dexa Axial Skeleton - 07/07/24 - [id number] Report Status:Signed HISTORY: The patient is a [...] density of the femurs bilaterally is 0.713 gm/br9cxflr is 71% of that of young normals [...] probability of hip fracture of 1.3%. Code 35486 Dictating Physician: RUFUS FRY MD Electronically Signed [...] mg/dL Blood Venous blood specimen / Unknown us Historical Provider LAB BLOOD ORDERABLES Tawny l Result from Last 3 Months or Most Recently Relevant to Health Maintenance Insurance MEDICARE [place]ICA[place] - [place] Care Teams Health Care Legal Assistant Relationship Specialty Start Date End Date Codi Ortega NP [address] [place], [place] PCP - General Internal Medicine 12/20/19
--- OUTSIDE RECORDS SUMMARY | 2025-06-19 09:47 | XMS_ITS | Clinical Summary ---
Author Organization [facility] Address [address] [place] [phone] Phone Care Team Providers Care Child Care Worker Name Role Phone Paolo Armenta MD Primary Care Provider [phone] Allergies Active Allergy Reactions Criticality Noted Date [...] opioid dependence 08/09/2020 Overview (08/12/2021): Pain management, [place] [facility] Posttraumatic stress disorder 11/30/2019 Overview (08/12/2021): Childhood trauma Last Assessment & Plan: Very pleased w her new puppy, experiencing therapeutic benefit Abnormal uterine bleeding 09/01/2019 Overview (08/12/2021): Last Assessment & Plan: Reports negative w/u w [facility] Grapple Yarder Operator for PMB Flushing 08/11/2019 Overview (08/12/2021): Last Assessment & Plan: Pt not interested in nonhormone therapy options. 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 She is on a blood thinner. I recognize that there are risks & benefits of the HT. I will have her meet w gynecology. Referred to [facility] Salvager Helper Finding related to status of agreement with [...] & Plan: She follows leila dozier at [facility]. Hopefully this will resolve since her [...] Visit [facility] [address] [phone] Tae De Luna MD [address] [address] Health Maintenance Due Date Last Done Comments [...] Medicaid [place] Care Teams Child Care Worker Relationship Specialty Start Date End Date Paolo Armenta MD [address] [place] [address] PCP - General Internal Medicine 12/21/24
--- OUTSIDE RECORDS SUMMARY | 2025-06-19 09:47 | XMS_ITS | Clinical Summary ---
Author Organization [facility] Address [address] [place] [address] Phone Care Team Providers Care Director Of Academic Name Role Phone Jeannine Doll MD Unavailable [...] of opioids 08/09/2020 Overview (08/09/2020): Pain management, [place] [facility] Assessment & Plan (07/02/2022 [...] (03/10/2025 11:24 AM EDT): On HRT through [employer] SHIFT SUPERINTENDENT. Reports improvement in hot flashes at this time. Assessment & Plan (01/03/2025 1:07 PM EDT): Has never used hormones Last period was age 44, no bleeding since Since age 44 she has been suffering from hotflashes, night sweats, and rage She was seeing Dr Arita and was planning on starting estrogen transdermal. I review this office note; he had discussed with Dr Davis that as long as patient had not [...] She is seeing Dr Davis for her cadence specialists, Dr Arita reached out to them to [...] have her meet w gynecology. Referred to [facility] Managed Services Consultant Violation of controlled substance agreement 10/26 Overview (11/11/2017): UDS 10/2017 negative for benzos &oxycodone. Pill count 11/11/17 incorrect. See tell encounter Anxiety 10/26/2017 Assessment & Plan (10/10/2021 5:27 PM EST): Following w SOFTWARE QA MANAGER. Has prescriber, though hoping to change, Likes [...] AM EDT): Followed by Dr. Hughes at [facility]. Currently only managed on lorazepam, unwilling to use other medications to treat this. She is upset she cannot get more lorazepam. Discussed recommendation to continue to work with psychiatrist as this is her current prescriber. Will continue to monitor. Assessment & Plan (11/02/2024 2:36 PM EST): Followed by Dr. Hughes at [facility]. Currently only managed on lorazepam, unwilling [...] Plan (03/13/2025 10:24 AM EDT): Reports her cadence specialists is aware that she has started estrogen Assessment & Plan (03/18/2018 12:21 PM EDT): Follows leila Davis on Xarelto Iron deficiency anemia 10/26/2017 Overview (10/10/2021): Follows leila Davis Assessment & Plan (10/10/2021 5:25 PM EST): Labs ordered Assessment & Plan (08/11/2019 12:57 PM EDT): She follows leila dozier at [facility]. Hopefully this will resolve since her [...] AM EDT): Continues on xarelto Followed by cadence specialists Assessment & Plan (03/10/2025 11:23 AM EDT): [...] PM EST): Labs ordered, follow up with merchandise supervisor Proteinuria 10/26/2017 Overview (10/10/2021): Dr De Luna [...] 11:08 AM EST): Reports negative w/u w [facility] Parking Lot Attendant for PMB Assessment & Plan (09/01/2019 11:28 AM EST): Menstrual bleeding 2 years after cessation of menses. Discussed concern re endometrial cancer. She will book appt w her acid pumper. Severe obesity (BMI >= 40) 03/18/2018 1 Assessment & Plan (11/30/2019 11:08 AM EST): Planning second bariatric surgery. Exercise is limited by chronic pain Assessment & Plan (09/01/2019 11:40 AM EST): Planning 2nd bariatric surgery. She will need anticoagulation managed by her cadence specialists perioperatively Assessment & Plan (08/11/2019 1:02 PM EDT): She is planning to undergo a 2nd bariatric surgery. She had lap band removed. She plans sleeve gastrectomy Encounters Date Type Department Care Team Description 04/19/2025 9:00 AM EDT - 04/19/2025 11:59 PM EDT Hospital Encounter [facility] [address] [place] [address] Sunshine Lowry MD Discharge Disposition: Home or Self Care 03/22/2025 Telephone [facility] [place] [address] Kell Ontiveros LPN PMB with new start of HRT from Last 3 Months Immunizations Immunization Administration Dates Next Due INFLUENZA, SPLIT VIRUS, TRIVALENT PF 12/24/2016 INFLUENZA, SPLIT VIRUS, TRIVALENT W/ PRESERVATIV E IM 07/09/2010 Influenza Quadrivalent MDCK Preservative Free IM 07/20/2017 Influenza Quadrivalent Preservative Free IM 08/26 Pneumococcal polysaccharide PPSV23 12/24/2016, Tdap 03/19/2016 Family [...] Care Team (Late st Contact Info) Description 06/20/2025 9:30 AM EDT Office Visit [address] [address] Leah Buck MD [address] [place] [address], [address] [place] [address] 07/11/2025 8:20 AM EDT Office Visit [facility] [address] [place] [address] [place] [address] Mandi Nails MD [address] [place] [address] [address] [place] [address] 08/23/2025 10:00 AM EDT Nurse Only [facility] [address] [place] [address] Mandi Nails MD [address] [place] [id number] [email or web address] Health Maintenance Due Date Last Done Comments [...] 9:01 AM EST Screening examination for STI [facility] PAP SMEAR FOR RESULT ENTRY ONLY Routine 09/19/2019 HM MAMMOGRAPHY Routine 07/06/2019 HM COLONOSCOPY FOR RESULT ENTRY ONLY Routine 12/07/2012 [...] EDT) Historical Provider LAB BLOOD ORDERABLES Tawny reyes Result * Hepatitis C antibody, qualitative (11/02/2024 9:01 AM EST) HCV NON-REACTIV E NON-REACTI VE [facility] Blood 11/02/2024 9:01 AM EST 11/02/2024 9:22 AM EST Adriana Rankin CNP LAB BLOOD ORDERABLES Final R esult [address] [address] * (ABNORMAL) Lipid panel (11/02/2024 9:01 AM EST) HDL 69 mg/dL [facility] Comment: Interpretation <40 mg/dL: Low HDL cholesterol (major risk factor for CHD) Greater than or equal to 60 mg/dL: High HDL cholesterol ( negative risk factor for CHD) HDL - cholesterol is affected by a number of factors, e.g. smoking, excerise, hormones, sex and age. CHOLESTEROL 199 0 - 240 mg/dL [facility] TRIGLYCERIDES 128 30 - 160 mg/dL [facility] LDL 104 50 - 129 mg/dL [facility] Comment: LDL levels in terms of risk for coronary heart disease: <100 mg/dL: Optimal 100-129 mg/dL: Near or above optimal 130-159 mg/dL: Borderline high 160-189 mg/dL: High >190 mg/dL: Very High CARDIAC RISK RATIO 2.9(L) 3.3 - 4.4 [facility] Blood 11/02/2024 9:01 AM EST 11/02/2024 9:21 AM EST Adriana Rankin COMMERCIAL INSULATOR LAB BLOOD ORDERABLES Final R esult Performing Organization Address City/State/[facility] Co de Phone Number [address] [address] * PAP SMEAR FOR RESULT ENTRY ONLY (09/19/2019) Pap smear normal Historical Provider MD HEALTH MAINTENANCE Final Result * MAMMOGRAPHY FOR RESULT ENTRY ONLY (07/06/2019) Mammogram normal Historical Provider HEALTH MAINTENANCE Final Result * COLONOSCOPY FOR RESULT ENTRY ONLY (12/07/2012) Colonoscopy .. Historical Provider HEALTH MAINTENANCE Final Result from Last 3 Months or Most Recently Relevant to Health Maintenance Insurance MEDICARE PART A & B [facility] MEDICARE PART A & B [facility] MEDICARE PART A & B MEDICARE PART A & B MEDICARE PART A & B MEDICARE PART A & B MEDICARE PART A & B [place] A [place] [id number] MEDICARE PART A & B [facility] Care Teams Director Of Academic Relationship Specialty Start Date End Date Chucho Adriana, CNP [address] [place] [address], [address] [place] [address] [email or web address] PCP - General Nurse Practitioner 05/27/24 Jeannine Doll MD [address] [place] [address] General Surgery 11/30/19 Vinnie Davis MD [address] [place] [address] Internal Medicine 11/30/19 Additional Source Comments The information contained in this document represents components of the legal health record. It is not the complete legal health record.[facility]
== END 2025-06-19 09:06 | disposition home or self-care (01) ==
LOC: HO.CT 09:05
PROVIDERS: Visit Provider Internal Medicine Medical Oncology
DX: R91.1 Solitary pulmonary nodule (principal)
CPT/HCPCS: 71260; Q9967

== ENCOUNTER → 2025-06-19 09:07 | Outpatient (BNV) | payer MEDICARE, MEDICAID, SELFPAY | PROVIDERS: Visit Provider Radiology Diagnostic Radiology | DX: R91.8 Other nonspecific abnormal finding of lung field (principal) | CPT/HCPCS: 71260 ==

== ENCOUNTER → 2025-08-10 09:15 | Outpatient (BNV) | payer MEDICARE, MEDICAID, SELFPAY | PROVIDERS: PCP Nurse Practitioner Family; Visit Provider Internal Medicine | DX: Z12.31 Encounter for screening mammogram for malignant neoplasm of breast (principal) | CPT/HCPCS: 77063; 77067 ==

== ENCOUNTER 2025-08-10 09:17 | Outpatient (REF) | payer MEDICARE, MEDICAID, SELFPAY ==
--- OUTSIDE RECORDS SUMMARY | 2025-08-10 10:30 | XMS_ITS | Clinical Summary ---
Author Organization [facility] Address [address] [place] [address] Care Team Providers Care Ladle Liner Name Role Phone oJse Dumont Primary Care Provider [phone] Allergies No known active allergies Medications No [...] 05/14/2010 Zoster Vaccines (1 of 2) 2019 Alcohol/Substance Use Screening 10/26/2024 Depression Screening and Follow-Up 10/26/2024 Social Drivers of Health Nancy ual Screening 10/26/2024 COVID-19 Vaccine (1 - 2024-2 6 season) 2025 Influenza Vaccine (#1) 2025 7, 12/24/2016, 09/10/2016, Additional history exists DTaP,Tdap,and Td Vaccines (2 - Td or Tdap) 03/19/2026 03/19/2016 RSV Vaccine (60+ years old a nd patients) (1 - 1-dose 75+ series) 2044 Hepatitis C Screening Completed 11/02/2024 Insurance MEDICARE [facility] Care Teams Ladle Liner Relationship Specialty Start Date End Date oJse Dumont [address] [place] [address] PCP - General Orthopedic Surgery 12/27/24
--- OUTSIDE RECORDS SUMMARY | 2025-08-10 10:30 | XMS_ITS | Encounter Summary ---
Author Organization [facility] Address [address] [place] [address] Phone Care Team Providers Care Physician Practice Coordinator Name Role Phone Codi Ortega CNP Primary Care Provider [phone] Jeannine Doll MD Unavailable [phone] Vinnie Davis MD Unavailable Unknown, Unknown Primary Care Provider Adriana Dye CNP Primary Care Provider [phone] Encounter Details Date Type Department Care Team (Latest Contact Info) Description 08/11/2019 Transcribe Orders [facility] [address] [place] [address] Codi Ortega, COUNTER SALES REPRESENTATIVE [address] [facility], 2nd [place] [address] [email or web address] Routine general medical examination at a health care facility (Primary Dx) Social History Tobacco Use Types Packs/Day Years Used Date Smoking Tobacco: Every Day Smokeless Tobacco: Never Comments:Vapes, not daily Alcohol Use Standard Drinks/Week Comments No 0 (1 standard drink = 0.6 oz pur e alcohol) Comments Unknown Sex and Gender Information Value Date Recorded Sex Assigned at Female 12/09/2024 1:01 PM EST Legal Sex Female 9:37 AM EST Gender Identity Female 12/09/2024 1:01 PM EST Sexual Orientation Not on file documented as of this encounter Plan of Treatment Upcoming Encounters Date Type Department Care Team (Late st Contact Info) Description 08/23/2025 10:00 AM EDT Nurse Only [facility] [address] [place] [address] Mandi Nails MD [address] [place] [address] 10/25/2025 9:00 AM EST Office Visit [facility] [address] [place] [address] Adriana Rankin CNP [address] [address] 08/08/2026 11:00 AM EDT Office Visit [facility] [address] [place] [address] Mandi Nails MD [address] [place] [address] documented as of this encounter Visit Diagnoses Diagnosis Routine general medical examination at a health care facility- Primary documented in this encounter Care Teams Physician Practice Coordinator Relationship Specialty Start Date End Date Codi Ortega CNP [address] [address] PCP - General 10/09/17 01/18/24 Unknown, Love, PCP - General 01/19/24 05/26/24 Adriana Rankin CNP [address] [place] [address] [address] [place] [address] PCP - General Nurse Practitioner 05/27/24 Jeannine Doll MD [address] [place] [address] General Surgery 11/30/19 Vinnie Davis MD [address] [place] [address] Internal Medicine 11/30/19 documented as of this encounter Additional Source Comments The information contained in this document represents components of the legal health record. It is not the complete legal health record.[facility]
--- OUTSIDE RECORDS SUMMARY | 2025-08-10 10:30 | XMS_ITS | Clinical Summary ---
Author Organization [facility] Address [address] [place] [address] Phone Care Team Providers Care Warehouse Delivery Driver Name Role Phone Codi Ortega NP Primary Care Provider [phone] Allergies Active Allergy Reactions Criticality Noted Date [...] (BMI) of 40.0 to 44.9 in adult ([facility] V24, [facility] V28) 12/27/2024 Vitamin D deficiency 12/27/2024 GERD (gastroesophageal reflux disease) Protein S deficiency ([facility] V24) 12/27/2024 Anxiety 10/26/2017 Overview [...] opioids 08/09/2020 12/27/2024 Overview (12/27/2024): Pain management, [facility] [facility] Abnormal uterine bleeding 09/01/2019 Overview (12/27/2024): Last Assessment & Plan: Reports negative w/u w [facility] Gis Analyst for PMB Bipolar disorder ([facility] V24, [facility] V28) 10/26/2017 12/27/2024 Overview (12/27/2024): Last Assessment & Plan: Following w therapist. Surgical History Surgery Date Site/Laterality Comments LAPAROSCOPIC GASTRIC BANDING 2005 PROCEDURE: LAP ADJUSTABLE GASTRIC BAND; COMMENT: 12/08/2017 removed CHOLECYSTECTOMY PROCEDURE: MD CHOLECYSTECTOMY SECTION PROCEDURE: MD DELIVERY ONLY OTHER SURGICAL HISTORY 2008 PROCEDURE: HISTORICAL PANNICULECTOMY OTHER SURGICAL HISTORY 10/08/2017 PROCEDURE: RADIOLOGIC EXAM ESOPHAGUS SINGLE CONTRAST STUDY; COMMENT: lap band in high position; erosive esophagitis, grade 3 Medical History Medical History Date Comments Anxiety DX:Anxiety GERD (gastroesophageal reflux disease) DX:GERD (gastroesophageal reflux disease) Chronic leg pain DX:Chronic leg pain Protein S deficiency ([facility] V24) DX:Protein S deficiency ([facility]) Vitamin D deficiency DX:Vitamin D deficiency Proteinuria DX:Proteinuria History of DVT (deep vein thrombosis) DX:History of DVT (deep vein thrombosis) Class 3 severe obesity due t o excess calories with serious comorbidity and body mass index (BMI) of 40.0 to 44.9 in adult ([facility] V24, [facility] V28) 03/01/2019 DX:Class 3 severe obesity due to excess calories with serious comorbidity and body mass index (BMI) of 40.0 to 44.9 in adult ([facility]) Osteoporosis DVT (deep venous thrombosis) ([facility] V24, [facility] V28) bilateral Family History Medical History Relation Name Comments Other: BLOOD CLOTTING DISORDER Brother HIV, HTN, [place], Liver disease Hypertension Mother Seizures, Arthr itis, [...] Safety Answer Date Record ed Physical Abuse Unrecognized value 02/13/2025 Verbal Abuse Unrecognized value 02/13/2025 Comments No Sex and Gender Information [...] AM EDT Office Visit Bariat[facility] Surgery [facility] [place] [address] [place] [address] Jeannine Doll MD [address] [place] [phone] Health Maintenance Due Date Last Done Comments Breast Cancer Screening 1970 Colorectal Cancer Screening: Colonoscopy 1970 Hepatitis B Vaccines (1 of 3 - 19+ 3-dose series) 1988 Cervical Cancer Screening: Pap Smear 1990 Pneumococcal Vaccine: 50+ Years (2 of 2 - PCV) 12/24/2017 12/24/2016, 05/14/2010 RSV Immunization Adult Patients (1 - Risk 50-74 years 1-dose series) 2019 Zoster Vaccines (1 of 2) 2019 HIV Screening 09/23/2022 Medicare Annual Wellness Visit 09/23/2022 Social Influencers of Health Screening 09/23/2022 Depression Screening 10/26/2024 COVID-19 Vaccine (1 - season) 2025 Influenza Vaccine (#1) 2025 7, [...] Procedure Name Priority Date/Time Associated Diagnosis Comments [facility] DEXA AXIAL SKELETON Routine 07/08/2024 8:21 AM EDT Encounter for screening for osteoporosis LIPID PANEL Routine 11/23/2019 from Last 3 Months or Most Recently Relevant to Health Maintenance Results * [facility] DEXA AXIAL SKELETON (07/08/2024 8:21 AM EDT) Anatomical Region Laterality Modality Mammography 07/07/2024 2:03 PM EDT Narrative 07/08/2024 8:21 AM EDT [facility] Diagnostic Imaging Department [address] [place] [address] Patient: JUDITH TOLEDO /Age/Sex: 1970 - 53 - F Unit#: [id number] Location/Status: SPDIMAM/REG CLI Mnemonic[facility] Ordering Physician: LAYNE RAMAN LAW WRITER [place] Dexa Axial Skeleton - 07/07/247 Report Status:Signed HISTORY: The patient is a [...] probability of hip fracture of 1.3%. Code 48286 Dictating Physician: RUFUS FRY MD Electronically Signed by: RUFUS FRY MD Dic Date/Time: 07/08/24819 Sign date/Time: 07/08/24820 Procedure Note Rufus Fry MD - 08/10/2024 [facility] Diagnostic Imaging Department [address] [place] [address] Patient: JUDITH TOLEDO./Age/Sex: 1970 - 53 - F Unit#: [id number] Location/Status: SPDIMAM/REG CLI Mnemonic/Ordering Site: [facility]X/SPMAM Ordering Physician: LAYNE RAMAN NP [place] Dexa Axial Skeleton - 07/07/24 - 1428 Report Status:Signed HISTORY: The patient is a [...] density of the femurs bilaterally is 0.713 gm/[id number] is 71% of that of young normals [...] probability of hip fracture of 1.3%. Code 32402 Dictating Physician: RUFUS FRY MD Electronically Signed [...] Insurance MEDICARE [place]ICA[place] - [place] Care Teams Warehouse Delivery Driver Relationship Specialty Start Date End Date Codi Ortega NP [address] [place], [place] PCP - General Internal Medicine 12/20/19
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
--- OUTSIDE RECORDS SUMMARY | 2025-08-10 10:30 | XMS_ITS | Encounter Summary ---
Author Organization [facility] Address [address] [place] [address] Phone Care Team Providers Care [place] [facility] Name Role Phone Jeannine Doll MD Unavailable [phone] Vinnie Davis MD Unavailable [phone] Adriana Rankin CNP Primary Care Provider Reason for Visit * Reason Comments Medication Refill Encounter Details Date Type Department Care Team (Late st Contact Info) Description 07/17/2025 Refill [facility] [address] [place] [address] Sunshine Lowry MD [address] [facility], [address] [place] [id number] [email or web address] Medication Refill Social History Tobacco Use Types Packs/Day Years Used Date Smoking Tobacco: Every Day Cigarettes Started: 10/31/2016; Last attempted to quit: 10/31/2019 Smokeless Tobacco: Never Comments:5/day Alcohol Use Standard Drinks/Week Comments No [...] as of this encounter Progress Notes * Celena Mueller LPN - 07/17/2025 1:27 PM EDT 1 year rx was sent 02/2025 documented in this encounter Plan of Treatment Upcoming Encounters Date Type Department Care Team (Late st Contact Info) Description 08/23/2025 10:00 AM EDT Nurse Only [facility] [address] [place] [id number] Mandi Nails MD [address] [address] 10/25/2025 9:00 AM EST Office Visit [facility] [address] [place] [address] Adriana Rankin CNP [address] [facility], [address] [place] [address] 08/08/2026 11:00 AM EDT Office Visit [facility] [address] [place] [address] Mandi Nails MD [address] [address] [email or web address] documented as of this encounter Visit Diagnoses Not on filedocumented in this encounter Additional Health Concerns Assessment Noted Time PHQ-2 Depression Total Score: 0 03/03/20 25 2:14 PM EDT documented as of this encounter Care Teams [place] [facility] Relationship Specialty Start Date End Date Adriana Rankin CNP [address] [place] [address], [address] [place] [address] [email or web address] PCP - General Nurse Practitioner 05/27/24 Jeannine Doll MD [address] [place] [id number] General Surgery 11/30/19 Vinnie Davis MD [address] [place] [phone] Internal Medicine 11/30/19 documented as of this encounter Additional Source Comments The information contained in this document represents components of the legal health record. It is not the complete legal health record.[facility]
== END 2025-08-10 09:18 | disposition home or self-care (01) ==
LOC: HO.MAMMO 09:17
PROVIDERS: PCP Nurse Practitioner Family; Visit Provider Nurse Practitioner Family
DX: Z12.31 Encounter for screening mammogram for malignant neoplasm of breast (principal)
CPT/HCPCS: 77063; 77067